=== PATIENT | female | born 1960 | race Caucasian/White ===

== ENCOUNTER 2016-04-07 03:34 | Emergency (ER) | payer BC ==
[~2016-04-07] VITALS: Ht 162.6 cm; Wt 71.0 kg
[~2016-04-07 03:34] MED LIST: B-COCAP2 PO; GINS100C; GLUCTAB18 PO; LYR100 PO; MTR/600; TEMA15CA4 PO; TRAM-10 PO
[2016-04-07 03:42] VITALS: TEMP 36.5; Ht 162.6 cm; Wt 71.0 kg
[2016-04-07] MEDS ORDERED: SODIUM CHLORIDE 0.9% 1000ML 1,000 ML IV STA (03:55)
[2016-04-07] MEDS ORDERED: OPTIRAY 320 IV PRN (04:15)
--- NOTE | 2016-04-07 04:23 | EMERGENCY ROOM VISIT NOTE ---
History Report prepared by Federica: Nettie Morales Under the Supervision of: Dr. Filippo Marquez M.D. First contact with patient: 03:52 Chief Complaint: HIP PAIN Stated Complaint: SEVERE PAIN IN LEFT HIP AND LEG History of Present Illness The patient is a 55 year old female who presents to the Emergency Room with complaints of left hip pain which has been constant since yesterday. Her pain is a 10/10 in severity and is worse when she bears weight. The pain radiates down her left leg. The patient notes that she twisted her leg yesterday, which she thinks may have triggered this pain. She does have a history of chronic left hip pain and receives Cortisone shots. 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 She did take her nighttime medications, Seroquel and Clonazepam, before bed. Source of History: patient Onset: yesterday Position: other (left hip) Symptom Intensity: 10/10 Timing: constant Modifying Factors (Worsening): other (bearing weight) Review of Systems See HPI for pertinent positives & negatives. A total of 10 systems reviewed and were otherwise negative. Past Medical & Surgical Medical Problems: (1) Bipolar disorder (2) Carcinoma of breast (3) Diabetes mellitus (4) Gastroesophageal reflux disease (5) Osteoporosis (6) r (7) [place] Teeth Removal Family History Patient reports no known family medical history. Social History Smoking Status: Current Every Day Smoker Alcohol Use: occasionally Marital Status: Housing Status: lives with significant other Occupation Status: unemployed Current/Historical Medications Scheduled Bupropion HCl (Bupropion HCl Xl), 300 MG PO QAM Bupropion Hcl (Wellbutrin Xl), 150 MG PO QAM Cholecalciferol (Vitamin D3), 1,000 UNIT PO DAILY Fenofibrate (Fenofibrate), 145 MG PO DAILY Ginseng (Ginseng Energy Booster), DAILY Glucosamine-Chondroitin (Osteo Bi-Flex Regular Str), 1 TAB PO BID Lisinopril (Lisinopril), 1 TAB PO QPM Metformin Hcl (Glucophage), 500 MG PO BIDM Methylprednisolone (Medrol Dosepak), 1 PKT PO UD Multivitamins/Minerals (Mvi With Minerals), 1 TAB PO DAILY Pregabalin (Lyrica), 100 MG PO BID Temazepam (Restoril), 15 MG PO HS Vitamin B Cmplx/Vitc/Folic Ac (Nephrocaps), 1 CAP PO DAILY Scheduled PRN Oxycodone Ir (Roxicodone Ir), 1-2 TAB PO Q4H PRN for Pain Tramadol (Ultram), 50 MG PO BID PRN for Pain Allergies Coded Allergies: Quinolones (Verified Allergy, Severe, ANAPHYLAXIS/CARDIAC ARREST, 04/07/16) Rizatriptan (Verified Allergy, Severe, SHORTNESS OF BREATH, 04/07/16) Amoxicillin (Verified Allergy, Mild, HIVES, 04/07/16) Ciprofloxacin (Verified Allergy, Mild, Palpitations, rash,, 04/07/16) Lamotrigine (Verified Allergy, Mild, RASH, 04/07/16) Neomycin (Verified Allergy, Mild, 04/07/16) Polymyxin B (Verified Allergy, Mild, 04/07/16) Adhesives (Verified Allergy, Unknown, ALLERGIC TO STERI-STRIPS, 04/07/16) Cephalosporins (Verified Allergy, Unknown, UNKN, 04/07/16) Citalopram (Verified Allergy, Unknown, UNKN, 04/07/16) Clavulanic Acid (Verified Allergy, Unknown, UNKN, 04/07/16) Metronidazole (Verified Allergy, Unknown, UNKN, 04/07/16) Paroxetine (Verified Allergy, Unknown, UNKN, 04/07/16) Penicillins (Verified Allergy, Unknown, UNKN, 04/07/16) Piperacillin (Verified Allergy, Unknown, BETALACTAMASE INHIBITORS, 04/07/16 ) Tazobactam (Verified Allergy, Unknown, BETALACTAMASE INHIBITORS, 04/07/16) Celecoxib (Verified Adverse Reaction, Intermediate, GI SYMPTOMS, 04/07/16) Gluten (Verified Adverse Reaction, Unknown, GI SYMPTOMS, 04/07/16) Physical Exam Vital Signs Date Time Temp Pulse Resp B/P Pulse Ox O2 Delivery O2 Flow Rate FiO2 04/07/16 06:44 85 14 97/62 97 04/07/16 06:10 79 14 95 04/07/16 05:58 131/77 04/07/16 05:40 79 12 95 04/07/16 05:28 108/75 04/07/16 05:10 80 14 91 04/07/16 05:05 82 21 92 04/07/16 04:58 102/60 04/07/16 04:35 76 22 95 04/07/16 04:35 75 18 105/76 97 Room Air 04/07/16 04:00 74 16 97/57 97 Room Air 04/07/16 03:54 73 04/07/16 03:51 86/54 04/07/16 03:42 36.5 74 16 76/46 96 Room Air Physical Exam GENERAL: Patient appears under the influence of sedative medications and in mild distress, slowly writhing on bed. HEENT: No acute trauma, normocephalic atraumatic, mucous membranes moist, no nasal congestion, no scleral icterus. NECK: No stridor, no adenopathy, no meningismus, trachea is midline. LUNGS: No dyspnea. Clear to auscultation and equal bilaterally. No wheeze, no rhonchi. HEART: Regular rate and rhythm. No murmurs, rubs, gallops appreciated. ABDOMEN: Soft, nontender, bowel sounds positive, no masses appreciated, no peritonitis. BACK: No midline tenderness, no CVA tenderness EXTREMITIES: Normal motion all extremities, no cyanosis, no edema. NEUROLOGIC: Alert and oriented, no acute motor or sensory deficits, no focal weakness, cranial nerves grossly intact. SKIN: No rash, no jaundice, no diaphoresis. Medical Decision & Procedures ER Provider Diagnostic Interpretation: CT results as stated below per interpretation by me and the radiologist: CT ABDOMEN & PELVIS: Compared with 01/05/16 Colonic diverticulosis without acute diverticulitis. No bowel obstruction or inflammatory changes. Fatty enlarged liver. Distended gallbladder. No CT evidence of pancreatitis. No obstructive uropathy. Stable 2.4 cm left adrenal nodule. Appendix not seen. Uterus and adnexa unremarkable. Lung bases clear Radiologist: Alida Diaz MD Laboratory Results 04/07/16 04:10 Red Blood Count 3.73, Mean Corpuscular Volume 95.2, Mean Corpuscular Hemoglobin 32.2, Mean Corpuscular Hemoglobin Concent 33.8, Mean Platelet Volume 10.5, Neutrophils (%) (Auto) 54.7, Lymphocytes (%) (Auto) 35.6, Monocytes (%) (Auto) 7.4, Eosinophils (%) (Auto) 1.3, Basophils (%) (Auto) 0.2, Neutrophils # (Auto) 6.96, Lymphocytes # (Auto) 4.52, Monocytes # (Auto) 0.94, Eosinophils # (Auto) 0.16, Basophils # (Auto) 0.02 04/07/16 04:10 Test 04/07/16 04:10 04/07/16 04:15 04/07/16 05:18 White Blood Count 12.70 K/uL (4.8-10.8) Red Blood Count 3.73 M/uL (4.2-5.4) Hemoglobin 12.0 g/dL (12.0-16.0) Hematocrit 35.5 % (37-47) Mean Corpuscular Volume 95.2 fL (80-100) Mean Corpuscular Hemoglobin 32.2 pg (25-34) Mean Corpuscular Hemoglobin Concent 33.8 g/dl (32-36) Platelet Count 220 K/uL (130-400) Mean Platelet Volume 10.5 fL (7.4-10.4) Neutrophils (%) (Auto) 54.7 % Lymphocytes (%) (Auto) 35.6 % Monocytes (%) (Auto) 7.4 % Eosinophils (%) (Auto) 1.3 % Basophils (%) (Auto) 0.2 % Neutrophils # (Auto) 6.96 K/uL (1.4-6.5) Lymphocytes # (Auto) 4.52 K/uL (1.2-3.4) Monocytes # (Auto) 0.94 K/uL (0.11-0.59) Eosinophils # (Auto) 0.16 K/uL (0-0.5) Basophils # (Auto) 0.02 K/uL (0-0.2) RDW Standard Deviation 49.3 fL (36.4-46.3) RDW Coefficient of Variation 14.4 % (11.5-14.5) Immature Granulocyte % (Auto) 0.8 % Immature Granulocyte # (Auto) 0.10 K/uL (0.00-0.02) Est Creatinine Clear Calc Drug Dose 60.0 ml/min Estimated GFR () 72.4 Estimated GFR (Non- 62.5 BUN/Creatinine Ratio 18.6 (10-20) Calcium Level 8.5 mg/dl (8.5-10.1) Bedside Hemoglobin 12.2 g/dl (12.0-16.0) Bedside Hematocrit 36 % (37-47) Bedside Sodium 141 mEq/L (135-144) Bedside Potassium 3.9 mEq/L (3.3-5.0) Bedside Chloride 103 mEq/L (101-112) Bedside Total CO2 23 mEq/l (24-31) Anion Gap 20.0 mmol/L (16-25) Bedside Blood Urea Nitrogen 19 mg/dl (7-18) Bedside Creatinine 0.9 mg/dl (0.6-1.3) Bedside Glucose (other) 123 mg/dl (70-99) Bedside Ionized Calcium (Annemarie) 1.22 mmol/l (1.12-1.32) Urine Color YELLOW Urine Appearance CLEAR (CLEAR) Urine pH 5.0 (4.5-7.5) Urine Specific [place] 1.030 (1.000-1.030) Urine Protein NEG (NEG) Urine Glucose (UA) NEG (NEG) Urine Ketones NEG (NEG) Urine Occult Blood NEG (NEG) Urine Nitrite NEG (NEG) Urine Bilirubin NEG (NEG) Urine Urobilinogen NEG (NEG) Urine Leukocyte Esterase TRACE (NEG) Urine WBC (Auto) 1-5 /hpf (0-5) Urine RBC (Auto) 0-4 /hpf (0-4) Urine Hyaline Casts (Auto) 1-5 /lpf (0-5) Urine Epithelial Cells (Auto) 10-20 /lpf (0-5) Urine Bacteria (Auto) NEG (NEG) Laboratory results as reviewed by me. Medications Administered Medications (Trade) Dose Ordered Sig/Jennifer Route Start Time Stop Time Status Last Admin Dose Admin Sodium Chloride (Nss 1000ml) 1,000 ml @ 999 mls/hr Q1H1M STAT IV 04/07/16 03:55 04/07/16 04:55 DC 04/07/16 04:35 999 MLS/HR Fentanyl Citrate (Fentanyl Inj) 100 mcg NOW STAT IV 04/07/16 04:37 04/07/16 04:38 DC 04/07/16 04:40 100 MCG Hydromorphone HCl (Dilaudid Inj) 1 mg NOW STAT IV 04/07/16 05:46 04/07/16 05:47 DC 04/07/16 06:07 1 MG Dexamethasone Sodium Phosphate (Decadron Inj) 10 mg NOW ONCE IV 04/07/16 06:00 04/07/16 06:01 DC 04/07/16 06:07 10 MG ED Course 0353: The patient was evaluated in room B2. A complete history and physical exam was performed. 0355: Ordered NSS 1000 ml @ 999 mls/hr IV. 0437: Ordered Fentanyl Citrate 100 mcg IV. 0450: I reassessed the patient. Her blood pressure has improved. 0546: I reassessed the patient. Initially she was feeling better but now her pain is starting to return. Ordered Dilaudid Inj 1 mg IV. 0600: Ordered Decadron Inj 10 mg IV. 0632: Reevaluated the patient. She was feeling much better and wants to go home. Discussed results and discharge instructions: She verbalized understanding and agreement. The patient is ready for discharge. Medical Decision Differential: Musculoskeletal, Disc Herniation, Fracture, Cord Compression, Discitis, Infectious, Aortic Pathology, Renal Colic, UTI/Pyelonephritis, Acute Exacerbation of Chronic Pain, Sciatica, Cauda Equina, amongst other pathologies entertained. 55 yr old female with acute worsening of left low back radiating down her left leg after twisting injury yesterday. She is in quite some distress though a bit hypotensive from her normal. She and her note she does run low but SBP 70s is lower than usual. Admits multiple sedative medications prior to going to bed. With hypotension and flank/back pain I felt there is no option but to get CT abdomen which fortunately was without acute intraabdominal findings. Given Fentanyl with improvement in BP. Pain much improved but did need some extra meds prior to discharge. She is stable without neuro deficits and feeling improved. This has happened before and improves with steroids. She will be given Rx for limited narcotics as this is weekend and no recent narc rx other than tramadol. She was stringently discussed with risks of taking other sedatives with these along with other contraindications. She is stable, feeling better and comfortable with outpatient therapy. Aware if out of control pain RTED, or if neuro deficits develop. She has no fevers to nor current reason to suspect epidural abscess. [place] Drug Monitoring [place] Search Results: patient reviewed within database, see additional documentation Drug Monitoring Findings: Multiple controlled prescriptions, narcotic being tramadol. Impression Primary Impression: Acute left-sided low back pain with sciatica Scribe Attestation The scribe's documentation has been prepared under my direction and personally reviewed by me in its entirety. I confirm that the note above accurately reflects all work, treatment, procedures, and medical decision making performed by me. Departure Information Dispostion Home / Self-Care Prescriptions Methylprednisolone (MEDROL DOSEPAK) 4 Mg Roberto 1 PKT PO UD for 6 Days, #1 PKT Prov: Filippo Marquez M.D. 04/07/16 Oxycodone Ir (Roxicodone Ir) 5 Mg Tab 1-2 TAB PO Q4H Y for Pain, #12 TAB Prov: Filippo Marquez M.D. 04/07/16 Referrals Justice Madera M.D. (PCP) Patient Instructions ED Sciatica, [facility] Additional Instructions You have received a narcotic pain medication prescription. These medications may cause drowsiness and should not be used with other sedative medications. Do not drive, drink alcohol, perform dangerous activities, nor make important decisions after taking these medications. assisted use or inappropriate use may lead to addiction. Problem Qualifiers Primary Impression: Acute left-sided low back pain with sciatica Sciatica laterality: sciatica of left side Qualified Codes: M54.42 - Lumbago with sciatica, left side
[2016-04-07 04:27] LABS: BASO % 0.2 %; BASO ABS # 0.02 K/uL (0-0.2); COMPLETE YES; EOS % 1.3 %; HEMATOCRIT 35.5 % (37-47); IG% 0.8 %; LYMPH % 35.6 %; LYMPH ABS # 4.52 K/uL (1.2-3.4); MEAN CELL VOLUME 95.2 fL (80-100); MEAN CORPUSCULAR HEMOGLOBIN 32.2 pg (25-34); MEAN CORPUSCULAR HGB CONC 33.8 g/dl (32-36); MEAN PLATELET VOLUME 10.5 fL (7.4-10.4); MONO % 7.4 %; NEUT % 54.7 %; PLATELET COUNT 220 K/uL (130-400); RED BLOOD COUNT 3.73 M/uL (4.2-5.4)
[2016-04-07 04:33] LABS: ISTAT CREATININE 0.9 mg/dl (0.6-1.3); ISTAT HEMOGLOBIN 12.2 g/dl (12.0-16.0); ISTAT IONIZED CALCIUM 1.22 mmol/l (1.12-1.32)
[2016-04-07] MEDS ORDERED: FENTANYL CITRATE INJ 50 MCG/1 ML 2 ML VIAL IV STA (04:37)
[2016-04-07 04:44] LABS: BUN/CREATININE RATIO 18.6 (10-20); CALCIUM 8.5 mg/dl (8.5-10.1); POTASSIUM 3.9 mmol/L (3.5-5.1)
[2016-04-07] MEDS ORDERED: HYDROmorphone INJ 1 MG/ML SYR IV STA (05:46)
[2016-04-07 05:49] LABS: URINE APPEARANCE CLEAR (CLEAR); URINE BILIRUBIN NEG (NEG); URINE COLOR YELLOW; URINE NITRITE NEG (NEG); UROBILINOGEN NEG (NEG); ZZUR CULT IF INDIC CLEAN CATCH NO
[2016-04-07 05:51] LABS: MANUAL MICROSCOPIC REQUIRED? NO; REVIEW REQ? NO
[2016-04-07] MEDS ORDERED: DEXAMETHASONE SOD INJ 10 MG/ML VIAL IV ONE (06:00)
[2016-04-07] MEDS ORDERED: OXYC1TAB3 PO (06:34)
[2016-04-07] MEDS ORDERED: METH4PAK PO (06:34)
[2016-04-07 06:44] VITALS: BP 97/62; PULSE 85; O2SAT 97
--- NOTE | 2016-04-07 08:25 | DIAGNOSTIC IMAGING REPORT ---
CT ABD/PELVIS IV CONTRAST ONLY CLINICAL HISTORY: Left-sided abdominal pain COMPARISON STUDY: 01/05/2016 TECHNIQUE: Following the IV administration of 92 mL of Optiray-320, CT scan of the abdomen and pelvis was performed from the lung bases to the proximal femurs. Images are reviewed in the axial, sagittal, and coronal planes. IV contrast was administered without complication. CT DOSE: 364.29 mGy.cm FINDINGS: Lower chest: The heart is normal in size and configuration, without pericardial effusion. The lung bases and pleural spaces are clear. Liver: There is hepatic steatosis. No focal masses are visualized. Gallbladder: Unremarkable. Spleen: Normal in size and attenuation. Pancreas: Unremarkable. Adrenal glands: There is a stable 28 mm left adrenal nodule Kidneys: There is symmetric renal cortical enhancement. The kidneys are normal in size without hydronephrosis. Bowel: There are no transition zones indicate bowel obstruction. There is no evidence of acute diverticulitis. By history the appendix is absent. Peritoneum: There is no intraperitoneal free air or abdominal ascites. Vasculature: The abdominal aorta is normal in course and caliber. Adenopathy: None. Pelvic viscera: The bladder, and pelvic viscera are unremarkable. Skeletal structures: No destructive osseous lesions are seen. IMPRESSION: 1. No evidence of bowel obstruction. No evidence of free air 2. No acute inflammatory changes 3. Hepatic steatosis 4. Stable 28 mm left adrenal gland nodule Electronically signed by: Hany Nieves M.D. 04/07/2016 8:24 AM Dictated Date/Time: 04/07/2016 8:20 AM
[2016-09-12] MEDS ORDERED: GABA1CAP PO (09:34)
[2016-10-31] MEDS ORDERED: CEFD300C2 PO (10:25)
[2016-10-31] MEDS ORDERED: METR-163 PO (10:25)
[2016-11-30] MEDS ORDERED: B-CO1CAP17 PO (04:45)
[2016-11-30] MEDS ORDERED: CHOL1000 PO (08:19)
[2016-11-30] MEDS ORDERED: QUET400T PO (09:34)
[2016-11-30] MEDS ORDERED: OMEG10007 PO (09:34)
[2016-11-30] MEDS ORDERED: NICO2GUM7 PO (09:34)
[2016-11-30] MEDS ORDERED: GLUCTAB18 PO (09:34)
[2016-11-30] MEDS ORDERED: IBUP-1427 PO (09:35)
== END 2016-04-07 06:44 | disposition home or self-care (01) ==
LOC: C.EDB 03:35
DX: M54.42 Lumbago with sciatica, left side (principal); F17.210 Nicotine dependence, cigarettes, uncomplicated; F31.9 Bipolar disorder, unspecified; I95.9 Hypotension, unspecified; M25.552 Pain in left hip; M81.0 Age-related osteoporosis without current pathological fracture; Z85.3 Personal history of malignant neoplasm of breast

== ENCOUNTER → 2016-05-25 | Outpatient (CLI) | payer BC ==
[~2016-05-25] MED LIST changes: +B-CO1CAP17 PO; -B-COCAP2 PO; +BUPRTAB PO; +CEFD300C2 PO; +CHOL1000 PO; +DOXY100C PO; +DXM/4 PO; +FENO1TAB24 PO; +GABA1CAP PO; +GABA1CAP4 PO; +GLC/500 PO; +IBUP-1427 PO; +LSN25 PO; +METH500T37 PO; +METR-163 PO; -MTR/600; +MULT-513 PO; +NICO2GUM7 PO; +OMEG10007 PO; +ONDA-63 PO; +OXYC-609 PO; +OXYC1TAB3 PO; +QUET400T PO; +WLLXL300 PO
--- NOTE | 2016-05-25 12:21 | DIAGNOSTIC IMAGING REPORT ---
MRI LUMBAR SPINE WITHOUT IV CONTRAST CLINICAL HISTORY: Fall with low back pain. Degenerative disc disease. COMPARISON STUDY: MRI of lumbar spine dated 08/11/2015. TECHNIQUE: MRI of the lumbar spine is performed utilizing various T1 and T2-weighted sequences in the axial and sagittal planes. IV contrast was not administered for this examination. FINDINGS: Lumbar spine: Vertebral body height and alignment are maintained throughout the lumbar spine. There is mild straightening of the lumbar lordosis. The transverse and spinous processes are intact as visualized. No destructive osseous lesion is seen. A hemangioma is again seen in the body of L1. There is no evidence of spondylolysis. Intervertebral discs: Mild degenerative disc desiccation is noted throughout the lumbar spine. Mild loss of height is seen at L3-L4. Spinal cord: The visualized spinal cord is normal in morphology and signal intensity. The conus medullaris terminates at the T12-L1 interspace. The nerve roots of the cauda equina are normal in appearance. L1-L2: Unremarkable. L2-L3: Unremarkable. L3-L4: There is minimal posterior disc bulge with annular fissure. There is no significant acquired compromise of the central canal. The minimum AP diameter at this level measures 9 mm. Mild bilateral subarticular stenosis is observed. The neural foramina are patent. Facet arthropathy is of no consequence. L4-L5: There is minimal posterior disc bulge with annular fissure. There is no significant acquired compromise of the central canal. The neural foramina are patent. L5-S1: Unremarkable. Sacrum: Visualized sacrum is normal in morphology and signal intensity. Soft tissues: The paraspinous soft tissues are within normal limits. The partially imaged retroperitoneal structures are grossly unremarkable but incompletely evaluated. IMPRESSION: 1. There is no disc herniation, central canal stenosis, or significant neural foraminal narrowing seen throughout the lumbosacral spine. 2. Mild degenerative disc disease as above, greatest at L3-L4 and L4-L5. 3. No destructive bony process is identified. Dictated: 05/25/2016 10:50 AM Transcribed: 05/25/2016 12:21 PM [facility] Electronically signed by: Colin Clifford M.D. 05/25/2016 12:22 PM Dictated Date/Time: 05/25/2016 10:50 AM
== END | disposition home or self-care (01) ==
LOC: C.MRIBC 09:45
PROVIDERS: ATTEND Orthopaedic Surgery Orthopaedic Surgery of the Spine
DX: M51.36 Other intervertebral disc degeneration, lumbar region (principal)

== ENCOUNTER → 2016-06-18 | Outpatient (CLI) | payer BC ==
[~2016-06-18] MED LIST changes: +ACET-749 PO
--- NOTE | 2016-06-19 15:17 | MAMMOGRAPHY REPORT ---
BILATERAL DIGITAL SCREENING MAMMOGRAM TOMOSYNTHESIS WITH CAD: 06/18/2016 CLINICAL HISTORY: Routine screening. Patient has no complaints. TECHNIQUE: Breast tomosynthesis in addition to standard 2D mammography was performed. Current study was also evaluated with a Computer Aided Detection (CAD) system. COMPARISON: Comparison is made to exams dated: 06/15/2015 mammogram, 05/13/2014 mammogram, 05/11/2013 ashli mogram, 04/10/2012 mammogram, 04/09/2011 mammogram, and 04/07/2010 mammogram - [facility] nter. BREAST COMPOSITION: The tissue of both breasts is heterogeneously dense, which may obscure small ma sses. FINDINGS: There is a focal asymmetry with possible associated distortion in the upper outer middle one third of the left breast, approximately 1:00 axis, for which additional targeted ultrasound and possible additional mammographic views are recommended. There is expected architectural distortion in the 12:00 left breast, from prior surgical excision. There are scattered stable rodlike and coarse calcifications bilaterally. No other suspicious mass, architectural distortion or cluster of microcalcifications is seen. IMPRESSION: ACR BI-RADS CATEGORY 0: INCOMPLETE EVALUATION: NEED ADDITIONAL IMAGING EVALUATION The focal asymmetry with possible associated architectural distortion in the left upper outer breast needs additional evaluation. The patient will be called to schedule an appointment. Approximately 10% of breast cancers are not detected with mammography. A negative mammographic repor t should not delay biopsy if a clinically suggestive mass is present. Amanda Cano M.D. ay/:06/18/2016 16:22:17 Rigging Engineer: Maggi ANGEL(R)(M), [facility] letter sent: Addl Imaging 0 BI-RADS Code: ACR BI-RADS Category 0: Incomplete Evaluation: Need Additional Imaging Evaluation
== END | disposition home or self-care (01) ==
LOC: C.MAMM 09:15
PROVIDERS: ATTEND Obstetrics & Gynecology
DX: Z12.31 Encounter for screening mammogram for malignant neoplasm of breast (principal); N64.89 Other specified disorders of breast

== ENCOUNTER → 2016-06-25 | Outpatient (CLI) | payer BC ==
--- NOTE | 2016-06-25 15:17 | MAMMOGRAPHY REPORT ---
UNILATERAL LEFT DIGITAL DIAGNOSTIC MAMMOGRAM TOMOSYNTHESIS AND TARGETED LEFT ULTRASOUND: 06/25/2016 CLINICAL HISTORY: 55 year-old woman called back from screening mammography for a focal asymmetry in the upper outer middle one third of the left breast. 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 She took Tamoxifen for 1 year. No radiation therapy. Family his tory of breast cancer = aunt. TECHNIQUE: Spot compression left CC and MLO 2-D digital and tomosynthesis images were obtained. COMPARISON: Comparison is made to exams dated: 06/18/2016 mammogram, 06/15/2015 mammogram, 05/13/2014 ma mmogram, 05/11/2013 mammogram, 04/09/2011 mammogram, and 04/07/2010 mammogram - [facility] nter. BREAST COMPOSITION: There are scattered areas of fibroglandular density in the left breast. FINDINGS: A linear scar marker overlies the 12:00 posterior left breast, denoting an area of prior s urgery. There is an irregular and somewhat spiculated 12 x 8 x 14 mm mass in the upper outer middle one third of the left breast. There are benign appearing rim and rodlike calcifications in the vis ualized left breast. No other obvious mass or focal area of architectural distortion is seen. No s uspicious clustered microcalcifications. Targeted ultrasound was performed in the left upper outer quadrant. In the 1:00 axis, 5 cm from the nipple, there is a hypoechoic solid mass with angular and indistinct borders measuring approximatel y 8.0 x 3.6 x 6.3 mm. As it is difficult to obtain accurate size measurements on ultrasound, the si ze may be underestimated on these images. This is thought to correlate with the focal mammographic asymmetry/mass. This is indeterminate, warranting further evaluation with tissue sampling. IMPRESSION: ACR BI-RADS CATEGORY 4B: INTERMEDIATE SUSPICION FOR MALIGNANCY, TARGETED ULTRASOUND ACR BI-RADS CATEGORY 4B: INTERMEDIATE SUSPICION FOR MALIGNANCY 1. Ultrasound guided core needle biopsy is recommended for an ill-defined hypoechoic solid angular and somewhat spiculated mass in the 1:00 left breast, 5 cm from the nipple. Accurate size measureme nts are difficult to obtain on ultrasound given the ill-defined borders, but the mass measures appro ximately 12 mm when measured mammographically. These results and recommendations were discussed with the patient at the time of the exam. She tent atively scheduled the biopsy prior to leaving our department. Approximately 10% of breast cancers are not detected with mammography. A negative mammographic repor t should not delay biopsy if a clinically suggestive mass is present. Amanda Cano M.D. ay/:06/25/2016 14:10:58 Revenue Manager: Jovanna DUMONT)(Radha), [facility] letter sent: Abnormal 4/5 BI-RADS Code: ACR BI-RADS Category 4B: Intermediate Suspicion For Malignancy Ultrasound BI-RADS: AC R BI-RADS Category 4B: Intermediate Suspicion For Malignancy
== END | disposition home or self-care (01) ==
LOC: C.MAMM 13:22
PROVIDERS: ATTEND Obstetrics & Gynecology
DX: N64.89 Other specified disorders of breast (principal)

== ENCOUNTER → 2016-07-06 | Outpatient (CLI) | payer BC ==
--- NOTE | 2016-07-06 11:09 | Discharge Instructions ---
Discharge Instructions Procedure Procedure Date: Jul 06, 2016. Reason for visit: Left Mass. Discharge Discharge Date: Jul 06, 2016. Discharge Diagnosis: status post breast biopsy Instructions Activity Recommendations: Additional Limitations (see below) Return to School/Work: no limitations Recommended Home Diet: No Limitations Provider Instructions: ACTIVITY RECOMMENDATIONS: * No lifting, pushing, pulling or exercising the affected side for three days. RETURN TO SCHOOL/WORK: * You may return to work/school after the procedure, but do not perform any strenuous activities for 24 to 48 hours. MEDICATIONS: * Tylenol (two 325 mg) every four to six hours if needed for mild pain (if not allergic to Tylenol). DIET: * Resume previous diet. SPECIAL CARE INSTRUCTIONS: * Keep biopsy site dry for 24 hours. May shower after 24 hours, but do not soak (bathe) incision. * May remove Tegaderm (plastic patch) tomorrow AFTER showering. * Leave the steri-strips on for one week. Allow the steri-strips to fall off by themselves. If not off after one week, you may remove them. You may place a Bandaid crosswise over the strips, if desired. * Apply ice 10 minutes on and 10 minutes off as needed. * Wear a bra at bedtime to sleep more comfortably for 2-3 days. * Your referring physician should have the results after approximately 5 to 7 business days. * Call for unusual bleeding, fever, drainage, etc or if you have any questions call during normal business hours or after hours call Dr Saavedra, [phone]. FOLLOW UP VISIT: Follow-up with Referring Physician as scheduled. Allergies Coded Allergies: Quinolones (Verified Allergy, Severe, ANAPHYLAXIS/CARDIAC ARREST, 04/07/16) Rizatriptan (Verified Allergy, Severe, SHORTNESS OF BREATH, 04/07/16) Amoxicillin (Verified Allergy, Mild, HIVES, 04/07/16) Ciprofloxacin (Verified Allergy, Mild, Palpitations, rash,, 04/07/16) Lamotrigine (Verified Allergy, Mild, RASH, 04/07/16) Neomycin (Verified Allergy, Mild, 04/07/16) Polymyxin B (Verified Allergy, Mild, 04/07/16) Adhesives (Verified Allergy, Unknown, ALLERGIC TO STERI-STRIPS, 04/07/16) Cephalosporins (Verified Allergy, Unknown, UNKN, 04/07/16) Citalopram (Verified Allergy, Unknown, UNKN, 04/07/16) Clavulanic Acid (Verified Allergy, Unknown, UNKN, 04/07/16) Metronidazole (Verified Allergy, Unknown, UNKN, 04/07/16) Paroxetine (Verified Allergy, Unknown, UNKN, 04/07/16) Penicillins (Verified Allergy, Unknown, UNKN, 04/07/16) Piperacillin (Verified Allergy, Unknown, BETALACTAMASE INHIBITORS, 04/07/16 ) Tazobactam (Verified Allergy, Unknown, BETALACTAMASE INHIBITORS, 04/07/16) Celecoxib (Verified Adverse Reaction, Intermediate, GI SYMPTOMS, 04/07/16) Gluten (Verified Adverse Reaction, Unknown, GI SYMPTOMS, 04/07/16) Aide Merrill Recommendations: Call your doctor if: * Temperature above 101 degrees * Pain not relieved by pain medicine ordered * There is increased drainage or redness from any incision * You have any unanswered questions or concerns. Your Doctors Instructions noted above were prepared by provider Carola Saavedra. Patient Signature Section: Patient Instructions Signature Page Shaheed Son Patient (or Guardian) Signature/Date: I have read and understand the instructions given to me by my caregivers. Caregiver/RN/Doctor Signature/Date: The above-named patient and/or guardian has received patient instructions on this date. + Original Patient Signature Page (only) stays with chart. Please make copy for patient.
--- NOTE | 2016-07-06 14:57 | MAMMOGRAPHY REPORT ---
UNILATERAL LEFT DIGITAL DIAGNOSTIC MAMMOGRAM TOMOSYNTHESIS: 07/06/2016 CLINICAL HISTORY: Status post ultrasound guided biopsy of the left 1:00 breast mass. TECHNIQUE: Breast tomosynthesis in addition to standard 2D mammography was performed. Postprocedur al left CC and ML tomosynthesis images including C views were obtained. COMPARISON: Comparison is made to exams dated: 06/25/2016 ultrasound, 06/25/2016 mammogram, 06/18/2016 mammogram, 06/15/2015 mammogram, 05/13/2014 mammogram, and 05/11/2013 mammogram - [facility]. BREAST COMPOSITION: There are scattered areas of fibroglandular density in the left breast. FINDINGS: A new biopsy marker clip is seen at the site of the biopsied mass in the left 1:00 breast . No significant postbiopsy hematoma is seen. IMPRESSION: POST PROCEDURE IMAGING FOR MARKER PLACEMENT New biopsy marker clip status post left breast biopsy. Pathology results are pending. Approximately 10% of breast cancers are not detected with mammography. A negative mammographic repor t should not delay biopsy if a clinically suggestive mass is present. Carola Saavedra M.D. /:07/06/2016 11:19:06 Comic Book Artist: Judd ANGEL(R)(M), [facility] BI-RADS Code: Post Procedure Imaging For Marker Placement
--- NOTE | 2016-07-06 14:57 | MAMMOGRAPHY REPORT ---
THIS REPORT HAS BEEN AMENDED. AMENDMENT: 07/18/2016 Carola Saavedra M.D. The pathology from ultrasound-guided biopsy of a left 1:00 breast mass was reviewed on 07/18/2016. 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 The pathology is concordant with the imaging findings. Recommend surgical consultation. Also recommend preoperativ e bilateral breast MRI, given the subtle mammographic appearance of the malignancy and given dense b reasts mammographically. ULTRASOUND GUIDED BIOPSY LEFT BREAST: 07/06/2016 CLINICAL HISTORY: Left 1:00 breast mass. PATIENT CONSENT: The procedure, risks and benefits were discussed with the patient and informed writ ten consent was obtained. A timeout was performed immediately prior to the procedure. PROCEDURE DESCRIPTION: With ultrasound guidance, aseptic technique, and lidocaine as the local anest hetic (1% lidocaine to anesthetize the skin and 1% lidocaine with epinephrine to anesthetize the mateo per tissues), the mass of concern in the left 1:00 breast was sampled 4 times with a 14-gauge Achiev e biopsy needle. Immediately thereafter, with ultrasound guidance, aseptic technique, and lidocaine as the local anesthetic, a metallic localizer clip was placed centrally in the mass. Direct pressu re was applied to the site immediately post procedure and hemostasis was achieved. Postprocedure un ilateral mammograms were performed to confirm placement of the clip in the expected location of the breast mass. The patient tolerated the procedure without complication. She was given wound care in structions. The specimens were sent to pathology for analysis. COMPARISON: Comparison is made to exams dated: 06/25/2016 mammogram, 06/18/2016 mammogram, 06/15/2015 m ammogram, 05/13/2014 mammogram, 05/11/2013 mammogram, and 04/10/2012 mammogram - [facility]. IMPRESSION: ULTRASOUND GUIDED BIOPSY Ultrasound guided core needle biopsy of the left 1:00 breast mass, with clip placement. The patient will receive pathology results from her referring provider. Carola Saavedra M.D. /:07/06/2016 11:10:21 Attending Technologist: Judd ANGEL(Delroy)(Radha), [facility] Aerial Applicator Pilot: Carola Saavedra MD, [facility]
== END | disposition home or self-care (01) ==
LOC: C.MAMM 10:07
PROVIDERS: ATTEND Obstetrics & Gynecology
DX: C50.912 Malignant neoplasm of unspecified site of left female breast (principal)

== ENCOUNTER → 2016-07-20 | Outpatient (CLI) | payer BC ==
[~2016-07-20] MED LIST changes: +GADAVIST IV PRN
--- NOTE | 2016-07-23 14:46 | MAMMOGRAPHY REPORT ---
BREAST MRI OF BOTH BREASTS : 07/20/2016 CLINICAL HISTORY: Recent ultrasound core needle biopsy of a left breast mass, with pathology yieldin g invasive carcinoma with ductal and lobular features. COMPARISON: Comparison is made to exams dated: 07/06/2016 mammogram, 06/25/2016 mammogram, 06/18/2016 mammogram, 06/15/2015 mammogram, 05/13/2014 mammogram, and 05/11/2013 mammogram - [facility] nt. Technique: The patient was placed prone in a dedicated breast imaging coil. Precontrast axial T1-we ighted, axial T2-weighted fat saturation, and axial T1-weighted fat saturation images were obtained. After the administration of 7 mL of Gadavist IV contrast, sequential T1-weighted fat saturation im ages were obtained. Subtraction images were obtained of the dynamic contrast enhanced sequences, an d 3-D reformations were performed. The [employer] software was used for kinetic analysis. Findings: Right breast: There is mild background parenchymal enhancement. There is a linear area of non-mass enhancement me asuring 6 mm within the right 12:00 breast middle depth, which demonstrates a mixed kinetic pattern including washout kinetics (series 55499 image 46 and series 6 image 101). Given the linear distrib ution of the enhancement and given the presence of washout kinetics, the enhancement is indeterminat e. As the abnormality would likely not be seen on ultrasound, recommend MRI guided core needle biop sy for further evaluation. The remainder of the right breast demonstrates no suspicious masses or o ther abnormal enhancement. Left breast: There is mild background parenchymal enhancement. There is an enhancing irregular mass seen in the left 1:00 breast middle depth, consistent with the biopsy proven malignancy. The mass measures measuring 13 x 14 x 10 mm (series 28609 image 50 and series 6 image 19). Susceptibility ar tifact is seen within the mass from a biopsy marker clip. The mass demonstrates mixed kinetic patte rn including suspicious washout kinetics. The remainder of the left breast is negative, with no soy picious enhancing masses or other abnormal enhancement noted. There is no evidence of axillary adenopathy. The chest wall structures are negative. Visualized ex tramammary soft tissues are grossly unremarkable. IMPRESSION: ACR BI-RADS CATEGORY 4: SUSPICIOUS 1. Irregular enhancing 14 mm mass in the left 1:00 breast, consistent with the biopsy-proven malign alberto. 2. Linear non-mass enhancement measuring 6 mm in the right 12:00 breast. Given the linear distribu tion and given that it exhibits washout kinetics, it is indeterminate and MRI guided core needle bio psy is recommended for further evaluation. A phone call was made to the physician's office to confirm faxed results were received. Carola Saavedra M.D. ah/:07/21/2016 15:37:32 Campus Aide: population geneticist, [facility] BI-RADS Code: ACR BI-RADS Category 4: Suspicious
== END | disposition home or self-care (01) ==
LOC: C.MRI 06:24
PROVIDERS: ATTEND Surgery
DX: C50.911 Malignant neoplasm of unspecified site of right female breast (principal)

== ENCOUNTER → 2016-08-08 | Outpatient (CLI) | payer BC ==
[~2016-08-08] MED LIST changes: +LIDO/EPINEPHRINE/SOD BICARB 20 ML VIAL INFIL ONE; +XYLOCAINE 1%/SOD BICARB 20 ML VIAL INFIL ONE
--- NOTE | 2016-08-08 12:41 | Discharge Instructions ---
Discharge Instructions Procedure Procedure Date: August 08, 2016. Reason for visit: Right Non-Mass Enhancement. Discharge Discharge Date: August 08, 2016. Discharge Diagnosis: post right breast MRI guided biopsy Instructions Activity Recommendations: Additional Limitations (see below) Return to School/Work: no limitations Recommended Home Diet: No Limitations Provider Instructions: ACTIVITY RECOMMENDATIONS: * No lifting, pushing, pulling or exercising the affected side for three days. RETURN TO SCHOOL/WORK: * You may return to work/school after the procedure, but do not perform any strenuous activities for 24 to 48 hours. MEDICATIONS: * Tylenol (two 325 mg) every four to six hours if needed for mild pain (if not allergic to Tylenol). DIET: * Resume previous diet. SPECIAL CARE INSTRUCTIONS: * Keep biopsy site dry for 24 hours. May shower after 24 hours, but do not soak (bathe) incision. * May remove Tegaderm (plastic patch) tomorrow AFTER showering. * Leave the steri-strips on for one week. Allow the steri-strips to fall off by themselves. If not off after one week, you may remove them. You may place a Bandaid crosswise over the strips, if desired. * Apply ice 10 minutes on and 10 minutes off as needed. * Wear a bra at bedtime to sleep more comfortably for 2-3 days. * Your referring physician should have the results after approximately 5 to 7 business days. * Call for unusual bleeding, fever, drainage, etc or if you have any questions call [phone] during normal business hours or after hours call Dr Cano, . FOLLOW UP VISIT: Follow-up with Referring Physician as scheduled. Allergies Coded Allergies: Quinolones (Verified Allergy, Severe, ANAPHYLAXIS/CARDIAC ARREST, 04/07/16) Rizatriptan (Verified Allergy, Severe, SHORTNESS OF BREATH, 04/07/16) Amoxicillin (Verified Allergy, Mild, HIVES, 04/07/16) Ciprofloxacin (Verified Allergy, Mild, Palpitations, rash,, 04/07/16) Lamotrigine (Verified Allergy, Mild, RASH, 04/07/16) Neomycin (Verified Allergy, Mild, 04/07/16) Polymyxin B (Verified Allergy, Mild, 04/07/16) Adhesives (Verified Allergy, Unknown, ALLERGIC TO STERI-STRIPS, 04/07/16) Cephalosporins (Verified Allergy, Unknown, UNKN, 04/07/16) Citalopram (Verified Allergy, Unknown, UNKN, 04/07/16) Clavulanic Acid (Verified Allergy, Unknown, UNKN, 04/07/16) Metronidazole (Verified Allergy, Unknown, UNKN, 04/07/16) Paroxetine (Verified Allergy, Unknown, UNKN, 04/07/16) Penicillins (Verified Allergy, Unknown, UNKN, 04/07/16) Piperacillin (Verified Allergy, Unknown, BETALACTAMASE INHIBITORS, 04/07/16 ) Tazobactam (Verified Allergy, Unknown, BETALACTAMASE INHIBITORS, 04/07/16) Celecoxib (Verified Adverse Reaction, Intermediate, GI SYMPTOMS, 04/07/16) Gluten (Verified Adverse Reaction, Unknown, GI SYMPTOMS, 04/07/16) Adie Merrill Recommendations: Call your doctor if: * Temperature above 101 degrees * Pain not relieved by pain medicine ordered * There is increased drainage or redness from any incision * You have any unanswered questions or concerns. Your Doctors Instructions noted above were prepared by provider Amanda Cano. Patient Signature Section: Patient Instructions Signature Page Shaheed Son Patient (or Guardian) Signature/Date: I have read and understand the instructions given to me by my caregivers. Caregiver/RN/Doctor Signature/Date: The above-named patient and/or guardian has received patient instructions on this date. + Original Patient Signature Page (only) stays with chart. Please make copy for patient.
--- NOTE | 2016-08-08 14:09 | MAMMOGRAPHY REPORT ---
MRI BIOPSY RIGHT BREAST: 08/08/2016 CLINICAL HISTORY: 6 mm linear non-mass enhancement in the 12:00 middle one third of the right breast . Patient presents for MRI guided biopsy. History of recent biopsy-proven left breast cancer. COMPARISON: Comparison is made to exams dated: 07/20/2016 breast MRI, 07/06/2016 ultrasound biopsy, mammogram, 06/25/2016 ultrasound, 06/25/2016 mammogram, and 06/18/2016 mammogram - [facility]. PATIENT CONSENT: After explaining the risks, benefits and alternatives of the procedure to the patie nt, informed consent was obtained both verbally and in writing. Specific risks include: Bleeding, i nfection, puncture of adjacent structure, medication reaction, breast or lung injury, pain, non-targ et biopsy, sampling error. PROCEDURE DESCRIPTION: A timeout was performed prior to starting the procedure, and the right breast was agreed as the site for biopsy. The patient was placed prone on a 1.5 Darlene MRI scanner. The lateral aspect of the right breast was cleansed with ChloraPrep. The right breast was then positioned in a dedicated breast coil and MRI guidance grid device. After localizing sequences were obtained, pre-and postcontrast axial sequences were obtained, using 7.5 mL of Gadavist without immediate reaction. The postcontrast images confirm the persistence of t he non-mass enhancement with suspicious kinetics in the 12:00 right breast. Using these images, tar geting was performed using [employer] software. The skin was re-prepped with Betadine through the grid, and after local anesthesia was achieved, an introducer sheath and localizing coning machine operator were placed into right breast via a lateral approach. The location of the obturator sheath was confirmed with additional axial images. Then 7 samples were o btained with a [employer] 9-gauge vacuum-assisted biopsy device. Post biopsy images demonstrate good sampling of the lesion, therefore, through the introducer sheath , a metallic biopsy marker clip was placed. The patient tolerated the procedure well and there was no immediate complication. Hemostasis was ac hieved after several minutes of manual compression. The samples were sent expedited to the patholog y department in an appropriately labeled container. Postprocedure mammography demonstrates a new dumbbell-shaped metallic biopsy marker clip and no sign ificant hematoma in the 12:00 middle one third of the right breast, at the site of biopsied non-mass enhancement seen on MRI. IMPRESSION: MRI BIOPSY Status post MRI guided biopsy of linear non-mass enhancement in the 12:00 right breast, with biopsy marker placed at the site. The patient will receive notification of the biopsy results from her referring physician. Amanda Cano M.D. ay/:08/08/2016 12:52:32 Director Building: freelance operator, [facility]
--- NOTE | 2016-08-08 14:11 | MAMMOGRAPHY REPORT ---
UNILATERAL RIGHT DIGITAL DIAGNOSTIC MAMMOGRAM: 08/08/2016 CLINICAL HISTORY: Status post MRI guided biopsy of linear non-mass enhancement in the 12:00 right br east. Personal history of recent biopsy-proven left breast cancer. Please refer to report from MRI guided biopsy of the right breast performed at the same time for ful l detail. IMPRESSION: POST PROCEDURE IMAGING FOR MARKER PLACEMENT Please refer to report from MRI guided biopsy of the right breast performed at the same time for ful l detail. Approximately 10% of breast cancers are not detected with mammography. A negative mammographic repor t should not delay biopsy if a clinically suggestive mass is present. Amanda Cano M.D. ay/:08/08/2016 12:48:21 Scada Technician: Judd ANGEL(R)(M), [facility] BI-RADS Code: Post Procedure Imaging For Marker Placement
== END | disposition home or self-care (01) ==
LOC: C.MRI 10:27
PROVIDERS: ATTEND Surgery
DX: N64.89 Other specified disorders of breast (principal); R92.0 Mammographic microcalcification found on diagnostic imaging of breast

== ENCOUNTER → 2016-08-16 | Outpatient (CLI) | payer BC ==
[~2016-08-16] MED LIST changes: -GADAVIST IV PRN; -LIDO/EPINEPHRINE/SOD BICARB 20 ML VIAL INFIL ONE; -XYLOCAINE 1%/SOD BICARB 20 ML VIAL INFIL ONE
--- NOTE | 2016-08-16 15:04 | DIAGNOSTIC IMAGING REPORT ---
LEFT BREAST LYMPHOSCINTIGRAPHY CLINICAL HISTORY: Left breast cancer. COMPARISON STUDY: Diagnostic left mammogram June 25, 2016. PROCEDURE: Left breast lymphoscintigraphy was performed. The procedure was discussed with the patient and informed consent was obtained. The procedure was performed by Dr. Del Real following a timeout. A total of 0.501 mCi of Lymphoseek was injected at 2:45 PM on August 16, 2016 in 5 intradermal aliquots within the upper outer quadrant of the left breast as directed. No imaging was requested at this time. The patient tolerated the procedure well and no immediate complications were evident. IMPRESSION: Left breast lymphoscintigraphy. Electronically signed by: Buddy Del Real M.D. 08/16/2016 3:02 PM Dictated Date/Time: 08/16/2016 3:01 PM
== END | disposition home or self-care (01) ==
LOC: C.NUCL 14:25
PROVIDERS: ATTEND Surgery
DX: C50.912 Malignant neoplasm of unspecified site of left female breast (principal)

== ENCOUNTER → 2016-08-23 | Outpatient (CLI) | payer BC | END | disposition home or self-care (01) | LOC: C.PAPS 08:08 | PROVIDERS: ATTEND Obstetrics & Gynecology | DX: Z01.411 Encounter for gynecological examination (general) (routine) with abnormal findings (principal) ==

== ENCOUNTER → 2016-10-03 | Outpatient (CLI) | payer BC ==
[~2016-10-03] VITALS: Ht 162.6 cm; Wt 74.7 kg
[~2016-10-03] MED LIST changes: -ACET-749 PO; -GINS100C; -LYR100 PO; -OXYC1TAB3 PO; -TEMA15CA4 PO
[2016-10-03 09:04] VITALS: Ht 162.6 cm; Wt 74.7 kg
--- NOTE | 2016-10-03 09:40 | PAT Medication Instructions ---
Service Date Oct 03, 2016. Current Home Medication List Bupropion HCl (Bupropion HCl Xl), 300 MG PO QAM Bupropion Hcl (Wellbutrin Xl), 150 MG PO QAM Cholecalciferol (Vitamin D3), 2,000 UNIT PO QAM Fenofibrate (Fenofibrate), 145 MG PO QAM Fish Oil (Jal-3), 1 CAP PO BID Gabapentin (Neurontin), 1 CAP PO BID Glucosamine-Chondroitin (Osteo Bi-Flex Regular Str), 1 TAB PO BID Ibuprofen Tab (Motrin), 1 TAB PO TID PRN for Pain Lisinopril (Lisinopril), 1 TAB PO QPM Metformin Hcl (Glucophage), 500 MG PO BIDM Multivitamins/Minerals (Mvi With Minerals), 1 TAB PO QAM Nicotine Polacrilex (Nicorette 2MG Gum), 2 MG PO DAILY Quetiapine Fumarate Xr (Seroquel Xr Tab), 400 MG PO HS Tramadol (Ultram), 50 MG PO Q6H PRN for Pain Vitamin B Cmplx/Vitc/Folic Ac (Nephrocaps), 1 CAP PO QAM Medication Instructions For Your Scheduled Surgery - Check with surgeon for instructions: Ibuprofen Tab (Motrin), 1 TAB PO TID PRN for Pain - Hold the following medications 2 weeks prior to surgery: Glucosamine-Chondroitin (Osteo Bi-Flex Regular Str), 1 TAB PO BID Fish Oil (Jal-3), 1 CAP PO BID - Hold the following medications 48 hours prior to surgery: Metformin Hcl (Glucophage), 500 MG PO BIDM - Hold the following medications the morning of surgery: Vitamin B Cmplx/Vitc/Folic Ac (Nephrocaps), 1 CAP PO QAM Nicotine Polacrilex (Nicorette 2MG Gum), 2 MG PO DAILY Multivitamins/Minerals (Mvi With Minerals), 1 TAB PO QAM Fenofibrate (Fenofibrate), 145 MG PO QAM Cholecalciferol (Vitamin D3), 2,000 UNIT PO QAM - Take the following medications the morning of surgery with a sip of water: Tramadol (Ultram), 50 MG PO Q6H PRN for Pain (okay to take up to 4 hours prior to surgery if needed) Bupropion HCl (Bupropion HCl Xl), 300 MG PO QAM Bupropion Hcl (Wellbutrin Xl), 150 MG PO QAM Gabapentin (Neurontin), 1 CAP PO BID - Hold the following medications as scheduled the night before surgery: Lisinopril (Lisinopril), 1 TAB PO QPM - Take the following medications as scheduled the night before surgery: Quetiapine Fumarate Xr (Seroquel Xr Tab), 400 MG PO HS Tramadol (Ultram), 50 MG PO Q6H PRN for Pain (if needed) Gabapentin (Neurontin), 1 CAP PO BID If you have any questions please call us at [phone] or [phone] or [phone]
[2016-10-03 10:33] LABS: BASO % 0.3 %; BASO ABS # 0.03 K/uL (0-0.2); COMPLETE YES; EOS % 1.9 %; HEMATOCRIT 37.6 % (37-47); IG% 1.2 %; LYMPH % 45.4 %; LYMPH ABS # 4.74 K/uL (1.2-3.4); MEAN CELL VOLUME 98.4 fL (80-100); MEAN CORPUSCULAR HEMOGLOBIN 32.5 pg (25-34); MEAN PLATELET VOLUME 10.4 fL (7.4-10.4); MONO % 6.5 %; NEUT % 44.7 %; PLATELET COUNT 266 K/uL (130-400); RED BLOOD COUNT 3.82 M/uL (4.2-5.4); WHITE BLOOD COUNT 10.43 K/uL (4.8-10.8)
[2016-10-03 10:43] LABS: BUN/CREATININE RATIO 19.6 (10-20); CALCIUM 9.4 mg/dl (8.5-10.1); CREATININE 0.84 mg/dl (0.60-1.20); POTASSIUM 5.1 mmol/L (3.5-5.1)
== END | disposition home or self-care (01) ==
LOC: C.LAB 08:00 → EDSTATUS 10-22 10:46
PROVIDERS: ATTEND Surgery
DX: Z01.812 Encounter for preprocedural laboratory examination (principal); Z01.810 Encounter for preprocedural cardiovascular examination

== ENCOUNTER 2016-10-27 13:38 | Emergency (ER) | payer BC ==
[~2016-10-27] VITALS: Ht 162.6 cm; Wt 72.9 kg
[~2016-10-27 13:38] MED LIST changes: -B-CO1CAP17 PO; -BUPRTAB PO; -CEFD300C2 PO; -CHOL1000 PO; -DOXY100C PO; -DXM/4 PO; -FENO1TAB24 PO; -GABA1CAP4 PO; -GLC/500 PO; -GLUCTAB18 PO; -IBUP-1427 PO; -LSN25 PO; -METH500T37 PO; -METR-163 PO; -MULT-513 PO; -NICO2GUM7 PO; -OMEG10007 PO; -ONDA-63 PO; -OXYC-609 PO; -QUET400T PO; -WLLXL300 PO
[2016-10-27 13:49] VITALS: TEMP 36.8; Ht 162.6 cm; Wt 72.9 kg
[2016-10-27] MEDS ORDERED: HYDROCODONE/ACETAMOPHEN 5/325MG TAB PO STA (15:13)
[2016-10-27] MEDS ORDERED: DIPHTHERIA/TETANUS/PERTUSSIS 0.5 ML SYR/VIAL IM. ONE (15:15)
[2016-10-27] MEDS ORDERED: DOXY100C PO (15:16)
--- NOTE | 2016-10-27 15:17 | EMERGENCY ROOM VISIT NOTE ---
History First contact with patient: 13:52 Chief Complaint: BITE Stated Complaint: DOG BITE/PUNCTURE WOUND, VERY PAINFUL History of Present Illness The patient is a 56 year old female who presents to the Emergency Room with complaints of a dog bite of her right leg. The patient states that she was at her sister's house yesterday evening. She reports that one of the neighbors was there with a dog. She walked up the stairs beside the dog carrying a chair. She states that the dog is blind and she feels that she spooked the dog , which bit her in her right leg. She spoke to the dog's owner consulting engineer, who is almost certain that the dog's rabies vaccinations are up-to-date. The dog has not been aggressive in any way. There has been no unusual behavior from the dog. The patient has breast cancer and is currently receiving chemotherapy. She believes that her tetanus is up-to-date, but is not sure when her last vaccination was. She believes that she had a tetanus in 2004. She rates her current discomfort an 8/10. Review of Systems A complete 10 point review of systems was reviewed with the patient with pertinent positives and negatives as per history of present illness. All else were negative. Past Medical/Surgical History Medical Problems: (1) Bipolar disorder (2) Carcinoma of breast (3) Diabetes mellitus (4) Gastroesophageal reflux disease (5) Osteoporosis (6) r (7) [place] Teeth Removal Family History Patient reports no known family medical history. Social History Smoking Status: Never Smoker Alcohol Use: occasionally Marital Status: Housing Status: lives with significant other Occupation Status: unemployed Current/Historical Medications Scheduled Bupropion HCl (Bupropion HCl Xl), 300 MG PO QAM Bupropion Hcl (Wellbutrin Xl), 150 MG PO QAM Cholecalciferol (Vitamin D3), 2,000 UNIT PO QAM Dexamethasone (Decadron), 2 TAB PO BID Doxycycline Hyclate (Vibramycin), 100 MG PO BID Fenofibrate (Fenofibrate), 145 MG PO QAM Fish Oil ([place]-3), 1 CAP PO BID Gabapentin (Gabapentin), 300 MG PO BID Glucosamine-Chondroitin (Osteo Bi-Flex Regular Str), 1 TAB PO BID Lisinopril (Lisinopril), 1 TAB PO QPM Metformin Hcl (Glucophage), 500 MG PO BIDM Methocarbamol (Robaxin), 500 MG PO TID Multivitamins/Minerals (Mvi With Minerals), 1 TAB PO QAM Nicotine Polacrilex (Nicorette 2MG Gum), 2 MG PO DAILY Ondansetron (Ondansetron HCl), 1 TAB PO Q8 Quetiapine Fumarate Xr (Seroquel Xr Tab), 400 MG PO HS Vitamin B Cmplx/Vitc/Folic Ac (Nephrocaps), 1 CAP PO QAM Scheduled PRN Ibuprofen Tab (Motrin), 1 TAB PO TID PRN for Pain Tramadol (Ultram), 50 MG PO Q6H PRN for Pain Physical Exam Vital Signs Date Time Temp Pulse Resp B/P (MAP) Pulse Ox O2 Delivery O2 Flow Rate FiO2 10/27/16 15:32 87 20 133/71 100 10/27/16 13:49 36.8 98 18 128/79 93 Room Air Physical Exam VITALS: Vitals are noted on the nurse's note and reviewed by myself. Vital signs stable. GENERAL: This is a 48-year-old female, in no acute distress, nondiaphoretic, well-developed well-nourished. SKIN: There is a small puncture wound with surrounding ecchymosis to the right medial lower leg. The wound measures less than 1 cm in length. There is no significant surrounding erythema to suggest cellulitis. HEART: Regular rate and rhythm without murmurs gallops or rubs. LUNGS: Clear to auscultation bilaterally without wheezes, rales or rhonchi. NEURO: Patient was alert and oriented to person place and time. Medical Decision & Procedures Medications Administered Medications (Trade) Dose Ordered Sig/Jennifer Route Start Time Stop Time Status Last Admin Dose Admin Diphtheria/ Pertussis/Tetanus Vacc (Adacel Inj) 0.5 ml ONCE ONCE IM. 10/27/16 15:15 10/27/16 15:16 DC 10/27/16 15:22 0.5 ML Acetaminophen/ Hydrocodone Bitart (Clarita 5/325 Tab) 1 tab NOW STAT PO 10/27/16 15:13 10/27/16 15:15 DC 10/27/16 15:21 1 TAB Medical Decision The patient was evaluated as above. She sustained a puncture wound to the right lower leg. There is no evidence of cellulitis at this time. The dog's owner consulting engineer reports that the vaccinations are up-to-date and I recommended holding off on rabies vaccination pending the confirmation of this. The patient was given a tetanus vaccination. She was given 1 tablet Clarita for pain in the emergency department. Since the patient is immunocompromised, she will be placed on antibiotics prophylactically. The patient has an extensive allergy list. I consulted with the pharmacist and we agreed that the best course of option was to place the patient on doxycycline. This will not provide anaerobic coverage, but will provide coverage for Pasteurella multocida. Unfortunately, the patient has allergies to both metronidazole and clindamycin and is not able to receive these. I informed the patient that she will need to return here immediately if her symptoms worsen or if she develops fevers or new/ concerning symptoms. If this occurs, she will likely need admission for IV antibiotics to provide anaerobic coverage. She verbalized her understanding of my assessment and treatment plan and was discharged home in good condition. Medication Reconcilliation Current Medication List: was personally reviewed by me Blood Pressure Screening Patient's blood pressure: Normal blood pressure Impression Primary Impression: Dog bite Departure Information Dispostion Home / Self-Care Condition GOOD Prescriptions Doxycycline Hyclate (VIBRAMYCIN) 100 Mg Cap 100 MG PO BID for 7 Days, #14 CAP Prov: Heather Sims ., PAULINE 10/27/16 Referrals Justice Madera M.D. (PCP) Patient Instructions My [facility] Additional Instructions You were prescribed doxycycline to be taken twice daily for 7 days. This is an antibiotic. All antibiotics have the potential to cause diarrhea. Stop this medication and contact a medical provider if you were to develop any significant adverse side effects including: wheezing, shortness of breath, passing out, vomiting, or a diffuse rash. Always take antibiotics as directed and COMPLETE the ENTIRE course regardless of the improvement of your symptoms. Proper wound care is essential for adequate wound healing and infection prevention. You can shower and clean the wound with soap and water. Do not scour over the wound, pat dry with a towel. Do not submerse the wound (i.e. bathe or dish wash) until the wound has fully healed. You can use an antibiotic ointment with a dressing over the wound for the next 3-4 days. After this time you may leave the wound dry and open to the air. For pain control, you can use the following [id number] medicines (if >12 yo): - Regular strength (325mg/tab) Tylenol (acetaminophen) 2 tabs every 4-6 hours as needed. Do not exceed 12 tablets in a 24 hour period. Avoid taking more than 4 grams (4000 mg) of Tylenol per day. This includes any other sources of acetaminophen you may take on a regular basis. - Regular strength (200 mg/tab) Advil (ibuprofen) 1-2 tabs every 4-6 hours as needed. Do not exceed a dose of 3200 mg per day. Return to the emergency department with worsening redness, swelling, drainage from the wound, fevers or any other new/concerning symptoms. Problem Qualifiers Primary Impression: Dog bite Encounter type: initial encounter Qualified Codes: W54.0XXA - Bitten by dog , initial encounter
[2016-10-27] MEDS ORDERED: DXM/4 PO (15:23)
[2016-10-27 15:32] VITALS: BP 133/71; PULSE 87; O2SAT 100
[2016-10-31] MEDS ORDERED: METR-163 PO (10:25)
[2016-10-31] MEDS ORDERED: CEFD300C2 PO (10:25)
[2016-11-30] MEDS ORDERED: B-CO1CAP17 PO (04:45)
[2016-11-30] MEDS ORDERED: CHOL1000 PO (08:19)
[2016-11-30] MEDS ORDERED: NICO2GUM7 PO (09:34)
[2016-11-30] MEDS ORDERED: OMEG10007 PO (09:34)
[2016-11-30] MEDS ORDERED: GLUCTAB18 PO (09:34)
[2016-11-30] MEDS ORDERED: QUET400T PO (09:34)
[2016-11-30] MEDS ORDERED: IBUP-1427 PO (09:35)
== END 2016-10-27 15:34 | disposition home or self-care (01) ==
LOC: C.EDB 13:39 → C.EDA 15:34
DX: S81.851A Open bite, right lower leg, initial encounter (principal); W54.0XXA Bitten by dog, initial encounter; Y92.89 Other specified places as the place of occurrence of the external cause; C50.919 Malignant neoplasm of unspecified site of unspecified female breast; F31.9 Bipolar disorder, unspecified; Z79.899 Other long term (current) drug therapy; E11.9 Type 2 diabetes mellitus without complications; K21.9 Gastro-esophageal reflux disease without esophagitis; M81.0 Age-related osteoporosis without current pathological fracture

== ENCOUNTER 2016-10-30 11:56 | Inpatient (IN) | payer BC, OTHER ==
[~2016-10-30] VITALS: Ht 162.6 cm; Wt 72.7 kg
[~2016-10-30 11:56] MED LIST changes: +DOXY100C PO; +DXM/4 PO; -GABA1CAP PO
[2016-10-30 14:16] LABS: HEMATOCRIT 36.5 % (37-47); MEAN CELL VOLUME 95.3 fL (80-100); MEAN CORPUSCULAR HEMOGLOBIN 32.6 pg (25-34); MEAN CORPUSCULAR HGB CONC 34.2 g/dl (32-36); MEAN PLATELET VOLUME 9.8 fL (7.4-10.4); PLATELET COUNT 305 K/uL (130-400); RED BLOOD COUNT 3.83 M/uL (4.2-5.4)
[2016-10-30 14:33] LABS: CALCIUM 9.4 mg/dl (8.5-10.1); CREATININE 0.84 mg/dl (0.60-1.20); POTASSIUM 4.5 mmol/L (3.5-5.1)
[2016-10-30] MEDS ORDERED: ERTAPENEM IV 1 GM in SODIUM CHLOR 0.9% AD-VAN 50ML IV ONE (15:15)
[2016-10-30 15:24] LABS: COMPLETE YES; LYMPH ABS # 3.13 K/uL (1.2-3.4); LYMPHOCYTE % 26.1 %; META ABS # 0.62 K/uL (0-0); METAMYELOCYTE % 5.2 %; MYELOCYTE % 0.9 %; VARIANT LYM ABS # 2.82 K/uL; VARIANT LYMPHOCYTE % 23.5 %
[2016-10-30] MEDS ORDERED: CEFTRIAXONE SOD INJ 1 GM ADDVIAL IV STA (16:25)
[2016-10-30] MEDS ORDERED: DiphenhydrAMINE HCL 50 MG/ML VIAL IV PRN (16:30)
[2016-10-30] MEDS ORDERED: METHYLPREDNISOLONE 125 MG VIAL IV PRN (16:30)
[2016-10-30] MEDS ORDERED: MAGNESIUM HYDROXIDE SUSP 30 ML UDC PO PRN (16:30)
[2016-10-30] MEDS ORDERED: ACETAMINOPHEN 325 MG TAB PO PRN (16:30)
[2016-10-30] MEDS ORDERED: ALUMINUM/MAGNESIUM/SIMETH (MAALOX MAX) 30 ML UDC PO PRN (16:30)
[2016-10-30] MEDS ORDERED: NICOTINE POLACRILEX 2 MG GUM MT PRN (16:30)
[2016-10-30] MEDS ORDERED: IBUPROFEN 600 MG TAB PO PRN (16:30)
[2016-10-30] MEDS ORDERED: TRAMADOL HCL 50 MG TAB PO PRN (16:30)
[2016-10-30 17:30] VITALS: O2SAT 98
--- NOTE | 2016-10-30 17:32 | EMERGENCY ROOM VISIT NOTE ---
History Report prepared by Federica: Manish Brandt Under the Supervision of: Dr. Teo Ware D.O. First contact with patient: 13:37 Chief Complaint: WOUND INFECTION Stated Complaint: INFECTED DOG BITE Nursing Triage Summary: pt reports tx for dog bite to [facility] on the weekend started on doxycycline pt reports increased redness and drainage noted to day History of Present Illness The patient is a 56 year old female who presents to the Emergency Room with complaints of worsening wound infection beginning four days ago. The patient was bit by a dog on the right lower leg, was seen in the ED and was started on Doxycycline. She states that the area appears red in coloration, and has had increased drainage recently. She states that she was bit by her friends dog, and that the dog's shots are all up to date. The patient has a history of breast cancer and is currently receiving chemotherapy. Her most recent chemotherapy treatment was about two weeks ago. She notes that she started losing her hair yesterday. The patient denies any fevers, chills, nausea, vomiting, or diarrhea. Source of History: patient Onset: Four days ago Position: leg (right lower) Quality: other (wound infection) Timing: worsening Associated Symptoms: No fevers, No chills, No nausea, No vomiting, No diarrhea Review of Systems See HPI for pertinent positives & negatives. A total of 10 systems reviewed and were otherwise negative. Past Medical & Surgical Medical Problems: (1) Bipolar disorder (2) Carcinoma of breast (3) Diabetes mellitus (4) Gastroesophageal reflux disease (5) Osteoporosis (6) r (7) [place] Teeth Removal Family History Patient reports no known family medical history. Social History Smoking Status: Current Every Day Smoker Alcohol Use: occasionally Marital Status: Housing Status: lives with significant other Occupation Status: unemployed Current/Historical Medications Scheduled Bupropion HCl (Bupropion HCl Xl), 300 MG PO QAM Bupropion Hcl (Wellbutrin Xl), 150 MG PO QAM Cholecalciferol (Vitamin D3), 2,000 UNIT PO QAM Dexamethasone (Decadron), 2 TAB PO BID Doxycycline Hyclate (Vibramycin), 100 MG PO BID Fenofibrate (Fenofibrate), 145 MG PO QAM Fish Oil ([place]-3), 1 CAP PO BID Gabapentin (Gabapentin), 300 MG PO BID Glucosamine-Chondroitin (Osteo Bi-Flex Regular Str), 1 TAB PO BID Lisinopril (Lisinopril), 1 TAB PO QPM Metformin Hcl (Glucophage), 500 MG PO BIDM Methocarbamol (Robaxin), 500 MG PO TID Multivitamins/Minerals (Mvi With Minerals), 1 TAB PO QAM Nicotine Polacrilex ([place]orette 2MG Gum), 2 MG PO DAILY Ondansetron (Ondansetron HCl), 1 TAB PO Q8 Quetiapine Fumarate Xr (Seroquel Xr Tab), 400 MG PO HS Vitamin B Cmplx/Vitc/Folic Ac (Nephrocaps), 1 CAP PO QAM Scheduled PRN Ibuprofen Tab (Motrin), 1 TAB PO TID PRN for Pain Tramadol (Ultram), 50 MG PO Q6H PRN for Pain Allergies Coded Allergies: Quinolones (Verified Allergy, Severe, ANAPHYLAXIS/HEART FLUTTERING, ) Rizatriptan (Verified Allergy, Severe, SHORTNESS OF BREATH, 10/30/16) Amoxicillin (Verified Allergy, Mild, HIVES, 10/30/16) Ciprofloxacin (Verified Allergy, Mild, Palpitations, rash,, 10/30/16) Lamotrigine (Verified Allergy, Mild, RASH, 10/30/16) Neomycin (Verified Allergy, Mild, ITCHING WITH THE OINTMENT, 10/30/16) Polymyxin B (Verified Allergy, Mild, ITCHING WITH OINTMENTS, 10/30/16) Adhesives (Verified Allergy, Unknown, ALLERGIC TO MEDICATED STERI-STRIPS AND SOME TAPE-RASH BLISTE, 10/30/16) Cephalosporins (Verified Allergy, Unknown, PT DENIED ANY PROBLEMS, 10/30/16 ) Citalopram (Verified Allergy, Unknown, UNKNOWN, 10/30/16) Clavulanic Acid (Verified Allergy, Unknown, UNKNOWN, 10/30/16) Clindamycin (Unverified Allergy, Unknown, EARS VERY RED SWOLLEN,ITCHING, DIZZINESS, 10/30/16) Crab (Unverified Allergy, Unknown, SOFT SHELL-SWELLING IN MOUTH, 10/30/16) Metronidazole (Verified Allergy, Unknown, HIVES, 10/30/16) Paroxetine (Verified Allergy, Unknown, OUT OF BODY EXPERIENCE, 10/30/16) Penicillins (Verified Allergy, Unknown, UNKNOWN, 10/30/16) Piperacillin (Verified Allergy, Unknown, BETALACTAMASE INHIBITORS-UNKNOWN , 10/30/16) Tazobactam (Verified Allergy, Unknown, BETALACTAMASE INHIBITORS-UNKNOWN, ) Unclassified Drugs (Unverified Allergy, Unknown, BL PLASTIC SUTURE-SKIN IRRITATION/RED/SWELLING ITCHY-NYLON?, 10/30/16) BLUE SUTURE OK PER PT-PROLENE Celecoxib (Verified Adverse Reaction, Intermediate, GI SYMPTOMS, 10/30/16) Gluten (Verified Adverse Reaction, Unknown, GI SYMPTOMS, 10/30/16) Physical Exam Vital Signs Date Time Temp Pulse Resp B/P (MAP) Pulse Ox O2 Delivery O2 Flow Rate FiO2 10/30/16 16:26 81 18 145/90 95 Room Air 10/30/16 15:14 82 20 123/89 96 Room Air 10/30/16 14:05 77 18 118/72 99 Room Air 10/30/16 11:59 36.9 88 16 135/82 98 Room Air Physical Exam GENERAL: Sitting up in bed, alert, well appearing, well nourished, no distress, non-toxic EYE EXAM: normal conjunctiva. OROPHARYNX: no exudate, no erythema, lips, buccal mucosa, and tongue normal and mucous membranes are moist LUNGS: Clear to auscultation. Normal chest wall mechanics HEART: no murmurs, S1 normal and S2 normal ABDOMEN: abdomen soft, non-tender, normo-active bowel sounds, no masses, no rebound or guarding. UPPER EXTREMITIES: upper extremities are grossly normal. LOWER EXTREMITIES: Puncture wound to the mid-left calf with 2.5 inch radius of surrounding erythema. NEURO EXAM: Normal sensorium, cranial nerves II-XII grossly intact, normal speech, no gross weakness of arms, no gross weakness of legs. Medical Decision & Procedures Laboratory Results 10/30/16 14:00 Red Blood Count 3.83, Mean Corpuscular Volume 95.3, Mean Corpuscular Hemoglobin 32.6, Mean Corpuscular Hemoglobin Concent 34.2, Mean Platelet Volume 9.8 10/30/16 14:00 Test 10/30/16 14:00 White Blood Count 12.00 K/uL (4.8-10.8) Red Blood Count 3.83 M/uL (4.2-5.4) Hemoglobin 12.5 g/dL (12.0-16.0) Hematocrit 36.5 % (37-47) Mean Corpuscular Volume 95.3 fL (80-100) Mean Corpuscular Hemoglobin 32.6 pg (25-34) Mean Corpuscular Hemoglobin Concent 34.2 g/dl (32-36) Platelet Count 305 K/uL (130-400) Mean Platelet Volume 9.8 fL (7.4-10.4) RDW Standard Deviation 46.9 fL (36.4-46.3) RDW Coefficient of Variation 13.5 % (11.5-14.5) Neutrophils % (Manual) 40.0 % Lymphocytes % (Manual) 26.1 % Variant Lymphocytes % (manual) 23.5 % Monocytes % (Manual) 4.3 % Metamyelocytes % 5.2 % Myelocytes % 0.9 % Neutrophils # (Manual) 4.80 K/uL (1.4-6.5) Total Absolute Neutrophils 4.80 K/uL (1.4-6.5) Lymphocytes # (Manual) 3.13 K/uL (1.2-3.4) Absolute Variant Lymphocytes 2.82 K/uL Total Absolute Lymphocytes 5.95 K/uL (1.2-3.4) Monocytes # (Manual) 0.52 K/uL (0.11-0.59) Metamyelocytes # 0.62 K/uL (0-0) Myelocytes # 0.11 K/uL (0-0) Anion Gap 5.0 mmol/L (3-11) Est Creatinine Clear Calc Drug Dose 71.4 ml/min Estimated GFR () 88.8 Estimated GFR (Non- 76.6 BUN/Creatinine Ratio 14.0 (10-20) Calcium Level 9.4 mg/dl (8.5-10.1) Laboratory results per my review. Medications Administered Medications (Trade) Dose Ordered Sig/Jennifer Route Start Time Stop Time Status Last Admin Dose Admin Ertapenem 1 gm/ Sodium Chloride 50 ml @ 100 mls/hr NOW ONCE IV 10/30/16 15:15 10/30/16 15:44 DC 10/30/16 15:14 100 MLS/HR Ceftriaxone Sodium (Rocephin Inj) 1 gm NOW STAT IV 10/30/16 16:25 10/30/16 16:40 DC 10/30/16 17:14 1 GM ED Course ED COURSE: Vital signs were reviewed and appeared normal. The patients medical record was reviewed The above diagnostic studies were performed and reviewed. ED treatments and interventions as stated above. 1342: The patient was evaluated in room C9. A complete history and physical examination was performed. 1515: Ordered Ertapenem 1 gm/Sodium Chloride 50 ml @ 100 mls/hr IV. 1458: Upon reevaluation, the patient is resting comfortably. I discussed my findings with the patient and she understands and agrees with the treatment plan. Based on the patients age, coexisting illnesses, exam and lab findings the decision to treat as an inpatient was made. The patient remained stable while under my care. The patient will be evaluated for further management. Medical Decision Differential diagnosis includes etiologies such as cellulitis, abscess, MRSA infection, DVT, necrotizing fasciitis, dermatitis, drug eruption, as well as others were entertained. Patient is a 57-year-old female who presents the ER following a dog bite this past Saturday. She seen here in the ER and placed on doxycycline. She has increasing surrounding erythema with some minimal discharge from the puncture wound. Due to her allergies she cannot be placed on anything else orally. She has a mild leukocytosis. No fevers. Patient is no other complaints with the exception that she is on chemotherapy for breast cancer. Last dose was early October. Discussed with infectious disease and they recommended admission with her immune compromised state as this will likely get worse. Patient was given a dose of ertapenem and admitted for further workup. Medication Reconcilliation Current Medication List: was personally reviewed by me Blood Pressure Screening Patient's blood pressure: Elevated blood pressure Blood pressure disposition: Elevated BP felt to be situational, Did not require urgent referral Consults Time Called: 1425 Consulting Physician: Dr. Rivera -Infectious Disease Returned Call: [phone] I reviewed the patient's case with Dr. Rivera. She recommends treatment with Ertapenem and admission to the hospital. Additional Consults: Time Called: [phone] Consulted Physician: Dr. Huang -[facility] [place] Returned Call: [phone] Additional Comments: I reviewed the patient's case with Dr. Huang. BARRETT will evaluate the patient for further management. Impression Primary Impression: Dog bite Additional Impression: Cellulitis Scribe Attestation The scribe's documentation has been prepared under my direction and personally reviewed by me in its entirety. I confirm that the note above accurately reflects all work, treatment, procedures, and medical decision making performed by me. Departure Information Dispostion Being Evaluated By Hospitalist Justice Foote M.D. (PCP) Patient Instructions My [facility] Problem Qualifiers Primary Impression: Dog bite Encounter type: initial encounter Qualified Codes: W54.0XXA - Bitten by dog , initial encounter Additional Impression: Cellulitis Site of cellulitis: unspecified site Qualified Codes: L03.90 - Cellulitis, unspecified
[2016-10-30 17:44] VITALS: BP 131/75; PULSE 75; TEMP 37; O2SAT 98; Ht 162.6 cm; Wt 72.7 kg
[2016-10-30] MEDS: METFORMIN HCL 500 MG TAB PO SCH ×2 (18:00→21:22)
[2016-10-30] MEDS: METRONIDAZOLE / NSS 500 MG in PREMIXED NSS 100 ML IV SCH (19:43)
--- NOTE | 2016-10-30 20:20 | History and Physical ---
History & Physical Date of Service Oct 30, 2016. History & Physical admit #[id number]
[2016-10-30] MEDS ORDERED: QUETIAPINE FUMARATE 200 MG TABCR PO SCH (21:00)
[2016-10-30] MEDS ORDERED: LISINOPRIL 2.5 MG TAB PO SCH (21:00)
[2016-10-30] MEDS ORDERED: NON-FORMULARY MEDICATION (Glucosamine-Chondroitin (Osteo Bi-Flex Regular Str) 1 TAB) PO SCH (21:00)
[2016-10-30] MEDS ORDERED: IV FLUIDS COMPLETED PRN (21:15)
[2016-10-30] MEDS: OMEGA-3 (PURIFIED FISH OIL) 1 GM CAP PO SCH (21:21)
[2016-10-30] MEDS: METHOCARBAMOL 500 MG TAB PO SCH (21:21)
[2016-10-30] MEDS: GABAPENTIN 300 MG CAP PO SCH (21:22)
[2016-10-30] MEDS: DEXAMETHASONE 4 MG TAB PO SCH (21:23)
[2016-10-30] MEDS: ONDANSETRON 8 MG TAB PO SCH (21:23)
--- NOTE | 2016-10-30 21:47 | HISTORY & PHYSICAL EXAMINATION ---
DATE OF ADMISSION: 10/30/2016 ADMISSION HISTORY AND PHYSICAL CHIEF COMPLAINT: Dog bite. HISTORY OF PRESENT ILLNESS: The patient is a very pleasant 56-year-old female accompanied by her . She had been bitten by a dog at the end of last week, she had been seen in the ER, the dog was up to date on its shot, she was given a tetanus booster, she was started on doxycycline because of her multitude of drug allergies and she was discharged to home. Unfortunately, in spite of the antibiotics, the area of her leg has gotten more red, more erythematous, it was draining a little bit and she was generally worried about it getting worse. She has been cleaning it daily with soap, peroxide, bacitracin, covering it with a Band-Aid and gauze. The area became more red and painful and was not improving. She was having some drainage. The pain with walking was 8/10, although whenever she is not moving it is a 0/10. She fortunately does deny any fevers or pain elsewhere. No shortness of breath, tachycardia, palpitations. No nausea, vomiting or diarrhea, but with it getting worse, she came back to the ER for further evaluation and partly because of it worsening and failing outpatient treatment and partly because of her multitude of allergies, we were asked to admit her for further treatment. PAST MEDICAL HISTORY: Most notable for breast cancer of which she is currently undergoing chemo, her most recent and first dose was on October 12. She apparently also had prior chronic osteomyelitis from an ortho implant; however, she notes this has resolved. She has prediabetes, diverticulosis, bipolar, questionable renal impairment and GERD. MEDICATIONS: Bupropion, dexamethasone, gabapentin, lisinopril, methocarbamol, multivitamin, vitamin D3, B complex, fish oil, fenofibrate, metformin, ondansetron and tramadol. ALLERGIES: EXTREMELY LONG, NOTING CIPRO WHICH CAUSES THROAT CLOSING AND SHE NOTES THIS SEEMS TO INCLUDE FLUOROQUINOLONES, CLINDAMYCIN CAUSED HIVES AND INTRACTABLE ITCHING, AUGMENTIN CAUSED HIVES; amoxicillin, she is not sure if she had a reaction separate from the Augmentin, but it is listed separate; CEPHALOSPORINS ARE LISTED AN ALLERGY, although she denies knowing any reaction with those and actually remembers with her osteomyelitis, she tolerated Keflex just fine; METRONIDAZOLE of which she does not recall a reaction; NEOMYCIN, PENICILLINS, PIPERACILLIN AND TAZOBACTAM, CELECOXIB, CITALOPRAM, LAMOTRIGINE, PAROXETINE AND RIZATRIPTAN. PAST SURGICAL HISTORY: Includes sigmoid colon resection, orthopedic surgeries including a rodding of her left lower extremity, cystectomy, wisdom tooth extraction, appendectomy and left breast lumpectomy with lymph node sampling. PHYSICAL EXAMINATION: VITAL SIGNS: Temp 36.9, pulse 88, respiratory rate 16, blood pressure 135/82, 98% on room air. GENERAL: She is awake, alert, oriented x3, pleasant, in no acute distress. HEENT: Normocephalic, atraumatic. Mucous membranes are moist. CARDIOVASCULAR: Regular without rubs, murmurs, or gallops. LUNGS: Clear to auscultation bilaterally. No rales, rhonchi, or wheezes. Good effort. ABDOMEN: Soft, nondistended, nontender, no masses or organomegaly. EXTREMITIES: Without cyanosis or clubbing. Her right lower extremity posterior has a puncture wound that measures about 3/4 of a cm with a thin amount of exudate but no fluctuance, no expressible exudate, no foreign body. It does have surrounding erythema that tracks proximally and distally about 7 cm in each direction, the area was outlined. There is no crepitus or fluctuance anywhere. However, it is very tender to palpate. SKIN: Shows no other rashes, pallor or icterus. NEUROLOGIC: Shows cranial nerves II-XII to be grossly intact. Gross motor and sensory are intact. MUSCULOSKELETAL: Yields no gross lesions. She does have normal alignment and mobility of her right calf in spite of the puncture wound. MENTAL STATUS: Shows good recent and remote recall. Normal mood and affect. Good judgment and insight. LABS AND DIAGNOSTICS: CBC shows a white count of 12 with 40% neutrophils, hemoglobin 12.5, platelets 305. Basic metabolic panel with sodium 142, potassium 4.5, chloride 111, CO2 26, BUN 12, creatinine 0.84, calcium 9.4, glucose 84. Bedside ultrasound done by the ER and verbally reported to me, although I do not see a formal report as of yet was that there was no area of fluctuance or abscess or anything that appeared to be abnormal on bedside ultrasound of the area at all. ASSESSMENT AND PLAN: 1. Dog bite wound with surrounding cellulitis. She had been treated with doxycycline which should cover pasteurella; however, it certainly would not cover anaerobes and with the worsening either would be something that is resistant to doxycycline or is more anaerobic/polymicrobial. Given her extensive allergies, the ER had discussed the case with infectious disease and we had separately come to the conclusion that ertapenem would be a reasonable option and I discussed this with the patient the benefit being it would be avoiding her allergies would likely be effective and as once a day and the downside being that is parenterally only, meaning that she would either need ongoing IV or IM therapy even after discharge. We also discussed her multitude of allergies and that some of them seem a bit more nebulous and given that she does not have a clearcut known reaction cephalosporins or metronidazole, this would probably do well for treatment regimen and could be cobbled together in a way that would be an oral regimen at discharge, this also would potentially strike from her allergy list potentially useful antibiotics should she get bacterial infections in the future. We discussed the risks of this particularly being having an allergic reaction while not likely to be anaphylactic it could be and certainly having hives, but also discussed that if this were to happen, certainly she would be here in the hospital and we would have Benadryl and Solu-Medrol ordered as stat p.r.n. doses as well as immediate medical evaluation should it happen. That said, we were all in agreement that any reaction was unlikely to happen given that she really did not remember what her reactions were to either of those antibiotics that metronidazole is a fairly low allergy offender and that she had tolerated Keflex on multiple occasions throughout her life. In this respect, she opted between the 2 options to go with a cephalosporin and metronidazole combination given that if she tolerates it well, we need to transition her to oral cephalosporin to ensure no allergies across oral or IV given that there is no direct equivalents and then from there would likely be able to get her home on oral antibiotics. In this respect, we will start her on ceftriaxone 1 gram daily and metronidazole 500 mg IV q. 8 hours. As the erythema improves, would probably switch the ceftriaxone over to cefdinir versus less likely a different generation oral cephalosporin and again because of her long but questionable allergy list, we may need to watch her for 2 doses of this before it would be safe to discharge to home and again have Benadryl and Solu-Medrol already ordered as stat p.r.n., should she have any allergic reactions. She and her were very pleased with this approach amenable to this approach and hopefully if it works, we can at least remove a couple allergies from her list as well. 2. Breast cancer. Fortunately in spite of undergoing chemotherapy, she is not neutropenic or any sort of directly immune compromised state, although certainly in an indirect away, given that she has just had chemotherapy one would have to assume that her immunocompromised state is contributing at least to a degree. 3. Impaired glucose tolerance, ongoing outpatient treatment. 4. Renal disease. Continue her lisinopril. 5. Bipolar. Continue her home medications. 6. Deep venous thrombosis prophylaxis, Lovenox. MTDD
[2016-10-30 23:45] VITALS: BP 111/74; PULSE 87; TEMP 37; O2SAT 97
[2016-10-31] MEDS: METRONIDAZOLE / NSS 500 MG in PREMIXED NSS 100 ML IV SCH ×2 (03:55→11:42)
[2016-10-31] MEDS: ONDANSETRON 8 MG TAB PO SCH (05:38)
[2016-10-31 06:32] LABS: PROTHROMBIN TIME (PATIENT) 10.4 SECONDS (9.0-12.0)
[2016-10-31 06:58] VITALS: BP 104/59; PULSE 96; TEMP 36.7; O2SAT 96
[2016-10-31] MEDS: DEXAMETHASONE 4 MG TAB PO SCH (08:31)
[2016-10-31] MEDS: GABAPENTIN 300 MG CAP PO SCH (08:31)
[2016-10-31] MEDS: METFORMIN HCL 500 MG TAB PO SCH (08:31)
[2016-10-31] MEDS: OMEGA-3 (PURIFIED FISH OIL) 1 GM CAP PO SCH (08:32)
[2016-10-31] MEDS: METHOCARBAMOL 500 MG TAB PO SCH (08:32)
[2016-10-31] MEDS ORDERED: FENOFIBRATE 145 MG TAB PO SCH (09:00)
[2016-10-31] MEDS ORDERED: CHOLECALCIFEROL 1000 INTER.UNIT TAB PO SCH (09:00)
[2016-10-31] MEDS ORDERED: NEPHROCAPS PO SCH (09:00)
[2016-10-31] MEDS ORDERED: ENOXAPARIN 40 MG/0.4 ML SYR SQ SCH (09:00)
[2016-10-31] MEDS ORDERED: BuPROPion XL 150 MG TABCR PO SCH (09:00)
[2016-10-31] MEDS ORDERED: CEFTRIAXONE SOD INJ 1,000 MG in DEXTROSE 5% 50ML 50 ML IV SCH (09:00)
[2016-10-31] MEDS ORDERED: BuPROPion XL 300 MG TABCR PO SCH (09:00)
[2016-10-31] MEDS ORDERED: CEROVITE ADV FORMULA TAB PO SCH (09:00)
--- NOTE | 2016-10-31 10:21 | Medical Student: [facility] ---
Med Student History & Physical Date & Time of Service: Oct 31, 2016 at 09:39 Chief Complaint: Dog Bite Infection Primary Care Physician: Justice Madera M.D. History of Present Illness Source: patient Patient is a pleasant 56yo female with PMH significant for breast cancer currently undergoing chemotherapy, bipolar disorder, pre-DM, diverticulosis, and an extensive allergy history presenting to the hospital for an infected puncture wound from a dog bite on her lower RT extremity. Patient was bitten Saturday night 10/26/16 by her sister's neighbor's dog. The dog's vaccinations were up to date as per customer acquisition specialist. On Saturday morning, patient visited [facility] ED as the area had begun to "ooze". An incident report was filed with the [facility], she was given a tetanus booster, and placed on a regiment of doxycycline. ABX therapy options were significantly limited due to patient's allergy history. Patient was daily cleaned the area with soap, hydrogen peroxide, bacitracin, and covered the area with a bandage. Despite these efforts, the site has become increasingly red and painful while moving as well as continuing to drain. Patient states at rest, pain is 0/10, however while walking it reaches 8/10. As the wound has not improved, patient returned to the hospital for re-evaluation. Patient denies fever, SOB, pain anywhere else, tachycardia, palpitations, NV, and diarrhea. Past Medical/Surgical History Medical Problems: Breast cancer - last chemo session 10/12/16 Bipolar disorder Pre-DM Diverticulosis GERD Chronic osteomyelitis from orthopedic procedure LT lower extremity - resolved Possible renal impairment of unclear etiology Surgical Hx Marvel placement in LT lower extremity Sigmoid colon resection Cystectomy Appendectomy [place] teeth extraction LT breast lumpectomy with lymph node tested Family History Non-contributory Social History Smoking Status: Current Every Day Smoker Smokeless Tobacco Use: No Alcohol Use: occasionally Drug Use: none Marital Status: Housing status: lives with significant other Occupational Status: unemployed Immunizations History of Influenza Vaccine: No History of Tetanus Vaccine?: Yes Tetanus Immunization Date: Aug 13, 2004 (Booster 10/27/16) History of Pneumococcal: Yes History of Hepatitis B Vaccine: No Allergies Coded Allergies: Quinolones (Verified Allergy, Severe, ANAPHYLAXIS/HEART FLUTTERING, ) Rizatriptan (Verified Allergy, Severe, SHORTNESS OF BREATH, 10/30/16) Amoxicillin (Verified Allergy, Mild, HIVES, 10/30/16) Ciprofloxacin (Verified Allergy, Mild, Palpitations, rash,, 10/30/16) Lamotrigine (Verified Allergy, Mild, RASH, 10/30/16) Neomycin (Verified Allergy, Mild, ITCHING WITH THE OINTMENT, 10/30/16) Polymyxin B (Verified Allergy, Mild, ITCHING WITH OINTMENTS, 10/30/16) Adhesives (Verified Allergy, Unknown, ALLERGIC TO MEDICATED STERI-STRIPS AND SOME TAPE-RASH BLISTE, 10/30/16) Cephalosporins (Verified Allergy, Unknown, PT DENIED ANY PROBLEMS, 10/30/16 ) Citalopram (Verified Allergy, Unknown, UNKNOWN, 10/30/16) Clavulanic Acid (Verified Allergy, Unknown, UNKNOWN, 10/30/16) Clindamycin (Unverified Allergy, Unknown, EARS VERY RED SWOLLEN,ITCHING, DIZZINESS, 10/30/16) Crab (Unverified Allergy, Unknown, SOFT SHELL-SWELLING IN MOUTH, 10/30/16) Metronidazole (Verified Allergy, Unknown, HIVES, 10/30/16) Paroxetine (Verified Allergy, Unknown, OUT OF BODY EXPERIENCE, 10/30/16) Penicillins (Verified Allergy, Unknown, UNKNOWN, 10/30/16) Piperacillin (Verified Allergy, Unknown, BETALACTAMASE INHIBITORS-UNKNOWN , 10/30/16) Tazobactam (Verified Allergy, Unknown, BETALACTAMASE INHIBITORS-UNKNOWN, ) Unclassified Drugs (Unverified Allergy, Unknown, BL PLASTIC SUTURE-SKIN IRRITATION/RED/SWELLING ITCHY-NYLON?, 10/30/16) BLUE SUTURE OK PER PT-PROLENE Celecoxib (Verified Adverse Reaction, Intermediate, GI SYMPTOMS, 10/30/16) Gluten (Verified Adverse Reaction, Unknown, GI SYMPTOMS, 10/30/16) Medications Bupropion HCl (Bupropion HCl Xl), 300 MG PO QAM Bupropion Hcl (Wellbutrin Xl), 150 MG PO QAM Cholecalciferol (Vitamin D3), 2,000 UNIT PO QAM Dexamethasone (Decadron), 2 TAB PO BID Doxycycline Hyclate (Vibramycin), 100 MG PO BID Fenofibrate (Fenofibrate), 145 MG PO QAM Fish Oil (Fowler-3), 1 CAP PO BID Gabapentin (Gabapentin), 300 MG PO BID Glucosamine-Chondroitin (Osteo Bi-Flex Regular Str), 1 TAB PO BID Ibuprofen Tab (Motrin), 1 TAB PO TID PRN for Pain Lisinopril (Lisinopril), 1 TAB PO QPM Metformin Hcl (Glucophage), 500 MG PO BIDM Methocarbamol (Robaxin), 500 MG PO TID Multivitamins/Minerals (Mvi With Minerals), 1 TAB PO QAM Nicotine Polacrilex (Nicorette 2MG Gum), 2 MG PO DAILY Ondansetron (Ondansetron HCl), 1 TAB PO Q8 Quetiapine Fumarate Xr (Seroquel Xr Tab), 400 MG PO HS Tramadol (Ultram), 50 MG PO Q6H PRN for Pain Vitamin B Cmplx/Vitc/Folic Ac (Nephrocaps), 1 CAP PO QAM Review of Systems Constitutional: No fever, No chills, No sweats Eyes: No problem reported ENT: No problem reported Respiratory: No shortness of breath, No problem reported Cardiovascular: No chest pain, No palpitations, No problem reported Abdomen: No pain, No nausea, No vomiting, No diarrhea, No problem reported Musculoskeletal: + calf pain (Isolated to puncuture and immediate surrounding area) Genitourinary - Female: No problem reported Neurologic: No numbness/tingling, No problem reported Psychiatric: + anxiety (associated with breast cancer commonly resulting in tension headache) Endocrine: No problem reported Hematologic / Lymphatic: No problem reported Allergic / Immunologic: No problem reported Physical Exam Vital Signs (24 Hours) Date Time Temp Pulse Resp B/P (MAP) Pulse Ox O2 Delivery O2 Flow Rate FiO2 10/31/16 07:50 Room Air 10/31/16 06:58 36.7 96 18 104/59 (74) 96 Room Air 10/30/16 23:45 37.0 87 14 111/74 (86) 97 Room Air 10/30/16 23:25 Room Air 10/30/16 17:44 37.0 75 16 131/75 98 Room Air 10/30/16 17:30 98 Room Air 10/30/16 16:26 81 18 145/90 95 Room Air 10/30/16 15:14 82 20 123/89 96 Room Air 10/30/16 14:05 77 18 118/72 99 Room Air 10/30/16 11:59 36.9 88 16 135/82 98 Room Air General Appearance: WD/WN, no apparent distress Head: normocephalic, atraumatic Eyes: normal inspection, PERRL, EOMI, sclerae normal ENT: hearing grossly normal Neck: supple, no adenopathy, no JVD, no carotid bruits, trachea midline Respiratory/Chest: chest non-tender, lungs clear, normal breath sounds, no respiratory distress, no accessory muscle use Cardiovascular: regular rate, rhythm, no edema, no gallop, no JVD, no murmur, normal peripheral pulses Abdomen/GI: normal bowel sounds, non tender, soft, no organomegaly Extremities/Musculoskelatal: normal range of motion, + pertinent finding ( Single open puncture wound to medial RT lower extremity with approx 1 inch surrounding erythema, mild edema, and tenderness to palpations. no active drainage) Neurologic/Psych: alert, normal mood/affect, oriented x 3 Skin: normal color, warm/dry Lymphatic: no adenopathy Single open puncture wound to medial RT lower extremity with no active drainage. Site is surrounded by approximately 1 inch of erythema, swelling, and tenderness to palpations. No evidence of streaking up the limb, discolorations, or obvious signs of sub-dermal abscess formation. Diagnostics Laboratory Results Results Past 24 Hours Test 10/30/16 14:00 10/31/16 05:42 Range/Units White Blood Count 12.00 4.8-10.8 K/uL Red Blood Count 3.83 4.2-5.4 M/uL Hemoglobin 12.5 12.0-16.0 g/dL Hematocrit 36.5 37-47 % Mean Corpuscular Volume 95.3 80-100 fL Mean Corpuscular Hemoglobin 32.6 25-34 pg Mean Corpuscular Hemoglobin Concent 34.2 32-36 g/dl Platelet Count 305 130-400 K/uL Mean Platelet Volume 9.8 7.4-10.4 fL RDW Standard Deviation 46.9 36.4-46.3 fL RDW Coefficient of Variation 13.5 11.5-14.5 % Neutrophils % (Manual) 40.0 % Lymphocytes % (Manual) 26.1 % Variant Lymphocytes % (manual) 23.5 % Monocytes % (Manual) 4.3 % Metamyelocytes % 5.2 % Myelocytes % 0.9 % Neutrophils # (Manual) 4.80 1.4-6.5 K/uL Total Absolute Neutrophils 4.80 1.4-6.5 K/uL Lymphocytes # (Manual) 3.13 1.2-3.4 K/uL Absolute Variant Lymphocytes 2.82 K/uL Total Absolute Lymphocytes 5.95 1.2-3.4 K/uL Monocytes # (Manual) 0.52 0.11-0.59 K/uL Metamyelocytes # 0.62 0-0 K/uL Myelocytes # 0.11 0-0 K/uL Sodium Level 142 136-145 mmol/L Potassium Level 4.5 3.5-5.1 mmol/L Chloride Level 111 98-107 mmol/L Carbon Dioxide Level 26 21-32 mmol/L Anion Gap 5.0 3-11 mmol/L Blood Urea Nitrogen 12 7-18 mg/dl Creatinine 0.84 0.60-1.20 mg/dl Est Creatinine Clear Calc Drug Dose 71.4 ml/min Estimated GFR () 88.8 Estimated GFR (Non- 76.6 BUN/Creatinine Ratio 14.0 10-20 Random Glucose 84 70-99 mg/dl Calcium Level 9.4 8.5-10.1 mg/dl Prothrombin Time 10.4 9.0-12.0 SECONDS Prothromb Time International Ratio 1.0 0.9-1.1 Microbiology Results 10/30/16 Gram Stain - Final, Resulted 10/30/16 Wound Culture, Resulted Pending Impression Assessment and Plan Patient is a pleasant 56yo female with no signs of acute distress and PMH significant for multiple allergies presenting to the hospital following failed outpatient ABX therapy. 1. Infected dog bite - single erythematous open puncture surrounded by 1 inch cellulitis, no active drainage Area outlined to gauge improvement with ABX treatment Blood cultures drawn to r/o spread of infection to blood Antibiotic therapy * Doxycycline previously chosen for sole therapy as it has good coverage for pasteurella, but it's poor anaerobe coverage is likely the cause of the failed treatment * As patient cannot recall allergic reaction to either cephalosporins or metronidazole despite their inclusion on her allergy list, patient has been offered and agreed to a trial of both medications to test response * Patient started on IV ceftriaxone while inpatient to be followed by IV metronidazole - close monitoring, frequent vital checks, nurses aware of trial, patient instructed to notify staff of any effects * Standing order for Benadryl + steroids PRN should an adverse reaction occur - immediately notify attending physician if no improvement with these interventions * If patient responds positively to two courses of IV ABX, switch to oral therapy for discharge 2. Breast cancer - has received one course of chemotherapy 10/12/16, not neutropenic at this time Notify Dr. Marquez of hospitalization per patient's request Patient is scheduled for second round this Saturday - up to oncology 3. Pre-diabetes - random glucose 84 Diabetic diet while in hospital Continue home metformin as prescribed Daily monitoring glucose level 4. Bipolar disorder - no signs of current dawit or depression, affect slightly anxious secondary to breast cancer Continue home medications 5. Questionable renal impairment - ESTIMATION MANAGER (0.84), BUN (12) Continue lisinopril as prescribed 6. Diverticulosis - non-issue at this time No intervention required at this time Level of Care Med/Surg Advanced Directives Existing Living Will: Yes Existing Power of Power Electronics Engineer: Yes Resuscitation Status FULL RESUSCITATION DVT Prophylaxis enoxaparin (Lovenox) SQ Social Service Consult None Apply Note Total Time: Critical Care 30 - 74 minutes
[2016-10-31] MEDS ORDERED: CEFD300C2 PO (10:25)
[2016-10-31] MEDS ORDERED: METR-163 PO (10:25)
--- NOTE | 2016-10-31 10:26 | Discharge Instructions ---
Discharge Instructions Date of Service Oct 31, 2016. Admission Reason for Admission: Dog Bite Discharge Discharge Diagnosis / Problem: dog bite Discharge Goals Goal(s): Diagnostic testing, Therapeutic intervention Activity Recommendations Activity Limitations: resume your previous activity . Current Hospital Diet Patient's current hospital diet: Regular Diet Discharge Diet Recommended Diet: Regular Diet Pending Studies Studies pending at discharge: no Medical Emergencies . Who to Call and When: Medical Emergencies: If at any time you feel your situation is an emergency, please call 911 immediately. . Non-Emergent Contact Non-Emergency issues call your: Primary Care Provider Call Non-Emergent contact if: temperature is above 101, your pain is unusual for you . . "Provider Documentation" section prepared by Jhon Robles. . VTE Core Measure Inpt VTE Proph given/why not?: Enoxaparin (Lovenox)SQ
[2016-10-31 11:09] VITALS: BP 104/59; PULSE 96; TEMP 36.7; O2SAT 96
--- NOTE | 2016-10-31 16:31 | Discharge Summary ---
Discharge Summary Date of Service Oct 31, 2016. Discharge Summary Admission Date: Oct 30, 2016 at 17:05 Discharge Date: Oct 31, 2016 Discharge Disposition: Home Principal Diagnosis: dog bite cellulitis Immunizations: Have You Had Influenza Vaccine: No History of Tetanus Vaccine?: Yes Tetanus Immunization Date: Aug 13, 2004 (Booster 10/27/16) History of Pneumococcal: Yes History of Hepatitis B Vaccine: No Medication Reconciliation New Medications: Cefdinir (Omnicef) 300 Mg Cap 300 MG PO Q12H, #14 CAP has tolerated ceftriaxone in hospital IV Metronidazole (Flagyl) 500 Mg Tab 500 MG PO TID, #21 TAB has tolerated iv metronidazole in hospital Continued Medications: Bupropion Hcl (Wellbutrin Xl) 150 Mg Tab 150 MG PO QAM TAKE WITH 350 MG Bupropion HCl (Bupropion HCl Xl) 300 Mg Tabcr 300 MG PO QAM TAKE WITH 150 MG TAB. Cholecalciferol (Vitamin D3) 1,000 Unit Tab 2000 UNIT PO QAM, 3 Refills Dexamethasone (Decadron) 4 Mg Tab 2 TAB PO BID, #32 Fenofibrate (Fenofibrate) 145 Mg Tab 145 MG PO QAM Fish Oil (Mesa-3) 1 Ea Cap 1 CAP PO BID, CAP Gabapentin (Gabapentin) 300 Mg Cap 300 MG PO BID, #180 Glucosamine-Chondroitin (Osteo Bi-Flex Regular Str) 1 Tab Tab 1 TAB PO BID Ibuprofen Tab (Motrin) 600 Mg Tab 1 TAB PO TID PRN for Pain for 30 Days, #90 TAB Lisinopril (Lisinopril) 2.5 Mg Tab 1 TAB PO QPM Metformin Hcl (Glucophage) 500 Mg Tab 500 MG PO BIDM, TAB Methocarbamol (Robaxin) 500 Mg Tab 500 MG PO TID, #21 Multivitamins/Minerals (Mvi With Minerals) Tab 1 TAB PO QAM, TAB Nicotine Polacrilex (Nicorette 2MG Gum) 2 Mg Gum 2 MG PO DAILY Ondansetron (Ondansetron HCl) 8 Mg Tab 1 TAB PO Q8, #30 Quetiapine Fumarate Xr (Seroquel Xr Tab) 400 Mg Tabcr 400 MG PO HS, TAB Tramadol (Ultram) 50 Mg Tab 50 MG PO Q6H PRN for Pain Vitamin B Cmplx/Vitc/Folic Ac (Nephrocaps) Cap 1 CAP PO QAM, CAP Discontinued Medications: Doxycycline Hyclate (Vibramycin) 100 Mg Cap 100 MG PO BID for 7 Days, #14 CAP Discharge Exam Review of Systems: Constitutional: No fever, No chills Cardiovascular: No chest pain Abdomen: No pain, No nausea, No vomiting Integumentary: + problem reported (less pain and redness) Physical Exam: General Appearance: WD/WN, no apparent distress Skin: + pertinent finding (redness has receeded and pain much less no fluctuance) Hospital Course 56 F with dog bite celllulitis failing outpt Doxycycline, Dog bite cellulitis, Cefdinir and flagyl, I personally called Dr Madera's office and updated his staff for upcomming appointment 11/06 at 330 pm Breast cancer. had chemotherapy, seems stable Impaired glucose tolerance, metformin, diabetic diet Renal disease. stable lisinopril. Bipolar. high dose wellbutrin and Seroquel Total Time Spent: Greater than 30 minutes This includes examination of the patient, discharge planning, medication reconciliation, and communication with other providers. Discharge Instructions Please refer to the electronic Patient Visit Report (Discharge Instructions) for additional information.
[2016-11-30] MEDS ORDERED: B-CO1CAP17 PO (04:45)
[2016-11-30] MEDS ORDERED: CHOL1000 PO (08:19)
[2016-11-30] MEDS ORDERED: OMEG10007 PO (09:34)
[2016-11-30] MEDS ORDERED: NICO2GUM7 PO (09:34)
[2016-11-30] MEDS ORDERED: QUET400T PO (09:34)
[2016-11-30] MEDS ORDERED: GLUCTAB18 PO (09:34)
[2016-11-30] MEDS ORDERED: IBUP-1427 PO (09:35)
== END 2016-10-31 14:13 | disposition home or self-care (01) | DRG 603 ==
LOC: C.EDB 11:58 → ENRESERV 16:44 → C.MSW 17:05 → EDBEDREQ 17:16
PROVIDERS: ADMIT Family Medicine; ATTEND Internal Medicine
DX: L03.90 Cellulitis, unspecified (principal); S81.851A Open bite, right lower leg, initial encounter; W54.0XXA Bitten by dog, initial encounter; F31.9 Bipolar disorder, unspecified; E11.9 Type 2 diabetes mellitus without complications; K21.9 Gastro-esophageal reflux disease without esophagitis; M81.0 Age-related osteoporosis without current pathological fracture; F17.200 Nicotine dependence, unspecified, uncomplicated; Z85.3 Personal history of malignant neoplasm of breast; Y92.89 Other specified places as the place of occurrence of the external cause; C50.919 Malignant neoplasm of unspecified site of unspecified female breast; Z79.899 Other long term (current) drug therapy

== ENCOUNTER 2016-11-30 15:09 | Emergency (ER) | payer BC, OTHER ==
[~2016-11-30] VITALS: Ht 162.6 cm; Wt 73.6 kg
[~2016-11-30 15:09] MED LIST changes: +B-CO1CAP17 PO; +CHOL1000 PO; -DOXY100C PO; +GLUCTAB18 PO; +IBUP-1427 PO; +METR-163 PO; +NICO2GUM7 PO; +OMEG10007 PO; +QUET400T PO
[2016-11-30 15:15] VITALS: TEMP 36.7; Ht 162.6 cm; Wt 73.6 kg
[2016-11-30] MEDS ORDERED: ONDA-63 PO (15:23)
[2016-11-30] MEDS ORDERED: METH500T37 PO (15:23)
[2016-11-30] MEDS ORDERED: GABA1CAP4 PO (15:23)
[2016-11-30 15:47] LABS: HEMATOCRIT 33.7 % (37-47); MEAN CELL VOLUME 94.9 fL (80-100); MEAN CORPUSCULAR HEMOGLOBIN 32.1 pg (25-34); MEAN CORPUSCULAR HGB CONC 33.8 g/dl (32-36); PLATELET COUNT 247 K/uL (130-400); RED BLOOD COUNT 3.55 M/uL (4.2-5.4)
[2016-11-30 15:59] LABS: INR 0.9 (0.9-1.1)
[2016-11-30 16:06] LABS: ALT/SGPT 45 U/L (12-78); AST/SGOT 24 U/L (15-37); BLOOD UREA NITROGEN 19 mg/dl (7-18); BUN/CREATININE RATIO 23.2 (10-20); CALCIUM 8.7 mg/dl (8.5-10.1); CARBON DIOXIDE 25 mmol/L (21-32); CHLORIDE 109 mmol/L (98-107); GLUCOSE 130 mg/dl (70-99); SODIUM 141 mmol/L (136-145)
[2016-11-30 16:11] LABS: ALB/GLOB RATIO 1.2 (0.9-2); ALKALINE PHOSPHATASE 57 U/L (45-117); CKMB/CK RATIO 0.9 (0-3.0)
[2016-11-30] MEDS ORDERED: ASPIRIN 324 MG CHEW PO STA (16:22)
--- NOTE | 2016-11-30 16:29 | EMERGENCY ROOM VISIT NOTE ---
History Report prepared by Federica: Carlos Bai Under the Supervision of: Dr. Bryan Waller D.O. First contact with patient: 16:13 Chief Complaint: CARDIAC ASSESSMENT Stated Complaint: CHEST PAINS-NOT CURRENTLY-SENT FROM [facility]. History of Present Illness The patient is a 56 year old female with aggressive breast cancer who presents to the Emergency Room with complaints of intermittent chest pain that started 7 days and lasted until 4 days ago. She is currently receiving chemotherapy every 3 weeks, and was sent here from Dr. Marquez's office at the [facility] prior to arrival. She says that Dr. Marquez would not let her go through chemo today due to her chest pain earlier in the week. The patient states that currently she has no pain, and has not had any chest pain for 4 days. The patient says that the pain was in the middle, and did not radiate anywhere. She adds that the pain was intermittent, and was not sharp. She says that nothing seemed to exacerbate the pain, but she did notice quite a bit of pain while grocery shopping 4 days ago. The patient notes that she has had a port for 10 weeks, and perhaps the pain was coming from that. She adds that chest pain is nothing new to her, as she has gotten similar pain in the past. The patient notes that she has had weakness in her legs recently. She says that she has chronic shortness of breath from smoking. She denies any leg pain or swelling. The patient notes that she was not given anything in the office. She has no history of blood clots in her legs or lungs. The patient notes that she has a history of diverticulitis, chronic headaches, and hyperlipidemia. She says that she has had stress tests in the past with no problems. Source of History: patient Onset: Started 7 days ago and lasted until 4 days ago Position: chest Quality: other (not sharp) Timing: intermittent Associated Symptoms: + weakness (in legs) Note: Associated symptoms: Chronic shortness of breath from smoking. No current pain. Denies leg pain or leg swelling. Review of Systems See HPI for pertinent positives & negatives. A total of 10 systems reviewed and were otherwise negative. Past Medical & Surgical Medical Problems: (1) Bipolar disorder (2) Carcinoma of breast (3) Diabetes mellitus (4) Gastroesophageal reflux disease (5) Osteoporosis (6) r (7) Heath Teeth Removal Family History Patient reports no known family medical history. Social History Smoking Status: Current Every Day Smoker Alcohol Use: occasionally Drug Use: none Marital Status: Housing Status: lives with significant other Occupation Status: unemployed Current/Historical Medications Scheduled Bupropion HCl (Bupropion HCl Xl), 300 MG PO QAM Bupropion Hcl (Wellbutrin Xl), 150 MG PO QAM Cholecalciferol (Vitamin D3), 2,000 UNIT PO QAM Dexamethasone (Decadron), 2 TAB PO UD Fenofibrate (Fenofibrate), 145 MG PO QAM Fish Oil (Blackwell-3), 1 CAP PO BID Gabapentin (Gabapentin), 300 MG PO BID Glucosamine-Chondroitin (Osteo Bi-Flex Regular Str), 1 TAB PO BID Lisinopril (Lisinopril), 1 TAB PO QPM Metformin Hcl (Glucophage), 500 MG PO BIDM Methocarbamol (Robaxin), 500 MG PO TID Multivitamins/Minerals (Mvi With Minerals), 1 TAB PO QAM Nicotine Polacrilex (Nicorette 2MG Gum), 2 MG PO DAILY Ondansetron (Ondansetron HCl), 1 TAB PO Q8 Quetiapine Fumarate Xr (Seroquel Xr Tab), 400 MG PO HS Vitamin B Cmplx/Vitc/Folic Ac (Nephrocaps), 1 CAP PO QAM Scheduled PRN Ibuprofen Tab (Motrin), 1 TAB PO TID PRN for Pain Oxycodone HCl (Oxycodone HCl), 5 MG PO Q4 PRN for Pain Allergies Coded Allergies: Bacitracin (Verified Allergy, Severe, ITCHING/INFECTION, 11/30/16) Quinolones (Verified Allergy, Severe, ANAPHYLAXIS/HEART FLUTTERING, ) Rizatriptan (Verified Allergy, Severe, SHORTNESS OF BREATH, 10/30/16) Amoxicillin (Verified Allergy, Mild, HIVES, 10/30/16) Ciprofloxacin (Verified Allergy, Mild, Palpitations, rash,, 10/30/16) Lamotrigine (Verified Allergy, Mild, RASH, 10/30/16) Neomycin (Verified Allergy, Mild, ITCHING WITH THE OINTMENT, 10/30/16) Polymyxin B (Verified Allergy, Mild, ITCHING WITH OINTMENTS, 10/30/16) Adhesives (Verified Allergy, Unknown, ALLERGIC TO MEDICATED STERI-STRIPS AND SOME TAPE-RASH BLISTE, 10/30/16) Cephalosporins (Verified Allergy, Unknown, PT DENIED ANY PROBLEMS, 10/30/16 ) Citalopram (Verified Allergy, Unknown, UNKNOWN, 10/30/16) Clavulanic Acid (Verified Allergy, Unknown, UNKNOWN, 10/30/16) Clindamycin (Unverified Allergy, Unknown, EARS VERY RED SWOLLEN,ITCHING, DIZZINESS, 10/30/16) Crab (Unverified Allergy, Unknown, SOFT SHELL-SWELLING IN MOUTH, 10/30/16) Metronidazole (Verified Allergy, Unknown, HIVES, 10/30/16) Paroxetine (Verified Allergy, Unknown, OUT OF BODY EXPERIENCE, 10/30/16) Penicillins (Verified Allergy, Unknown, UNKNOWN, 10/30/16) Piperacillin (Verified Allergy, Unknown, BETALACTAMASE INHIBITORS-UNKNOWN , 10/30/16) Tazobactam (Verified Allergy, Unknown, BETALACTAMASE INHIBITORS-UNKNOWN, ) Unclassified Drugs (Unverified Allergy, Unknown, BL PLASTIC SUTURE-SKIN IRRITATION/RED/SWELLING ITCHY-NYLON?, 10/30/16) BLUE SUTURE OK PER PT-PROLENE Celecoxib (Verified Adverse Reaction, Intermediate, GI SYMPTOMS, 10/30/16) Gluten (Verified Adverse Reaction, Unknown, GI SYMPTOMS, 10/30/16) Physical Exam Vital Signs Date Time Temp Pulse Resp B/P (MAP) Pulse Ox O2 Delivery O2 Flow Rate FiO2 11/30/16 19:05 91 17 124/71 95 11/30/16 18:10 92 16 97/57 94 Room Air 11/30/16 16:29 97 11/30/16 16:15 91 17 109/73 96 Room Air 11/30/16 16:13 Room Air 11/30/16 15:15 36.7 82 18 125/83 97 Room Air Physical Exam GENERAL: Patient is awake, alert, and in no acute distress. Patient is resting comfortably and showing no signs of anxiety EYES: The conjunctivae are clear. The pupils are round and reactive. EARS, NOSE, MOUTH AND THROAT: The nose is without any evidence of any deformity. Mucous membranes are moist tongue is midline NECK: The neck is nontender and supple. RESPIRATORY: Normal respiratory effort is noted there is no evidence of wheezing rhonchi or rales CARDIOVASCULAR: Regular rate and rhythm noted there no murmurs rubs or gallops normal S1 normal S2 GASTROINTESTINAL: The abdomen is soft. Bowel sounds are present in all quadrants. Abdomen is nontender MUSCULOSKELETAL/EXTREMITIES: There is no evidence of gross deformity full range of motion is noted in the hips and shoulders SKIN: There is no obvious evidence of any rash. There are no petechiae, pallor or cyanosis noted. NEUROLOGIC: Patient is awake alert and oriented x3 strength is symmetric patellar reflexes are 2+ bilaterally Medical Decision & Procedures ER Provider Diagnostic Interpretation: Radiology results as stated below per my review and radiologist interpretation: CHEST ONE VIEW PORTABLE CLINICAL HISTORY: CP dyspnea COMPARISON STUDY: 04/27/2015 FINDINGS: Central catheter in superior vena cava. Lungs are clear. Diaphragms smooth. No evidence for cardiac enlargement. IMPRESSION: No acute process. The above report was generated using voice recognition software. It may contain grammatical, syntax or spelling errors. Electronically signed by: Cam Kat M.D. 11/30/2016 5:20 PM Dictated Date/Time: 11/30/2016 5:20 PM (CHEST FOR PE) ANGIO WITH CLINICAL HISTORY: 56 years-old Female presenting with chest pain, history of breast cancer. TECHNIQUE: Multidetector CT angiography of the chest was performed after administration of intravenous contrast. 3-D volumetric and/or maximum intensity projection (MIP) images were subsequently reconstructed for review. IV contrast: 65 mL of Optiray 320. A dose lowering technique was used consistent with the principles of ALARA (as low as reasonably achievable). COMPARISON: 08/14/2008. CT DOSE (mGy.cm): The estimated cumulative dose is 357.19 mGy.cm. FINDINGS: House Wirer topogram: Unremarkable. Pulmonary vasculature: The study is adequate for assessment of the pulmonary vascular tree. No filling defect within the pulmonary arteries to suggest embolus. Main pulmonary artery is not enlarged. No flattening of the interventricular septum. No intracardiac intracardiac filling defect. No reflux of contrast into the hepatic veins. Remaining chest: On soft tissue windows, right subclavian Mediport terminates in the SVC. 1.9 cm nodule in the left lobe of the thyroid, not clearly visualized on prior exam. Few small mediastinal hilar lymph nodes, which are subcentimeter. No pathologically enlarged axillary or internal mammary lymph nodes. Normal aorta. Normal heart size. No pericardial or pleural effusion. Hepatic steatosis and hepatomegaly. 2.5 cm left adrenal gland nodule unchanged from prior and consistent with a benign adenoma by density. On lung windows, minimal groundglass opacity and focal nodularity noted in the lingula. Solid 4 mm pulmonary nodule also noted in the left upper lobe (series 4 image 180). This was present on the prior exam, where it measured 3 mm. Airways patent. On bone windows, degenerative changes of the thoracic spine. No destructive osseous lesion. IMPRESSION: 1. No evidence of pulmonary embolus. No convincing evidence of intrathoracic metastatic disease. 2. Minimal groundglass opacity and focal nodularity in the lingula, nonspecific and too limited to suggest acute infectious etiology. 3. Adjacent solid 4 mm pulmonary nodule in the left upper lobe, not significantly changed since 2008. 4. 1.9 cm left thyroid lobe nodule, for which a nonurgent ultrasound of the thyroid could be obtained if clinically warranted. 5. Hepatic steatosis and hepatomegaly. Electronically signed by: Branden Donato M.D. 11/30/2016 6:08 PM Dictated Date/Time: 11/30/2016 5:59 PM Laboratory Results 11/30/16 15:27 11/30/16 15:27 Test 11/30/16 15:27 11/30/16 16:31 Red Blood Count 3.55 M/uL (4.2-5.4) Mean Corpuscular Volume 94.9 fL (80-100) Mean Corpuscular Hemoglobin 32.1 pg (25-34) Mean Corpuscular Hemoglobin Concent 33.8 g/dl (32-36) RDW Standard Deviation 49.3 fL (36.4-46.3) RDW Coefficient of Variation 14.3 % (11.5-14.5) Mean Platelet Volume 10.0 fL (7.4-10.4) Prothrombin Time 10.0 SECONDS (9.0-12.0) Prothromb Time International Ratio 0.9 (0.9-1.1) Activated Partial Thromboplast Time 24.7 SECONDS (21.0-31.0) Partial Thromboplastin Ratio 1.0 Anion Gap 7.0 mmol/L (3-11) Est Creatinine Clear Calc Drug Dose 75.4 ml/min Estimated GFR () 94.2 Estimated GFR (Non- 81.3 BUN/Creatinine Ratio 23.2 (10-20) Calcium Level 8.7 mg/dl (8.5-10.1) Total Bilirubin 0.1 mg/dl (0.2-1) Aspartate Amino Transf (AST/SGOT) 24 U/L (15-37) Alanine Aminotransferase (ALT/SGPT) 45 U/L (12-78) Alkaline Phosphatase 57 U/L (45-117) Total Creatine Kinase 76 U/L (26-192) Creatine Kinase MB 0.7 ng/ml (0.5-3.6) Creatine Kinase MB Ratio 0.9 (0-3.0) Troponin I < 0.015 ng/ml (0-0.045) Total Protein 6.5 gm/dl (6.4-8.2) Albumin 3.6 gm/dl (3.4-5.0) Globulin 2.9 gm/dl (2.5-4.0) Albumin/Globulin Ratio 1.2 (0.9-2) Bedside D-Dimer > 450 ng/mlFEU (0-450) Laboratory results per my review. Medications Administered Medications (Trade) Dose Ordered Sig/Jennifer Route Start Time Stop Time Status Last Admin Dose Admin Aspirin (Aspirin Chew) 324 mg NOW STAT PO 11/30/16 16:22 11/30/16 16:23 DC 11/30/16 16:30 324 MG Heparin Sodium (Porcine) (Heparin 100 Unit/ml 5ml Flush) 5 ml STK-MED ONCE .ROUTE 11/30/16 19:02 11/30/16 19:03 DC 11/30/16 19:04 5 ML ECG Indication: chest pain Rate (beats per minute): 79 Rhythm: normal sinus Findings: no ectopy, other (no acute ST segment abnormalities) Change: no significant change (from 04/27/15) ED Course 1616: The patient was evaluated in room C12B. A complete history and physical examination were performed. 162: Ordered Aspirin Chew 324 mg PO. 1717: I reevaluated and updated the patient. 9: Upon reevaluation, the patient is resting comfortably. I discussed the results and treatment plan with her. She verbalized agreement of the treatment plan. She will be discharged home. Medical Decision Differential diagnosis: Etiologies such as cardiac ischemia, aortic dissection, pulmonary embolism, pneumonia, pneumothorax, musculoskeletal, infections, pericarditis, myocarditis , esophageal rupture, gastrointestinal, as well as others were entertained. Nursing notes reviewed. The patient is a 56-year-old female who presented to the emergency department for evaluation of chest pain. The patient describes intermittent chest pain which is not necessarily exertional. She has not had episodes of chest pain for 4 days. She was at the cancer center. When she told her oncologist that she was expressing chest pain recently she was sent to the emergency department for further evaluation. The patient's EKG did not show any signs of ischemia and her troponin was negative. Her d-dimer is elevated but she is currently being treated for breast cancer. Given her risk for pulmonary embolism a CT the chest was ordered but did not show any signs of acute pulmonary embolism or any other acute disease would be causing her chest pain. I discussed the limitations of the emergency department workup for chest pain with her. At this time I do not feel that she requires any further workup given that she has not had chest pain and 4 days but she may require a provocative test in the future. She was encouraged to call her family doctor to schedule a follow-up appointment and discuss stress testing. She was also encouraged to avoid any strenuous activity and return to the emergency department immediately if symptoms change worsen or the need arises. Medication Reconcilliation Current Medication List: was personally reviewed by me Blood Pressure Screening Patient's blood pressure: Normal blood pressure Impression Primary Impression: Chest pain Scribe Attestation The scribe's documentation has been prepared under my direction and personally reviewed by me in its entirety. I confirm that the note above accurately reflects all work, treatment, procedures, and medical decision making performed by me. Departure Information Dispostion Home / Self-Care Referrals Justice Madera M.D. (PCP) Oswaldo Marquez MD Patient Instructions ED Chest Pain Atypical Unkn Cause, My [facility] Additional Instructions Medications as prescribed. Rest and avoid any strenuous activity. Continue all medications as prescribed. Discuss the possibility with your family doctor that you may require further testing such as a stress test to evaluate the cause of her discomfort. Return to the emergency department immediately if symptoms change worsen or the need arises. Problem Qualifiers Primary Impression: Chest pain Chest pain type: unspecified Qualified Codes: R07.9 - Chest pain, unspecified
[2016-11-30] MEDS ORDERED: OXYC-609 PO (16:56)
--- NOTE | 2016-11-30 17:22 | DIAGNOSTIC IMAGING REPORT ---
CHEST ONE VIEW PORTABLE CLINICAL HISTORY: CP dyspnea COMPARISON STUDY: 04/27/2015 FINDINGS: Central catheter in superior vena cava. Lungs are clear. Diaphragms smooth. No evidence for cardiac enlargement. IMPRESSION: No acute process. The above report was generated using voice recognition software. It may contain grammatical, syntax or spelling errors. Electronically signed by: Cam Kat M.D. 11/30/2016 5:20 PM Dictated Date/Time: 11/30/2016 5:20 PM
[2016-11-30] MEDS ORDERED: OPTIRAY 320 IV PRN (17:30)
[2016-11-30] MEDS ORDERED: FENO1TAB24 PO (17:55)
--- NOTE | 2016-11-30 18:09 | DIAGNOSTIC IMAGING REPORT ---
(CHEST FOR PE) ANGIO WITH CLINICAL HISTORY: 56 years-old Female presenting with chest pain, history of breast cancer. TECHNIQUE: Multidetector CT angiography of the chest was performed after administration of intravenous contrast. 3-D volumetric and/or maximum intensity projection (MIP) images were subsequently reconstructed for review. IV contrast: 65 mL of Optiray 320. A dose lowering technique was used consistent with the principles of ALARA (as low as reasonably achievable). COMPARISON: 08/14/2008. CT DOSE (mGy.cm): The estimated cumulative dose is 357.19 mGy.cm. FINDINGS: Pathology Assistant topogram: Unremarkable. Pulmonary vasculature: The study is adequate for assessment of the pulmonary vascular tree. No filling defect within the pulmonary arteries to suggest embolus. Main pulmonary artery is not enlarged. No flattening of the interventricular septum. No intracardiac intracardiac filling defect. No reflux of contrast into the hepatic veins. Remaining chest: On soft tissue windows, right subclavian Mediport terminates in the SVC. 1.9 cm nodule in the left lobe of the thyroid, not clearly visualized on prior exam. Few small mediastinal hilar lymph nodes, which are subcentimeter. No pathologically enlarged axillary or internal mammary lymph nodes. Normal aorta. Normal heart size. No pericardial or pleural effusion. Hepatic steatosis and hepatomegaly. 2.5 cm left adrenal gland nodule unchanged from prior and consistent with a benign adenoma by density. On lung windows, minimal groundglass opacity and focal nodularity noted in the lingula. Solid 4 mm pulmonary nodule also noted in the left upper lobe (series 4 image 180). This was present on the prior exam, where it measured 3 mm. Airways patent. On bone windows, degenerative changes of the thoracic spine. No destructive osseous lesion. IMPRESSION: 1. No evidence of pulmonary embolus. No convincing evidence of intrathoracic metastatic disease. 2. Minimal groundglass opacity and focal nodularity in the lingula, nonspecific and too limited to suggest acute infectious etiology. 3. Adjacent solid 4 mm pulmonary nodule in the left upper lobe, not significantly changed since 2008. 4. 1.9 cm left thyroid lobe nodule, for which a nonurgent ultrasound of the thyroid could be obtained if clinically warranted. 5. Hepatic steatosis and hepatomegaly. Electronically signed by: Branden Donato M.D. 11/30/2016 6:08 PM Dictated Date/Time: 11/30/2016 5:59 PM
[2016-11-30] MEDS ORDERED: BUPRTAB PO (19:02)
[2016-11-30] MEDS ORDERED: GLC/500 PO (19:02)
[2016-11-30 19:05] VITALS: BP 124/71; PULSE 91; O2SAT 95
[2016-11-30] MEDS ORDERED: WLLXL300 PO (21:31)
[2016-11-30] MEDS ORDERED: LSN25 PO (21:35)
[2016-11-30] MEDS ORDERED: MULT-513 PO (21:35)
== END 2016-11-30 19:05 | disposition home or self-care (01) ==
LOC: C.EDB 15:11 → C.EDC 19:05
DX: R07.9 Chest pain, unspecified (principal); R06.02 Shortness of breath; F31.9 Bipolar disorder, unspecified; M81.0 Age-related osteoporosis without current pathological fracture; E11.9 Type 2 diabetes mellitus without complications; F17.200 Nicotine dependence, unspecified, uncomplicated; Z98.818 Other dental procedure status; Z79.899 Other long term (current) drug therapy; C50.112 Malignant neoplasm of central portion of left female breast

== ENCOUNTER → 2016-12-07 | Outpatient (CLI) | payer BC ==
[~2016-12-07] MED LIST changes: +BUPRTAB PO; +FENO1TAB24 PO; +GABA1CAP4 PO; +GLC/500 PO; +LSN25 PO; +METH500T37 PO; -METR-163 PO; +MULT-513 PO; +ONDA-63 PO; +OXYC-609 PO; -TRAM-10 PO; +WLLXL300 PO
--- NOTE | 2016-12-07 11:58 | DIAGNOSTIC IMAGING REPORT ---
FLUOROSCOPY GUIDED A-PORT CHECK CLINICAL HISTORY: BREAST CANCER FEMALE,C50.112. Malfunctioning Port-A-Cath. COMPARISON STUDY: None. FINDINGS: Total fluoroscopy time was 0.3 minutes. 31 images submitted. Initial fluoroscopic spot image of the right chest demonstrates a right subclavian Port-A-Cath. The tubing appears intact. Prior to the procedure aspiration was attempted which demonstrated expected blood return. Approximately 20 cc of contrast was injected through the port. Contrast easily flowed into the SVC. No evidence for a fibrin sheath or thrombus. The catheter appears intact. IMPRESSION: Right subclavian Port-A-Cath is within normal limits. Electronically signed by: Lazaro Mahan M.D. 12/07/2016 11:56 AM Dictated Date/Time: 12/07/2016 11:54 AM
== END | disposition home or self-care (01) ==
LOC: C.RAD 10:55
PROVIDERS: ATTEND Internal Medicine Hematology & Oncology
DX: C50.112 Malignant neoplasm of central portion of left female breast (principal)

== ENCOUNTER → 2016-12-28 | Outpatient (CLI) | payer BC ==
[2016-12-28 10:13] LABS: BASO % 0.5 %; BASO ABS # 0.06 K/uL (0-0.2); COMPLETE YES; EOS % 0.1 %; HEMATOCRIT 34.9 % (37-47); IG% 3.3 %; LYMPH ABS # 4.32 K/uL (1.2-3.4); MEAN CELL VOLUME 96.9 fL (80-100); MEAN CORPUSCULAR HEMOGLOBIN 32.5 pg (25-34); MEAN CORPUSCULAR HGB CONC 33.5 g/dl (32-36); MEAN PLATELET VOLUME 9.3 fL (7.4-10.4); MONO % 8.7 %; NEUT % 50.4 %; PLATELET COUNT 285 K/uL (130-400); WHITE BLOOD COUNT 11.66 K/uL (4.8-10.8)
[2016-12-28 10:31] LABS: BLOOD UREA NITROGEN 20 mg/dl (7-18); BUN/CREATININE RATIO 21.6 (10-20); CALCIUM 9.6 mg/dl (8.5-10.1); CARBON DIOXIDE 26 mmol/L (21-32); CHLORIDE 107 mmol/L (98-107); CREATININE 0.93 mg/dl (0.60-1.20); GLUCOSE 92 mg/dl (70-99); POTASSIUM 4.6 mmol/L (3.5-5.1); SODIUM 140 mmol/L (136-145)
[2016-12-28 10:37] LABS: ALB/GLOB RATIO 1.2 (0.9-2); ALKALINE PHOSPHATASE 61 U/L (45-117); ALT/SGPT 43 U/L (12-78); AST/SGOT 24 U/L (15-37)
== END | disposition home or self-care (01) ==
LOC: C.LAB 16:48
PROVIDERS: ATTEND Internal Medicine Hematology & Oncology
DX: C50.112 Malignant neoplasm of central portion of left female breast (principal)

== ENCOUNTER → 2017-03-21 | Outpatient (CLI) | payer BC ==
[~2017-03-21] MED LIST changes: +ACET-749 PO; +ANAS1TAB6 PO; +CHN/1 PO; -DXM/4 PO; -METH500T37 PO
[2017-03-21 14:48] VITALS: BP 114/72; PULSE 88; TEMP 37.3; O2SAT 96
--- NOTE | 2017-03-21 16:36 | Radiation Oncology Follow-Up ---
Radiation Oncology Follow-Up Date of Visit Mar 21, 2017. Reason For Visit One-month follow-up in cancer survivorship care plan Radiation Completion Date 02/13/17 Diagnosis (1) Breast cancer Status: Resolved Onset Date: 07/06/2016 Histology Subtype: ductal and lobular Stage: l (A) Permanent Comment: LCIS of the left breast diagnosed 07/25/2005 Status post lumpectomy 08/10/2005 Status post tamoxifen for 5 years Abnormal left breast mammogram left upper outer quadrant Status post biopsy 07/06/2016 Lobular and ductal features, grade 1 Estrogen receptor positive, progesterone receptor negative, HER-2/zurdo negative Status post MRI of the breasts Status post MRI guided biopsy of the right breast 08/08/2016, benign Status post left partial mastectomy and sentinel lymph node biopsy 08/27/2016 Ductal and lobular features Stage pT1c pN0 Oncotype DX score of 46 BRCA 1 and 2 negative Status post systemic chemotherapy with TC 4 cycles Status post completion of radiation therapy 02/13/2017 she received 5130 cGy utilizing hypo-fractionation. Last Edited By: Rose Rodrigues on Mar 21, 2017 16:33 History of Present Illness Ms. Son has a family history of breast cancer. She has both maternal and paternal aunts and grandmother with breast cancer. She was noted to have left breast microcalcifications in 2005. A unilateral mammogram was performed on 07/16/2005 which showed clustered microcalcifications at the 12 o'clock position of the left breast. A core biopsy was performed on 07/25/2005 identifying lobular carcinoma in situ with associated microcalcifications but no invasive carcinoma seen. Case: [id number]. Patient went on to have a needle localization excision of the left breast on 08/10/2005. This confirmed a lobular carcinoma in situ which was extensive and multifocal. The LCIS extended to the outer inked margins and there were microcalcifications associated with the LCIS. There was no evidence of invasive carcinoma. Case [id number]. Patient was seen by medical oncology and was started on tamoxifen. She was on tamoxifen for 5 years. On 06/18/2016 patient underwent her most recent screening mammogram. This showed a focal asymmetry with possible associated distortions in the upper outer middle one third of the left breast at approximately 1 o'clock position. Targeted ultrasound and possible additional views were recommended. On 2016 patient underwent a left digital diagnostic mammogram with targeted left breast ultrasound. There was a irregular somewhat spiculated 1.2 x 0.8 x 1.4 cm mass in the upper outer middle one third of the left breast. Targeted ultrasound at the 1:00 axis 5 cm in the nipple revealed a hypoechoic solid mass measuring 0.8 x 0.4 x 0.6 cm. An ultrasound-guided core biopsy of the left breast was recommended and performed on 07/06/2016. Patient underwent bilateral breast MRIs on 07/20/2016. In the right breast a linear area of non-mass enhancement measuring 6 mm was noted within the right middle depth at the 12 o'clock position. In the left breast the enhancing irregular mass was seen at the 1 o'clock position middle depth consistent with the biopsy-proven malignancy. This mass measured 1.3 x 1.4 x 1.0 cm. There was no evidence of axillary adenopathy on 08/08/2016 patient underwent an MRI guided biopsy of the right breast 12 o'clock position. This revealed adenosis and was negative for DCIS and for invasive carcinoma. Case: [id number]. Patient was subsequently seen by Dr. Griffiths. He discussed treatment options with the patient and proceeded with a breast conserving therapy consisting of a left breast partial mastectomy and sentinel node biopsy. This was performed on 08/21/2016. This revealed an invasive carcinoma with lobular and ductal differentiation. It was a Danna grade 1 of 3 with no perineural or lymphovascular invasion identified. The examined margins were free of neoplasm. [place] lymph node was negative by routine stains and by immunohistochemistry to cytokeratin. The closest margin was 0.6 cm representing the superior margin. Final pathology was therefore pT1c pN0(sn-), ER positive, [place] negative and HER-2/zurdo negative. An Oncotype DX test has been ordered with results pending. Patient is scheduled to see Dr. Oswaldo Marquez next week to discuss the potential role of adjuvant therapy pending the findings of the Oncotype DX test. We were asked to see the patient in referral to review with her the role of adjuvant radiation. Her Oncotype DX score came back high at 46. Decision was to go forward with chemotherapy. She received 4 cycles of TC. The last treatment was on 2016. 2 cycles were delayed by one week. One was due to chest pain and the other due to a dog bite. She had developed an infection in her leg and required antibiotic therapy. This is healed without difficulty. The chest pain was evaluated and there were no cardiac issues. She continued with her chemotherapy. She did have nausea with the chemotherapy and use the anti- emetics. She also had diarrhea and used Imodium. She then returned to our office and underwent radiation therapy. Radiation was completed 02/13/2017. She received 5130 cGy utilizing hypo-fractionation. Interim History She has been doing well over this past month. She is noted no changes in her breast. She is found a masses no tenderness and no change of the axilla. She has no swelling of her arm. Follow-up mammography has been scheduled for May. She had no issues with skin irritation following the treatment. She did have radiation dermatitis that healed without difficulty. She had been prescribed Lidex cream. She had mild discomfort and did not require any prescriptive pain medications. She is on anti-estrogen therapy. She is tolerating this well. She had made the decision to stop smoking. She discuss this with her psychiatrist. She started taking Chantix today. Allergies Coded Allergies: Bacitracin (Verified Allergy, Severe, ITCHING/INFECTION, 11/30/16) Quinolones (Verified Allergy, Severe, ANAPHYLAXIS/HEART FLUTTERING, ) Rizatriptan (Verified Allergy, Severe, SHORTNESS OF BREATH, 10/30/16) Amoxicillin (Verified Allergy, Mild, HIVES, 10/30/16) Ciprofloxacin (Verified Allergy, Mild, Palpitations, rash,, 10/30/16) Lamotrigine (Verified Allergy, Mild, RASH, 10/30/16) Neomycin (Verified Allergy, Mild, ITCHING WITH THE OINTMENT, 10/30/16) Polymyxin B (Verified Allergy, Mild, ITCHING WITH OINTMENTS, 10/30/16) Adhesives (Verified Allergy, Unknown, ALLERGIC TO MEDICATED STERI-STRIPS AND SOME TAPE-RASH BLISTE, 10/30/16) Cephalosporins (Verified Allergy, Unknown, PT DENIED ANY PROBLEMS, 10/30/16 ) Citalopram (Verified Allergy, Unknown, UNKNOWN, 10/30/16) Clavulanic Acid (Verified Allergy, Unknown, UNKNOWN, 10/30/16) Clindamycin (Unverified Allergy, Unknown, EARS VERY RED SWOLLEN,ITCHING, DIZZINESS, 10/30/16) Crab (Unverified Allergy, Unknown, SOFT SHELL-SWELLING IN MOUTH, 10/30/16) Metronidazole (Verified Allergy, Unknown, HIVES, 10/30/16) Paroxetine (Verified Allergy, Unknown, OUT OF BODY EXPERIENCE, 10/30/16) Penicillins (Verified Allergy, Unknown, UNKNOWN, 10/30/16) Piperacillin (Verified Allergy, Unknown, BETALACTAMASE INHIBITORS-UNKNOWN , 10/30/16) Tazobactam (Verified Allergy, Unknown, BETALACTAMASE INHIBITORS-UNKNOWN, ) Unclassified Drugs (Unverified Allergy, Unknown, BL PLASTIC SUTURE-SKIN IRRITATION/RED/SWELLING ITCHY-NYLON?, 10/30/16) BLUE SUTURE OK PER PT-PROLENE Celecoxib (Verified Adverse Reaction, Intermediate, GI SYMPTOMS, 10/30/16) Gluten (Verified Adverse Reaction, Unknown, GI SYMPTOMS, 10/30/16) Home Medications Scheduled Anastrozole (Anastrozole), 1 TAB PO DAILY Bupropion HCl (Bupropion HCl Xl), 300 MG PO QAM Bupropion Hcl (Wellbutrin Xl), 150 MG PO QAM Cholecalciferol (Vitamin D3), 2,000 UNIT PO QAM Fenofibrate (Fenofibrate), 145 MG PO QAM Fish Oil ([place]-3), 1 CAP PO BID Gabapentin (Gabapentin), 300 MG PO BID Glucosamine-Chondroitin (Osteo Bi-Flex Regular Str), 1 TAB PO BID Lisinopril (Lisinopril), 1 TAB PO QPM Metformin Hcl (Glucophage), 500 MG PO BIDM Multivitamins/Minerals (Mvi With Minerals), 1 TAB PO QAM Nicotine Polacrilex (Nicorette 2MG Gum), 2 MG PO DAILY Ondansetron (Ondansetron HCl), 1 TAB PO Q8 Quetiapine Fumarate Xr (Seroquel Xr Tab), 400 MG PO HS Varenicline (Chantix), 1 TAB PO BID Vitamin B Cmplx/Vitc/Folic Ac (Nephrocaps), 1 CAP PO QAM Scheduled PRN Acetaminophen/Codeine (Tylenol W/Codeine #3), 1 TAB PO Q4 PRN for Pain Ibuprofen Tab (Motrin), 1 TAB PO TID PRN for Pain Oxycodone HCl (Oxycodone HCl), 5 MG PO Q4 PRN for Pain Review of Systems Gastrointestinal: Symptoms: WNL, Nausea, Diarrhea GI Comments: "Nausea every once in a while", increased diarrhea over past month Oral: Symptoms: No Problems Respiratory: Symptoms: WNL, Dry Cough Other Respiratory: "I have a cough but I think its from the flu" Urinary: Symptoms: WNL Skin: Symptoms: No Problems Breast: Right Upper Arm Measurement: 29.2 Right Mid Arm Measurement: 24.6 Right Wrist Measurement: 16.1 Left Upper Arm Measurement: 28.6 Left Mid Arm Measurement: 24.3 Left Wrist Measurement: 15.9 Arm Dominence: Right Physical Exam Vital Signs Date Time Temp Pulse Resp B/P (MAP) Pulse Ox O2 Delivery O2 Flow Rate FiO2 03/21/17 14:48 37.3 88 16 114/72 96 Fatigue: None General Appearance: no apparent distress Eyes: normal inspection, EOMI ENT: normal ENT inspection, hearing grossly normal Neck: no adenopathy, thyroid normal Respiratory/Chest: lungs clear, no respiratory distress, no accessory muscle use Breast: Breast examination reveals well-healed incisions bilaterally. On the left she has resolving hyperpigmentation. There is slight edema. There are no masses. There is slight tenderness to palpation. There is no axillary adenopathy. Using the [place] score cosmesis she has a good outcome. The right breast showed no masses or tenderness and no axillary adenopathy. Cardiovascular: regular rate, rhythm, no gallop, no murmur Extremities: no pedal edema Neurologic/Psychiatric: no motor/sensory deficits, alert, normal mood/affect Skin: warm/dry Pain Management Patient Reports Pain: Yes Pain Management Plan Pain is related to back issues. Pain management through the primary care physician. Laboratory Laboratory Results: not applicable Pathology Pathology Results: not applicable Imaging Imaging Studies: not applicable Assessment & Plan Plan: Continue follow-up with medical oncology and breast surgeon. She plans to make an appointment with Dr. Griffiths is new associated. We discussed smoking cessation. She was given information about the 1 800 quit line. Her psychiatrist has prescribed Chantix. I discussed the smoke cessation program that is available at Hospital. She wanted to be referred to the program. Her name will be given to Rhiannon Martinez. Today we completed a cancer survivorship care plan. A copy of the document was given to the patient. She was given a survivorship booklet. We asked her to return to our office in 6 months. She will call if she has a questions or concerns in the interim. Total Time In Follow-Up I spent 20 minutes speaking to the patient performing examination. I spent 20 minutes reviewing information, preparing the survivorship document and completing this note. Copy To Brando Griffiths M.D.; Justice Madera M.D.; Oswaldo Marquez MD Problem Qualifiers (1) Breast cancer: Breast location: upper outer quadrant of breast Estrogen receptor status: positive Patient sex: female Laterality: left Qualified Codes: C50.412 - Malignant neoplasm of upper-outer quadrant of left female breast; Z17.0 - Estrogen receptor positive status [ER+]
== END | disposition home or self-care (01) ==
LOC: C.ONC 14:43
PROVIDERS: ATTEND Physician Assistant Medical
DX: Z08 Encounter for follow-up examination after completed treatment for malignant neoplasm (principal); Z92.3 Personal history of irradiation; Z85.3 Personal history of malignant neoplasm of breast

== ENCOUNTER → 2017-04-01 | Outpatient (CLI) | payer BC ==
[~2017-04-01] MED LIST changes: +GADAVIST IV PRN
--- NOTE | 2017-04-01 10:36 | DIAGNOSTIC IMAGING REPORT ---
MRI OF THE LUMBAR SPINE WITH AND WITHOUT CONTRAST CLINICAL HISTORY: Severe low back pain radiating into both lower extremities. History of breast cancer. COMPARISON STUDY: Lumbar spine radiograph March 26, 2017 and MRI of the lumbar spine May 25, 2016. TECHNIQUE: Utilizing a 1.5 Darlene magnet and dedicated coil, multiplanar, multiecho imaging of the lumbar spine was performed before and after uneventful IV administration of 7 mL of Gadavist. FINDINGS: For purposes of numbering on this exam, the L5-S1 disc space is assigned to axial image 23 of 25. Alignment of the lumbar spine is anatomic. There is no suspicious marrow replacement. There is no intracanalicular mass or fluid collection. There is no abnormal enhancement within the lumbar canal. The conus terminates at the upper L1 level. There is mild disc space narrowing with desiccation of the L3-L4 disc which has mildly progressed since exam of May 25, 2016. L1-2: The central canal and neural foramina patent. L2-3: The central canal and neural foramen are patent. L3-4: There is mild disc bulge with a small superimposed left foraminal/far left lateral disc protrusion. There is mild to moderate narrowing of both neural foramen. There is facet arthrosis at this level. L4-5: There is mild facet arthrosis. Central canal is patent. A small left foraminal/far left lateral disc protrusion results in mild narrowing of the left neural foramen. Right neural foramen is patent L5-S1: Central canal and neural foramen are patent. IMPRESSION: 1. Mild multilevel degenerative disc disease at L3-L4 and L4-L5 with disc bulges and superimposed left foraminal/far left lateral disc protrusions which result in mild narrowing of the left neural foramen at these levels. 2. No evidence of metastatic disease within the lumbar spine. 3. Patent central canal. Electronically signed by: Buddy Del Real M.D. 04/01/2017 10:35 AM Dictated Date/Time: 04/01/2017 10:24 AM
== END | disposition home or self-care (01) ==
LOC: C.MRIBC 08:41
PROVIDERS: ATTEND Orthopaedic Surgery Orthopaedic Surgery of the Spine
DX: M54.9 Dorsalgia, unspecified (principal); C50.919 Malignant neoplasm of unspecified site of unspecified female breast

== ENCOUNTER → 2017-04-09 | Outpatient (CLI) | payer BC ==
[~2017-04-09] MED LIST changes: -GADAVIST IV PRN
--- NOTE | 2017-04-09 13:30 | DIAGNOSTIC IMAGING REPORT ---
CHEST 2 VIEWS ROUTINE HISTORY: COUGH COMPARISON: Chest 11/30/2016. FINDINGS: The lungs are clear. Cardiac silhouette is normal in size. No pleural effusions. No pneumothorax. IMPRESSION: No acute process. Electronically signed by: Lazaro Mahan M.D. 04/09/2017 1:29 PM Dictated Date/Time: 04/09/2017 1:26 PM
== END | disposition home or self-care (01) ==
LOC: C.RAD1850 13:07
PROVIDERS: ATTEND Family Medicine
DX: R05 Cough (principal)

== ENCOUNTER → 2017-05-20 | Outpatient (CLI) | payer BC ==
[~2017-05-20] MED LIST changes: +FENO145T24 PO; -FENO1TAB24 PO; +GABA-1219 PO; -GABA1CAP4 PO
--- NOTE | 2017-05-20 15:19 | MAMMOGRAPHY REPORT ---
BILATERAL DIGITAL DIAGNOSTIC MAMMOGRAM TOMOSYNTHESIS WITH CAD AND TARGETED BILATERAL ULTRASOUND: 05/20 CLINICAL HISTORY: 56-year-old woman with a personal history of left breast cancer status post breast conservation treatment presents to establish new baseline in the left breast after treatment and also due for right mammography. TECHNIQUE: Bilateral CC and MLO 2D and tomosynthesis images, spot magnification left CC and ML views were obtained. Current study was also evaluated with a Computer Aided Detection (CAD) system. COMPARISON: Comparison is made to exams dated: 08/08/2016 mammogram, 08/08/2016 MRI biopsy, 07/20/2016 breast MRI, 07/06/2016 mammogram, 06/25/2016 mammogram, and 06/18/2016 mammogram - [facility]. BREAST COMPOSITION: There are scattered areas of fibroglandular density in both breasts. FINDINGS: Two linear scar markers overlie the upper outer quadrant of the left breast, and one linear scar marker overlies the upper inner posterior right breast. There is expected architectural distor tion and 4 surgical clips in the upper outer middle one third of the left breast, at the site of prio r lumpectomy. Expected architectural distortion is also seen in the 12:00 middle one third of the le ft breast, denoting an area of remote surgery. There is mild diffuse skin thickening and trabecular edema of the left breast, likely related to prior treatment. There are benign rim and rodlike calcif ications in the left breast, without evidence of new suspicious grouping or cluster of microcalcifica tions. No suspicious mass, asymmetry or unexpected architectural distortion is identified in the lef t breast. There is a dumbbell-shaped biopsy marker clip in the 12:00 right breast, denoting the area of prior b enign MRI guided biopsy. There is a 7 mm nodular asymmetry in the superior posterior right breast on the MLO view located 13 mm inferior to the scar marker that is new comparing to prior mammograms. F urther characterization with ultrasound was performed. There are scattered benign-appearing right br east microcalcifications. No suspicious grouping or cluster of calcifications, developing mass, arch itectural distortion or suspicious asymmetry. Targeted ultrasound was performed in the upper inner quadrant of the right breast to assess for the n ewly visualized 7 mm nodular asymmetry. In the 1:00 axis, 12 cm from the nipple, there is a lobulate d anechoic fluid collection at the site of recent port removal. This is likely secondary to the cassie ent's Mediport and considered benign. However, given that the asymmetry is new would recommend follo w-up in 6 months to ensure stability and/or resolution. IMPRESSION: ACR-BI-RADS CATEGORY 3: PROBABLY BENIGN, TARGETED ULTRASOUND ACR-BI-RADS CATEGORY 3: PRO BABLY BENIGN 1. Expected posttreatment changes in the left breast, without definite mammographic evidence of bren gnancy. Recommend a another close follow-up left diagnostic tomosynthesis mammogram and possible ult rasound in 6 months to ensure longer stability after treatment. 2. A new 7 mm nodular asymmetry in the superior posterior right breast projecting over the pectorali s muscle on the MLO view likely represent a small fluid collection at the site of prior Mediport cath eter, which has recently been removed. However, a six-month follow-up right diagnostic tomosynthesis mammogram and possible ultrasound is also recommended to ensure stability and/or resolution in 6 mon ths. 3. Also consider annual follow-up breast MRI for additional surveillance, given the personal history of left breast cancer. These results and recommendations were discussed with the patient at the time of the exam. Approximately 10% of breast cancers are not detected with mammography. A negative mammographic report should not delay biopsy if a clinically suggestive mass is present. Amanda Cano M.D. ay/:05/20/2017 09:43:23 [employer] Worker: Jovanna DUMONT)(Radha), [facility] letter sent: Follow Up Recommended 3 BI-RADS Code: ACR-BI-RADS Category 3: Probably Benign Ultrasound BI-RADS: ACR-BI-RADS Category 3: Pr obably Benign
== END | disposition home or self-care (01) ==
LOC: C.MAMM 09:03
PROVIDERS: ATTEND Physician Assistant Medical
DX: C50.412 Malignant neoplasm of upper-outer quadrant of left female breast (principal); N64.89 Other specified disorders of breast

== ENCOUNTER → 2017-07-23 | Outpatient (CLI) | payer BC ==
[~2017-07-23] MED LIST changes: -ACET-749 PO; +ACET300T3 PO; -ANAS1TAB6 PO; +ANAS1TAB7 PO
== END | disposition home or self-care (01) ==
LOC: C.MAMM 15:34
PROVIDERS: ATTEND Internal Medicine Hematology & Oncology
DX: C50.112 Malignant neoplasm of central portion of left female breast (principal)

== ENCOUNTER 2019-07-12 13:19 | Inpatient (IN) ==
--- NOTE | 2019-07-12 13:49 | Emergency Department Note ---
Impression & Plan Stroke-like symptoms ED Provider Note NAME: TYRELL OLIVARES AGE: 58 SEX: F ARRIVES VIA: Walk-In INFORMANT: [Patient] ED PROVIDER(S): Lee Minor MD CHIEF COMPLAINT: slurred speech PLAN: Disposition: admitted Condition: [Good] MEDICAL DECISION MAKING: Patient presented with concerning strokelike symptoms. Her last known well time was last night. She woke up with slurred speech. She also noted difficulty using her right arm and had right leg weakness. She had an unremarkable CBC and chemistry panel. Urinalysis negative. ECG, chest x-ray and CT angiography imaging were unremarkable. Patient had concerning issues. She still had some slight weakness in the right leg, about a 4.5 out of 5. Given the duration of symptoms and scenario she is not a candidate for TPA. She will need further neurologic work-up. Internal medicine was consulted. Patient was evaluated in the ER for further management. Triage Nursing notes reviewed and agree them. Vital Signs: reviewed and remarkable for [no significant abnormalities] Differential diagnosis: CVA, TIA, infection, dehydration, metabolic abnormality, hypo/hyperglycemia, electrolyte disturbance, anemia, hypoxia, cardiac sources, intracerebral event, toxicologic, neurologic, as well as other pathologies. ER treatment provided: Nss hydration Oral aspirin Diagnostics interpreted by me: ECG: [none] Cardiac Monitoring: Cardiac monitoring ordered by me: The patient was placed on continuous cardiac monitoring and observed. It revealed a normal sinus rhythm at 92 beats per minute without ectopy or evidence of dysrhythmia. Laboratory studies: [See below] unremarkable CBC and chemistry panel. Imaging studies: Chest x-ray. Findings: A chest x-ray was performed and revealed no pneumothorax, effusion, infiltrate, pulmonary edema, free air under the diaphragm, or wide mediastinum. Impression: No acute disease. CT angiography of the head and neck was negative for acute process. No acute stroke or bleed noted. Consultation(s): Dr. Iraheta of [facility] physician group. Discussed the case and findings. He will evaluate the patient in the ER. HPI: The patient is a 58 year old female who presents to the Emergency Room with complaints of slurred speech. This started 0600 this morning and is currently better. The patient also notes the following associated symptoms, right hand weakness and coordination issues, generalized myalgias, right leg issues and balance disturbance. The patient has taken no medication for relieving factors. Current pain is rated as 5/10. She was well yesterday. No sick contacts or coronavirus exposures. States she took her temperature at home and it was 94. Pt denies LOC, headache, fevers, chills, diaphoresis, visual changes, neck pain, chest pain, breathing difficulties, nausea, vomiting, abdominal pain, back pain, melena, hematochezia, urinary symptoms, numbness, weakness, lymphadenopathy, rash, or other complaints. ROS: See above HPI for pertinent positives & negatives. A total of [10] systems reviewed and were otherwise negative. PAST MEDICAL HISTORY:[See Below] PAST SURGICAL HISTORY:[See Below] FAMILY HISTORY:[See Below] SOCIAL HISTORY:[See Below] HOME MEDICATIONS:[See Below] ALLERGIES:[See Below] VITALS:[See Below] PHYSICAL EXAMINATION: GENERAL: Awake, alert, well-appearing, in no distress HENT: Normocephalic, atraumatic. Oropharynx unremarkable. EYES: Normal conjunctiva. Sclera non-icteric. PERRLA EOMI. NECK: Inspection normal. Non-tender. Supple. No nuchal rigidity. FROM. No masses. RESPIRATORY: Clear to auscultation. No wheezes. No rales. Normal respiratory effort. CARDIAC: Normal rate. Normal rhythm. No murmurs. No rubs. Extremities warm and well perfused. Pulses equal. No JVD. GI: Soft, non-distended. No tenderness to palpation. No rebound or guarding. No masses. RECTAL: Deferred. MUSCULOSKELETAL: Atraumatic. Chest examination reveals no tenderness. The back is symmetrical on inspection without obvious abnormality. There is no CVA tenderness to palpation. No joint edema. LOWER EXTREMITIES: Calves are equal size bilaterally and non-tender. No edema. No discoloration. NEURO: Normal sensorium. No sensory or motor deficits noted except in the right LE. CN 2-12 intact, no drift however weakness noted in the RLE, 4.5/5. SKIN: No rash or jaundice noted. ED COURSE: [Critical Care:] [None] Lee Minor MD Past Med/Surg History Social History Preferred Language: [place] Communication Ability: Effective Visual Impairment: No Limitations Hearing Ability: Normal Beliefs That Will Affect Care: None marital status: Current Living Situation: Spouse 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al status: disabled Feels Safe at Home: Yes Smoking Status: Former smoker Tobacco Type: cigarettes ; Cigarettes Per Day: 10-15 ; Second Hand Exposure: Yes (IN CHILDHOOD) ; Hx Alcohol Use: Yes (occassionally) Hx Substance Use: Yes (cbd oil) Allergies Allergies Allergy/AdvReac Type Severity Reaction Status Date / Time bacitracin Allergy Severe ITCHING/INF Verified 07/12/19 15:01 ECTION Quinolones Allergy Severe ANAPHYLAXIS/HEART Verified 07/12/19 15:01 FLUTTERING rizatriptan Allergy Severe SHORTNESS Verified 07/12/19 15:01 OF BREATH Cipro Allergy Mild Palpitations, Verified 11/01/17 08:19 rash, ciprofloxacin Allergy Mild Palpitations, Verified 07/12/19 15:01 rash, lamotrigine Allergy Mild RASH Verified 07/12/19 15:01 neomycin Allergy Mild ITCHING Verified 07/12/19 15:01 WITH THE OINTMENT polymyxin B Allergy Mild ITCHING Verified 07/12/19 15:01 WITH OINTMENTS adhesive Allergy Unknown ALLERGIC Verified 07/12/19 15:01 TO MEDICATED STERI-STRIPS AND SOME TAPE-RASH BLISTE citalopram Allergy Unknown UNKNOWN Verified 07/12/19 15:01 paroxetine Allergy Unknown OUT OF Verified 07/12/19 15:01 BODY EXPERIENCE varenicline [From Chantix] Allergy itchy Verified 07/12/19 15:01 celecoxib AdvReac Intermediate GI SYMPTOMS Verified 07/12/19 15:01 Cephalosporins AdvReac Unknown PT DENIED Verified 07/12/19 15:01 ANY PROBLEMS clindamycin AdvReac Unknown EARS VERY Verified 07/12/19 15:01 RED SWOLLEN,ITCHING,DIZZINESS gluten AdvReac Unknown GI SYMPTOMS Verified 07/12/19 15:01 piperacillin AdvReac Unknown BETALACTAMASE Verified 07/12/19 15:01 INHIBITORS-UNKNOWN tazobactam AdvReac Unknown BETALACTAMASE Verified 07/12/19 15:01 INHIBITORS-UNKNOWN Unclassified Drugs AdvReac Unknown BL PLASTIC Uncoded 07/12/19 15:01 SUTURE-SKIN IRRITATION/RED/SWELLING ITCHY-NYLON? Home Meds Home Medications Medication Instructions Recorded Confirmed anastrozole 1 mg tablet 1 mg PO DAILY 12/12/17 07/12/19 bupropion HCl 150 mg 24 hr tablet, 150 mg PO QAM 12/12/17 07/12/19 extended release bupropion HCl 300 mg 24 hr tablet, 300 mg PO QAM 12/12/17 07/12/19 extended release calcium carbonate 600 mg(1,500 1 tab PO BID 12/12/17 07/12/19 mg)-vitamin D3 800 unit chewable tablet gabapentin 300 mg capsule 300 mg PO BID 12/12/17 07/12/19 ibuprofen 600 mg tablet 600 mg PO TID PRN tab 12/12/17 07/12/19 multivitamin with iron-mineral 1 tab PO DAILY 12/12/17 07/12/19 nicotine (polacrilex) 2 mg gum 2 mg BUCCAL Q2H 12/12/17 07/12/19 omega-3 fatty acids 1,000 mg 1,000 mg PO BID cap 12/12/17 07/12/19 capsule vitamin B complex 1 tab PO DAILY 12/12/17 07/12/19 lorazepam 0.5 mg tablet 0.5 mg PO DAILY PRN 01/20/18 07/12/19 aspirin 81 mg tablet,delayed 81 mg PO DAILY 07/29/18 07/12/19 release menthol 10 % topical gel 1 appln TOP DAILY 07/29/18 07/12/19 quetiapine 300 mg tablet 300 mg PO HS tab 07/29/18 07/12/19 metformin 500 mg tablet 500 mg PO DAILY tab 09/08/18 07/12/19 cannabidiol 100 mg/mL oral solution 900 mg PO DAILY PRN ml 09/09/18 07/12/19 naltrexone 4.5 mg PO BID 03/02/19 07/12/19 fenofibrate micronized 134 mg PO DAILY 04/16/19 07/12/19 Previous Rx's Medication Instructions Recorded doxepin 10 mg PO TID PRN #6 cap 04/29/19 Results & Data (ED) Vital Signs Vital Signs - 24 hr 07/12/19 13:24 07/12/19 13:54 07/12/19 14:00 Temperature 36.8 C Temperature Source Oral Pulse Rate 95 H 88 Pulse Rate [Apical] 89 Pulse Rate from SpO2 Sensor 89 Pulse Rhythm Regular Pulse Strength Normal Respiratory Rate 18 20 15 Respiratory Effort / Characteristics Non-Labored Respiratory Depth Normal Respiratory Pattern Regular Blood Pressure 124/85 119/77 Blood Pressure [Right Arm] 125/88 Blood Pressure Mean 98 94 Blood Pressure Mean [Right Arm] 100 Blood Pressure Position Sitting Pulse Oximetry 97 97 95 Oxygen Delivery Method Room Air Room Air Room Air Sepsis Recent Fever Within 48 Hours No Sepsis Action Taken by Nursing No Action Required 07/12/19 15:00 07/12/19 15:30 Temperature Temperature Source Pulse Rate 83 82 Pulse Rate [Apical] Pulse Rate from SpO2 Sensor 82 82 Pulse Rhythm Pulse Strength Respiratory Rate 15 15 Respiratory Effort / Characteristics Respiratory Depth Respiratory Pattern Blood Pressure 110/78 129/79 Blood Pressure [Right Arm] Blood Pressure Mean 84 87 Blood Pressure Mean [Right Arm] Blood Pressure Position Pulse Oximetry 96 95 Oxygen Delivery Method Room Air Room Air Sepsis Recent Fever Within 48 Hours Sepsis Action Taken by Nursing Laboratory Data Result diagrams: 07/12/19 13:52 07/12/19 13:52 Lab Results 07/12/19 07/12/19 07/12/19 Range/Units 13:50 13:52 13:52 WBC 7.17 (4.8-10.8) K/uL RBC 3.88 L (4.2-5.4) M/uL Hgb 12.6 (12.0-16.0) g/dL Hct 38.0 (37-47) % MCV 97.9 (80-100) fL MCH 32.5 (25-34) pg MCHC 33.2 (32-36) g/dL RDW Std Deviation 48.2 H (36.4-46.3) fL RDW Coeff of Laureen 13.5 (11.5-14.5) % Plt Count 266 (130-400) K/uL MPV 9.6 (7.4-10.4) fL Immature Gran % (Auto) 1.4 % Neut % (Auto) 44.1 % Lymph % (Auto) 45.5 % [place] % (Auto) 6.7 % Eos % (Auto) 2.0 % Baso % (Auto) 0.3 % Immature Gran # (Auto) 0.10 H (0.00-0.02) K/uL Neut # (Auto) 3.17 (1.4-6.5) K/uL Lymph # (Auto) 3.26 (1.2-3.4) K/uL [place] # (Auto) 0.48 (0.11-0.59) K/uL Eos # (Auto) 0.14 (0-0.5) K/uL Baso # (Auto) 0.02 (0-0.2) K/uL PT (9.0-12.0) Seconds INR (0.9-1.1) APTT (21.0-31.0) Seconds PTT Ratio Sodium (136-145) mmol/L Potassium (3.5-5.1) mmol/L Chloride (98-107) mmol/L Carbon Dioxide (21-32) mmol/L Anion Gap (3-11) BUN (7-18) mg/dl Creatinine (0.6-1.2) mg/dl Est Cr Clr Drug Dosing ml/min Est GFR ( Amer) Est GFR (Non-Af Amer) BUN/Creatinine Ratio (10-20) Glucose (70-99) mg/dl POC Glucose 150 H (70-99) mg/dl Calcium (8.5-10.1) mg/dl Magnesium (1.8-2.4) mg/dl Total Bilirubin (0.2-1) mg/dl AST (15-37) U/L ALT (12-78) U/L Alkaline Phosphatase (45-117) U/L Troponin I (0-0.045) ng/ml Total Protein (6.4-8.2) gm/dl Albumin (3.4-5.0) gm/dl Globulin (2.5-4.0) gm/dl Albumin/Globulin Ratio (0.9-2) Urine Color Urine Appearance (Clear) Urine pH (4.5-7.5) Ur Specific [place] (1.000-1.030) Urine Protein (Negative) Urine Glucose (UA) (Negative) Urine Ketones (Negative) Urine Blood (Negative) Urine Nitrite (Negative) Urine Bilirubin (Negative) Urine Urobilinogen (Negative) Ur Leukocyte Esterase (Negative) Blood Type A Positive Antibody Screen NEGATIVE 07/12/19 07/12/19 07/12/19 Range/Units 13:52 13:52 14:48 WBC (4.8-10.8) K/uL RBC (4.2-5.4) M/uL Hgb (12.0-16.0) g/dL Hct (37-47) % MCV (80-100) fL MCH (25-34) pg MCHC (32-36) g/dL RDW Std Deviation (36.4-46.3) fL RDW Coeff of Laureen (11.5-14.5) % Plt Count (130-400) K/uL MPV (7.4-10.4) fL Immature Gran % (Auto) % Neut % (Auto) % Lymph % (Auto) % [place] % (Auto) % Eos % (Auto) % Baso % (Auto) % Immature Gran # (Auto) (0.00-0.02) K/uL Neut # (Auto) (1.4-6.5) K/uL Lymph # (Auto) (1.2-3.4) K/uL [place] # (Auto) (0.11-0.59) K/uL Eos # (Auto) (0-0.5) K/uL Baso # (Auto) (0-0.2) K/uL PT 10.1 (9.0-12.0) Seconds INR 1.0 (0.9-1.1) APTT 24.5 (21.0-31.0) Seconds PTT Ratio 0.9 Sodium 141 (136-145) mmol/L Potassium 4.0 (3.5-5.1) mmol/L Chloride 108 H (98-107) mmol/L Carbon Dioxide 23 (21-32) mmol/L Anion Gap 10.0 (3-11) BUN 22 H (7-18) mg/dl Creatinine 1.07 (0.6-1.2) mg/dl Est Cr Clr Drug Dosing 55.0 ml/min Est GFR ( Amer) 65.3 Est GFR (Non-Af Amer) 56.4 BUN/Creatinine Ratio 20.8 H (10-20) Glucose 158 H (70-99) mg/dl POC Glucose (70-99) mg/dl Calcium 8.8 (8.5-10.1) mg/dl Magnesium 1.9 (1.8-2.4) mg/dl Total Bilirubin 0.2 (0.2-1) mg/dl AST 12 L (15-37) U/L ALT 43 (12-78) U/L Alkaline Phosphatase 59 (45-117) U/L Troponin I < 0.015 (0-0.045) ng/ml Total Protein 7.4 (6.4-8.2) gm/dl Albumin 3.8 (3.4-5.0) gm/dl Globulin 3.6 (2.5-4.0) gm/dl Albumin/Globulin Ratio 1.1 (0.9-2) Urine Color Yellow Urine Appearance Clear (Clear) Urine pH 5.5 (4.5-7.5) Ur Specific [place] 1.011 (1.000-1.030) Urine Protein Negative (Negative) Urine Glucose (UA) Negative (Negative) Urine Ketones Negative (Negative) Urine Blood Negative (Negative) Urine Nitrite Negative (Negative) Urine Bilirubin Negative (Negative) Urine Urobilinogen Negative (Negative) Ur Leukocyte Esterase Negative (Negative) Blood Type Antibody Screen Administered Medications Sodium Chloride (Nss 1000ml) 1,000 mls @ 50 mls/hr IV .Q20H EDISON Stop: 08/11/19 13:44 Last Admin: 07/12/19 14:48 Dose: 50 mls/hr Documented by: [id number] Ioversol (Optiray 320 125ml) 120 ml IV ONCE PRN PRN Reason: Interaction Checking Stop: 07/16/19 14:22 Last Admin: 07/12/19 14:23 Dose: 120 ml Documented by: [id number] Discontinued Medications Aspirin (Aspirin) 324 mg PO NOW STA Stop: 07/12/19 15:29 Last Admin: 07/12/19 15:46 Dose: 324 mg Documented by: [id number] Discharge Plan Visit Data Chief Complaint: Stroke/CVA Symptoms Stated Complaint: FEVER, NEURO SX ED Provider: Lee Minor Discharge Problem: Stroke-like symptoms Forms Stand Alone Forms: My [facility] [employer] Prescriptions Prescriptions: No Action anastrozole 1 mg tablet 1 mg PO DAILY RF: 0 omega-3 fatty acids [Fish Oil Concentrate] 1,000 mg capsule 1,000 mg PO BID RF: 0 nicotine (polacrilex) [Nicorette] 2 mg gum 2 mg BUCCAL Q2H RF: 0 gabapentin 300 mg capsule 300 mg PO BID RF: 0 vitamin B complex [B Complex-Vitamin B12] tablet 1 tab PO DAILY RF: 0 ibuprofen 600 mg tablet 600 mg PO TID PRN (Reason: Pain) RF: 0 multivitamin with iron-mineral tablet 1 tab PO DAILY RF: 0 bupropion HCl 300 mg tablet extended release 24 hr 300 mg PO QAM RF: 0 bupropion HCl 150 mg tablet extended release 24 hr 150 mg PO QAM RF: 0 calcium carbonate-vitamin D3 [Caltrate 600 plus D] 600 mg (1,500 mg)-800 unit tablet,chewable 1 tab PO BID RF: 0 metformin [Glucophage] 500 mg tablet 500 mg PO DAILY RF: 0 lorazepam 0.5 mg tablet 0.5 mg PO DAILY PRN (Reason: Anxiety) RF: 0 quetiapine [Seroquel] 300 mg tablet 300 mg PO HS RF: 0 aspirin 81 mg tablet,delayed release (DR/EC) 81 mg PO DAILY RF: 0 Aspercreme Heat 10 % gel 1 appln TOP DAILY RF: 0 cannabidiol 100 mg/mL solution 900 mg PO DAILY PRN (Reason: pain) RF: 0 naltrexone 4.5 mg PO BID RF: 0 fenofibrate micronized 134 mg capsule 134 mg PO DAILY RF: 0 doxepin 10 mg capsule 10 mg PO TID PRN (Reason: itching) Qty: 6 RF: 0
[2019-07-12 14:02] LABS: Basophils # (auto) 0.02 K/uL (0-0.2); Basophils % (auto) 0.3 %; Eosinophils # (auto) 0.14 K/uL (0-0.5); Hemoglobin 12.6 g/dL (12.0-16.0); Immature Granulocytes % (auto) 1.4 %; Lymphocytes # (auto) 3.26 K/uL (1.2-3.4); Lymphocytes % (auto) 45.5 %; Mean Corpuscular Hemoglobin 32.5 pg (25-34); Mean Corpuscular Hgb Conc 33.2 g/dL (32-36); Mean Corpuscular Volume 97.9 fL (80-100); Mean Platelet Volume 9.6 fL (7.4-10.4); Monocytes # (auto) 0.48 K/uL (0.11-0.59); Monocytes % (auto) 6.7 %; Neutrophils # (auto) 3.17 K/uL (1.4-6.5); Neutrophils % (auto) 44.1 %; Platelet Count 266 K/uL (130-400); RDW Coefficient of Variation 13.5 % (11.5-14.5); RDW Standard Deviation 48.2 fL (36.4-46.3); Red Blood Count 3.88 M/uL (4.2-5.4); White Blood Count 7.17 K/uL (4.8-10.8)
--- NOTE | 2019-07-12 14:09 | XRay Report ---
XR chest 1V portable HISTORY: Stroke symptoms. COMPARISON: Chest 07/02/2019. FINDINGS: The lungs are clear. Cardiac silhouette is normal in size. No pleural effusions. No pneumot horax. IMPRESSION: No acute process. ACT 112: Negative or not required by law. Electronically signed by: Lazaro Mahan M.D. 07/12/2019 2:07 PM
[2019-07-12 14:12] LABS: Partial Thromboplastin Ratio 0.9; Partial Thromboplastin Time 24.5 Seconds (21.0-31.0); Prothrombin Time 10.1 Seconds (9.0-12.0)
[2019-07-12 14:17] LABS: Alanine Aminotransferase 43 U/L (12-78); Albumin Level 3.8 gm/dl (3.4-5.0); Aspartate Aminotransferase 12 U/L (15-37); BUN Creatinine Ratio 20.8 (10-20); Blood Urea Nitrogen 22 mg/dl (7-18); Calcium 8.8 mg/dl (8.5-10.1); Carbon Dioxide 23 mmol/L (21-32); Chloride 108 mmol/L (98-107); Est GFR (African American) 65.3; Est GFR (Non-African American) 56.4; Glucose 158 mg/dl (70-99); Magnesium 1.9 mg/dl (1.8-2.4); Sodium 141 mmol/L (136-145)
[2019-07-12 14:22] LABS: Albumin Globulin Ratio 1.1 (0.9-2); Alkaline Phosphatase 59 U/L (45-117); Bilirubin,Total 0.2 mg/dl (0.2-1); Globulin 3.6 gm/dl (2.5-4.0); Total Protein 7.4 gm/dl (6.4-8.2); Troponin I < 0.015 ng/ml (0-0.045)
[2019-07-12] MEDS ORDERED: OPTIRAY 320 125ml IV PRN (14:23)
[2019-07-12] MEDS: SODIUM CHLORIDE 0.9% 1000ML 1,000 ML IV SCH (14:48)
--- NOTE | 2019-07-12 14:49 | CT Scan Report ---
HEAD CT NONCONTRAST CT DOSE: HISTORY: Stroke symptoms. TECHNIQUE: Multiaxial CT images of the head were performed without the use of intravenous contrast. A utomated exposure control was utilized for this study. A dose lowering technique was utilized adheri ng to the principles of ALARA. Comparison: Head CT 11/02/2012. Findings: The paranasal sinuses and mastoid air cells are clear. The calvarium and skull base are int act. The ventricles and sulci are within normal limits. There is no mass, hematoma, midline shift, or acute infarct. Impression: No acute intracranial abnormality. ACT 112: Negative or not required by law. Electronically signed by: Lazaro Mahan M.D. 07/12/2019 2:48 PM
--- NOTE | 2019-07-12 14:54 | CT Scan Report ---
HEAD & NECK CTA HISTORY: Stroke symptoms. TECHNIQUE: Multiaxial CT images of the head were performed following the intravenous administration o f contrast to evaluate the major cerebral vessels. Multiaxial CT images of the neck were also perform ed following the intravenous administration of contrast to evaluate the major cervical vessels. Maxim um intensity projection images were also obtained. A dose lowering technique was utilized adhering to the principles of ALARA. COMPARISON: None. FINDINGS: There is no mass, hematoma, midline shift, or acute infarct. Visualized intracranial internal carotid arteries, distal vertebral arteries, and basilar artery are widely patent. There is no significant s tenosis, occlusion, or aneurysm seen within the bilateral ACAs, MCAs, or reporting coordinator. Mild calcified plaque within the bilateral carotid siphons. Distal right vertebral artery is hypoplastic in comparison to t he left. This is considered to be a normal variant. The major dural venous sinuses are patent. The aortic arch and proximal great vessels are widely patent. There is no significant stenosis, occ lusion, or dissection identified within the bilateral common carotid, internal carotid, or vertebral arteries. Hypoplastic right vertebral artery in comparison to the left. This is considered to be a no rmal variant. Multiple thyroid nodules with the largest on the left measuring 2 cm. IMPRESSION: 1. No significant stenosis, occlusion, or aneurysm within the [place]. 2. No significant stenosis, occlusion, or dissection identified within the carotid or vertebral arter ies. 3. Multinodular thyroid. Follow-up nonemergent thyroid ultrasound is recommended for further evaluati on. ACT 112: Negative or not required by law. Electronically signed by: Lazaro Mahan M.D. 07/12/2019 2:53 PM
--- NOTE | 2019-07-12 14:54 | CT Scan Report ---
HEAD & NECK CTA HISTORY: Stroke symptoms. TECHNIQUE: Multiaxial CT images of the head were performed following the intravenous administration o f contrast to evaluate the major cerebral vessels. Multiaxial CT images of the neck were also perform ed following the intravenous administration of contrast to evaluate the major cervical vessels. Maxim um intensity projection images were also obtained. A dose lowering technique was utilized adhering to the principles of ALARA. COMPARISON: None. FINDINGS: There is no mass, hematoma, midline shift, or acute infarct. Visualized intracranial internal carotid arteries, distal vertebral arteries, and basilar artery are widely patent. There is no significant s tenosis, occlusion, or aneurysm seen within the bilateral ACAs, MCAs, or seeing eye dog trainer. Mild calcified plaque within the bilateral carotid siphons. Distal right vertebral artery is hypoplastic in comparison to t he left. This is considered to be a normal variant. The major dural venous sinuses are patent. The aortic arch and proximal great vessels are widely patent. There is no significant stenosis, occ lusion, or dissection identified within the bilateral common carotid, internal carotid, or vertebral arteries. Hypoplastic right vertebral artery in comparison to the left. This is considered to be a no rmal variant. Multiple thyroid nodules with the largest on the left measuring 2 cm. IMPRESSION: 1. No significant stenosis, occlusion, or aneurysm within the [place]. 2. No significant stenosis, occlusion, or dissection identified within the carotid or vertebral arter ies. 3. Multinodular thyroid. Follow-up nonemergent thyroid ultrasound is recommended for further evaluati on. ACT 112: Negative or not required by law. Electronically signed by: Lazaro Mahan M.D. 07/12/2019 2:53 PM
[2019-07-12 15:02] LABS: Appearance Urine Clear (Clear); Bilirubin Urine Negative (Negative); Blood Urine Negative (Negative); Color Urine Yellow; Glucose Urine UA Negative (Negative); Ketones Urine Negative (Negative); Leukocyte Esterase Urine Negative (Negative); Nitrite Urine Negative (Negative); Protein Urine Negative (Negative); Specific Gravity Urine 1.011 (1.000-1.030); Urobilinogen Urine Negative (Negative); pH Urine 5.5 (4.5-7.5)
[2019-07-12] MEDS ORDERED: ASPIRIN CHEW 324 MG PO STA (15:28)
--- NOTE | 2019-07-12 16:01 | History & Physical Report ---
Date of Service July 12, 2019 Assessment & Plan (1) Stroke-like symptoms: Admit to PCU for cardiac monitoring TTE pending MRI wo/w brain pending CT head + CTA head/neck without significant stenosis No need to repeat lipid profile or HbA1C as recently performed in 06/17/2019 LDL 108 above goal if stroke confirmed HbA1C 6.3 Consult neurology Based on history and exam suspect more of a generalized encephalopathy (?med/psychiatric episode) but given slurred speech and subjective right > left weakness this warrants a stroke workup. (2) Bipolar 1 disorder: Buproprion 450mg QAM Seroquel 600mg HS Tamazepam 15mg HS PRN (pt requested EDISON while in hospital Lorazepam 0.5mg PO BID PRN (patient reports taking this infrequently (3) PTSD (post-traumatic stress disorder): as above (4) Multinodular thyroid: Noted on CTA neck. Known history of thyroid nodule. If not recently performed recommend US thyroid follow up with PCP (5) Fibromyalgia: Continue gabapentin 300mg BID Off label use of naltrexone 4.5mg BID (non-formulary, she reports she may be ok without this for a few days but if staying longer she will have her bring it in) (6) Chronic radicular lumbar pain: Gabapentin 300mg BID (7) Malignant neoplasm of upper-outer quadrant of left breast in female, estrogen receptor positive: s/p lumpectomy, chemotherapy and radiation. Continue anastrozole. History of Present Illness Chief Complaint: Stroke-like symptoms Primary Care Provider: Justice Madera Shaheed Son is a 58 year old female who presented to the ER with stroke- like symptoms which started around 0600. No prior history of strokes. Significant history of T2DM and tobacco use. She felt generally tired, weak and aching this morning. No fevers or chills, although she measured her temperature this morning at 94.6F. Her balance was significantly impaired and on trying to walk she found herself running forward and to both sides without being able to stop herself. Associated slurred speech without being able to get the right words out. Both disorientated, dizzy and lightheaded. She felt the right side of her body was weak compared to the left. She currently still feels her right upper extremity is week. She denies any change in extremity sensation, facial weakness, current changes in vision, speech or hearing. She has never had similar symptoms before but has frequent panic attacks. These manifest as feeling like blood drains from body. Hot flush from throat to bottom of chest like she was on fire. She treats these with lorazepam and calling her who comes to help. She usually has these approximately once per week. No new meds started recently. She did take a lorazepam the night before this occurred but this is not unusual for her. She denies taking accidently taking too much of her medication. Uses Naltrexone for fibromyalgia Long standing history of Bipolar - but reports this joel not seem like one of her manic episodes. Usually these are when her thoughts just do not stop, can last for days, psychomotor agitation, tries to do 20 things at once. As an example after her dog she filled an entire book of non discernable scribbles. Breast cancer 2017 - left sided, WLE lobectomy. Lymph nodes not positive. Chemo for 8 weeks and Radiation to breast tumor site. Continues on anastrazole. Quit smoking 20 days ago. Previously 1 pack a day. 3-4 days a week takes ibuprofen, mainly at night - for sciatica/radicular pain. Doxepin - unknown why she takes this. Allergies Allergy/AdvReac Type Severity Reaction Status Date / Time bacitracin Allergy Severe ITCHING/INF Verified 07/12/19 15:01 ECTION Quinolones Allergy Severe ANAPHYLAXIS/HEART Verified 07/12/19 15:01 FLUTTERING rizatriptan Allergy Severe SHORTNESS Verified 07/12/19 15:01 OF BREATH Cipro Allergy Mild Palpitations, Verified 11/01/17 08:19 rash, ciprofloxacin Allergy Mild Palpitations, Verified 07/12/19 15:01 rash, lamotrigine Allergy Mild RASH Verified 07/12/19 15:01 neomycin Allergy Mild ITCHING Verified 07/12/19 15:01 WITH THE OINTMENT polymyxin B Allergy Mild ITCHING Verified 07/12/19 15:01 WITH OINTMENTS adhesive Allergy Unknown ALLERGIC Verified 07/12/19 15:01 TO MEDICATED STERI-STRIPS AND SOME TAPE-RASH BLISTE citalopram Allergy Unknown UNKNOWN Verified 07/12/19 15:01 paroxetine Allergy Unknown OUT OF Verified 07/12/19 15:01 BODY EXPERIENCE varenicline [From Chantix] Allergy itchy Verified 07/12/19 15:01 celecoxib AdvReac Intermediate GI SYMPTOMS Verified 07/12/19 15:01 Cephalosporins AdvReac Unknown PT DENIED Verified 07/12/19 15:01 ANY PROBLEMS clindamycin AdvReac Unknown EARS VERY Verified 07/12/19 15:01 RED SWOLLEN,ITCHING,DIZZINESS gluten AdvReac Unknown GI SYMPTOMS Verified 07/12/19 15:01 piperacillin AdvReac Unknown BETALACTAMASE Verified 07/12/19 15:01 INHIBITORS-UNKNOWN tazobactam AdvReac Unknown BETALACTAMASE Verified 07/12/19 15:01 INHIBITORS-UNKNOWN Unclassified Drugs AdvReac Unknown BL PLASTIC Uncoded 07/12/19 15:01 SUTURE-SKIN IRRITATION/RED/SWELLING ITCHY-NYLON? Home Medications Home Medications Medication Instructions Recorded Confirmed Type anastrozole 1 mg tablet 1 mg PO DAILY 12/12/17 07/12/19 History bupropion HCl 150 mg 24 hr tablet, 150 mg PO QAM 12/12/17 07/12/19 History extended release bupropion HCl 300 mg 24 hr tablet, 300 mg PO QAM 12/12/17 07/12/19 History extended release calcium carbonate 600 mg(1,500 1 tab PO BID 12/12/17 07/12/19 History mg)-vitamin D3 800 unit chewable tablet gabapentin 300 mg capsule 300 mg PO BID 12/12/17 07/12/19 History ibuprofen 600 mg tablet 600 mg PO TID PRN tab 12/12/17 07/12/19 History multivitamin with iron-mineral 1 tab PO DAILY 12/12/17 07/12/19 History nicotine (polacrilex) 2 mg gum 2 mg BUCCAL Q2H 12/12/17 07/12/19 History omega-3 fatty acids 1,000 mg 1,000 mg PO BID cap 12/12/17 07/12/19 History capsule vitamin B complex 1 tab PO DAILY 12/12/17 07/12/19 History lorazepam 0.5 mg tablet 0.5 mg PO DAILY PRN 01/20/18 07/12/19 History aspirin 81 mg tablet,delayed 81 mg PO DAILY 07/29/18 07/12/19 History release menthol 10 % topical gel 1 appln TOP DAILY 07/29/18 07/12/19 History quetiapine 300 mg tablet 600 mg PO HS tab 07/29/18 07/13/19 History metformin 500 mg tablet 500 mg PO DAILY tab 09/08/18 07/12/19 History cannabidiol 100 mg/mL oral solution 900 mg PO DAILY PRN ml 09/09/18 07/12/19 History naltrexone 4.5 mg PO BID 03/02/19 07/12/19 History fenofibrate micronized 134 mg PO DAILY 04/16/19 07/12/19 History doxepin 10 mg PO TID PRN #6 cap 04/29/19 07/12/19 Rx Past Med/Surg History Medical History (Updated 07/13/19 @ 00:31 by Casa Iraheta MD) Bipolar 1 disorder Breast cancer (Resolved) Diverticulitis (Resolved) Diverticulitis (Inactive) Fatty liver Low back pain Lung tumor (benign) Multiple drug allergies Periorbital cellulitis (Resolved) PTSD (post-traumatic stress disorder) Sacral fracture (Resolved) Sacroiliitis Thyroid tumor, benign Surgical History History of fracture of left ankle Left tibial fracture (Resolved) Social History Preferred Language: Romansh Communication Ability: Effective Visual Impairment: No Limitations Hearing Ability: Normal Beliefs That Will Affect Care: None marital status: Current Living Situation: Spouse Current Living Situation Comment: At home with 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al status: disabled Other Information That Helps Us Care for You: Yes (because of bipolar does not sleep well, Uses Tamazapam. quit Smoking) Feels Safe at Home: Yes Safety Concerns: Feels Safe At This Time Smoking Status: Former smoker Tobacco Type: cigarettes ; Cigarettes Per Day: 1 pack per day ; Do You Dip or Chew Tobacco: No ; Smoking End Date: Patient quit twenty days ago ; Second Hand Exposure: Yes ; Tobacco Cessation Education Requested by Patient: No Hx Alcohol Use: Yes Alcohol type: other Hx Substance Use: No Review of Systems Review of Systems: All systems reviewed & are unremarkable except as noted in HPI & below Musculoskeletal: + neck pain (left cervical paraspinal for last month) Psychiatric: no behavioral changes (no acute) Physical Exam Constitutional: well developed, cooperative, comfortable and + overweight; + not well nourished and no acute distress Eyes: PERRL, conjunctivae normal, anicteric sclerae ENMT: external ear and nose normal, oropharynx normal Neck: trachea midline, no thyromegaly Respiratory: normal respiratory effort, lungs clear to auscultation Cardiovascular: Rate/Rhythm: regular rate and regular rhythm Heart Sounds: no murmur Vessels: no JVD Extremities: normal capillary refill; no calf tenderness and no pedal edema Gastrointestinal (Abdomen): normal bowel sounds, soft, nontender, no hepatosplenomegaly Skin: no rashes, warm and dry Neurologic: plantar reflexes intact bilaterally, moves all extremities, + focal motor deficit (see below) and awake; not confused Speech / Cognition: normal speech Motor/Sensory: no tremor, no pronator drift and no sensory deficit Cranial Nerves: sense of smell intact, PERRL, normal accommodation, EOM intact bilaterally, normal facial strength, tongue midline, able to rotate head bilaterally, able to elevate shoulders bilaterally, no nystagmus and symmetric palate elevation Coordination: normal ohxnqm-ay-debt test Unable to plantarflex left ankle due to previous fusion. Otherwise equal power in b/l UE and LE. Psychiatric: A+Ox3, euthymic affect Results & Data Results & Data ([facility]) Vital Signs (Past 12 Hours) Vital Signs Temp Pulse Pulse Resp BP BP Pulse Ox 07/12/19 15:30 82 15 129/79 95 07/12/19 15:00 83 15 110/78 96 07/12/19 14:00 88 15 119/77 95 07/12/19 13:54 89 20 125/88 97 07/12/19 13:24 36.8 C 95 H 18 124/[address] NONCONTRAST Impression: No acute intracranial abnormality. HEAD & NECK CTA IMPRESSION: 1. No significant stenosis, occlusion, or aneurysm within the [place]. 2. No significant stenosis, occlusion, or dissection identified within the carotid or vertebral arteries. 3. Multinodular thyroid. Follow-up nonemergent thyroid ultrasound is recommended for further evaluation. ECG Indication: other (stroke-like symptoms) Rate (beats per minute): 89 Rhythm: normal sinus Findings: no acute ischemic change Comparison ECG Date: from (11/30/2016) Change: no significant change Code Status & VTE Plan Code Status Full as discussed with the patient VTE Prophylaxis Plan VTE Prophylaxis will be ordered: Yes PG Care Time/CCT Total # of Minutes Spent Total Time Spent with Patient: Total time spent is greater than 50% in coordination of care (as documented) at patient's floor/unit and/or counseling patient: Coding Level of Care Code 13527 Initial Inpt Care Lvl 3 Diagnoses Stroke-like symptoms R29.90 Bipolar 1 disorder F31.9 PTSD (post-traumatic stress disorder) F43.10 Multinodular thyroid E04.2 Fibromyalgia M79.7 Chronic radicular lumbar pain M54.16; G89.29 Malignant neoplasm of upper-outer quadrant of left breast in female, estrogen receptor positive C50.412; Z17.0
[2019-07-12] MEDS ORDERED: LORazepam 0.5 MG TAB PO PRN (19:19)
[2019-07-12] MEDS ORDERED: PHARMACIST DISCHARGE MED REC CONSULT PRN (19:19)
[2019-07-12] MEDS ORDERED: ACETAMINOPHEN 325 MG TAB PO PRN (19:19)
[2019-07-12] MEDS ORDERED: DOXEPIN HCL 10 MG CAPSULE PO PRN (19:19)
[2019-07-12] MEDS ORDERED: POLYETHYLENE (MIRALAX) 17 GM PACK PO PRN (19:19)
[2019-07-12] MEDS ORDERED: NICOTINE POLACRILEX 2 MG GUM MT PRN (19:19)
[2019-07-12] MEDS ORDERED: ONDANSETRON INJ 2 MG/ML 2 ML VIAL IV PRN (19:19)
[2019-07-12] MEDS ORDERED: SODIUM CHLORIDE 0.9% 1000ML 500 ML IV ONE (20:10)
[2019-07-12] MEDS ORDERED: NALTREXONE 4.5 MG PO SCH (21:00)
[2019-07-12] MEDS ORDERED: QUETIAPINE FUMARATE 300 MG TABLET PO SCH (21:00)
[2019-07-12] MEDS ORDERED: TEMAZEPAM 15 MG CAPSULE PO SCH (22:00)
[2019-07-12] MEDS: GABAPENTIN 300 MG CAP PO SCH (22:41)
[2019-07-12] MEDS: OMEGA-3 (PURIFIED FISH OIL) 1 GM CAP PO SCH (22:41)
[2019-07-13] MEDS ORDERED: TRIAMCINOLONE ACET 0.1% CR 80 GM TUBE EXT PRN (00:18)
[2019-07-13] MEDS ORDERED: GADOBUTROL 65ML VIAL IV PRN (01:06)
[2019-07-13] MEDS: SODIUM CHLORIDE 0.9% 1000ML 1,000 ML IV SCH (01:40)
[2019-07-13 06:27] LABS: Basophils # (auto) 0.02 K/uL (0-0.2); Basophils % (auto) 0.3 %; Eosinophils # (auto) 0.15 K/uL (0-0.5); Eosinophils % (auto) 2.4 %; Hemoglobin 12.2 g/dL (12.0-16.0); Immature Granulocytes # (auto) 0.09 K/uL (0.00-0.02); Immature Granulocytes % (auto) 1.4 %; Lymphocytes # (auto) 2.85 K/uL (1.2-3.4); Lymphocytes % (auto) 45.7 %; Mean Corpuscular Hemoglobin 32.3 pg (25-34); Mean Corpuscular Volume 97.9 fL (80-100); Mean Platelet Volume 9.6 fL (7.4-10.4); Monocytes # (auto) 0.57 K/uL (0.11-0.59); Monocytes % (auto) 9.1 %; Neutrophils # (auto) 2.56 K/uL (1.4-6.5); Neutrophils % (auto) 41.1 %; Platelet Count 230 K/uL (130-400); RDW Coefficient of Variation 13.5 % (11.5-14.5); RDW Standard Deviation 48.4 fL (36.4-46.3); Red Blood Count 3.78 M/uL (4.2-5.4); White Blood Count 6.24 K/uL (4.8-10.8)
[2019-07-13 07:01] LABS: BUN Creatinine Ratio 22.6 (10-20); Calcium 8.2 mg/dl (8.5-10.1); Creatinine Clr Calc Pharmacy 67.7 ml/min; Est GFR (African American) 83.9; Est GFR (Non-African American) 72.4; Potassium 4.2 mmol/L (3.5-5.1)
--- NOTE | 2019-07-13 07:21 | Magnetic Resonance Report ---
MRI OF THE BRAIN WITHOUT AND WITH IV CONTRAST CLINICAL HISTORY: right sided weakness, slurring speech ?CVA COMPARISON STUDY: Head CT and CTA of the head July 12, 2019. TECHNIQUE: Utilizing a 1.5 Darlene magnet and dedicated coil, multiplanar, multiecho imaging of the br ain was performed pre and postcontrast administration. IV administration of 7.2 mL of Gadavist contr ast was uneventful. Thin cut T1 post contrast imaging was performed with multiplanar reformats. FINDINGS: There are no foci of restricted diffusion to suggest acute infarct. No acute intracranial h emorrhage, midline shift or mass effect is present. Brain volume is normal for age. Ventricular syste m is normal. Basilar cisterns are patent. There are no extra-axial collections. Flow-voids for the ma darlene intracranial vessels are present. There is no intracranial mass or pathologic enhancement. Scatte red white matter T2 hyperintense foci suggest mild small vessel disease. Calvarial signal is normal. IMPRESSION: 1. No acute intracranial findings. 2. No intracranial mass or pathologic enhancement. 3. Scattered white matter T2 hyperintense foci which suggest mild small vessel disease. ACT 112: Negative or not required by law. Electronically signed by: Buddy Del Real M.D. 07/13/2019 7:20 AM
[2019-07-13] MEDS: OMEGA-3 (PURIFIED FISH OIL) 1 GM CAP PO SCH (08:22)
[2019-07-13] MEDS: GABAPENTIN 300 MG CAP PO SCH (08:22)
--- NOTE | 2019-07-13 08:51 | Electrocardiogram Report ---
Test Reason : Blood Pressure : / mmHG Vent. Rate : 089 BPM Atrial Rate : 089 BPM P-R Int : 152 ms QRS Dur : 086 ms QT Int : 362 ms P-R-T Axes : 055 067 057 degrees QTc Int : 440 ms Normal sinus rhythm Nonspecific T wave abnormality Abnormal ECG When compared with ECG of 30-NOV-2016 15:23, No significant change was found Confirmed by Micha Thomson ([id number]) on 07/13/2019 8:51:42 AM Referred By: Confirmed By:Micha Thomson
[2019-07-13] MEDS ORDERED: ANASTROZOLE 1 MG TAB PO SCH (09:00)
[2019-07-13] MEDS ORDERED: ASPIRIN 81 MG ECTAB PO SCH (09:00)
[2019-07-13] MEDS ORDERED: MENTHOL TOP SCH (09:00)
[2019-07-13] MEDS ORDERED: BuPROPion XL 150 MG TABCR PO SCH (09:00)
[2019-07-13] MEDS ORDERED: NON-FORMULARY MEDICATION (Fenofibrate Micronized 134 MG) PO SCH (09:00)
[2019-07-13] MEDS ORDERED: CLOPIDOGREL BISULFATE 75 MG TAB PO SCH (09:00)
[2019-07-13] MEDS ORDERED: VITAMIN B COMPLEX TAB PO SCH (09:00)
[2019-07-13] MEDS ORDERED: BuPROPion XL 300 MG TABCR PO SCH (09:00)
[2019-07-13] MEDS ORDERED: TROLAMINE SALICYLATE 10% CRM 255 APPLN/85 GM TUBE EXT SCH (09:00)
[2019-07-13] MEDS ORDERED: CEROVITE ADV FORMULA TAB PO SCH (09:00)
--- NOTE | 2019-07-13 09:56 | XCELERA ---
[id number]_[id number]
--- NOTE | 2019-07-13 11:08 | Neurology Consultation ---
Date of Consultation July 13, 2019 Assessment & Plan (1) TIA (transient ischemic attack): (2) Chronic cerebral ischemia: (3) Fibromyalgia: (4) Memory deficits: (5) Bipolar 1 disorder: Patient had an episode July 11 consisting of right-sided weakness and expressive aphasia/slurred speech. She is back to baseline today an MRI of the brain is unremarkable. CT angiography of the head and neck is unremarkable as well. Echocardiogram shows no source of emboli. Her episode is consistent with a TIA. This event happened while she was on an 81 mg aspirin tablet daily. Her risk factors for strokes and TIAs include longstanding cigarette smoking (even though she quit 3 weeks ago), type 2 diabetes, and mild dyslipidemia. She does not have hypertension. She has longstanding fibromyalgia and mood disorder including bipolar, schizoaffective, and PTSD diagnoses. These problems seem controlled/very stable to me. She has some nonspecific short-term memory problems. It is difficult for me to decide if this is a very early vascular dementia versus pseudodementia from her psychiatric conditions/medication. The episodes of brief lightheadedness are unusual as well. I doubt seizure disorder. Recommendations: 1. Agree with the addition of clopidogrel 75 mg daily. Continue on both 81 mg aspirin and clopidogrel 75 mg daily for 3 weeks total, then discontinue the aspirin and remain on clopidogrel daily alone. 2. Consider low-dose statin for her mild dyslipidemia. 3. Hemoglobin A1c was mildly elevated at 6.3 on June 16. Try to get this hemoglobin A1c to 6.0 or LEs. 4. Glucose is under fairly good control with her current medications. Her blood pressure is under good control as well. 5. Continue to be off cigarettes 6. I can follow-up later this month with a telehealth visit as an outpatient. Overall, I spent a total of 70 minutes with this case including review of records, review of CT and MRI films, direct evaluation the patient at bedside, and discussing the case with the patient at bedside, and Dr. Bass, including differential diagnosis and treatment options. History of Present Illness Reason for Consultation: Patient is a 58-year-old, who I was asked to see at the request of Dr. Iraheta, for neurologic consultation regarding possible stroke Requesting Physician: Dr. Iraheta Attending Physician: Brennen Bass History of Present Illness This patient has a history of bipolar/schizoaffective disorder and PTSD. She is followed by Dr. Reagan, psychiatry. She has a history of hemochromatosis and hypogammaglobulinemia, seeing Dr. Jackson She has a history of breast cancer post lumpectomy on the left, chemo and radiation therapy. She feels she has returned remission from this. There is a history of type 2 diabetes but no history of hypertension, heart disease, or stroke. She quit cigarette smoking 21 days ago. She follows with rheumatology, Dr. Ford, for chronic myalgias and arthralgias. Patient has been on 81 mg aspirin tablet for the last year. She takes gabapentin and low-dose naltrexone for fibromyalgia. She takes bupropion, generic Seroquel, and gabapentin for her mood. Patient was in her usual state of health when she went to bed (somewhat tired) early in the evening of July 10. She woke up approximately 0700 on July 11 feeling very clumsy and unable to walk from her bed to the bathroom. She was having trouble getting words out, doing what she wanted to say. She was very fatigued. She was not having pain or headache, vision symptoms, or significant lightheadedness. She then went back to bed and slept for 3 hours waking up at 1100. The symptoms were still present, only not as significant. The right side seemed a little bit weaker than the left side. They arrived to the emergency room at 1324 with a temperature of 36.8, pulse 95 and regular, respiratory rate 18, blood pressure 124/85, and O2 saturation 97%. Exam was described as being a little weak in the right lower extremity but she had no speech difficulties. The patient felt much less fatigued by the time she got to the ER. CBC was unremarkable. Chem profile was remarkable for glucose of 158. Urinalysis was unremarkable. CT scan of the head was unremarkable. I reviewed these films. CT angiography of the head and neck revealed no significant vessel stenoses or anomalies. MRI of the brain showed no acute stroke. There was mild old scattered small, nonspecific white matter changes consistent with small vessel ischemic disease. I reviewed these films. Echocardiogram was unremarkable. All testing results were reviewed with the patient. This morning the patient feels back to baseline and she does not have fatigue, weakness, or speech problems. Glucose was 106 this morning. Triglycerides were 163 and total cholesterol 162. Hemoglobin A1c is pending. Patient tells me that over the last year she will have episodes occurring about once every 3 weeks where she will be just sitting and suddenly gets severe lightheadedness as if she is going to pass out (but does not). At last a minute or so and then resolves. The most recent time she had she had some hot sensations in her chest at the same time. Over the last 9 months, patient believes that her short-term memory is getting worse. She will forget what she wants to say for a while or walk into a room and not know why she went in there at 1st. Allergies Allergy/AdvReac Type Severity Reaction Status Date / Time bacitracin Allergy Severe ITCHING/INF Verified 07/12/19 15:01 ECTION Quinolones Allergy Severe ANAPHYLAXIS/HEART Verified 07/12/19 15:01 FLUTTERING rizatriptan Allergy Severe SHORTNESS Verified 07/12/19 15:01 OF BREATH Cipro Allergy Mild Palpitations, Verified 11/01/17 08:19 rash, ciprofloxacin Allergy Mild Palpitations, Verified 07/12/19 15:01 rash, lamotrigine Allergy Mild RASH Verified 07/12/19 15:01 neomycin Allergy Mild ITCHING Verified 07/12/19 15:01 WITH THE OINTMENT polymyxin B Allergy Mild ITCHING Verified 07/12/19 15:01 WITH OINTMENTS adhesive Allergy Unknown ALLERGIC Verified 07/12/19 15:01 TO MEDICATED STERI-STRIPS AND SOME TAPE-RASH BLISTE citalopram Allergy Unknown UNKNOWN Verified 07/12/19 15:01 paroxetine Allergy Unknown OUT OF Verified 07/12/19 15:01 BODY EXPERIENCE varenicline [From Chantix] Allergy itchy Verified 07/12/19 15:01 celecoxib AdvReac Intermediate GI SYMPTOMS Verified 07/12/19 15:01 Cephalosporins AdvReac Unknown PT DENIED Verified 07/12/19 15:01 ANY PROBLEMS clindamycin AdvReac Unknown EARS VERY Verified 07/12/19 15:01 RED SWOLLEN,ITCHING,DIZZINESS piperacillin AdvReac Unknown BETALACTAMASE Verified 07/12/19 15:01 INHIBITORS-UNKNOWN tazobactam AdvReac Unknown BETALACTAMASE Verified 07/12/19 15:01 INHIBITORS-UNKNOWN Unclassified Drugs AdvReac Unknown BL PLASTIC Uncoded 07/12/19 15:01 SUTURE-SKIN IRRITATION/RED/SWELLING ITCHY-NYLON? Home Medications Home Medications Medication Instructions Recorded Confirmed Type anastrozole 1 mg tablet 1 mg PO DAILY 12/12/17 07/12/19 History bupropion HCl 150 mg 24 hr tablet, 150 mg PO QAM 12/12/17 07/12/19 History extended release bupropion HCl 300 mg 24 hr tablet, 300 mg PO QAM 12/12/17 07/12/19 History extended release calcium carbonate 600 mg(1,500 1 tab PO BID 12/12/17 07/12/19 History mg)-vitamin D3 800 unit chewable tablet gabapentin 300 mg capsule 300 mg PO BID 12/12/17 07/12/19 History ibuprofen 600 mg tablet 600 mg PO TID PRN tab 12/12/17 07/12/19 History multivitamin with iron-mineral 1 tab PO DAILY 12/12/17 07/12/19 History nicotine (polacrilex) 2 mg gum 2 mg BUCCAL Q2H 12/12/17 07/12/19 History omega-3 fatty acids 1,000 mg 1,000 mg PO BID cap 12/12/17 07/12/19 History capsule vitamin B complex 1 tab PO DAILY 12/12/17 07/12/19 History lorazepam 0.5 mg tablet 0.5 mg PO DAILY PRN 01/20/18 07/12/19 History aspirin 81 mg tablet,delayed 81 mg PO DAILY 07/29/18 07/12/19 History release menthol 10 % topical gel 1 appln TOP DAILY 07/29/18 07/12/19 History quetiapine 300 mg tablet 600 mg PO HS tab 07/29/18 07/13/19 History metformin 500 mg tablet 500 mg PO DAILY tab 09/08/18 07/12/19 History cannabidiol 100 mg/mL oral solution 900 mg PO DAILY PRN ml 09/09/18 07/12/19 History naltrexone 4.5 mg PO BID 03/02/19 07/12/19 History fenofibrate micronized 134 mg PO DAILY 04/16/19 07/12/19 History doxepin 10 mg PO TID PRN #6 cap 04/29/19 07/12/19 Rx Patient History Medical History (Updated 07/13/19 @ 11:02 by Shamar Mendoza MD) Bipolar 1 disorder Breast cancer (Resolved) Diverticulitis (Resolved) Diverticulitis (Inactive) Fatty liver Low back pain Lung tumor (benign) Multiple drug allergies Periorbital cellulitis (Resolved) PTSD (post-traumatic stress disorder) Sacral fracture (Resolved) Sacroiliitis Thyroid tumor, benign Surgical History History of fracture of left ankle Left tibial fracture (Resolved) S/P breast lumpectomy Family History Mother Hypertension Father , age 59 of lung cancer Lung cancer Other No pertinent family history in first degree relatives Social History Preferred Language: Belarusian Communication Ability: Effective Visual Impairment: No Limitations Hearing Ability: Normal Beliefs That Will Affect Care: None marital status: Current Living Situation: Spouse Current Living Situation Comment: At home with 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al status: disabled 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 quit Smoking) other: Stopped work in 2001 on disability Feels Safe at Home: Yes Safety Concerns: Feels Safe At This Time Smoking Status: Former smoker Tobacco Type: cigarettes ; Cigarettes Per Day: 1 pack per day ; Do You Dip or Chew Tobacco: No ; Smoking End Date: Patient quit 21 days ago ; Second Hand Exposure: Yes ; Tobacco Cessation Education Requested by Patient: No Hx Alcohol Use: Yes Alcohol type: other Hx Substance Use: No Review of Systems Constitutional: no fever, no fatigue and no weakness Eyes: no diplopia, no eye pain and no worsening vision Ear, Nose, Mouth, Throat: no ear pain, no tinnitus, no hearing loss, no dizziness, no snoring, no hoarseness and no dysphagia Respiratory: no cough and no dyspnea Cardiovascular: no chest pain, no palpitations and no lightheadedness Gastrointestinal: no abdominal pain, no nausea and no vomiting Genitourinary: no dysuria, no urinary frequency and no urinary incontinence Musculoskeletal: + back pain; no neck pain, no radicular pain, no joint pain and no myalgia Integumentary: no rash and no lesions Neurologic: no gait abnormality, no localized weakness, no generalized weakness, no tingling, no numbness, no tremor(s), no abnormal movements, no headache(s), no abnormal speech, no confusion and no memory loss Psychiatric: + anxiety; no depression, no irritability, no difficulty concentrating, no confusion and no hallucinations Endocrine: no fatigue and no flushing Hematologic / Lymphatic: + easy bruising; no easy bleeding Allergy / Immunological: no urticaria and no problem reported Exam (Neuro) Physical Exam: The patient is right-handed. The patient is awake, alert, and attentive. Speech is normal without any aphasia or dysarthria. She can name objects, repeat phrases, and has normal spontaneous speech. Mentation and thought processes are intact, with orientation to person, place and time, and normal fund of knowledge. Attention and concentration are normal. Mood and affect are normal and appropriate. General appearance and grooming are normal. Short and long-term memory are intact. The discs are sharp with positive venous pulsations bilaterally. There are no exudates, hemorrhages, or blood vessel changes seen. Pupils are 4 mm bilaterally and reactive to light. Extraocular eye muscles are intact without nystagmus. Visual acuity and visual alberts seem normal grossly to confrontation. There are no deficits to sensation in the face in all 3 distributions of the fifth cranial nerve bilaterally. Corneal reflexes are positive bilaterally. Facial strength and symmetry was normal bilaterally. Hearing seems normal to whisper and finger rub bilaterally. Palate moves well without asymmetry. There is normal sternocleidomastoid and trapezius (shoulder shrug) strength bilaterally. Tongue is midline with good strength bilaterally. Neck has a full range of motion without discomfort. There are no cervical bruits bilaterally. There are no cranial or ocular bruits. Heart is without murmur. There is a regular rhythm and rate. Cervical, thoracic, and lumbar spine are nontender to palpation. Gait is narrow based, with good arm swing, turns, and stance. Balance is normal eyes open or closed. With outstretched arms there is no drift. There are no resting, postural, or action tremors. There is no ataxia with finger to nose testing. There is good facility in the hands. No other abnormal involuntary movements are noted. Motor strength is 5/5 diffusely in the arms bilaterally including deltoids, biceps, triceps, brachioradialis, wrist flexors and extensors, electrocardiograph repairer, and intrinsic hand muscles. Motor strength is 5/5 diffusely in the legs bilaterally including hip flexors, quadriceps, hamstrings, gastrocnemius, tibialis anterior, tibialis posterior, and Peroneii muscles. Toe extensors are normal and there is good bulk in the extensor digitorum brevis muscles bilaterally. The limbs have good tone without rigidity or spasticity. There is no atrophy noted in the muscles. Muscle bulk is normal, there is no tenderness to palpation, no myotonia to percussion, and no fasciculations seen. Sensory examination is intact to touch and pin throughout all 4 limbs diffusely. Reflexes are 2/4 in the biceps, triceps, brachioradialis, quadriceps, and Achilles tendons bilaterally. There is no clonus bilaterally. Toes are downgoing with plantar stimulation bilaterally. Peripheral pulses are present and of normal quality distally in all 4 limbs. There is no peripheral edema noted in the limbs. Results & Data ([facility]) Vital Signs (Past 12 Hours) Vital Signs Temp Pulse Pulse Resp BP Pulse Ox Pulse Ox 07/13/19 08:59 72 96 07/13/19 07:30 36.4 C L 78 20 119/80 98 07/13/19 03:56 36.3 C L 73 18 102/69 94 07/13/19 00:00 36.4 C L 72 18 104/71 93 07/12/19 23:00 77 Diagnostic Findings MRI OF THE BRAIN WITHOUT AND WITH IV CONTRAST CLINICAL HISTORY: right sided weakness, slurring speech ?CVA COMPARISON STUDY: Head CT and CTA of the head July 12, 2019. TECHNIQUE: Utilizing a 1.5 Darlene magnet and dedicated coil, multiplanar, multiecho imaging of the brain was performed pre and postcontrast administration. IV administration of 7.2 mL of Gadavist contrast was uneventful. Thin cut T1 post contrast imaging was performed with multiplanar reformats. FINDINGS: There are no foci of restricted diffusion to suggest acute infarct. No acute intracranial hemorrhage, midline shift or mass effect is present. Brain volume is normal for age. Ventricular system is normal. Basilar cisterns are patent. There are no extra-axial collections. Flow-voids for the major intracranial vessels are present. There is no intracranial mass or pathologic enhancement. Scattered white matter T2 hyperintense foci suggest mild small vess el disease. Calvarial signal is normal. IMPRESSION: 1. No acute intracranial findings. 2. No intracranial mass or pathologic enhancement. 3. Scattered white matter T2 hyperintense foci which suggest mild small vessel disease. ACT 112: Negative or not required by law. Electronically signed by: Buddy Del Real M.D. 07/13/2019 7:20 AM PG Care Time/CCT Total # of Minutes Spent Total Time Spent with Patient: Total time spent is greater than 50% in coordination of care (as documented) at patient's floor/unit and/or counseling patient: Coding Level of Care Code 95113 Inpt Consult Level 4 Diagnoses TIA (transient ischemic attack) G45.9 Chronic cerebral ischemia I67.82 Fibromyalgia M79.7 Memory deficits R41.3 Bipolar 1 disorder F31.9
[2019-07-13 12:04] VITALS: BP 118/78; TEMP 98.1
[2019-07-13] MEDS ORDERED: STROKE PATIENT DISCHARGE STA (13:01)
--- NOTE | 2019-07-13 13:43 | Pharmacy Report ---
Pharmacist Stroke Counseling - Date of Service July 13, 2019 - Scope: Pharmacy has been consulted to provide medication discharge counseling for this patient admitted with transient ischemic attack as per the Pharmacist Discharge Counseling for Stroke Patients Protocol. - Medications on Discharge: Home Medications Medication Instructions Recorded Confirmed anastrozole 1 mg tablet 1 mg PO DAILY 12/12/17 07/12/19 bupropion HCl 150 mg 24 hr tablet, 150 mg PO QAM 12/12/17 07/12/19 extended release bupropion HCl 300 mg 24 hr tablet, 300 mg PO QAM 12/12/17 07/12/19 extended release calcium carbonate 600 mg(1,500 1 tab PO BID 12/12/17 07/12/19 mg)-vitamin D3 800 unit chewable tablet gabapentin 300 mg capsule 300 mg PO BID 12/12/17 07/12/19 ibuprofen 600 mg tablet 600 mg PO TID PRN tab 12/12/17 07/12/19 multivitamin with iron-mineral 1 tab PO DAILY 12/12/17 07/12/19 nicotine (polacrilex) 2 mg gum 2 mg BUCCAL Q2H 12/12/17 07/12/19 omega-3 fatty acids 1,000 mg 1,000 mg PO BID cap 12/12/17 07/12/19 capsule vitamin B complex 1 tab PO DAILY 12/12/17 07/12/19 lorazepam 0.5 mg tablet 0.5 mg PO DAILY PRN 01/20/18 07/12/19 aspirin 81 mg tablet,delayed 81 mg PO DAILY 07/29/18 07/12/19 release menthol 10 % topical gel 1 appln TOP DAILY 07/29/18 07/12/19 quetiapine 300 mg tablet 600 mg PO HS tab 07/29/18 07/13/19 metformin 500 mg tablet 500 mg PO DAILY tab 09/08/18 07/12/19 cannabidiol 100 mg/mL oral solution 900 mg PO DAILY PRN ml 09/09/18 07/12/19 naltrexone 4.5 mg PO BID 03/02/19 07/12/19 fenofibrate micronized 134 mg PO DAILY 04/16/19 07/12/19 New Rx's Medication Instructions Recorded doxepin 10 mg PO TID PRN #6 cap 04/29/19 clopidogrel 75 mg PO QAM #30 tab 07/13/19 pravastatin 10 mg PO HS #30 tab 07/13/19 - Action: The above medications, specifically ones for stroke treatment/prophylaxis, have been reviewed in detail with the patient prior to discharge. This includes indication, common adverse reactions, drug interactions, and medication administration. Medication counseling has been employed using the teach-back method to ensure understanding. - Outcome: The patient has demonstrated understanding of the medications. Please note, they are aware that the pharmacist will call them within 72 hours post-discharge to confirm that the appropriate medications are being taken and answer any further medication related questions the patient might have at that time. Contact information Individual to be contacted: self Relationship to patient (if applicable): -- Phone number: [phone] Best time to call: anytime Additional comments: -verified with Dr Bass that patient is not to overlap aspirin with Plavix x 3 weeks plus notified him to include why patient not discharged on high intensity statin -patient knowledgeable about medications reviewed what to stop and what to take -denies any problems with aspirin but counseling on risk of bruising and bleeding -counseled to take pravastatin at bedtime --- in addition to fenofibrate (explained difference in what medications target) Thank you for allowing pharmacy to be involved in the care of this patient. Please call [phone] or [phone] with any additional questions
[2019-07-13 14:10] VITALS: PULSE 94
[2019-07-13 16:46] VITALS: O2SAT 98
[2019-07-13] MEDS ORDERED: QUETIAPINE FUMARATE 300 MG TABLET PO SCH (21:00)
--- NOTE | 2019-07-16 14:29 | Pharmacy Report ---
Pharmacist Post D/C Phone Note - Phone Note: Date of phone call: July 16, 2019. Individual with whom pharmacist spoke to: TYRELL OLIVARES The following questions were reviewed during the phone call with responses listed below each: Can you tell me the medications that you are currently taking as well as when and how you take each medication? -See Table Below When have you missed any doses of your medications? - denies missed doses What side effects are you having from your medications, specifically, the new medications you were started on? - denies side effects - when asked if she has noticed any bruising or bleeding she reports a few bruises on her hands. she confirmed that the bruises are shrinking in size and she denies other s/s of bleeding. What questions do you have about your medications? - denies questions What problems are you having obtaining your medications? - no problems When is your next appointment with your primary care doctor? - later this month (did not provide exact date) Additional comments: -Patient expressed concern about stopping lisinopril. She states that she was put on this medication for her kidneys. I am unable to confirm discontinuation of this medicine in provider notes and on the discharge plan. Lisinopril is not listed. I advised her to monitor BP at home and discuss this with her PCP. -Confirmed that patient stopped taking ASA as directed. As per the Pharmacist Discharge Counseling for Stroke Patients Protocol, this phone call has been completed within 72 hours of discharge. Thank you for allowing us to be involved in the care of this patient. - Home Medications: Home Medications Medication Instructions Recorded Confirmed anastrozole 1 mg tablet 1 mg PO DAILY 12/12/17 07/12/19 bupropion HCl 150 mg 24 hr tablet, 150 mg PO QAM 12/12/17 07/12/19 extended release bupropion HCl 300 mg 24 hr tablet, 300 mg PO QAM 12/12/17 07/12/19 extended release calcium carbonate 600 mg(1,500 1 tab PO BID 12/12/17 07/12/19 mg)-vitamin D3 800 unit chewable tablet gabapentin 300 mg capsule 300 mg PO BID 12/12/17 07/12/19 multivitamin with iron-mineral 1 tab PO DAILY 12/12/17 07/12/19 nicotine (polacrilex) 2 mg gum 2 mg BUCCAL Q2H 12/12/17 07/12/19 omega-3 fatty acids 1,000 mg 1,000 mg PO BID cap 12/12/17 07/12/19 capsule vitamin B complex 1 tab PO DAILY 12/12/17 07/12/19 lorazepam 0.5 mg tablet 0.5 mg PO DAILY PRN 01/20/18 07/12/19 menthol 10 % topical gel 1 appln TOP DAILY 07/29/18 07/12/19 quetiapine 300 mg tablet 600 mg PO HS tab 07/29/18 07/13/19 metformin 500 mg tablet 500 mg PO DAILY tab 09/08/18 07/12/19 cannabidiol 100 mg/mL oral solution 900 mg PO DAILY PRN ml 09/09/18 07/12/19 naltrexone 4.5 mg PO BID 03/02/19 07/12/19 fenofibrate micronized 134 mg PO DAILY 04/16/19 07/12/19 New Rx's Medication Instructions Recorded doxepin 10 mg PO TID PRN #6 cap 04/29/19 acetaminophen [Mapap 650 mg PO Q6H PRN #30 tab 07/13/19 (acetaminophen)] clopidogrel 75 mg PO QAM #30 tab 07/13/19 pravastatin 10 mg PO HS #30 tab 07/13/19
--- NOTE | 2019-07-19 23:38 | Discharge Summary ---
Date of Service July 13, 2019 Admission HPI Per Admitting Provider Shaheed Son is a 58 year old female who presented to the ER with stroke- like symptoms which started around 0600. No prior history of strokes. Significant history of T2DM and tobacco use. She felt generally tired, weak and aching this morning. No fevers or chills, although she measured her temperature this morning at 94.6F. Her balance was significantly impaired and on trying to walk she found herself running forward and to both sides without being able to stop herself. Associated slurred speech without being able to get the right words out. Both disorientated, dizzy and lightheaded. She felt the right side of her body was weak compared to the left. She currently still feels her right upper extremity is week. She denies any change in extremity sensation, facial weakness, current changes in vision, speech or hearing. She has never had similar symptoms before but has frequent panic attacks. These manifest as feeling like blood drains from body. Hot flush from throat to bottom of chest like she was on fire. She treats these with lorazepam and calling her who comes to help. She usually has these approximately once per week. No new meds started recently. She did take a lorazepam the night before this occurred but this is not unusual for her. She denies taking accidently taking too much of her medication. Uses Naltrexone for fibromyalgia Long standing history of Bipolar - but reports this joel not seem like one of her manic episodes. Usually these are when her thoughts just do not stop, can last for days, psychomotor agitation, tries to do 20 things at once. As an example after her dog she filled an entire book of non discernable scribbles. Breast cancer 2017 - left sided, WLE lobectomy. Lymph nodes not positive. Chemo for 8 weeks and Radiation to breast tumor site. Continues on anastrazole. Quit smoking 20 days ago. Previously 1 pack a day. 3-4 days a week takes ibuprofen, mainly at night - for sciatica/radicular pain. Doxepin - unknown why she takes this. Principal Diagnosis TIA Discharge Exam Constitutional: well developed, cooperative, comfortable and + overweight; + not well nourished and no acute distress Eyes: PERRL, conjunctivae normal, anicteric sclerae ENMT: external ear and nose normal, oropharynx normal Neck: trachea midline, no thyromegaly Respiratory: normal respiratory effort, lungs clear to auscultation Cardiovascular: Rate/Rhythm: regular rate and regular rhythm Heart Sounds: no murmur Vessels: no JVD Extremities: normal capillary refill; no calf tenderness and no pedal edema Gastrointestinal (Abdomen): normal bowel sounds, soft, nontender, no hepatosplenomegaly Skin: no rashes, warm and dry Neurologic: plantar reflexes intact bilaterally, moves all extremities, + focal motor deficit (see below) and awake; not confused Speech / Cognition: normal speech Motor/Sensory: no tremor, no pronator drift and no sensory defic it Cranial Nerves: sense of smell intact, PERRL, normal accommodation, EOM intact bilaterally, normal facial strength, tongue midline, able to rotate head bilaterally, able to elevate shoulders bilaterally, no nystagmus and symmetric palate elevation Coordination: normal [id number] test Unable to plantarflex left ankle due to previous fusion. Otherwise equal power in b/l UE and LE. Psychiatric: A+Ox3, euthymic affect Discharge Data Allergies Allergy/AdvReac Type Severity Reaction Status Date / Time bacitracin Allergy Severe ITCHING/INF Verified 07/12/19 15:01 ECTION Quinolones Allergy Severe ANAPHYLAXIS/HEART Verified 07/12/19 15:01 FLUTTERING rizatriptan Allergy Severe SHORTNESS Verified 07/12/19 15:01 OF BREATH Cipro Allergy Mild Palpitations, Verified 11/01/17 08:19 rash, ciprofloxacin Allergy Mild Palpitations, Verified 07/12/19 15:01 rash, lamotrigine Allergy Mild RASH Verified 07/12/19 15:01 neomycin Allergy Mild ITCHING Verified 07/12/19 15:01 WITH THE OINTMENT polymyxin B Allergy Mild ITCHING Verified 07/12/19 15:01 WITH OINTMENTS adhesive Allergy Unknown ALLERGIC Verified 07/12/19 15:01 TO MEDICATED STERI-STRIPS AND SOME TAPE-RASH BLISTE citalopram Allergy Unknown UNKNOWN Verified 07/12/19 15:01 paroxetine Allergy Unknown OUT OF Verified 07/12/19 15:01 BODY EXPERIENCE varenicline [From Chantix] Allergy itchy Verified 07/12/19 15:01 celecoxib AdvReac Intermediate GI SYMPTOMS Verified 07/12/19 15:01 Cephalosporins AdvReac Unknown PT DENIED Verified 07/12/19 15:01 ANY PROBLEMS clindamycin AdvReac Unknown EARS VERY Verified 07/12/19 15:01 RED SWOLLEN,ITCHING,DIZZINESS piperacillin AdvReac Unknown BETALACTAMASE Verified 07/12/19 15:01 INHIBITORS-UNKNOWN tazobactam AdvReac Unknown BETALACTAMASE Verified 07/12/19 15:01 INHIBITORS-UNKNOWN Unclassified Drugs AdvReac Unknown BL PLASTIC Uncoded 07/12/19 15:01 SUTURE-SKIN IRRITATION/RED/SWELLING ITCHY-NYLON? Consultations 07/12/19 15:57 ED Decision to Admit Stat 07/12/19 19:19 Consult Case Management - Discharge Planning Routine Consult Neurology Routine Ordered Studies 07/12/19 13:40 CT angio head w con Stat CT angio neck with con Stat CT head/brain wo con Stat 07/13/19 00:24 MR brain wo/w con Routine Hospital Course (1) Stroke-like symptoms: Admit to PCU for cardiac monitoring TTE pending MRI wo/w brain pending CT head + CTA head/neck without significant stenosis No need to repeat lipid profile or HbA1C as recently performed in 06/17/2019 LDL 108 above goal if stroke confirmed HbA1C 6.3 Consult neurology Based on history and exam suspect more of a generalized encephalopathy (?med/psychiatric episode) but given slurred speech and subjective right > left weakness this warrants a stroke workup. LDL is 68. will place on low intensity statin as LDL is already below goal of 70. D/W neuro, will discharge only on plavix. (2) Bipolar 1 disorder: Buproprion 450mg QAM Seroquel 600mg HS Tamazepam 15mg HS PRN (pt requested EDISON while in hospital Lorazepam 0.5mg PO BID PRN (patient reports taking this infrequently (3) PTSD (post-traumatic stress disorder): as above (4) Multinodular thyroid: Noted on CTA neck. Known history of thyroid nodule. If not recently performed recommend US thyroid follow up with PCP (5) Fibromyalgia: Continue gabapentin 300mg BID Off label use of naltrexone 4.5mg BID (non-formulary, she reports she may be ok without this for a few days but if staying longer she will have her bring it in) (6) Chronic radicular lumbar pain: Gabapentin 300mg BID (7) Malignant neoplasm of upper-outer quadrant of left breast in female, estrogen receptor positive: s/p lumpectomy, chemotherapy and radiation. Continue anastrozole. Total Time Total Time Spent Total Time Spent (In Minutes): 32 Discharge Plan Discharge Items Patient Disposition: Home - Self-Care Reason For Visit: STROKE-LIKE SYMPTOMS Discharge Diagnosis: TIA Activity: Resume your previous activity Non-emergency contact: Primary Care Provider Call non-emergency contact if: you have any medication questions Follow-up/Referrals: Justice Madera [Primary Care Provider] - 07/24/19 10:00 am (Please follow up at [facility] with Dr. Madera on SaturdayJuly 23 at 10:00 am. Please arrive 15 minutes early for your appointment. If your unable to keep this appointment, please call the office to re-schedule at [phone].) Diet: Carb Consistent or DM2 and Heart Healthy Addtl Attending Provider Instructions: Please take Plavix, Do not take aspirin. Please start taking pravastatin. Recommend followup with PCP in 1-2 weeks. Risk Factors for Stroke: You can reduce your chances of stroke by working with your medical provider to adopt a healthy lifestyle. Some specific ways to lower your chance of stroke are: * If you are a smoker, now is the time to stop smoking cigarettes * If you are diabetic, improve the control of your blood sugars * Avoid excessive amounts of alcohol * Control high blood pressure * Lose weight if you are overweight * Be sure to lead an active lifestyle * Eat a healthy diet low in salt, cholesterol and fat You should know about other risk factors for stroke that you are unable to control. These include: * Age 55 years or older * Male gender * Certain racial groups: , or / * Family History of Stroke, Mini stroke or Heart Attack * Sickle Cell Disease Follow Up: It is important for you to keep your follow up appointments with your medical provider. Who to Call and When: Medical Emergencies: Call 911 immediately if you experience any of the following warning signs and symptoms of Stroke: * Sudden numbness or weakness of the face, arm or leg, especially on one side of the body * Sudden confusion, trouble speaking or understanding * Sudden trouble seeing in one or both eyes * Sudden trouble walking, dizziness, loss of balance or coordination * Sudden severe headache with no cause Do not delay calling 911 if you experience any warning signs or symptoms of a stroke. Delay in seeking medical attention may affect what treatments can be given to yo u. . Pending Studies at Discharge: No Stand-Alone Forms: Medications to Prevent Stroke, [facility], Smoking Cessation Medications and DC Order Prescriptions: New clopidogrel 75 mg Tablet 75 mg PO QAM Qty: 30 RF: 0 pravastatin 10 mg tablet 10 mg PO HS Qty: 30 RF: 0 acetaminophen [Mapap (acetaminophen)] 325 mg Tablet 650 mg PO Q6H PRN (Reason: pain) Qty: 30 RF: 0 Continued anastrozole 1 mg tablet 1 mg PO DAILY RF: 0 omega-3 fatty acids [Fish Oil Concentrate] 1,000 mg capsule 1,000 mg PO BID RF: 0 nicotine (polacrilex) [Nicorette] 2 mg gum 2 mg BUCCAL Q2H RF: 0 gabapentin 300 mg capsule 300 mg PO BID RF: 0 vitamin B complex [B Complex-Vitamin B12] tablet 1 tab PO DAILY RF: 0 multivitamin with iron-mineral tablet 1 tab PO DAILY RF: 0 bupropion HCl 300 mg tablet extended release 24 hr 300 mg PO QAM RF: 0 bupropion HCl 150 mg tablet extended release 24 hr 150 mg PO QAM RF: 0 calcium carbonate-vitamin D3 [Caltrate 600 plus D] 600 mg (1,500 mg)-800 unit tablet,chewable 1 tab PO BID RF: 0 metformin [Glucophage] 500 mg tablet 500 mg PO DAILY RF: 0 lorazepam 0.5 mg tablet 0.5 mg PO DAILY PRN (Reason: Anxiety) RF: 0 quetiapine [Seroquel] 300 mg tablet 600 mg PO HS RF: 0 Aspercreme Heat 10 % gel 1 appln TOP DAILY RF: 0 cannabidiol 100 mg/mL solution 900 mg PO DAILY PRN (Reason: pain) RF: 0 naltrexone 4.5 mg PO BID RF: 0 fenofibrate micronized 134 mg capsule 134 mg PO DAILY RF: 0 doxepin 10 mg capsule 10 mg PO TID PRN (Reason: itching) Qty: 6 RF: 0 Discontinued ibuprofen 600 mg tablet 600 mg PO TID PRN (Reason: Pain) RF: 0 aspirin 81 mg tablet,delayed release (DR/EC) 81 mg PO DAILY RF: 0 Discharge Orders: Discharge Order (Routine); Ordered 07/13/19 Ordered By: Brennen Bass Admission Data Admit Date/Time: 07/12/19 16:23 Attending Provider: Brennen Bass Admit Provider: Casa [facility]heta Primary Care Provider: Justice Madera Other Providers: Brian Mendoza Other Interventions: Discharge Summary Assessment (RN) Last Done: 07/13/19 15:49 DC Date/Time DO NOT enter until pt leaves facility: 07/13/19 17:02 Coding Level of Care Code D/C Day Management >30 mins Diagnoses Stroke-like symptoms R29.90 Bipolar 1 disorder F31.9 PTSD (post-traumatic stress disorder) F43.10 Multinodular thyroid E04.2 Fibromyalgia M79.7 Chronic radicular lumbar pain M54.16; G89.29 Malignant neoplasm of upper-outer quadrant of left breast in female, estrogen receptor positive C50.412; Z17.0 Time Spent (min) 32
== END 2019-07-13 17:02 | disposition home or self-care (01) | DRG 69 ==
LOC: ED 13:19 → 2S 16:23 → SUATTDRO 16:23 → 2S 17:41

== ENCOUNTER 2019-08-01 02:41 | Observation (INO) ==
--- NOTE | 2019-08-01 03:11 | Emergency Department Note ---
History of Present Illness General Chief complaint: Stroke/CVA Symptoms Stated complaint: STROKE SYMPTOMS Time Seen by Provider: 08/01/19 02:48 Source: patient Mode of arrival: ambulatory Limitations: no limitations History of Present Illness Provider complaint: right sided weakness, dizziness Location: head, upper extremity and lower extremity Radiation: non-radiation Relieved By: + none Exacerbated By: + movement Associated symptoms: + denies other symptoms Treatments prior to arrival: none This is a 58-year-old female presenting from home due to concerns for recurrent TIA. Patient states she had a TIA approximately 2 weeks ago and was started on Plavix. She states she has been taking her Plavix daily. No other changes in medications. Patient states that after dinner this evening she began developing a headache, she took some Tylenol for her pain. She states around midnight she was watching TV when she felt a hot wave come over her from top to bottom, became lightheaded and dizzy, slightly short of breath, and then felt that she was having right-sided weakness. Patient states she waited to see if it would pass thinking maybe it was related to anxiety, however her symptoms did not improve when she came to the emergency room. Patient denies any other recent trauma or change in activity. No other recent illness or any contact with any known coronavirus positive individual. Patient states no difficulty with speech, although she feels like she has difficulty remembering things. Patient does feel like some of her symptoms are slightly improved at this time. Pt seen during a time of high acuity and national emergency pandemic while wearing PPE. Home Medications Home Medications Medication Instructions Recorded Confirmed Type anastrozole 1 mg tablet 1 mg PO DAILY 12/12/17 08/01/19 History bupropion HCl 150 mg 24 hr tablet, 150 mg PO QAM 12/12/17 08/01/19 History extended release bupropion HCl 300 mg 24 hr tablet, 300 mg PO QAM 12/12/17 08/01/19 History extended release calcium carbonate 600 mg(1,500 1 tab PO BID 12/12/17 08/01/19 History mg)-vitamin D3 800 unit chewable tablet gabapentin 300 mg capsule 300 mg PO BID 12/12/17 08/01/19 History multivitamin with iron-mineral 1 tab PO DAILY 12/12/17 08/01/19 History nicotine (polacrilex) 2 mg gum 2 mg BUCCAL Q2H 12/12/17 08/01/19 History omega-3 fatty acids 1,000 mg 1,000 mg PO BID cap 12/12/17 08/01/19 History capsule vitamin B complex 1 tab PO DAILY 12/12/17 08/01/19 History lorazepam 0.5 mg tablet 0.5 mg PO DAILY PRN 01/20/18 08/01/19 History quetiapine 300 mg tablet 600 mg PO HS tab 07/29/18 08/01/19 History metformin 500 mg tablet 500 mg PO DAILY tab 09/08/18 08/01/19 History cannabidiol 100 mg/mL oral solution 900 mg PO DAILY PRN ml 09/09/18 08/01/19 History naltrexone 4.5 mg PO BID 03/02/19 08/01/19 History fenofibrate micronized 134 mg PO DAILY 04/16/19 08/01/19 History doxepin 10 mg PO TID PRN #6 cap 04/29/19 08/01/19 Rx clopidogrel 75 mg PO QAM #30 tab 07/13/19 08/01/19 Rx pravastatin 10 mg PO HS #30 tab 07/13/19 08/01/19 Rx aspirin 81 mg PO DAILY 21 Days #21 tab 08/01/19 Rx temazepam 15 mg PO HS PRN 08/01/19 08/01/19 History tramadol 50 mg PO DAILY PRN 08/01/19 08/01/19 History Allergies Allergy/AdvReac Type Severity Reaction Status Date / Time bacitracin Allergy Severe ITCHING/INF Verified 08/01/19 03:48 ECTION Quinolones Allergy Severe ANAPHYLAXIS/HEART Verified 08/01/19 03:48 FLUTTERING rizatriptan Allergy Severe SHORTNESS Verified 08/01/19 03:48 OF BREATH Cipro Allergy Mild Palpitations, Verified 11/01/17 08:19 rash, ciprofloxacin Allergy Mild Palpitations, Verified 08/01/19 03:48 rash, lamotrigine Allergy Mild RASH Verified 08/01/19 03:48 neomycin Allergy Mild ITCHING Verified 08/01/19 03:48 WITH THE OINTMENT polymyxin B Allergy Mild ITCHING Verified 08/01/19 03:48 WITH OINTMENTS adhesive Allergy Unknown ALLERGIC Verified 08/01/19 03:48 TO MEDICATED STERI-STRIPS AND SOME TAPE-RASH BLISTE citalopram Allergy Unknown UNKNOWN Verified 08/01/19 03:48 paroxetine Allergy Unknown OUT OF Verified 08/01/19 03:48 BODY EXPERIENCE varenicline [From Chantix] Allergy itchy Verified 08/01/19 03:48 celecoxib AdvReac Intermediate GI SYMPTOMS Verified 08/01/19 03:48 Cephalosporins AdvReac Unknown PT DENIED Verified 08/01/19 03:48 ANY PROBLEMS clindamycin AdvReac Unknown EARS VERY Verified 08/01/19 03:48 RED SWOLLEN,ITCHING,DIZZINESS piperacillin AdvReac Unknown BETALACTAMASE Verified 08/01/19 03:48 INHIBITORS-UNKNOWN tazobactam AdvReac Unknown BETALACTAMASE Verified 08/01/19 03:48 INHIBITORS-UNKNOWN Unclassified Drugs AdvReac Unknown BL PLASTIC Uncoded 08/01/19 03:48 SUTURE-SKIN IRRITATION/RED/SWELLING ITCHY-NYLON? Past Med/Surg History Medical History Bipolar 1 disorder Breast cancer (Resolved) Diverticulitis (Resolved) Diverticulitis (Inactive) Fatty liver Low back pain Lung tumor (benign) Multiple drug allergies Periorbital cellulitis (Resolved) PTSD (post-traumatic stress disorder) Sacral fracture (Resolved) Sacroiliitis Thyroid tumor, benign Surgical History History of fracture of left ankle Left tibial fracture (Resolved) S/P breast lumpectomy Family History Mother Hypertension Father , age 59 of lung cancer Lung cancer Other No pertinent family history in first degree relatives Social History Preferred Language: Kitt[place] Communication Ability: Effective Visual Impairment: No Limitations Hearing Ability: Normal Welt Butter Hand Required: No Beliefs That Will Affect Care: None marital status: Current Living Situation: Spouse Current Living Situation Comment: At home with 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al status: disabled 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 and A total of 10 systems reviewed and were otherwise negative Physical Exam Vital Signs Vital Signs - 24 hr 08/01/19 02:48 08/01/19 03:00 08/01/19 03:31 Temperature 36.8 C Temperature Source Oral Pulse Rate 91 H 90 85 Pulse Rate from SpO2 Sensor 90 85 Pulse Rhythm Regular Pulse Strength Normal Respiratory Rate 18 15 19 Respiratory Effort / Characteristics Non-Labored Spontaneous Respiratory Depth Normal Respiratory Pattern Regular Blood Pressure 144/91 H 134/78 Blood Pressure Mean 108 90 Blood Pressure Position Lying Pulse Oximetry 97 96 95 Oxygen Delivery Method Room Air Room Air Sepsis Recent Fever Within 48 Hours No Sepsis New/Unexplained Change in Mental Status No Sepsis Action Taken by Nursing No Action Required GENERAL: alert, well appearing, well nourished, no distress, non-toxic EYE EXAM: normal conjunctiva, PERRL and EOM's grossly intact OROPHARYNX: no exudate, no erythema, lips, buccal mucosa, and tongue normal and mucous membranes are moist NECK: supple, no nuchal rigidity, no adenopathy, non-tender LUNGS: Clear to auscultation. Normal chest wall mechanics, no w/r/r HEART: no murmurs, S1 normal and S2 normal ABDOMEN: abdomen soft, non-tender, normo-active bowel sounds, no masses, no rebound or guarding. BACK: Back is symmetrical on inspection and there is no deformity, no midline tenderness, no CVA tenderness. SKIN: no rashes and no bruising UPPER EXTREMITIES: upper extremities are grossly normal. FROM, nml pulses b/l. LOWER EXTREMITIES: No pitting edema. FROM, nml pulses b/l. NEURO EXAM: Normal sensorium, cranial nerves II-XII grossly intact, normal speech, no gross weakness of arms, no gross weakness of legs. Gross sensation intact. Mildly fatiguable RUE and RLE at 10 seconds but no sudden drop or ataxia. NIHSS 2. Course Course 0352: Updated pt on results. She states she is feeling better but not back to normal. When I discussed the discharge directions from neurology about the use of aspirin and Plavix for at least 3 weeks and then discontinuing aspirin. Patient states she only took both of them together for several days after discharge and over the last several weeks is only been taking Plavix. Patient does continue to smoke. Administered Medications Discontinued Medications Anastrozole (Arimidex) 1 mg PO DAILY [facility] Stop: 08/31/19 08:59 Last Admin: 08/01/19 10:04 Dose: 1 mg Documented by: [id number] Cosigned by: [id number] Aspirin (Ecotrin Ectab) 81 mg PO DAILY [facility] Stop: 08/31/19 08:59 Last Admin: 08/01/19 10:04 Dose: 81 mg Documented by: [id number] Bupropion HCl (Wellbutrin-Xl) 300 mg PO QAM [facility] Stop: 08/31/19 08:59 Last Admin: 08/01/19 10:04 Dose: 300 mg Documented by: [id number] Bupropion HCl (Wellbutrin-Xl) 150 mg PO QAM [facility] Stop: 08/31/19 08:59 Last Admin: 08/01/19 10:04 Dose: 150 mg Documented by: [id number] Clopidogrel Bisulfate (Plavix) 75 mg PO QAM [facility] Stop: 08/31/19 08:59 Last Admin: 08/01/19 10:04 Dose: 75 mg Documented by: [id number] Fenofibrate (Tricor) 145 mg PO DAILY [facility] Stop: 08/31/19 08:59 Last Admin: 08/01/19 10:04 Dose: 145 mg Documented by: [id number] Fish Oil (Cutler-3 (Purified Fish Oil)) 1 gm PO BID [facility] Stop: 08/31/19 08:59 Last Admin: 08/01/19 10:03 Dose: 1 gm Documented by: [id number] Gabapentin (Neurontin) 300 mg PO BID [facility] Stop: 08/31/19 08:59 Last Admin: 08/01/19 10:04 Dose: 300 mg Documented by: [id number] Gadobutrol (Gadavist 7.5ml) 7 ml IV ONCE PRN PRN Reason: Interaction Checking Stop: 08/05/19 13:24 Last Admin: 08/01/19 13:26 Dose: 7 ml Documented by: [id number] Sodium Chloride (Nss 1000ml) 1,000 mls @ 125 mls/hr IV .Q8H [facility] Stop: 08/31/19 03:14 Last Infusion: 08/01/19 08:45 Dose: 0 mls/hr Documented by: [id number] Admin: 08/01/19 03:40 Dose: 125 mls/hr Documented by: [id number] Insulin Aspart (Novolog Flexpen) 0 units SC ACHS [facility] Stop: 08/31/19 08:59 Last Admin: 08/01/19 17:07 Dose: Not Given Documented by: [id number] Cosigned by: [id number] Admin: 08/01/19 12:16 Dose: Not Given Documented by: [id number] Cosigned by: [id number] Admin: 08/01/19 09:43 Dose: Not Given Documented by: [id number] Cosigned by: [id number] Ioversol (Optiray 320 125ml) 118 ml IV ONCE PRN PRN Reason: Interaction Checking Stop: 08/05/19 03:12 Last Admin: 08/01/19 03:13 Dose: 1 ml Documented by: [id number] Miscellaneous (Order Awaiting Action) 1 ea N/A QS [facility] Stop: 08/31/19 11:59 Last Admin: 08/01/19 14:14 Dose: Not Given Documented by: [id number] Admin: 08/01/19 10:23 Dose: Not Given Documented by: [id number] Multivitamins/Minerals (Caltrate Plus) 1 tab PO BID [facility] Stop: 08/31/19 08:59 Last Admin: 08/01/19 10:03 Dose: 1 tab Documented by: [id number] Multivitamins/Minerals (Multivitamin W/ Minerals Tab) 1 tab PO DAILY [facility] Stop: 08/31/19 08:59 Last Admin: 08/01/19 10:03 Dose: 1 tab Documented by: [id number] Vitamin B Complex (Vitamin B Complex) 1 tab PO DAILY [facility] Stop: 08/31/19 08:59 Last Admin: 08/01/19 10:03 Dose: 1 tab Documented by: [id number] Medical Decision Making Differential Diagnosis Differential Diagnosis includes but is not limited to ischemic Stroke, hemorrhagic stroke, bells palsy, mass, neoplasm, migraine headache, seizure, subarachnoid hemorrhage, TIA, and transient global amnesia. Medical Records Attestation: I reviewed the patient's medical records. Home Medications Current Medication List: was personally reviewed by me Laboratory Data Attestation: I reviewed the patient's lab results. Result diagrams: 08/01/19 03:00 08/01/19 03:00 Lab Results 08/01/19 08/01/19 08/01/19 Range/Units 03:00 03:00 03:04 WBC 8.14 (4.8-10.8) K/uL RBC 3.74 L (4.2-5.4) M/uL Hgb 12.0 (12.0-16.0) g/dL POC Hgb 12.2 (12.0-16.0) g/dl Hct 35.8 L (37-47) % POC Hct 36 L (37-47) % MCV 95.7 (80-100) fL MCH 32.1 (25-34) pg MCHC 33.5 (32-36) g/dL RDW Std Deviation 46.3 (36.4-46.3) fL RDW Coeff of Laureen 13.2 (11.5-14.5) % Plt Count 255 (130-400) K/uL MPV 9.8 (7.4-10.4) fL Immature Gran % (Auto) 0.5 % Neut % (Auto) 41.2 % Lymph % (Auto) 48.9 % [place] % (Auto) 6.9 % Eos % (Auto) 2.3 % Baso % (Auto) 0.2 % Immature Gran # (Auto) 0.04 H (0.00-0.02) K/uL Neut # (Auto) 3.35 (1.4-6.5) K/uL Lymph # (Auto) 3.98 H (1.2-3.4) K/uL [place] # (Auto) 0.56 (0.11-0.59) K/uL Eos # (Auto) 0.19 (0-0.5) K/uL Baso # (Auto) 0.02 (0-0.2) K/uL POC Sodium 139 (135-144) mmol/L Sodium 142 (136-145) mmol/L POC Potassium 3.8 (3.3-5.0) mmol/L Potassium 3.8 (3.5-5.1) mmol/L POC Chloride 104 (101-112) mmol/L Chloride 107 (98-107) mmol/L Carbon Dioxide 25 (21-32) mmol/L POC Total CO2 23 L (24-31) mmol/L Anion Gap 10.0 (3-11) POC Anion Gap 18.0 (16-25) mmol/L POC BUN 24 H (7-18) mg/dl BUN 24 H (7-18) mg/dl Creatinine 1.10 (0.6-1.2) mg/dl POC Creatinine 1.0 (0.6-1.3) mg/dl Est Cr Clr Drug Dosing 53.1 ml/min Est GFR ( Amer) 63.2 Est GFR (Non-Af Amer) 54.5 BUN/Creatinine Ratio 21.8 H (10-20) Glucose 118 H (70-99) mg/dl POC Glucose (other) 117 H (70-99) mg/dl Calcium 8.8 (8.5-10.1) mg/dl POC Ioniz Calcium Annemarie 1.22 (1.12-1.32) mmol/l Magnesium 1.8 (1.8-2.4) mg/dl Total Bilirubin 0.1 L (0.2-1) mg/dl AST 24 (15-37) U/L ALT 48 (12-78) U/L Alkaline Phosphatase 56 (45-117) U/L Troponin I < 0.015 (0-0.045) ng/ml NT-Pro-B Natriuret Pep 27 (0-900) pg/ml Total Protein 6.9 (6.4-8.2) gm/dl Albumin 3.6 (3.4-5.0) gm/dl Globulin 3.3 (2.5-4.0) gm/dl Albumin/Globulin Ratio 1.1 (0.9-2) Lipase 181 (73-393) U/L TSH 5.110 H (0.300-4.500) uIu/ml Free T4 0.79 L (0.8-1.6) ng/dl Imaging Data Radiologist's Impression: CT head: No ICH, mass-effect, or midline shift. No acute cortical infarct. Involutional changes and small vessel disease. Radiologist: Alley Lee MD CTA head: No large vessel occlusion. Radiologist: Alley Lee MD CTA neck: No high-grade stenosis or occlusion. Linear low attenuation in the region of the right vertebral artery at the C4 level, indeterminate etiology. Thyroid nodules. Radiologist: Alley Lee MD ECG Data Attestation: I personally reviewed and interpreted this ECG as follows: Indication: + weakness Rate (beats per minute): 93 Rhythm: + normal sinus ECG Intervals/blocks: + Normal QRS and + Normal QT ECG [place]: + Normal ECG ST segments: + Normal ST segments Blood Pressure Blood Pressure Findings: Elevated blood pressure Blood Pressure Disposition: further management by hospitalist LAZARUS Narrative Patient here with complicated neurologic symptoms, that she feels may be a recurrent TIA. Patient states she is only been taking Plavix, no additional aspirin. Patient symptoms were improving by the time of arrival here. Patient with minimally reproducible weakness to the right side. I do feel there may be a component of anxiety related to recent TIA. I did review EMR and the MRI of t he patient's brain was negative for TIA despite diagnosis from neurology. Patient with multiple comorbidities and risk factors for TIA/CVA. No other evidence of infection. No other evidence of acute electrolyte abnormality. Patient continued to improve while here. CT and CT angiography was reassuring. Case discussed with hospitalist for additional evaluation. An order was placed for continuous cardiac monitoring. The monitor shows a rate of 78 with normal sinus_ rhythm. Impression & Plan Acute right-sided weakness, Memory problem, Anxiety, Tobacco abuse Discharge Plan Visit Data *Final* Discharge Date/Time: 08/01/19 08:07 Chief Complaint: Stroke/CVA Symptoms Stated Complaint: STROKE SYMPTOMS ED Provider: Susan Ratliff Discharge Problem: Acute right-sided weakness, Memory problem, Anxiety, Tobacco abuse Patient Disposition: Admitted As Inpatient Condition: Good Discharge Instructions Interventions: ED Discharge Assessment Last Done: 08/01/19 08:07
[2019-08-01] MEDS ORDERED: OPTIRAY 320 125ml IV PRN (03:13)
[2019-08-01] MEDS ORDERED: SODIUM CHLORIDE 0.9% 1000ML 1,000 ML IV SCH (03:15)
[2019-08-01 03:16] LABS: iSTAT Hemoglobin 12.2 g/dl (12.0-16.0); iSTAT Ionized Calcium 1.22 mmol/l (1.12-1.32); iSTAT Potassium 3.8 mmol/L (3.3-5.0)
[2019-08-01 03:22] LABS: Basophils # (auto) 0.02 K/uL (0-0.2); Basophils % (auto) 0.2 %; Eosinophils # (auto) 0.19 K/uL (0-0.5); Eosinophils % (auto) 2.3 %; Hematocrit (blood only) 35.8 % (37-47); Immature Granulocytes # (auto) 0.04 K/uL (0.00-0.02); Immature Granulocytes % (auto) 0.5 %; Lymphocytes # (auto) 3.98 K/uL (1.2-3.4); Lymphocytes % (auto) 48.9 %; Mean Corpuscular Hemoglobin 32.1 pg (25-34); Mean Corpuscular Hgb Conc 33.5 g/dL (32-36); Mean Corpuscular Volume 95.7 fL (80-100); Mean Platelet Volume 9.8 fL (7.4-10.4); Monocytes # (auto) 0.56 K/uL (0.11-0.59); Monocytes % (auto) 6.9 %; Neutrophils # (auto) 3.35 K/uL (1.4-6.5); Neutrophils % (auto) 41.2 %; Platelet Count 255 K/uL (130-400); RDW Coefficient of Variation 13.2 % (11.5-14.5); RDW Standard Deviation 46.3 fL (36.4-46.3); Red Blood Count 3.74 M/uL (4.2-5.4); White Blood Count 8.14 K/uL (4.8-10.8)
[2019-08-01 03:30] LABS: Alanine Aminotransferase 48 U/L (12-78); Albumin Level 3.6 gm/dl (3.4-5.0); Aspartate Aminotransferase 24 U/L (15-37); BUN Creatinine Ratio 21.8 (10-20); Blood Urea Nitrogen 24 mg/dl (7-18); Calcium 8.8 mg/dl (8.5-10.1); Carbon Dioxide 25 mmol/L (21-32); Chloride 107 mmol/L (98-107); Creatinine Clr Calc Pharmacy 53.1 ml/min; Est GFR (African American) 63.2; Est GFR (Non-African American) 54.5; Glucose 118 mg/dl (70-99); Lipase 181 U/L (73-393); Magnesium 1.8 mg/dl (1.8-2.4); Potassium 3.8 mmol/L (3.5-5.1); Sodium 142 mmol/L (136-145)
[2019-08-01 03:42] LABS: Albumin Globulin Ratio 1.1 (0.9-2); Alkaline Phosphatase 56 U/L (45-117); Bilirubin,Total 0.1 mg/dl (0.2-1); Globulin 3.3 gm/dl (2.5-4.0); NT Pro B Type Natriuretic Pept 27 pg/ml (0-900); Total Protein 6.9 gm/dl (6.4-8.2); Troponin I < 0.015 ng/ml (0-0.045)
[2019-08-01 03:54] LABS: T4 Free Thyroxine 0.79 ng/dl (0.8-1.6)
--- NOTE | 2019-08-01 05:32 | History & Physical Report ---
Date of Service August 01, 2019 Assessment & Plan (1) Stroke-like symptoms: Pt is a 58yo female with PMHx significant for Diabetes, tobacco abuse, Bipolar Disorder, PTSD, fibromyalgia and left breast cancer who presents once more out of concern for stroke-like symptoms. Stroke-like Symptoms/?Anxiety attack -Pt with episode of warmth, lightheadedness, SOB and whole body weakness and fatigue. Denies slurred speech. -Head CT and head CTA unremarkable -Neck CTA with preliminary read of "no high grade stenosis or occlusion" but "linear low attenuation in region of right vertebral artery at C4" -Was evaluated and admitted 2 weeks prior for focal stroke-like symptoms with slurred speech, diagnosed with TIA. -Per neuro recs, pt was noncompliant with dual antiplatelet therapy (took plavix but not aspirin) -consult to Neurology placed once more, can consider repeat MRI -Lipid levels from 07/12 within normal limits except for triglycerides of 163 -HgbA1c from 06/16 of 6.8 -Last noted echo from July 2019 with no noted abnormalities -Pt states she quit smoking about 1-2 months ago, however she had 2 cigarettes since last discharge -continue home plavix, restarted on aspirin 81mg per neurology recs since pt states she was not taking it at home. -admit to PCU/tele for monitoring Hypothyroidism -noted this visit with elevated TSH of 5.110 and low free T4 of 0.79 -Pt has Hx of thyroid nodules -consider endocrine referral outpatient Pre-Diabetes/?Diabetes -Pt with HgbA1c of 6.3 last noted -Hold home metformin -ISS while hospitalized Bipolar/PTSD -continue home buproprion 450mg qAM, Seroquel 600mg HS, tamazepam 15mg, Lorazepam 0.5mg BID Tobacco abuse -continue home nicotine gum -encourage cessation and celebrate progress Hx of breast cancer -s/p lumpectomy, chemotherapy, radiation -continue anastrazole DVT prophylaxis: SCDs FEN/GI: DM diet CODE STATUS: Full code Dispo: PCU/Tele for stroke monitoring History of Present Illness Primary Care Provider: Justice Madera Pt is a 58yo female with PMHx significant for Diabetes, tobacco abuse, Bipolar Disorder, PTSD, fibromyalgia and left breast cancer who presents once more out of concern for stroke-like symptoms. Was admitted 2 weeks prior for the same and was worked up extensively and diagnosed with a TIA by neurology. Was advised to take Plavix with aspirin for 3 weeks and then take Plavix only daily. Pt states she has only been taking the Plavix since discharge. Last night, while laying on the couch "snoozing" she states she developed the sudden onset of warmth from her abdomen to her chest, dizziness, SOB and whole body weakness and fatigue. Denied any focal weakness. States she was told last time, to not hesitate to come in if her symptoms happened again. So she presented immediately to the ED. States she felt like she might have had some slurred speech on the drive over, though she admits it was not noted by her who drove her over. Currently also endorses a headache, stuffy nose, diarrhea, numbness and tingling in her hands and feet. Allergies Allergy/AdvReac Type Severity Reaction Status Date / Time bacitracin Allergy Severe ITCHING/INF Verified 08/01/19 03:48 ECTION Quinolones Allergy Severe ANAPHYLAXIS/HEART Verified 08/01/19 03:48 FLUTTERING rizatriptan Allergy Severe SHORTNESS Verified 08/01/19 03:48 OF BREATH Cipro Allergy Mild Palpitations, Verified 11/01/17 08:19 rash, ciprofloxacin Allergy Mild Palpitations, Verified 08/01/19 03:48 rash, lamotrigine Allergy Mild RASH Verified 08/01/19 03:48 neomycin Allergy Mild ITCHING Verified 08/01/19 03:48 WITH THE OINTMENT polymyxin B Allergy Mild ITCHING Verified 08/01/19 03:48 WITH OINTMENTS adhesive Allergy Unknown ALLERGIC Verified 08/01/19 03:48 TO MEDICATED STERI-STRIPS AND SOME TAPE-RASH BLISTE citalopram Allergy Unknown UNKNOWN Verified 08/01/19 03:48 paroxetine Allergy Unknown OUT OF Verified 08/01/19 03:48 BODY EXPERIENCE varenicline [From Chantix] Allergy itchy Verified 08/01/19 03:48 celecoxib AdvReac Intermediate GI SYMPTOMS Verified 08/01/19 03:48 Cephalosporins AdvReac Unknown PT DENIED Verified 08/01/19 03:48 ANY PROBLEMS clindamycin AdvReac Unknown EARS VERY Verified 08/01/19 03:48 RED SWOLLEN,ITCHING,DIZZINESS piperacillin AdvReac Unknown BETALACTAMASE Verified 08/01/19 03:48 INHIBITORS-UNKNOWN tazobactam AdvReac Unknown BETALACTAMASE Verified 08/01/19 03:48 INHIBITORS-UNKNOWN Unclassified Drugs AdvReac Unknown BL PLASTIC Uncoded 08/01/19 03:48 SUTURE-SKIN IRRITATION/RED/SWELLING ITCHY-NYLON? Home Medications Home Medications Medication Instructions Recorded Confirmed Type anastrozole 1 mg tablet 1 mg PO DAILY 12/12/17 08/01/19 History bupropion HCl 150 mg 24 hr tablet, 150 mg PO QAM 12/12/17 08/01/19 History extended release bupropion HCl 300 mg 24 hr tablet, 300 mg PO QAM 12/12/17 08/01/19 History extended release calcium carbonate 600 mg(1,500 1 tab PO BID 12/12/17 08/01/19 History mg)-vitamin D3 800 unit chewable tablet gabapentin 300 mg capsule 300 mg PO BID 12/12/17 08/01/19 History multivitamin with iron-mineral 1 tab PO DAILY 12/12/17 08/01/19 History nicotine (polacrilex) 2 mg gum 2 mg BUCCAL Q2H 12/12/17 08/01/19 History omega-3 fatty acids 1,000 mg 1,000 mg PO BID cap 12/12/17 08/01/19 History capsule vitamin B complex 1 tab PO DAILY 12/12/17 08/01/19 History lorazepam 0.5 mg tablet 0.5 mg PO DAILY PRN 01/20/18 08/01/19 History quetiapine 300 mg tablet 600 mg PO HS tab 07/29/18 08/01/19 History metformin 500 mg tablet 500 mg PO DAILY tab 09/08/18 08/01/19 History cannabidiol 100 mg/mL oral solution 900 mg PO DAILY PRN ml 09/09/18 08/01/19 History naltrexone 4.5 mg PO BID 03/02/19 08/01/19 History fenofibrate micronized 134 mg PO DAILY 04/16/19 08/01/19 History doxepin 10 mg PO TID PRN #6 cap 04/29/19 08/01/19 Rx clopidogrel 75 mg PO QAM #30 tab 07/13/19 08/01/19 Rx pravastatin 10 mg PO HS #30 tab 07/13/19 08/01/19 Rx aspirin 81 mg PO DAILY 21 Days #21 tab 08/01/19 Rx temazepam 15 mg PO HS PRN 08/01/19 08/01/19 History tramadol 50 mg PO DAILY PRN 08/01/19 08/01/19 History Past Med/Surg History Medical History Bipolar 1 disorder Breast cancer (Resolved) Diverticulitis (Resolved) Diverticulitis (Inactive) Fatty liver Low back pain Lung tumor (benign) Multiple drug allergies Periorbital cellulitis (Resolved) PTSD (post-traumatic stress disorder) Sacral fracture (Resolved) Sacroiliitis Thyroid tumor, benign Surgical History History of fracture of left ankle Left tibial fracture (Resolved) S/P breast lumpectomy Family History Mother Hypertension Father , age 59 of lung cancer Lung cancer Other No pertinent family history in first degree relatives Social History Preferred Language: Macedonian Communication Ability: Effective Visual Impairment: No Limitations Hearing Ability: Normal 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 Beliefs That Will Affect Care: None marital status: Current Living Situation: Spouse Current Living Situation Comment: At home with 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al status: disabled 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 [employer] other: Stopped work in 2001 on disability Feels Safe at Home: Yes Smoking Status: Former smoker Tobacco Type: cigarettes ; Cigarettes Per Day: 1 pack per day ; Second Hand Exposure: No ; Hx Alcohol Use: Yes Alcohol type: hard liquor Hx Substance Use: Yes substance use type: marijuana Substance Use Type Other:: Has medical Marijuana Card Last Used Substance: Hours (ago) Review of Systems Constitutional: + fatigue and + weakness; no fever, no chills and no sweats Eyes: no problem reported Ear, Nose, Mouth, Throat: + nasal congestion; no sore throat Respiratory: no cough and no dyspnea Cardiovascular: no chest pain, no dyspnea and no palpitations Gastrointestinal: + diarrhea/loose stools; no abdominal pain, no nausea and no vomiting Genitourinary: no dysuria and no hematuria Musculoskeletal: + back pain and + body aches Integumentary: no rash Neurologic: + headache(s) Psychiatric: + anxiety Endocrine: + fatigue Physical Exam Physical Exam: General: Alert, orientedx3. No acute distress Skin: Noted healed excoriations on arms Psych: Appropriate mood and affect Neuro: No gross deficits, strength 5/5 in lower and upper extremities bilaterally. CN II-XII grossly intact. HEENT: NC/AT Chest: Nontender to palpation. CV: RRR, Normal s1, s2. No murmurs appreciated Resp: Breath sounds clear bilaterally, no increased effort of breathing. No crackles/rhonchi/rales. Abdomen: Soft, nontender, nondistended. Extremities: No edema in lower extremities bilaterally. Results & Data Results & Data ([facility]) Vital Signs (Past 12 Hours) Vital Signs Temp Pulse Resp BP Pulse Ox 08/01/19 04:00 79 14 108/65 97 08/01/19 03:31 85 19 134/78 95 08/01/19 03:00 90 15 96 08/01/19 02:48 36.8 C 91 H 18 144/91 H 97 Supervising Physician Co-Signing Physician Notes Attending addendum: I have physically seen this patient, have supervised the medical residents activities, and agree with the H&P unless as otherwise noted. Assessment and Plan: Strokelike symptoms- The patient will be admitted to telemetry for serial cardiac enzymes, serial EKG's, cardiac rhythm monitoring and a 2-D echocardiogram with Dopplers. CT head, CTA head both unremarkable. CTA neck showing linear low attenuation in the range of the right vertebral artery at C4 of on certain significance. Patient noncompliant with dual antiplatelet therapy, having taken clopidogrel but not aspirin. Check hemoglobin A1c and fasting lipid panel Neurochecks. Neuro protocol. Consult neurology Bipolar disorder/PTSD- Continue bupropion, Seroquel, temazepam and lorazepam. Tobacco use disorder- Cessation counseling Nicotine gum as outpatient Remainder of orders and notations as noted. Resident Activity Tracking Resident Involvement: Resident Care Provided Care Provided: Adult Hospital Medicine
--- NOTE | 2019-08-01 07:10 | CT Scan Report ---
HEAD CT NONCONTRAST CT DOSE: HISTORY: dizzy, right sided weakness, hx tia TECHNIQUE: Multiaxial CT images of the head were performed without the use of intravenous contrast. A utomated exposure control was utilized for this study. A dose lowering technique was utilized adheri ng to the principles of ALARA. Comparison: Brain MRI 07/13/2019. Findings: The paranasal sinuses and mastoid air cells are clear. The calvarium and skull base are int act. The ventricles and sulci are within normal limits. There is no mass, hematoma, midline shift, or acute infarct. Impression: No acute intracranial abnormality. ACT 112: Negative or not required by law. Electronically signed by: Lazaro Mahan M.D. 08/01/2019 7:09 AM
--- NOTE | 2019-08-01 07:13 | CT Scan Report ---
HEAD & NECK CTA HISTORY: dizzy, right sided weakness, hx tia TECHNIQUE: Multiaxial CT images of the head were performed following the intravenous administration o f contrast to evaluate the major cerebral vessels. Multiaxial CT images of the neck were also perform ed following the intravenous administration of contrast to evaluate the major cervical vessels. Maxim um intensity projection images were also obtained. A dose lowering technique was utilized adhering to the principles of ALARA. COMPARISON: Head and neck CTA 07/12/2019. FINDINGS: There is no mass, hematoma, midline shift, or acute infarct. Visualized intracranial internal carotid arteries, distal vertebral arteries, and basilar artery are widely patent. There is no significant s tenosis, occlusion, or aneurysm seen within the bilateral ACAs, MCAs, or sap portal developer. Mild calcified plaque within the bilateral carotid siphons. Distal right vertebral artery is hypoplastic in comparison to t he left. This is considered to be a normal variant. The major dural venous sinuses are patent. The aortic arch and proximal great vessels are widely patent. There is no significant stenosis, occ lusion, or dissection identified within the bilateral common carotid, internal carotid, or vertebral arteries. Hypoplastic right vertebral artery in comparison to the left. This is considered to be a no rmal variant. Multiple thyroid nodules with the largest on the left measuring 2 cm. There is a focal fenestration within the mid right vertebral artery, unchanged. IMPRESSION: 1. No significant stenosis, occlusion, or aneurysm within the [place]. 2. No significant stenosis, occlusion, or dissection identified within the carotid or vertebral arter ies. 3. Multinodular thyroid. Follow-up nonemergent thyroid ultrasound is recommended for further evaluati on. ACT 112: Negative or not required by law. Electronically signed by: Lazaro Mahan M.D. 08/01/2019 7:12 AM
--- NOTE | 2019-08-01 07:13 | CT Scan Report ---
HEAD & NECK CTA HISTORY: dizzy, right sided weakness, hx tia TECHNIQUE: Multiaxial CT images of the head were performed following the intravenous administration o f contrast to evaluate the major cerebral vessels. Multiaxial CT images of the neck were also perform ed following the intravenous administration of contrast to evaluate the major cervical vessels. Maxim um intensity projection images were also obtained. A dose lowering technique was utilized adhering to the principles of ALARA. COMPARISON: Head and neck CTA 07/12/2019. FINDINGS: There is no mass, hematoma, midline shift, or acute infarct. Visualized intracranial internal carotid arteries, distal vertebral arteries, and basilar artery are widely patent. There is no significant s tenosis, occlusion, or aneurysm seen within the bilateral ACAs, MCAs, or avionics engineer. Mild calcified plaque within the bilateral carotid siphons. Distal right vertebral artery is hypoplastic in comparison to t he left. This is considered to be a normal variant. The major dural venous sinuses are patent. The aortic arch and proximal great vessels are widely patent. There is no significant stenosis, occ lusion, or dissection identified within the bilateral common carotid, internal carotid, or vertebral arteries. Hypoplastic right vertebral artery in comparison to the left. This is considered to be a no rmal variant. Multiple thyroid nodules with the largest on the left measuring 2 cm. There is a focal fenestration within the mid right vertebral artery, unchanged. IMPRESSION: 1. No significant stenosis, occlusion, or aneurysm within the [place]. 2. No significant stenosis, occlusion, or dissection identified within the carotid or vertebral arter ies. 3. Multinodular thyroid. Follow-up nonemergent thyroid ultrasound is recommended for further evaluati on. ACT 112: Negative or not required by law. Electronically signed by: Lazaro Mahan M.D. 08/01/2019 7:12 AM
[2019-08-01] MEDS ORDERED: DOXEPIN HCL 10 MG CAPSULE PO PRN (08:27)
[2019-08-01] MEDS ORDERED: GLUCAGON FOR INJ 1 MG VIAL SQ PRN (08:27)
[2019-08-01] MEDS ORDERED: TEMAZEPAM 15 MG CAPSULE PO PRN (08:27)
[2019-08-01] MEDS ORDERED: NICOTINE POLACRILEX 2 MG GUM MT PRN (08:27)
[2019-08-01] MEDS ORDERED: CARBOHYDRATES FOR HYPOGLYCEMIA PO PRN (08:27)
[2019-08-01] MEDS ORDERED: TRAMADOL HCL 50 MG TABLET PO PRN (08:27)
[2019-08-01] MEDS ORDERED: GLUCOSE 10 TABS/TUBE PO PRN (08:27)
[2019-08-01] MEDS ORDERED: GLUCOSE 40% GEL 15 GM TUBE PO PRN (08:27)
[2019-08-01] MEDS ORDERED: ACETAMINOPHEN 325 MG TAB PO PRN (08:27)
[2019-08-01] MEDS ORDERED: DEXTROSE 50% 50 ML SYRINGE IV PRN (08:27)
[2019-08-01] MEDS ORDERED: LORazepam 0.5 MG TAB PO PRN (08:27)
[2019-08-01] MEDS ORDERED: OMEGA-3 (PURIFIED FISH OIL) 1 GM CAP PO SCH (09:00)
[2019-08-01] MEDS ORDERED: ANASTROZOLE 1 MG TAB PO SCH (09:00)
[2019-08-01] MEDS ORDERED: BuPROPion XL 150 MG TABCR PO SCH (09:00)
[2019-08-01] MEDS ORDERED: CEROVITE ADV FORMULA TAB PO SCH (09:00)
[2019-08-01] MEDS ORDERED: ASPIRIN 81 MG ECTAB PO SCH (09:00)
[2019-08-01] MEDS ORDERED: VITAMIN B COMPLEX TAB PO SCH (09:00)
[2019-08-01] MEDS ORDERED: GABAPENTIN 300 MG CAP PO SCH (09:00)
[2019-08-01] MEDS ORDERED: CLOPIDOGREL BISULFATE 75 MG TAB PO SCH (09:00)
[2019-08-01] MEDS ORDERED: MENTHOL TOP SCH (09:00)
[2019-08-01] MEDS ORDERED: CALCIUM 600MG + VIT D 400 IU TAB PO SCH (09:00)
[2019-08-01] MEDS ORDERED: BuPROPion XL 300 MG TABCR PO SCH (09:00)
[2019-08-01] MEDS ORDERED: FENOFIBRATE NANOCRYSTALLIZED 145 MG TABLET PO SCH (09:00)
[2019-08-01] MEDS: INSULIN ASPART 100 UNITS/ML 3 ML PEN SC SCH ×3 (09:43→17:07)
--- NOTE | 2019-08-01 10:50 | Neurology Consultation ---
Date of Consultation August 01, 2019 Assessment & Plan (1) Stroke-like symptoms: Although the character and evolution of this patient's most recent episode seems to be consistent with a complicated migraine, perhaps further augmented by underlying anxiety, a recurrent TIA localizing to the left cerebral hemisphere cannot be excluded. I would recommend obtaining an up-to-date brain MRI. Patient should take both daily low-dose aspirin and Plavix 75 mg/day together for the next 3 weeks, after which she may continue with Plavix monotherapy. She should continue with her statin as well. Would also recommend an outpatient 30-day cardiac event monitor. Patient will follow-up with Dr. Mendoza in the outpatient clinic. May consider the addition of verapamil to her medication regimen for migraine prevention depending on her status going forward. History of Present Illness Reason for Consultation: r/o TIA Requesting Physician: Rosalina Benitez MD Attending Physician: Joey Adames MD History of Present Illness The patient is a 58-year-old female with a chief complaint of headache followed by dizziness and mild right-sided weakness. Her headache began while eating dinner last night and took some Tylenol. At around midnight she became dizzy and had a feeling as if something was coming over her. She felt a little short of breath and had some heightened anxiety as well. She then perceived mild right-sided weakness. She indicates that her symptoms are currently resolved. The patient was evaluated at [facility] 3 weeks ago for a similar episode during which time she was seen by Dr. Mendoza a neurological consultation. She had an unremarkable neurological assessment at that time including MRI of the brain, CT angiography of the head and neck, and echocardiography. She has several cardiovascular risk factors including longstanding cigarette smoking, recently quit, type 2 diabetes mellitus, and dyslipidemia. She had already been taking a daily low-dose aspirin and it was recommended to start taking Plavix in addition to her aspirin for a total of 3 weeks, after which she was to continue with Plavix monotherapy. The patient indicates that she had made a mistake with her medications and was only taking Plavix instead of both aspirin and Plavix together. Patient's past medical history is also notable for bipolar disorder, PTSD, and fibromyalgia. She also reports a history of episodic migraine. The patient completed another CT of the head and CT angiography of the head and neck during this most recent presentation. These tests were unremarkable and are described in further detail below. She does have a multinodular thyroid and a recommendation for a nonemergent thyroid ultrasound was made by the interpreting radiologist. Her blood pressure has been normal. Her blood glucose has been mildly elevated. She has a normal sinus rhythm on electrocardiography. Allergies Allergy/AdvReac Type Severity Reaction Status Date / Time bacitracin Allergy Severe ITCHING/INF Verified 08/01/19 03:48 ECTION Quinolones Allergy Severe ANAPHYLAXIS/HEART Verified 08/01/19 03:48 FLUTTERING rizatriptan Allergy Severe SHORTNESS Verified 08/01/19 03:48 OF BREATH Cipro Allergy Mild Palpitations, Verified 11/01/17 08:19 rash, ciprofloxacin Allergy Mild Palpitations, Verified 08/01/19 03:48 rash, lamotrigine Allergy Mild RASH Verified 08/01/19 03:48 neomycin Allergy Mild ITCHING Verified 08/01/19 03:48 WITH THE OINTMENT polymyxin B Allergy Mild ITCHING Verified 08/01/19 03:48 WITH OINTMENTS adhesive Allergy Unknown ALLERGIC Verified 08/01/19 03:48 TO MEDICATED STERI-STRIPS AND SOME TAPE-RASH BLISTE citalopram Allergy Unknown UNKNOWN Verified 08/01/19 03:48 paroxetine Allergy Unknown OUT OF Verified 08/01/19 03:48 BODY EXPERIENCE varenicline [From Chantix] Allergy itchy Verified 08/01/19 03:48 celecoxib AdvReac Intermediate GI SYMPTOMS Verified 08/01/19 03:48 Cephalosporins AdvReac Unknown PT DENIED Verified 08/01/19 03:48 ANY PROBLEMS clindamycin AdvReac Unknown EARS VERY Verified 08/01/19 03:48 RED SWOLLEN,ITCHING,DIZZINESS piperacillin AdvReac Unknown BETALACTAMASE Verified 08/01/19 03:48 INHIBITORS-UNKNOWN tazobactam AdvReac Unknown BETALACTAMASE Verified 08/01/19 03:48 INHIBITORS-UNKNOWN Unclassified Drugs AdvReac Unknown BL PLASTIC Uncoded 08/01/19 03:48 SUTURE-SKIN IRRITATION/RED/SWELLING ITCHY-NYLON? Home Medications Home Medications Medication Instructions Recorded Confirmed Type anastrozole 1 mg tablet 1 mg PO DAILY 12/12/17 08/01/19 History bupropion HCl 150 mg 24 hr tablet, 150 mg PO QAM 12/12/17 08/01/19 History extended release bupropion HCl 300 mg 24 hr tablet, 300 mg PO QAM 12/12/17 08/01/19 History extended release calcium carbonate 600 mg(1,500 1 tab PO BID 12/12/17 08/01/19 History mg)-vitamin D3 800 unit chewable tablet gabapentin 300 mg capsule 300 mg PO BID 12/12/17 08/01/19 History multivitamin with iron-mineral 1 tab PO DAILY 12/12/17 08/01/19 History nicotine (polacrilex) 2 mg gum 2 mg BUCCAL Q2H 12/12/17 08/01/19 History omega-3 fatty acids 1,000 mg 1,000 mg PO BID cap 12/12/17 08/01/19 History capsule vitamin B complex 1 tab PO DAILY 12/12/17 08/01/19 History lorazepam 0.5 mg tablet 0.5 mg PO DAILY PRN 01/20/18 08/01/19 History menthol 10 % topical gel 1 appln TOP DAILY 07/29/18 08/01/19 History quetiapine 300 mg tablet 600 mg PO HS tab 07/29/18 08/01/19 History metformin 500 mg tablet 500 mg PO DAILY tab 09/08/18 08/01/19 History cannabidiol 100 mg/mL oral solution 900 mg PO DAILY PRN ml 09/09/18 08/01/19 History naltrexone 4.5 mg PO BID 03/02/19 08/01/19 History fenofibrate micronized 134 mg PO DAILY 04/16/19 08/01/19 History doxepin 10 mg PO TID PRN #6 cap 04/29/19 08/01/19 Rx acetaminophen [Mapap 650 mg PO Q6H PRN #30 tab 07/13/19 08/01/19 Rx (acetaminophen)] clopidogrel 75 mg PO QAM #30 tab 07/13/19 08/01/19 Rx pravastatin 10 mg PO HS #30 tab 07/13/19 08/01/19 Rx temazepam 15 mg PO HS PRN 08/01/19 08/01/19 History tramadol 50 mg PO DAILY PRN 08/01/19 08/01/19 History Patient History Medical History Bipolar 1 disorder Breast cancer (Resolved) Diverticulitis (Resolved) Diverticulitis (Inactive) Fatty liver Low back pain Lung tumor (benign) Multiple drug allergies Periorbital cellulitis (Resolved) PTSD (post-traumatic stress disorder) Sacral fracture (Resolved) Sacroiliitis Thyroid tumor, benign Surgical History History of fracture of left ankle Left tibial fracture (Resolved) S/P breast lumpectomy Family History Mother Hypertension Father , age 59 of lung cancer Lung cancer Other No pertinent family history in first degree relatives Social History Preferred Language: Egyptian Communication Ability: Effective Visual Impairment: No Limitations Hearing Ability: Normal Manager [employer] Required: No Beliefs That Will Affect Care: None marital status: Current Living Situation: Spouse Current Living Situation Comment: At home with 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al status: disabled 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 [employer] Other Information That Helps Us Care for You: Yes (medical marijuana daily, tamazapam at night) other: Stopped work in 2001 on disability Feels Safe at Home: Yes Safety Concerns: Feels Safe At This Time Smoking Status: Former smoker Tobacco Type: cigarettes ; Cigarettes Per Day: 1 pack per day ; Do You Dip or Chew Tobacco: No ; Second Hand Exposure: No ; Tobacco Cessation Education Requested by Patient: No Hx Alcohol Use: Yes Alcohol type: hard liquor Hx Substance Use: Yes substance use type: marijuana Substance Use Type Other:: Has medical Marijuana Card Last Used Substance: Hours (ago) Last Used Substance Other:: yesterday Review of Systems Constitutional: no fever and no chills Eyes: no blind spots and no diplopia Ear, Nose, Mouth, Throat: no ear pain and no hearing loss Respiratory: no cough and no dyspnea Cardiovascular: no chest pain and no palpitations Gastrointestinal: no nausea and no vomiting Genitourinary: no dysuria Musculoskeletal: no myalgia Integumentary: no rash and no lesions Neurologic: as per Subjective / HPI Psychiatric: + anxiety; no depression Hematologic / Lymphatic: no easy bleeding and no easy bruising Exam (Neuro) Constitutional: well developed and well nourished; no acute distress Eyes: normal visual alberts by confrontation, PERRL, normal accommodation and EOM intact bilaterally; no fundoscopic abnormality, no nystagmus and no papilledema Cardiovascular: Vessels: normal carotid upstroke; no carotid bruit Neurologic: Oriented to:: Person, Place and Time Memory: Short Term Intact and Remote Intact Attention: Span Intact and Concentration Intact Language: Naming Objects and Repeating Phrases Speech Fluency: negative Dysarthria Speech Aphasia: negative Aphasia Fund of Knowledge: Current Events, Past History and Vocabulary Cranial Nerves: Normal II (Visual alberts full to confrontation, visual acuity normal), III, IV, (Pupils equal round reactive to light and accommodation, eye movements normal), V (Facial sensation intact), VII (There is no facial droop or weakness), VIII (Hearing intact), IX, X (Palate elevates to midline), XI (Shoulder shrug intact) and XII (Tongue protrudes to midline) Motor Strength: Normal Lower Extremities and Normal U pper Extremities; negative Pronator Drift Motor Tone: Normal Lower Extremities and Normal Upper Extremities Muscle Bulk/Involuntary Movements: No Involuntary Movements; negative Muscle Atrophy Sensation: Light Touch Intact, Pain/Temperature Intact, Vibration Intact and Proprioception Intact Coordination: Normal; negative Limited Balance, Dysdiadochokinesia, Finger-Nose Abnormal and Heel-Means Abnormal Deep Tendon Reflexes: Rt Triceps: 2+, Lt Triceps: 2+, Rt Biceps: 2+, Lt Biceps: 2+, Rt Brachioradialis: 2+, Lt Brachioradialis: 2+, Rt Patellar: 2+, Lt Patellar: 2+, Rt Ankle: 2+ and Lt Ankle: 2+ Special Tests: negative Babinski Present Gait: Normal Station and Gait Results & Data ([facility]) Vital Signs (Past 12 Hours) Vital Signs Temp Pulse Pulse Resp BP BP Pulse Ox 08/01/19 08:36 36.6 C 71 20 143/85 H 97 08/01/19 06:30 74 14 117/63 95 08/01/19 06:00 77 13 94/62 L 95 08/01/19 05:30 72 13 97/61 L 96 08/01/19 05:00 77 22 114/69 96 08/01/19 04:30 79 14 97/61 L 95 08/01/19 04:00 79 14 108/65 97 08/01/19 03:31 85 19 134/78 95 05/23/20 03:00 90 15 96 08/01/19 02:48 36.8 C 91 H 18 144/91 H 97 Laboratory Results WBC 8.14, hemoglobin 12.0, hematocrit 35.8, platelet count 255, sodium 139, potassium 3.8, BUN 24, creatinine 1.10, glucose 118, calcium 8.8, magnesium 1.8, AST 24, ALT 48, troponin less than 0.015, TSH 5.110, free T4 0.79, triglycerides 163, cholesterol 162, LDL 68, VLDL 33, HDL [address] of the head negative for hemorrhage or acute process. CT angiography of the head and neck unremarkable and without evidence of stenosis, occlusion, aneurysm, or dissection. I reviewed the images as well as the radiologist's interpretation of these tests. Brain MRI completed on July 13, 2019, during patient's previous [facility] to the [facility] was reviewed as well. No evidence for acute or subacute stroke. There was minimal scattered subcortical white matter T2/flair hyperintensities consistent with chronic microvascular ischemic disease. I reviewed the images as well as the radiologist interpretation of this test. Electrocardiogram reveals a normal sinus rhythm, 93 bpm. An echocardiogram completed July 13, 2019 reveals normal left ventricular systolic function, no evidence for PFO, borderline left atrial enlargement noted. Coding Level of Care Code 53750 Initial In Care Lvl 3 Diagnoses Stroke-like symptoms R29.90
[2019-08-01 10:59] VITALS: TEMP 99
--- NOTE | 2019-08-01 12:09 | Electrocardiogram Report ---
Test Reason : Blood Pressure : / mmHG Vent. Rate : 093 BPM Atrial Rate : 093 BPM P-R Int : 164 ms QRS Dur : 088 ms QT Int : 370 ms P-R-T Axes : 048 066 041 degrees QTc Int : 460 ms Normal sinus rhythm Normal ECG When compared with ECG of 12-JUL-2019 13:51, No significant change was found Confirmed by Maxi Alston ([id number]) on 08/01/2019 12:08:42 PM Referred By: REFERRED SELF Confirmed By:Maxi Alston
[2019-08-01] MEDS ORDERED: GADOBUTROL 7.5ML VIAL IV PRN (13:25)
--- NOTE | 2019-08-01 13:49 | Magnetic Resonance Report ---
Brain MRI WITH AND WITHOUT CONTRAST HISTORY: Dizziness. Headache. Strokelike symptoms TECHNIQUE: Multiplanar multisequence MRI of the brain was performed both before and after the intrave nous administration of contrast. COMPARISON STUDY: Brain MRI 07/13/2019. FINDINGS: There is no mass, hematoma, midline shift, or acute infarct. The paranasal sinuses are paola r. The mastoid air cells are clear. The ventricles and sulci demonstrate mild age-related involutiona l changes. Scattered foci of T2 hyperintensity seen within the periventricular and subcortical white matter are nonspecific but suggestive of mild microvascular ischemic changes. The major vascular flow voids at the skull base are well-maintained. No abnormal enhancement. IMPRESSION: No significant change compared to the prior study. No acute intracranial abnormality. ACT 112: Negative or not required by law. Electronically signed by: Lazaro Mahan M.D. 08/01/2019 1:48 PM
[2019-08-01 15:26] VITALS: BP 121/80; PULSE 77; O2SAT 97
--- NOTE | 2019-08-01 16:24 | Hospitalist Progress Note ---
Date of Service August 01, 2019 Assessment & Plan (1) TIA (transient ischemic attack): (2) Migraine: - Admitted overnight with stroke like sx - Neurology consulted -appreciate recs- thinking this is a TIA vx complex migraine - MRI brain completed --No acute intracranial abnormality - Start asa 81 mg and Plavix 75 mg daily x 3 weeks, then monotherapy with Plavix thereafter. 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 - Diet and exercise to be encouraged - Consider nutrition consult (8) Breast cancer: - Hs of such -- s/p lumpectomy, chemo and radiation - Continue anastrazole daily (9) Tobacco abuse: - Cessation encouraged - Continue nicotine gum prn Admission and Anticipated Discharge Date Admission Date: August 01, 2019 Results & Data Results & Data ([facility]) Vital Signs (Past 12 Hours) Vital Signs Temp Pulse Pulse Resp BP BP Pulse Ox 08/01/19 15:24 37.2 C 77 18 121/80 97 08/01/19 10:58 37.2 C 78 18 121/77 95 08/01/19 08:36 36.6 C 71 20 143/85 H 97 08/01/19 06:30 74 14 117/63 95 08/01/19 06:00 77 13 94/62 L 95 08/01/19 05:30 72 13 97/61 L 96 08/01/19 05:00 77 22 114/69 96 08/01/19 04:30 79 14 97/61 L 95 PG Care Time/CCT Total # of Minutes Spent Total Time Spent with Patient: Total time spent is greater than 50% in coordination of care (as documented) at patient's floor/unit and/or counseling patient: Coding Diagnoses TIA (transient ischemic attack) G45.9 Migraine G43.909 Multinodular thyroid E04.2 Fibromyalgia M79.7 Bipolar 1 disorder F31.9 PTSD (post-traumatic stress disorder) F43.10 Diabetes mellitus E11.9 Breast cancer C50.919 Tobacco abuse Z72.0
--- NOTE | 2019-08-01 17:24 | Discharge Summary ---
Date of Service August 01, 2019 Admission HPI Per Admitting Provider Pt is a 58yo female with PMHx significant for Diabetes, tobacco abuse, Bipolar Disorder, PTSD, fibromyalgia and left breast cancer who presents once more out of concern for stroke-like symptoms. Was admitted 2 weeks prior for the same and was worked up extensively and diagnosed with a TIA by neurology. Was advised to take Plavix with aspirin for 3 weeks and then take Plavix only daily. Pt states she has only been taking the Plavix since discharge. Last night, while laying on the couch "snoozing" she states she developed the sudden onset of warmth from her abdomen to her chest, dizziness, SOB and whole body weakness and fatigue. Denied any focal weakness. States she was told last time, to not hesitate to come in if her symptoms happened again. So she presented immediately to the ED. States she felt like she might have had some slurred speech on the drive over, though she admits it was not noted by her who drove her over. Currently also endorses a headache, stuffy nose, diarrhea, numbness and tingling in her hands and feet. Admission Exam Per Admitting Provider Physical Exam: General: Alert, orientedx3. No acute distress Skin: Noted healed excoriations on arms Psych: Appropriate mood and affect Neuro: No gross deficits, strength 5/5 in lower and upper extremities bilaterally. CN II-XII grossly intact. HEENT: NC/AT Chest: Nontender to palpation. CV: RRR, Normal s1, s2. No murmurs appreciated Resp: Breath sounds clear bilaterally, no increased effort of breathing. No crackles/rhonchi/rales. Abdomen: Soft, nontender, nondistended. Extremities: No edema in lower extremities bilaterally. Principal Diagnosis TIA Complex Migraine Discharge Exam General: awake, alert, no apparent distress Head: Normocephalic, atraumatic ENT: PERRL, EOMI, no pharyngeal exudate, mucous membranes moist Chest: Clear to auscultation, on room air, no adventitious breath sounds Cardiac: Regular rate and rhythm, no murmur, no JVD, normal peripheral pulses, good capillary refill Abdominal: NABS x 4 quadrants, soft, nondistended, nontender to palpation, no rebound, guarding or tenderness Extremities: Normal inspection, no peripheral edema or erythema, calfs nontender to palpation Psych: Normal mood and affect Neuro: AAO x 3, strength intact bilaterally and rated 5/5, no motor deficits, speech is clear, no peripheral sensory deficits Discharge Data Allergies Allergy/AdvReac Type Severity Reaction Status Date / Time bacitracin Allergy Severe ITCHING/INF Verified 08/01/19 03:48 ECTION Quinolones Allergy Severe ANAPHYLAXIS/HEART Verified 08/01/19 03:48 FLUTTERING rizatriptan Allergy Severe SHORTNESS Verified 08/01/19 03:48 OF BREATH Cipro Allergy Mild Palpitations, Verified 11/01/17 08:19 rash, ciprofloxacin Allergy Mild Palpitations, Verified 08/01/19 03:48 rash, lamotrigine Allergy Mild RASH Verified 08/01/19 03:48 neomycin Allergy Mild ITCHING Verified 08/01/19 03:48 WITH THE OINTMENT polymyxin B Allergy Mild ITCHING Verified 08/01/19 03:48 WITH OINTMENTS adhesive Allergy Unknown ALLERGIC Verified 08/01/19 03:48 TO MEDICATED STERI-STRIPS AND SOME TAPE-RASH BLISTE citalopram Allergy Unknown UNKNOWN Verified 08/01/19 03:48 paroxetine Allergy Unknown OUT OF Verified 08/01/19 03:48 BODY EXPERIENCE varenicline [From Chantix] Allergy itchy Verified 08/01/19 03:48 celecoxib AdvReac Intermediate GI SYMPTOMS Verified 08/01/19 03:48 Cephalosporins AdvReac Unknown PT DENIED Verified 08/01/19 03:48 ANY PROBLEMS clindamycin AdvReac Unknown EARS VERY Verified 08/01/19 03:48 RED SWOLLEN,ITCHING,DIZZINESS piperacillin AdvReac Unknown BETALACTAMASE Verified 08/01/19 03:48 INHIBITORS-UNKNOWN tazobactam AdvReac Unknown BETALACTAMASE Verified 08/01/19 03:48 INHIBITORS-UNKNOWN Unclassified Drugs AdvReac Unknown BL PLASTIC Uncoded 08/01/19 03:48 SUTURE-SKIN IRRITATION/RED/SWELLING ITCHY-NYLON? Consultations 08/01/19 05:16 ED Decision to Admit Stat 08/01/19 08:27 Consult Neurology Routine Ordered Studies 08/01/19 03:05 CT angio head w con Urgent CT angio neck with con Urgent CT head/brain wo con Urgent 08/01/19 11:18 MR brain wo/w con Routine Hospital Course (1) TIA (transient ischemic attack): (2) Migraine: - Admitted overnight with stroke like sx - pt reports headache last night, followed by aura with eyes, and some numbness and tingling into the feet and toes, as well as occasional "bee sting" sensation in the limbs. - Neurology consulted -appreciate recs- thinking this is a TIA vx complex migraine - MRI brain completed --No acute intracranial abnormality - Start asa 81 mg and Plavix 75 mg daily x 3 weeks, then monotherapy with Plavix thereafter. --noted pt hx of noncompliance with DAPT with similar sx 2 weeks - Lipid from 07/12 within normal limits except for triglycerides of 163 - cont pravastatin 10 mg HS - ambulating about the room without difficulty or sx - No events on tele since admission (3) Multinodular thyroid: - Elevated TSH and low T4 on admission - PCP to follow up recheck (4) Fibromyalgia: - noted (5) Bipolar 1 disorder: (6) PTSD (post-traumatic stress disorder): - Continue wellbutrin 450 mg QAM, seroquel 600 mg HS, temazepam 15 mg prn, lorazepam 0.5 mg BID prn (uses infrequently), gabapentin 300 mg BID, doxepin 10 mg TID prn - Follows with Dr. Preciado with psychiatry, f/u appt for August 13 - can discuss decreasing gabapentin at that time as pt feels she would like to reduce amount of medication she's on. Pt had gabapentin increased due to getting off te mazepam for sleep. (7) Diabetes mellitus: - A1C= 6.3 - ISS with accuchecks achs, holding [employer] metformin - Diet and exercise encouraged at bedside (8) Breast cancer: - Hs of such -- s/p lumpectomy, chemo and radiation - Continue anastrazole daily (9) Tobacco abuse: - Cessation encouraged - Continue nicotine gum prn DVT ppx: asa and plavix Dispo: From home, dc today. Total Time Total Time Spent Total Time Spent (In Minutes): 32 Discharge Plan Discharge Items Patient Disposition: Home - Self-Care Reason For Visit: STROKE LIKE SYMPTOMS Discharge Diagnosis: TIA Complex Migraine Condition on Discharge: Good Activity: Resume your previous activity Lifting: Gradually increase as tolerated Exercise/Sports: Gradually increase as tolerated Driving/Machine Use: No limitations Non-emergency contact: Primary Care Provider Call non-emergency contact if: you have any medication questions, your symptoms worsen and you have a fever Follow-up/Referrals: Justice Madera [Primary Care Provider] - (Within 1-2 weeks) Diet: Carb Consistent or DM2 and Heart Healthy Addtl Attending Provider Instructions: You were admitted to [facility] due to stroke like symptoms and diagnosed with a transient ischemic attack (TIA) and/or a complex migraine. During your stay here you were treated with supportive care, medications including blood thinners and your symptoms improved. Imaging studies which were completed include CT of the head and neck, and MRI, and were normal. Medications: Continue taking you medications as prescribed. For TIA and stroke prevention: Take aspirin 81 mg daily AND Plavix 75 mg daily x 3 weeks. Starting August 22 you can take Plavix 75 mg daily by itself. Appointments: Follow up with PCP within 1-2 weeks, an appointment has been requested for you. Follow up with neurology within 2-4 weeks, please follow up with with appointment you already have scheduled in October. Pending Studies at Discharge: No Stand-Alone Forms: My [facility] [employer] Smoking Cessation Medications and DC Order Prescriptions: New aspirin 81 mg Tablet,Delayed Release (Dr/Ec) 81 mg PO DAILY 21 Days Qty: 21 RF: 0 Continued anastrozole 1 mg tablet 1 mg PO DAILY RF: 0 omega-3 fatty acids [Fish Oil Concentrate] 1,000 mg capsule 1,000 mg PO BID RF: 0 nicotine (polacrilex) [Nicorette] 2 mg gum 2 mg BUCCAL Q2H RF: 0 gabapentin 300 mg capsule 300 mg PO BID RF: 0 vitamin B complex [B Complex-Vitamin B12] tablet 1 tab PO DAILY RF: 0 multivitamin with iron-mineral tablet 1 tab PO DAILY RF: 0 bupropion HCl 300 mg tablet extended release 24 hr 300 mg PO QAM RF: 0 bupropion HCl 150 mg tablet extended release 24 hr 150 mg PO QAM RF: 0 calcium carbonate-vitamin D3 [Caltrate 600 plus D] 600 mg (1,500 mg)-800 unit tablet,chewable 1 tab PO BID RF: 0 metformin [Glucophage] 500 mg tablet 500 mg PO DAILY RF: 0 lorazepam 0.5 mg tablet 0.5 mg PO DAILY PRN (Reason: Anxiety) RF: 0 quetiapine [Seroquel] 300 mg tablet 600 mg PO HS RF: 0 cannabidiol 100 mg/mL solution 900 mg PO DAILY PRN (Reason: pain) RF: 0 naltrexone 4.5 mg PO BID RF: 0 clopidogrel 75 mg Tablet 75 mg PO QAM Qty: 30 RF: 0 pravastatin 10 mg tablet 10 mg PO HS Qty: 30 RF: 0 fenofibrate micronized 134 mg capsule 134 mg PO DAILY RF: 0 doxepin 10 mg capsule 10 mg PO TID PRN (Reason: itching) Qty: 6 RF: 0 temazepam 15 mg Capsule 15 mg PO HS PRN (Reason: Sleep) RF: 0 tramadol 50 mg Tablet 50 mg PO DAILY PRN (Reason: Pain) RF: 0 Discontinued Aspercreme Heat 10 % gel 1 appln TOP DAILY RF: 0 acetaminophen [Mapap (acetaminophen)] 325 mg Tablet 650 mg PO Q6H PRN (Reason: pain) Qty: 30 RF: 0 Discharge Orders: Discharge Order (Routine); Ordered 08/01/19 Ordered By: Linda Ott/Other Patient Handouts: TIA Admission Data Admit Date/Time: 08/01/19 05:19 Attending Provider: Jhon Robles Admit Provider: Rosalina Benitez Primary Care Provider: Justice Madera Other Providers: Joey Adames ; Star Estrada Coding Level of Care Code Admit/DC Same Day >8hr Level 3 Diagnoses TIA (transient ischemic attack) G45.9 Migraine G43.909 Multinodular thyroid E04.2 Fibromyalgia M79.7 Bipolar 1 disorder F31.9 PTSD (post-traumatic stress disorder) F43.10 Diabetes mellitus E11.9 Breast cancer C50.919 Tobacco abuse Z72.0
[2019-08-01] MEDS ORDERED: PRAVASTATIN SOD 10 MG TAB PO SCH (21:00)
[2019-08-01] MEDS ORDERED: QUETIAPINE FUMARATE 300 MG TABLET PO SCH (21:00)
--- NOTE | 2019-08-02 20:20 | Billing Data ---
Date of Service August 02, 2019 Coding Level of Care Code 91382 OBS Care - Level 3
== END 2019-08-01 18:11 | disposition home or self-care (01) ==
LOC: ED 02:41 → SUATTDRO 05:19 → 2S 05:19 → INTOOBSV 05:19 → 2S 08:07

== ENCOUNTER 2022-07-17 09:15 | Inpatient (IN) ==
[2022-07-17] MEDS ORDERED: HYDROmorphone INJ 0.5 MG/0.5 ML SYR IV STA (09:30)
[2022-07-17] MEDS ORDERED: HYDROmorphone INJ 0.5 MG/0.5 ML SYR IV PRN (09:30)
[2022-07-17] MEDS ORDERED: SODIUM CHLORIDE 0.9% 1000ML 1,000 ML IV STA (09:30)
[2022-07-17] MEDS ORDERED: ONDANSETRON INJ 2 MG/ML 2 ML VIAL IV STA (09:30)
[2022-07-17] MEDS ORDERED: AMPICILLIN/SULBACTAM SOD 3,000 MG in 0.9 % SODIUM CHLORIDE 100 ML IV STA (09:39)
--- NOTE | 2022-07-17 09:43 | Emergency Department Note ---
Impression & Plan LLQ abdominal pain, Acute diverticulitis, Leukocytosis, Failure of outpatient treatment ED Provider Note NAME: TYRELL OLIVARES AGE: 61 SEX: F : 1960 ARRIVES VIA: Walk-In INFORMANT: [Patient] ED PROVIDER(S): [Colin Tirado MD] CHIEF COMPLAINT: GI assessment HISTORY OF PRESENT ILLNESS: The patient is a 61-year-old female who has had over 1 day of left lower quadrant abdominal pain. The patient came yesterday to the ED and was diagnosed with diverticulitis. She had an elevated white blood cell count. She was placed on Augmentin. She presents back today with increasing pain. She had a fever yesterday, none today. She has not had diarrhea. No cough or congestion or shortness of breath. She has had diverticulitis before. She has had a sigmoid resection for diverticulitis. PMHx/PSHx: See Below SOCIAL HISTORY: See Below. PHYSICAL EXAM: GENERAL: Patient is in no acute distress. HEENT: No acute trauma, normocephalic atraumatic, mucous membranes moist, no nasal congestion. NECK: No stridor, no adenopathy, no meningismus, trachea is midline. LUNGS: Clear to auscultation bilaterally, no wheeze, no rhonchi, breath sounds equal. HEART: Without murmurs gallops or rubs, regular rate and rhythm. ABDOMEN: Soft, moderately tender in the left lower quadrant, no peritonitis EXTREMITIES: No cyanosis or edema, full range of motion of all the joints without pain or difficulty, no signs for acute trauma. NEUROLOGIC: Oriented x 3, no acute motor or sensory deficits, no focal weakness. SKIN: No rash, no jaundice, no diaphoresis. DIFFERENTIAL DIAGNOSIS: Diverticulitis, bowel rupture, abscess, failed outpatient management, electrolyte imbalance, anemia, UTI, among others. EMERGENCY DEPARTMENT COURSE/PROCEDURES: Prior/Outside records reviewed: Recent ED visit. MEDICAL DECISION MAKING: There is a moderate leukocytosis, this would be consistent with infection. There was a normal hemoglobin and platelet count. No renal failure or significant electrolyte abnormality. No concerning liver enzyme elevation. No evidence for pancreatitis. Urinalysis does not show infection. COVID test returned negative. Abdominal and pelvis CT shows slight worsening of the diverticulitis, no abscess or perforation. On exam, patient was not toxic. She was tender in the left lower quadrant. The patient received IV saline for hydration. She was given IV Zofran, IV Dilaudid. She received IV Unasyn. The patient has acute diverticulitis. The patient has had worsening of her pain despite antibiotic treatment. I do think hospitalization would be warranted. I spoke with the patient and case management, the on-call hospitalist was consulted. DISPOSITION: Patient's presentation and findings warrant a hospital stay. Past Med/Surg History Medical History Arthritis of foot Bipolar disorder Diabetes mellitus Diverticular disease Endometriosis Esophagus disorder "narrow esophagus per pt" History of anemia History of breast cancer Left 2017; h/o lumpectomy + chemo/radiaton History of chemotherapy History of fatty infiltration of liver History of migraine History of TIA (transient ischemic attack) 07/2019 > no residual effects > follows with Dr. Reji NAVA (hyperlipidemia) Osteoarthritis PTSD (post-traumatic stress disorder) Sacral fracture Scoliosis Stroke-like symptoms TIA (transient ischemic attack) TMJ (temporomandibular joint disorder) Surgical History History of ankle surgery left x 6 History of appendectomy History of bowel resection due to diverticulitis History of breast biopsy History of colonoscopy History of fracture of left ankle History of laparoscopy mult History of lumpectomy of left breast x 2 (malignant x 1, benign x 1) History of lumpectomy of right breast benign History of open reduction and internal fixation (ORIF) procedure LLE History of vascular access device removed S/P epidural steroid injection Family History Mother Hypertension Adrenal gland cancer Cancer Father , age 59 of lung cancer Lung cancer smoker Liver cancer Cancer Aunt Breast cancer Other Colorectal cancer No family history of adverse response to anesthesia No family history of bleeding disorder Social History Smoking Status: Former smoker Tobacco Type: Cigarettes packs per day: 1; Smoking End Date: 2019; Second Hand Exposure: Yes; Do You Dip or Chew Tobacco: No; Tobacco Cessation Education Requested by Patient: No Hx Alcohol Use: Yes Alcohol type: hard liquor Alcohol Intake Frequency: Monthly or Less Hx Substance Use: Yes Prescribed Medications: Painkillers and Tranquilizers Non-Prescribed Medications: Marijuana Last Used Substance: Hours (ago) Last Used Substance Other:: yesterday Substance Use Type Other:: Has medical Marijuana Card Preferred Language: Czech Communication Ability: Effective Visual Impairment: No Limitations Hearing Ability: Normal Bottle Feeder Required: No Beliefs That Will Affect Care: Rastafari Rastafari Beliefs: Voodoo marital status: Current Living Situation: Spouse Current Living Situation Comment: At home with 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al status: retired and disabled 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 [employer] Other Information That Helps Us Care for You: No other: Stopped work in 2001 on disability Feels Safe at Home: Yes Safety Concerns: Feels Safe At This Time Diet: diabetic during the past year weight has: increased > 10 lbs Assistive Devices: Cane and Glasses Allergies Allergies Allergy/AdvReac Type Severity Reaction Status Date / Time bacitracin Allergy Severe ITCHING/INF Verified 07/16/22 22:39 ECTION Quinolones Allergy Severe ANAPHYLAXIS/HEART Verified 07/16/22 22:39 FLUTTERING rizatriptan Allergy Severe SHORTNESS Verified 07/16/22 22:39 OF BREATH amoxicillin [From Augmentin] Allergy Intermediate Hives Verified 07/16/22 22:39 ciprofloxacin Allergy Intermediate Palpitations, Verified 07/16/22 22:39 rash, clavulanic acid Allergy Intermediate Hives Verified 07/16/22 22:39 [From Augmentin] clindamycin Allergy Intermediate Hives Verified 07/16/22 22:39 escitalopram [From Lexapro] Allergy Intermediate Hives Verified 07/16/22 22:39 nickel Allergy Intermediate SKIN Verified 07/16/22 22:39 IRRITATION ofloxacin Allergy Intermediate Rash Verified 07/16/22 22:39 polymyxin B Allergy Intermediate Hives Verified 07/16/22 22:39 silver Allergy Intermediate pruritus Verified 07/16/22 22:39 varenicline [From Chantix] Allergy Intermediate ITCHY HIVES Verified 07/16/22 22:39 lamotrigine Allergy Mild RASH Verified 07/16/22 22:39 neomycin Allergy Mild ITCHING Verified 07/16/22 22:39 WITH THE OINTMENT adhesive Allergy Unknown ALLERGIC Verified 07/16/22 22:39 TO MEDICATED STERI-STRIPS AND SOME TAPE-RASH BLISTE citalopram Allergy Unknown CAN'T Verified 07/16/22 22:39 REMEMBER celecoxib AdvReac Intermediate GI SYMPTOMS Verified 07/16/22 22:39 dichloralphenazone AdvReac Intermediate ALTERED Verified 07/16/22 22:39 [From Midrin] MENTAL STATUS isometheptene [From Midrin] AdvReac Intermediate ALTERED Verified 07/16/22 22:39 MENTAL STATUS paroxetine AdvReac Intermediate OUT OF Verified 07/16/22 22:39 BODY EXPERIENCE piperacillin AdvReac Unknown BETALACTAMASE Verified 07/16/22 22:39 INHIBITORS-UNKNOWN tazobactam AdvReac Unknown BETALACTAMASE Verified 07/16/22 22:39 INHIBITORS-UNKNOWN Unclassified Drugs AdvReac Unknown BL PLASTIC Uncoded 07/16/22 22:39 SUTURE-SKIN IRRITATION/RED/SWELLING ITCHY-NYLON? Home Meds Home Medications Medication Instructions Recorded Confirmed bupropion HCl 300 mg 24 hr tablet, 300 mg PO QAM 12/12/17 07/17/22 extended release fenofibrate micronized 134 mg 134 mg PO QAM 04/16/19 07/17/22 capsule levothyroxine 25 mcg tablet 25 mcg PO QAM 09/12/19 07/17/22 semaglutide 0.25 mg or 0.5 mg (2 0.25 mg subcut WK 01/19/20 07/17/22 mg/1.5 mL) subcutaneous pen injector (Ozempic) lisinopril 2.5 mg tablet 2.5 mg PO HS 04/05/20 07/17/22 mirtazapine 15 mg tablet 7.5 mg PO HS PRN Insomnia 01/03/21 07/17/22 calcium carbonate 600 mg-vitamin 1 tab PO QAM 01/18/21 07/17/22 D3 20 mcg (800 unit) chewable tablet (Caltrate 600 plus D) ondansetron HCl 8 mg tablet 8 - 16 mg PO DIRECTED PRN Nausea 03/21/21 07/17/22 anastrozole 1 mg tablet 1 mg PO QAM 04/07/21 07/17/22 gabapentin 300 mg capsule See Rx Instructions .Route .COMPLEX 01/18/22 07/17/22 clopidogrel 75 mg tablet (Plavix) 75 mg PO HS 01/31/22 07/17/22 multivitamin 1 tab PO QAM 01/31/22 07/17/22 omega 7-kin-zua-fish oil 1,000 mg 1 cap PO QPM 01/31/22 07/17/22 (120 mg-180 mg) capsule (Fish Oil) quetiapine 25 mg tablet 25 - 50 mg PO HS 01/31/22 07/17/22 vitamin B complex 1 tab PO QAM 01/31/22 07/17/22 ascorbic acid (vitamin C) 500 mg 500 mg PO DAILY 03/07/22 07/17/22 tablet glucosamine sulfate 500 mg tablet 500 mg PO DAILY 05/14/22 07/17/22 (Glucosamine) lifitegrast 5 % eye drops in a 1 drp ophthalmic (eye) BID PRN Dry 05/14/22 07/17/22 dropperette (Xiidra) Eyes magnesium oxide,aspartate,citr 0 mg PO DAILY 05/14/22 07/17/22 (Triple Magnesium Complex) pantoprazole 20 mg tablet,delayed 20 mg PO QPM 05/14/22 07/17/22 release biotin 1,000 mcg chewable tablet 1,000 mcg PO DAILY 07/16/22 07/17/22 temazepam 22.5 mg capsule 11.25 - 22.5 mg PO HS 07/16/22 07/17/22 Previous Rx's Medication Instructions Recorded pravastatin 10 mg tablet 10 mg PO HS #30 tabs 07/13/19 amoxicillin 875 mg-potassium 1 tab PO BID #14 tabs 07/16/22 clavulanate 125 mg tablet Results & Data (ED) Vital Signs Vital Signs - 24 hr 07/17/22 09:22 Temperature 36.7 C Temperature Source Temporal Artery Scan Pulse Rate 92 H Respiratory Rate 20 Respiratory Effort / Characteristics Non-Labored Respiratory Depth Normal Blood Pressure 147/85 H Blood Pressure Mean 105 Pulse Oximetry 99 Oxygen Delivery Method Room Air Sepsis Recent Fever Within 48 Hours No Sepsis New/Unexplained Change in Mental Status N/A Sepsis Action Taken by Nursing No Action Required Home Medications Current Medication List: was personally reviewed by me Laboratory Data Attestation: I reviewed the patient's lab results. 07/17/22 09:45 07/17/22 09:45 Lab Results 07/17/22 07/17/22 07/17/22 Range/Units 09:45 09:45 09:52 WBC 15.64 H (4.8-10.8) K/ul RBC 3.85 L (4.20-5.40) M/uL Hgb 12.2 (12.0-16.0) g/dl Hct 35.9 L (37.0-47.0) % MCV 93.2 (80.0-100.0) fL MCH 31.7 (25.0-34.0) pg MCHC 34.0 (32.0-36.0) g/dL RDW Std Deviation 45.5 (36.4-46.3) fL RDW Coeff of Laureen 13.3 (11.5-14.5) % Plt Count 250 (130-400) K/uL MPV 10.3 (9.4-12.4) fL Immature Gran % (Auto) 0.6 % Neut % (Auto) 68.6 % Lymph % (Auto) 21.6 % [place] % (Auto) 8.3 % Eos % (Auto) 0.6 % Baso % (Auto) 0.3 % Neut # (Auto) 10.72 H (1.40-6.50) K/uL Lymph # (Auto) 3.38 (1.2-3.4) K/uL [place] # (Auto) 1.30 H (0.11-0.59) K/uL Eos # (Auto) 0.10 (0-0.50) K/uL Baso # (Auto) 0.04 (0-0.2) K/uL Immature Gran # (Auto) 0.10 (0.01-0.20) K/uL Sodium 139 (136-145) mmol/L Potassium 3.9 (3.5-5.1) mmol/L Chloride 106 (98-107) mmol/L Carbon Dioxide 24 (21-32) mmol/L Anion Gap 9 (3-11) BUN 23 (6-23) mg/dl Creatinine 0.85 (0.6-1.2) mg/dl Est Cr Clr Drug Dosing 67.2 ml/min Est GFR ( Amer) 84.5 ml/min Est GFR (Non-Af Amer) 72.9 ml/min BUN/Creatinine Ratio 27.1 H (10-20) Glucose 96 (70-99(Fasting)) mg/dl Calcium 8.7 (8.6-10.3) mg/dl Total Bilirubin 0.3 (0.2-1.0) mg/dl AST 18 (13-39) U/L ALT 30 (7-52) U/L Alkaline Phosphatase 63 (34-104) U/L Total Protein 6.7 (6.0-8.3) gm/dl Albumin 4.3 (3.4-5.0) gm/dl Globulin 2.4 L (2.5-4.0) gm/dl Albumin/Globulin Ratio 1.8 (0.9-2) Lipase 38 (11-82) U/L SARS-CoV-2, RNA, NAAT NEGATIVE (NEGATIVE) Administered Medications Lactated Ringer's (Lr) 1,000 mls @ 125 mls/hr IV .Q8H EDISON Stop: 08/16/22 12:44 Last Admin: 07/17/22 13:17 Dose: 125 mls/hr Documented By: LISE Discontinued Medications Bupropion HCl (Bupropion Xl 300 Mg Tabcr) 300 mg PO ONE STA Stop: 07/17/22 13:02 Last Admin: 07/17/22 13:18 Dose: 300 mg Documented By: LISE Gabapentin (Gabapentin 300 Mg Cap) 300 mg PO ONE STA Stop: 07/17/22 13:01 Last Admin: 07/17/22 13:18 Dose: 300 mg Documented By: LISE Hydromorphone HCl (Hydromorphone Inj 0.5 Mg/0.5 Ml Syr) 0.5 mg IV NOW STA Stop: 07/17/22 09:31 Last Admin: 07/17/22 09:57 Dose: 0.5 mg Documented By: BRYAN Sodium Chloride (Nss 1000ml) 1,000 mls @ 999 mls/hr IV .Q1H1M STA Stop: 07/17/22 10:30 Last Infusion: 07/17/22 11:23 Dose: 0 mls/hr Documented By: Admin: 07/17/22 09:57 Dose: 999 mls/hr Documented By: BRYAN Ampicillin Sodium/Sulbactam Sodium 3,000 mg/ Sodium Chloride 108 mls @ 200 mls/hr IV NOW STA; Protocol Stop: 07/17/22 10:11 Last Infusion: 07/17/22 10:30 Dose: 0 mls/hr Documented By: Admin: 07/17/22 09:57 Dose: 200 mls/hr Documented By: BRYAN Ioversol (Optiray 320 100ml) 84 ml IV ONCE ONE Stop: 07/17/22 11:21 Last Admin: 07/17/22 11:14 Dose: 84 ml Documented By: VICENTE Ondansetron HCl (Ondansetron Inj 2 Mg/Ml 2 Ml Vial) 4 mg IV NOW STA Stop: 07/17/22 09:31 Last Admin: 07/17/22 09:57 Dose: 4 mg Documented By: BRYAN Imaging Data Radiologist's Impression: Abdomen/Pelvis CT 07/17/22 09:[address] WITH IV CONTRAST CT DOSE: 522.38 mGy.cm HISTORY: Acute left lower quadrant abdominal pain llq pain, worse TECHNIQUE: Multiaxial CT images of the abdomen and pelvis were performed follow ing the IV administration of 84 cc of Optiray, A dose lowering technique was utilized adhering to the principles of ALARA. COMPARISON STUDY: CT abdomen and pelvis 07/16/2022 FINDINGS: Mild patchy subsegmental groundglass densities of the basal right lower lobe. No pneumatosis or pneumoperitoneum. Unremarkable spleen, and right adrenal gland. 2.5 x 2.4 cm left adrenal gland adenoma is stable. There are a few subcentimeter calcifications noted within the pancreas. Hepatomegaly with hepatic steatosis. Patency of the hepatic and portal veins. Mild distention of the gallbladder. There is no hydronephrosis. Partial distention of the urinary bladder. Unremarkable uterus and adnexa. Atherosclerosis of the abdominal aorta. There is no lymphadenopathy. Tiny hiatal hernia. Partial sigmoidectomy. Acute sigmoid diverticulitis redemonstrated with mildly progressed colonic wall thickening and adjacent inflammatory stranding. There is thickening of the adjacent peritoneum. No abscess identified. Probable stool within the cecum. Appendectomy. No acute fracture identified. Probable bone island of the left iliac bone. IMPRESSION: 1. Acute sigmoid diverticulitis with mildly progressed circumferential wall and adjacent peritoneal thickening with adjacent inflammatory stranding compared to the study obtained approximately 12 hours earlier. No pneumoperitoneum or absces s identified. 2. No bowel obstruction. 3. Hepatomegaly with hepatic steatosis. 4. Partial sigmoidectomy. 5. Additional findings as above. ACT 112: Negative or not required by law. The above report was generated using voice recognition software. It may contain grammatical, syntax or spelling errors. Electronically signed by: Eliu Nicolas M.D. 07/17/2022 11:26 AM Discharge Plan Visit Data Chief Complaint: GI Assessment Stated Complaint: DIVERTICULITIS, SEVERE PAIN ED Provider: Colin Tirado Discharge Problem: LLQ abdominal pain, Acute diverticulitis, Leukocytosis, Failure of outpatient treatment Patient Disposition: Admitted As Inpatient Condition: Fair Discharge Instructions Interventions: ED Discharge Assessment Last Done: 07/17/22 13:37
[2022-07-17 10:14] LABS: Basophils # (auto) 0.04 K/uL (0-0.2); Basophils % (auto) 0.3 %; Eosinophils % (auto) 0.6 %; Hematocrit (blood only) 35.9 % (37.0-47.0); Hemoglobin 12.2 g/dl (12.0-16.0); Immature Granulocytes % (auto) 0.6 %; Lymphocytes # (auto) 3.38 K/uL (1.2-3.4); Lymphocytes % (auto) 21.6 %; Mean Corpuscular Hemoglobin 31.7 pg (25.0-34.0); Mean Corpuscular Volume 93.2 fL (80.0-100.0); Mean Platelet Volume 10.3 fL (9.4-12.4); Monocytes % (auto) 8.3 %; Neutrophils # (auto) 10.72 K/uL (1.40-6.50); Neutrophils % (auto) 68.6 %; Platelet Count 250 K/uL (130-400); RDW Coefficient of Variation 13.3 % (11.5-14.5); RDW Standard Deviation 45.5 fL (36.4-46.3); Red Blood Count 3.85 M/uL (4.20-5.40); White Blood Count 15.64 K/ul (4.8-10.8)
[2022-07-17 10:26] LABS: Albumin Globulin Ratio 1.8 (0.9-2); Albumin Level 4.3 gm/dl (3.4-5.0); BUN Creatinine Ratio 27.1 (10-20); Bilirubin,Total 0.3 mg/dl (0.2-1.0); Calcium 8.7 mg/dl (8.6-10.3); Creatinine Clr Calc Pharmacy 67.2 ml/min; Est GFR (African American) 84.5 ml/min; Est GFR (Non-African American) 72.9 ml/min; Globulin 2.4 gm/dl (2.5-4.0); Potassium 3.9 mmol/L (3.5-5.1); Total Protein 6.7 gm/dl (6.0-8.3)
[2022-07-17] MEDS ORDERED: OPTIRAY 320 100ml IV ONE (11:20)
--- NOTE | 2022-07-17 11:29 | CT Scan Report ---
ABDOMEN AND PELVIS CT WITH IV CONTRAST CT DOSE: 522.38 mGy.cm HISTORY: Acute left lower quadrant abdominal pain llq pain, worse TECHNIQUE: Multiaxial CT images of the abdomen and pelvis were performed following the IV administrat ion of 84 cc of Optiray, A dose lowering technique was utilized adhering to the principles of ALARA. COMPARISON STUDY: CT abdomen and pelvis 07/16/2022 FINDINGS: Mild patchy subsegmental groundglass densities of the basal right lower lobe. No pneumatosi s or pneumoperitoneum. Unremarkable spleen, and right adrenal gland. 2.5 x 2.4 cm left adrenal gland adenoma is stable. There are a few subcentimeter calcifications noted within the pancreas. Hepatomega ly with hepatic steatosis. Patency of the hepatic and portal veins. Mild distention of the gallbladde r. There is no hydronephrosis. Partial distention of the urinary bladder. Unremarkable uterus and adnex a. Atherosclerosis of the abdominal aorta. There is no lymphadenopathy. Tiny hiatal hernia. Partial s igmoidectomy. Acute sigmoid diverticulitis redemonstrated with mildly progressed colonic wall thicken ing and adjacent inflammatory stranding. There is thickening of the adjacent peritoneum. No abscess i dentified. Probable stool within the cecum. Appendectomy. No acute fracture identified. Probable bone island of the left iliac bone. IMPRESSION: 1. Acute sigmoid diverticulitis with mildly progressed circumferential wall and adjacent peritoneal t hickening with adjacent inflammatory stranding compared to the study obtained approximately 12 hours earlier. No pneumoperitoneum or abscess identified. 2. No bowel obstruction. 3. Hepatomegaly with hepatic steatosis. 4. Partial sigmoidectomy. 5. Additional findings as above. ACT 112: Negative or not required by law. The above report was generated using voice recognition software. It may contain grammatical, syntax o r spelling errors. Electronically signed by: Eliu Nicolas M.D. 07/17/2022 11:26 AM
[2022-07-17] MEDS ORDERED: GABAPENTIN 300 MG CAP PO STA (13:00)
[2022-07-17] MEDS ORDERED: buPROPion XL 300 MG TABCR PO STA (13:01)
--- NOTE | 2022-07-17 13:10 | History & Physical Report ---
Date of Service July 17, 2022 Assessment & Plan (1) Diverticulitis large intestine: Plan: Admission due to failed outpatient treatment Ceftriaxone + metronidazole IV NPO (except ice, chips and meds). IV fluids Acetaminophen 1st line, Dilaudid 2nd line for pain (2) Constipation: Plan: Bowel rest for now. Likely to need laxatives as she improves. (3) Allergic reaction: Plan: Appears to have resolved at this time. Steroids discontinued. (4) Fibromyalgia: Plan: Continue gabapentin (5) Anxiety: Plan: Continue her usual psychiatric medications with quetiapine, temazepam, mirtazapine, buprprion (6) Bipolar 1 disorder: (7) Hypothyroidism: Plan: TSH WNL in Mar Continue levothyroxine (8) History of breast cancer: Plan: Hold anastrazole temporarily in setting of infection Plan VTE Prophyalxis - Lovenox 40mg SQ daily Diet - NPO Disposition - admit to med/surg Admission and Anticipated Discharge Date Admission Date: July 17, 2022 History of Present Illness Chief Complaint: Abdominal pain Primary Care Provider: Justice Madera Shaheed Son is a 61 year old female who presents to the ER with left lower quadrant abdominal pain. Symptoms started yesterday morning and progressed throughout the day. Left lower quadrant pain without radiation, severity 9/10 at worse, currently 4/10. Associated constipation, nausea but no vomiting. No melena or hematochezia. She came to the ER last night and was diagnosed with diverticulitis. She was discharged with Augmentin (first dose given in the ER) and diet advice. Despite antibiotics and only have sips of water her pain became worse this morning and throughout today as the pain medication wore off and oxycodone alone did not significantly affect the pain therefore she decided to return to the ER. She has a significant history of diverticulitis and had a partial sigmoidectomy to avoid further episodes. Current episode she is concerned was exacerbated by recently given lamotrigine by her psychiatrist and subsequent allergic reaction to this requiring steroids for the last few days. Allergic rash now resolved. Allergies Allergy/AdvReac Type Severity Reaction Status Date / Time bacitracin Allergy Severe ITCHING/INF Verified 07/16/22 22:39 ECTION Quinolones Allergy Severe ANAPHYLAXIS/HEART Verified 07/16/22 22:39 FLUTTERING rizatriptan Allergy Severe SHORTNESS Verified 07/16/22 22:39 OF BREATH amoxicillin [From Augmentin] Allergy Intermediate Hives Verified 07/16/22 22:39 ciprofloxacin Allergy Intermediate Palpitations, Verified 07/16/22 22:39 rash, clavulanic acid Allergy Intermediate Hives Verified 07/16/22 22:39 [From Augmentin] clindamycin Allergy Intermediate Hives Verified 07/16/22 22:39 escitalopram [From Lexapro] Allergy Intermediate Hives Verified 07/16/22 22:39 nickel Allergy Intermediate SKIN Verified 07/16/22 22:39 IRRITATION ofloxacin Allergy Intermediate Rash Verified 07/16/22 22:39 polymyxin B Allergy Intermediate Hives Verified 07/16/22 22:39 silver Allergy Intermediate pruritus Verified 07/16/22 22:39 varenicline [From Chantix] Allergy Intermediate ITCHY HIVES Verified 07/16/22 22:39 lamotrigine Allergy Mild RASH Verified 07/16/22 22:39 neomycin Allergy Mild ITCHING Verified 07/16/22 22:39 WITH THE OINTMENT adhesive Allergy Unknown ALLERGIC Verified 07/16/22 22:39 TO MEDICATED STERI-STRIPS AND SOME TAPE-RASH BLISTE citalopram Allergy Unknown CAN'T Verified 07/16/22 22:39 REMEMBER celecoxib AdvReac Intermediate GI SYMPTOMS Verified 07/16/22 22:39 dichloralphenazone AdvReac Intermediate ALTERED Verified 07/16/22 22:39 [From Midrin] MENTAL STATUS isometheptene [From Midrin] AdvReac Intermediate ALTERED Verified 07/16/22 22:39 MENTAL STATUS paroxetine AdvReac Intermediate OUT OF Verified 07/16/22 22:39 BODY EXPERIENCE piperacillin AdvReac Unknown BETALACTAMASE Verified 07/16/22 22:39 INHIBITORS-UNKNOWN tazobactam AdvReac Unknown BETALACTAMASE Verified 07/16/22 22:39 INHIBITORS-UNKNOWN Unclassified Drugs AdvReac Unknown BL PLASTIC Uncoded 07/16/22 22:39 SUTURE-SKIN IRRITATION/RED/SWELLING ITCHY-NYLON? Home Medications Medication Instructions Recorded Confirmed Type bupropion HCl 300 mg 24 hr tablet, 300 mg PO QAM 12/12/17 07/17/22 History extended release fenofibrate micronized 134 mg 134 mg PO QAM 04/16/19 07/17/22 History capsule pravastatin 10 mg tablet 10 mg PO HS #30 tabs 05/04/20 05/09/23 Rx levothyroxine 25 mcg tablet 25 mcg PO QAM 09/12/19 07/17/22 History semaglutide 0.25 mg or 0.5 mg (2 0.25 mg subcut WK 01/19/20 07/17/22 History mg/1.5 mL) subcutaneous pen injector (Ozempic) lisinopril 2.5 mg tablet 2.5 mg PO HS 04/05/20 07/17/22 History mirtazapine 15 mg tablet 7.5 mg PO HS PRN Insomnia 01/03/21 07/17/22 History calcium carbonate 600 mg-vitamin 1 tab PO QAM 01/18/21 07/17/22 History D3 20 mcg (800 unit) chewable tablet (Caltrate 600 plus D) ondansetron HCl 8 mg tablet 8 - 16 mg PO DIRECTED PRN Nausea 03/21/21 07/17/22 History anastrozole 1 mg tablet 1 mg PO QAM 04/07/21 07/17/22 History gabapentin 300 mg capsule See Rx Instructions .Route .COMPLEX 01/18/22 07/17/22 History clopidogrel 75 mg tablet (Plavix) 75 mg PO HS 01/31/22 07/17/22 History multivitamin 1 tab PO QAM 01/31/22 07/17/22 History omega 1-yqn-jko-fish oil 1,000 mg 1 cap PO QPM 01/31/22 07/17/22 History (120 mg-180 mg) capsule (Fish Oil) quetiapine 25 mg tablet 25 - 50 mg PO HS 01/31/22 07/17/22 History vitamin B complex 1 tab PO QAM 01/31/22 07/17/22 History ascorbic acid (vitamin C) 500 mg 500 mg PO DAILY 03/07/22 07/17/22 History tablet glucosamine sulfate 500 mg tablet 500 mg PO DAILY 05/14/22 07/17/22 History (Glucosamine) lifitegrast 5 % eye drops in a 1 drp ophthalmic (eye) BID PRN Dry 05/14/22 07/17/22 History dropperette (Xiidra) Eyes magnesium oxide,aspartate,citr 0 mg PO DAILY 05/14/22 07/17/22 History (Triple Magnesium Complex) pantoprazole 20 mg tablet,delayed 20 mg PO QPM 05/14/22 07/17/22 History release amoxicillin 875 mg-potassium 1 tab PO BID #14 tabs 07/16/22 07/17/22 Rx clavulanate 125 mg tablet biotin 1,000 mcg chewable tablet 1,000 mcg PO DAILY 07/16/22 07/17/22 History temazepam 22.5 mg capsule 11.25 - 22.5 mg PO HS 07/16/22 07/17/22 History Past Med/Surg History Medical History Arthritis of foot Bipolar disorder Diabetes mellitus Diverticular disease Endometriosis Esophagus disorder "narrow esophagus per pt" History of anemia History of breast cancer Left 2017; h/o lumpectomy + chemo/radiaton History of chemotherapy History of fatty infiltration of liver History of migraine History of TIA (transient ischemic attack) 07/2019 > no residual effects > follows with Dr. Reji NAVA (hyperlipidemia) Osteoarthritis PTSD (post-traumatic stress disorder) Sacral fracture Scoliosis Stroke-like symptoms TIA (transient ischemic attack) TMJ (temporomandibular joint disorder) Surgical History History of ankle surgery left x 6 History of appendectomy History of bowel resection due to diverticulitis History of breast biopsy History of colonoscopy History of fracture of left ankle History of laparoscopy mult History of lumpectomy of left breast x 2 (malignant x 1, benign x 1) History of lumpectomy of right breast benign History of open reduction and internal fixation (ORIF) procedure LLE History of vascular access device removed S/P epidural steroid injection Family History Mother Hypertension Adrenal gland cancer Cancer Father , age 59 of lung cancer Lung cancer smoker Liver cancer Cancer Aunt Breast cancer Other Colorectal cancer No family history of adverse response to anesthesia No family history of bleeding disorder Social History Smoking Status: Former smoker Tobacco Type: Cigarettes packs per day: 1; Smoking End Date: 2019; Second Hand Exposure: Yes; Do You Dip or Chew Tobacco: No; Tobacco Cessation Education Requested by Patient: No Hx Alcohol Use: Yes Alcohol type: hard liquor Alcohol Intake Frequency: Monthly or Less Hx Substance Use: Yes Prescribed Medications: Painkillers and Tranquilizers Non-Prescribed Medications: Marijuana Last Used Substance: Hours (ago) Last Used Substance Other:: yesterday Substance Use Type Other:: Has medical Marijuana Card Preferred Language: Tongan Communication Ability: Effective Visual Impairment: No Limitations Hearing Ability: Normal Research Staff Member Required: No Beliefs That Will Affect Care: Religion Religion Beliefs: Jainism marital status: Current Living Situation: Spouse Current Living Situation Comment: At home with 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al status: retired and disabled 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 [employer] Other Information That Helps Us Care for You: No other: Stopped work in 2001 on disability Feels Safe at Home: Yes Safety Concerns: Feels Safe At This Time Diet: diabetic during the past year weight has: increased > 10 lbs Assistive Devices: Cane and Glasses Review of Systems Review of Systems: All systems reviewed & are unremarkable except as noted in HPI & below Physical Exam Constitutional: WD/WN, vitals as above Respiratory: normal respiratory effort, lungs clear to auscultation Cardiovascular: RRR, no murmur, no edema Gastrointestinal (Abdomen): Inspection/Auscultation: abdomen normal to inspection and + hypoactive bowel sounds; abdomen not distended Percuss ion/Palpation: + abdomen tender (LLQ without rebound), + guarding and abdomen soft; abdomen not rigid Musculoskeletal: no cyanosis or clubbing, extremities motor strength 5/5 Skin: no rashes, warm and dry Neurologic: moves all extremities and awake; not confused Psychiatric: A+Ox3, euthymic affect Results & Data Results & Data Vital Signs (Past 12 Hours) Vital Signs Temp Pulse Resp BP Pulse Ox O2 Del Method 07/17/22 09:22 36.7 C 92 H 20 147/85 H 99 Room Air Laboratory Results Abnormal lab results 07/17/22 07/17/22 07/17/22 Range/Units 09:45 09:45 12:14 WBC 15.64 H (4.8-10.8) K/ul RBC 3.85 L (4.20-5.40) M/uL Hct 35.9 L (37.0-47.0) % Neut # (Auto) 10.72 H (1.40-6.50) K/uL [place] # (Auto) 1.30 H (0.11-0.59) K/uL BUN/Creatinine Ratio 27.1 H (10-20) Globulin 2.4 L (2.5-4.0) gm/dl Ur Leukocyte Esterase Trace H (Negative) Diagnostic Findings ABDOMEN AND PELVIS CT WITH IV CONTRAST CT DOSE: 522.38 mGy.cm HISTORY: Acute left lower quadrant abdominal pain llq pain, worse TECHNIQUE: Multiaxial CT images of the abdomen and pelvis were performed following the IV administration of 84 cc of Optiray, A dose lowering technique was utilized adhering to the principles of ALARA. COMPARISON STUDY: CT abdomen and pelvis 07/16/2022 FINDINGS: Mild patchy subsegmental groundglass densities of the basal right lower lobe. No pneumatosis or pneumoperitoneum. Unremarkable spleen, and right adrenal gland. 2.5 x 2.4 cm left adrenal gland adenoma is stable. There are a few subcentimeter calcifications noted within the pancreas. Hepatomegaly with hepatic steatosis. Patency of the hepatic and portal veins. Mild distention of the gallbladder. There is no hydronephrosis. Partial distention of the urinary bladder. Unremarkable uterus and adnexa. Atherosclerosis of the abdominal aorta. There is no lymphadenopathy. Tiny hiatal hernia. Partial sigmoidectomy. Acute sigmoid diverticulitis redemonstrated with mildly progressed colonic wall thickening and adjacent inflammatory stranding. There is thickening of the adjacent peritoneum. No abscess identified. Probable stool within the cecum. Appendectomy. No acute fracture identified. Probable bone island of the left iliac bone. IMPRESSION: 1. Acute sigmoid diverticulitis with mildly progressed circumferential wall and adjacent peritoneal thickening with adjacent inflammatory stranding compared to the study obtained approximately 12 hours earlier. No pneumoperitoneum or abscess identified. 2. No bowel obstruction. 3. Hepatomegaly with hepatic steatosis. 4. Partial sigmoidectomy. 5. Additional findings as above. Medications Administered ER Medications Given: NSS 1L bolus Dilaudid 0.5mg IV Ondansetron 4mg IV Unasyn 3000mg IV ECG Rate (beats per minute): 96 Rhythm: normal sinus Findings: no acute ischemic change Comparison ECG Date: from (Mar 05, 2022) Change: no significant change Code Status & VTE Plan Code Status Full PG Care Time/CCT Total # of Minutes Spent Total Time Spent with Patient: Total time spent is greater than 50% in coordination of care (as documented) at patient's floor/unit and/or counseling patient: Coding Level of Care Code 87728 INT INP/OBS CARE Diagnoses Diverticulitis large intestine K57.32 Diverticulitis bleeding: without bleeding Diverticulitis complication: without perforation or abscess Constipation K59.00 Allergic reaction T78.40XA Encounter type: initial encounter Fibromyalgia M79.7 Anxiety F41.9 Bipolar 1 disorder F31.9 Hypothyroidism E03.9 History of breast cancer Z85.3 (1) Diverticulitis large intestine Diverticulitis bleeding: without bleeding Diverticulitis complication: without perforation or abscess Qualified Code(s): K57.32 - Diverticulitis of large intestine without perforation or abscess without bleeding (3) Allergic reaction Encounter type: initial encounter Qualified Code(s): T78.40XA - Allergy, unspecified, initial encounter
[2022-07-17] MEDS: LACTATED RINGER'S 1,000 ML IV SCH ×2 (13:17→22:47)
[2022-07-17 13:22] LABS: Appearance Urine Clear (Clear); Bacteria Urine Automated Negative (Negative); Bilirubin Urine Negative (Negative); Blood Urine Negative (Negative); Cast Urine Automated 0 /lpf (0-5); Color Urine Yellow; Epithelial Cell Urine Auto 0-5 /lpf (0-5); Glucose Urine UA Negative (Negative); Ketones Urine Negative (Negative); Leukocyte Esterase Urine Trace (Negative); Nitrite Urine Negative (Negative); Protein Urine Negative (Negative); RBC Urine Automated 0-4 /hpf (0-4); Specific Gravity Urine 1.008 (1.000-1.030); Urobilinogen Urine Negative (Negative)
[2022-07-17] MEDS ORDERED: ONDANSETRON INJ 2 MG/ML 2 ML VIAL IV PRN (15:00)
[2022-07-17] MEDS ORDERED: MIRTAZAPINE TAB 15 MG TAB PO PRN (15:00)
[2022-07-17] MEDS: HYDROmorphone INJ 0.5 MG/0.5 ML SYR IV PRN (15:46)
[2022-07-17] MEDS: cefTRIAXone SODIUM 2,000 MG in DEXTROSE 5% 50 ML IV SCH (15:59)
[2022-07-17] MEDS: metroNIDAZOLE 500 MG/100 ML BAG IV SCH ×2 (17:17→23:45)
[2022-07-17] MEDS: CLOPIDOGREL BISULFATE 75 MG TAB PO SCH (20:37)
[2022-07-17] MEDS: GABAPENTIN 300 MG CAP PO SCH (20:37)
[2022-07-17] MEDS: PRAVASTATIN SOD 10 MG TAB PO SCH (20:38)
[2022-07-17] MEDS: PANTOprazole 40 MG TAB PO SCH (20:38)
[2022-07-17] MEDS: lisinopril 2.5 MG TAB PO SCH (20:39)
[2022-07-17] MEDS: ACETAMINOPHEN 1,000 MG/100 ML VIAL IV PRN (21:43)
[2022-07-17] MEDS: QUEtiapine FUMARATE 25 MG TABLET PO SCH (22:04)
[2022-07-17] MEDS: TEMAZEPAM 7.5 MG CAPSULE PO SCH (22:04)
[2022-07-17] MEDS: ENOXAPARIN INJ 40 MG/0.4 ML SYR SQ SCH (22:46)
[2022-07-18] MEDS: LEVOTHYROXINE SODIUM 25 MCG TABLET PO SCH (06:09)
[2022-07-18] MEDS: LACTATED RINGER'S 1,000 ML IV SCH ×3 (06:09→23:18)
--- NOTE | 2022-07-18 07:44 | Hospitalist Progress Note ---
Date of Service July 18, 2022 Assessment & Plan (1) Acute diverticulitis: Plan: Pt is a 61 yo female with PMH of bipolar disorder, DM, hx of breast cancer, TIA (2019), HLD, and PTSD presenting with worsening left lower quadrant pain. She was seen in the ER 07/16 and prescribed augmentin for diverticulitis but her pain worsened so she came back to the hospital. Acute diverticulitis - continue ceftriaxone 2g daily, metronidazole 500 mg q8hr - continue bowel rest; NPO except ice chips and meds - continue pain control with acetaminophen 1000 mg IV q8hr PRN, dilaudid 0.5 mg q3hr PRN- avoid NSAIDs if possible d/t pt's plavix - will advance diet based upon pt's symptoms Hypokalemia - 3.3 this AM, repleted Constipation - once acute diverticulitis resolves, may need bowel regimen Fibromyalgia - continue gabapentin Anxiety/bipolar 1 disorder - continue home quetiapine qHS, temazepam qHS, mirtazapine PRN, bupropion qAM Hypothyroidism - TSH WNL in Mar 2022 - continue home levothyroxine Hx of breast cancer - Hold anastrazole temporarily in setting of infection DVT ppx: lovenox 40mg SQ daily Diet: NPO w/ LR at 125 mL/hr Code: full Disposition: med/surg (2) Constipation: (3) Failure of outpatient treatment: (4) History of breast cancer: (5) Bipolar 1 disorder: (6) Anxiety: (7) Fibromyalgia: (8) Hypokalemia: Admission and Anticipated Discharge Date Admission Date: July 17, 2022 Supervising Physician Co-Signing Physician Notes I personally examined the patient and verified all kelly points of history and exam, discussed case, and agree with decision making with Dr Willis Walls. Pelvic pain feeling better. Migraine now. Vitals noted, in general she is sitting in a dark room with sunglasses on and appears somewhat uncomfortable consistent with a migrainous status. Breathing unlabored no accessory muscle use good effort. Skin shows no rashes no pallor or icterus. Neuro without focal deficits. Diverticulitisdoubt she truly failed outpatient treatment, given that resistant bacteria are very rare in this diagnosis and she has no abscess on repeated imaging. At the same time, she seemed to have uncontrolled pain which certainly would warrant inpatient management until pain improves and her ability to take p.o. improves. Continue IV antibiotics and pain control for now. Migraineaggressive management given that no contraindications to doing so exist, and hopefully this will get her feeling better fairly quickly. Dispositiononce her pain is improved and she is able to eat and drink reliably to take p.o. antibiotics, anticipate she will be able to have the majority of her treatment from home. DVT prophylaxisLovenox Subjective Pt seen at bedside this AM. She is complaining of a severe headache that is making her nauseous. She still endorses left sided abdominal pain. No bowel movement. No chest pain or SOB. Review of Systems Review of Systems: As per HPI Physical Exam Physical Exam: Constitutional: well appearing, no acute distress HEENT: normocephalic, no conjunctival injection CV: RRR, no murmur, no LE edema Respiratory: CTA bilaterally. No rhonchi, wheezes, or crackles. No increased work of breathing GI: soft, nondistended, tender in LLQ w/o rebound tenderness, + bowel sounds MSK: no gross deformities noted Skin: warm, dry, no rashes Neuro: alert, oriented, no FND noted Psych: mood and affect congruent Results & Data Results & Data Vital Signs (Past 12 Hours) Vital Signs Temp Pulse Resp BP Pulse Ox O2 Del Method 07/17/22 20:43 37.3 C 94 H 18 131/76 96 Room Air Resident Activity Tracking Resident Involvement: Resident Care Provided Care Provided: Adult Hospital Medicine
[2022-07-18 08:17] LABS: Basophils # (auto) 0.02 K/uL (0-0.2); Basophils % (auto) 0.2 %; Eosinophils # (auto) 0.14 K/uL (0-0.50); Eosinophils % (auto) 1.3 %; Hematocrit (blood only) 35.9 % (37.0-47.0); Hemoglobin 11.9 g/dl (12.0-16.0); Immature Granulocytes # (auto) 0.06 K/uL (0.01-0.20); Immature Granulocytes % (auto) 0.5 %; Lymphocytes # (auto) 3.57 K/uL (1.2-3.4); Lymphocytes % (auto) 31.9 %; Mean Corpuscular Hemoglobin 31.6 pg (25.0-34.0); Mean Corpuscular Hgb Conc 33.1 g/dL (32.0-36.0); Mean Corpuscular Volume 95.2 fL (80.0-100.0); Mean Platelet Volume 10.4 fL (9.4-12.4); Monocytes % (auto) 8.9 %; Neutrophils # (auto) 6.39 K/uL (1.40-6.50); Neutrophils % (auto) 57.2 %; Platelet Count 234 K/uL (130-400); RDW Coefficient of Variation 13.2 % (11.5-14.5); RDW Standard Deviation 46.7 fL (36.4-46.3); Red Blood Count 3.77 M/uL (4.20-5.40); White Blood Count 11.18 K/ul (4.8-10.8)
[2022-07-18 08:30] LABS: BUN Creatinine Ratio 19.2 (10-20); Calcium 8.7 mg/dl (8.6-10.3); Creatinine Clr Calc Pharmacy 78.3 ml/min; Est GFR (African American) 101.6 ml/min; Est GFR (Non-African American) 87.7 ml/min; Potassium 3.3 mmol/L (3.5-5.1)
[2022-07-18] MEDS: HYDROmorphone INJ 0.5 MG/0.5 ML SYR IV PRN (08:54)
[2022-07-18] MEDS: GABAPENTIN 300 MG CAP PO SCH ×2 (08:56→21:49)
[2022-07-18] MEDS: VITAMIN B COMPLEX TAB PO SCH (08:56)
[2022-07-18] MEDS: CALCIUM 600MG + VIT D 400 IU TAB PO SCH (08:56)
[2022-07-18] MEDS: buPROPion XL 300 MG TABCR PO SCH (08:56)
[2022-07-18] MEDS: metroNIDAZOLE 500 MG/100 ML BAG IV SCH ×2 (08:59→17:00)
[2022-07-18] MEDS ORDERED: POTASSIUM CHLORIDE / WTR 10 MEQ/100 ML PLCT IV SCH (09:00)
[2022-07-18] MEDS: POTASSIUM CHLORIDE / WTR 10 MEQ/100 ML PLCT IV SCH ×4 (10:05→13:41)
[2022-07-18] MEDS ORDERED: KETOROLAC TROMETHAMINE 15 MG/ML VIAL IV ONE ×2 (10:49→16:26)
[2022-07-18] MEDS ORDERED: diphenhydrAMINE Capsule 25 MG CAP PO ONE ×2 (10:49→16:26)
[2022-07-18] MEDS: MAGNESIUM SULFATE / D5W 1 GM/100 ML BAG IV SCH ×2 (12:22→14:06)
--- NOTE | 2022-07-18 13:02 | Billing Data ---
Date of Service July 18, 2022 Coding Level of Care Code 26222 SUB INP/OBS CARE MIN
[2022-07-18] MEDS: cefTRIAXone SODIUM 2,000 MG in DEXTROSE 5% 50 ML IV SCH (16:13)
[2022-07-18] MEDS: lisinopril 2.5 MG TAB PO SCH (21:47)
[2022-07-18] MEDS: ENOXAPARIN INJ 40 MG/0.4 ML SYR SQ SCH (21:47)
[2022-07-18] MEDS: PANTOprazole 40 MG TAB PO SCH (21:47)
[2022-07-18] MEDS: PRAVASTATIN SOD 10 MG TAB PO SCH (21:48)
[2022-07-18] MEDS: CLOPIDOGREL BISULFATE 75 MG TAB PO SCH (21:48)
[2022-07-18] MEDS: QUEtiapine FUMARATE 25 MG TABLET PO SCH (21:49)
[2022-07-18] MEDS: TEMAZEPAM 7.5 MG CAPSULE PO SCH (21:49)
[2022-07-18] MEDS: ACETAMINOPHEN 1,000 MG/100 ML VIAL IV PRN (21:53)
[2022-07-19] MEDS: metroNIDAZOLE 500 MG/100 ML BAG IV SCH ×2 (00:33→09:09)
[2022-07-19] MEDS: LEVOTHYROXINE SODIUM 25 MCG TABLET PO SCH (05:18)
[2022-07-19] MEDS: HYDROmorphone INJ 0.5 MG/0.5 ML SYR IV PRN ×2 (05:20→09:36)
[2022-07-19 07:14] VITALS: BP 136/85; PULSE 71; TEMP 98.8; O2SAT 97
[2022-07-19] MEDS: LACTATED RINGER'S 1,000 ML IV SCH (07:35)
[2022-07-19 07:50] LABS: Hematocrit (blood only) 32.7 % (37.0-47.0); Hemoglobin 10.9 g/dl (12.0-16.0); Mean Corpuscular Hemoglobin 31.6 pg (25.0-34.0); Mean Corpuscular Hgb Conc 33.3 g/dL (32.0-36.0); Mean Corpuscular Volume 94.8 fL (80.0-100.0); Mean Platelet Volume 10.3 fL (9.4-12.4); Platelet Count 217 K/uL (130-400); RDW Coefficient of Variation 12.8 % (11.5-14.5); RDW Standard Deviation 44.5 fL (36.4-46.3); Red Blood Count 3.45 M/uL (4.20-5.40); White Blood Count 6.37 K/ul (4.8-10.8)
[2022-07-19 08:40] LABS: BUN Creatinine Ratio 13.2 (10-20); Calcium 8.3 mg/dl (8.6-10.3); Creatinine Clr Calc Pharmacy 75.2 ml/min; Est GFR (African American) 96.8 ml/min; Est GFR (Non-African American) 83.5 ml/min; Potassium 3.6 mmol/L (3.5-5.1)
[2022-07-19] MEDS: buPROPion XL 300 MG TABCR PO SCH (09:09)
[2022-07-19] MEDS: CALCIUM 600MG + VIT D 400 IU TAB PO SCH (09:10)
[2022-07-19] MEDS: GABAPENTIN 300 MG CAP PO SCH (09:10)
[2022-07-19] MEDS: VITAMIN B COMPLEX TAB PO SCH (09:10)
--- NOTE | 2022-07-19 10:21 | Hospitalist Progress Note ---
Date of Service July 19, 2022 Assessment & Plan (1) Acute diverticulitis: Plan: Pt is a 61 yo female with PMH of bipolar disorder, DM, hx of breast cancer, TIA (2019), HLD, and PTSD presenting with worsening left lower quadrant pain. She was seen in the ER 07/16 and prescribed augmentin for diverticulitis but her pain worsened so she came back to the hospital. Acute diverticulitis - s/p sigmoid colon resection - per pt, last colonoscopy was ~6 months ago which showed a diverticula - continue ceftriaxone 2g daily, metronidazole 500 mg q8hr - continue pain control with acetaminophen 1000 mg IV q8hr PRN, dilaudid 0.5 mg q3hr PRN Migraine - multifactorial; pt does note that caffeine withdrawal most likely played a part - s/p toradol 10 mg x2, benadryl 25 mg x2, Mg 2g - resolved today Hypokalemia - 3.3 this AM, repleted - repeat WNL Constipation/melena - pt had been constipated, but her bowels are now moving - pt makes note of black, tarry stools; FOBT pending - if blood in stool, most likely from active diverticulitis; Hgb stable Fibromyalgia - continue gabapentin Anxiety/bipolar 1 disorder - continue home quetiapine qHS, temazepam qHS, mirtazapine PRN, bupropion qAM Hypothyroidism - TSH WNL in Mar 2022 - continue home levothyroxine Hx of breast cancer - Hold anastrazole temporarily in setting of infection DVT ppx: lovenox 40mg SQ daily Diet: full liquids w/ LR at 125 mL/hr Code: full Disposition: med/surg (2) Constipation: (3) History of breast cancer: (4) Bipolar 1 disorder: (5) Anxiety: (6) Fibromyalgia: (7) Hypokalemia: (8) Hypothyroidism: Admission and Anticipated Discharge Date Admission Date: July 17, 2022 Subjective Pt seen at bedside this AM. Her migraine from yesterday has resolved. However, her abdominal pain is worsened today. She noted left lower quadrant pain and epigastric pain that she describes as sharp. She also makes note that she has started to move her bowels. Her first two were small and hard; however, now she is having black, tarry diarrhea. She has had some liquids which she tolerated well. Review of Systems Review of Systems: As per HPI Physical Exam Physical Exam: Constitutional: well appearing, no acute distress HEENT: normocephalic, no conjunctival injection CV: RRR, no murmur, no LE edema Respiratory: CTA bilaterally. No rhonchi, wheezes, or crackles. No increased work of breathing GI: soft, mildly distended, tender in LLQ with involuntary guarding, + bowel sounds MSK: no gross deformities noted Skin: warm, dry, no rashes Neuro: alert, oriented, no FND noted Psych: mood and affect congruent Results & Data Results & Data Vital Signs (Past 12 Hours) Vital Signs Temp Pulse Resp BP Pulse Ox O2 Del Method 07/19/22 07:13 37.1 C 71 18 136/85 97 Room Air Resident Activity Tracking Resident Involvement: Resident Care Provided Care Provided: Adult Hospital Medicine
--- NOTE | 2022-07-19 14:26 | Discharge Summary ---
Date of Service July 19, 2022 Admission HPI Per Admitting Provider Shaheed Son is a 61 year old female who presents to the ER with left lower quadrant abdominal pain. Symptoms started yesterday morning and progressed throughout the day. Left lower quadrant pain without radiation, severity 9/10 at worse, currently 4/10. Associated constipation, nausea but no vomiting. No melena or hematochezia. She came to the ER last night and was diagnosed with diverticulitis. She was discharged with Augmentin (first dose given in the ER) and diet advice. Despite antibiotics and only have sips of water her pain became worse this morning and throughout today as the pain medication wore off and oxycodone alone did not significantly affect the pain therefore she decided to return to the ER. She has a significant history of diverticulitis and had a partial sigmoidectomy to avoid further episodes. Current episode she is concerned was exacerbated by recently given lamotrigine by her psychiatrist and subsequent allergic reaction to this requiring steroids for the last few days. Allergic rash now resolved. Admission Exam Per Admitting Provider Constitutional: WD/WN, vitals as above Respiratory: normal respiratory effort, lungs clear to auscultation Cardiovascular: RRR, no murmur, no edema Gastrointestinal (Abdomen): Inspection/Auscultation: abdomen normal to inspection and + hypoactive bowel sounds; abdomen not distended Percussion/Palpation: + abdomen tender (LLQ without rebound), + guarding and abdomen soft; abdomen not rigid Musculoskeletal: no cyanosis or clubbing, extremities motor strength 5/5 Skin: no rashes, warm and dry Neurologic: moves all extremities and awake; not confused Psychiatric: A+Ox3, euthymic affect Principal Diagnosis acute diverticulitis Discharge Exam Constitutional: well appearing, no acute distress HEENT: normocephalic, no conjunctival injection CV: regular rhythm, no murmur, no LE edema Respiratory: Clear to auscultation bilaterally. No rhonchi, wheezes, or crackles. No increased work of breathing GI: soft, mildly distended, tender to palpation in LLQ w/ voluntary guarding, positive bowel sounds MSK: no gross deformities noted Skin: warm, dry, no rashes Neuro: alert, oriented, no FND noted Discharge Data Allergies Allergy/AdvReac Type Severity Reaction Status Date / Time bacitracin Allergy Severe ITCHING/INF Verified 07/16/22 22:39 ECTION Quinolones Allergy Severe ANAPHYLAXIS/HEART Verified 07/16/22 22:39 FLUTTERING rizatriptan Allergy Severe SHORTNESS Verified 07/16/22 22:39 OF BREATH amoxicillin [From Augmentin] Allergy Intermediate Hives Verified 07/16/22 22:39 ciprofloxacin Allergy Intermediate Palpitations, Verified 07/16/22 22:39 rash, clavulanic acid Allergy Intermediate Hives Verified 07/16/22 22:39 [From Augmentin] clindamycin Allergy Intermediate Hives Verified 07/16/22 22:39 escitalopram [From Lexapro] Allergy Intermediate Hives Verified 07/16/22 22:39 nickel Allergy Intermediate SKIN Verified 07/16/22 22:39 IRRITATION ofloxacin Allergy Intermediate Rash Verified 07/16/22 22:39 polymyxin B Allergy Intermediate Hives Verified 07/16/22 22:39 silver Allergy Intermediate pruritus Verified 07/16/22 22:39 varenicline [From Chantix] Allergy Intermediate ITCHY HIVES Verified 07/16/22 22:39 lamotrigine Allergy Mild RASH Verified 07/16/22 22:39 neomycin Allergy Mild ITCHING Verified 07/16/22 22:39 WITH THE OINTMENT adhesive Allergy Unknown ALLERGIC Verified 07/16/22 22:39 TO MEDICATED STERI-STRIPS AND SOME TAPE-RASH BLISTE citalopram Allergy Unknown CAN'T Verified 07/16/22 22:39 REMEMBER celecoxib AdvReac Intermediate GI SYMPTOMS Verified 07/16/22 22:39 dichloralphenazone AdvReac Intermediate ALTERED Verified 07/16/22 22:39 [From Midrin] MENTAL STATUS isometheptene [From Midrin] AdvReac Intermediate ALTERED Verified 07/16/22 22:39 MENTAL STATUS paroxetine AdvReac Intermediate OUT OF Verified 07/16/22 22:39 BODY EXPERIENCE piperacillin AdvReac Unknown BETALACTAMASE Verified 07/16/22 22:39 INHIBITORS-UNKNOWN tazobactam AdvReac Unknown BETALACTAMASE Verified 07/16/22 22:39 INHIBITORS-UNKNOWN Unclassified Drugs AdvReac Unknown BL PLASTIC Uncoded 07/16/22 22:39 SUTURE-SKIN IRRITATION/RED/SWELLING ITCHY-NYLON? Consultations 07/17/22 11:48 ED Decision to Admit Stat Ordered Studies 07/17/22 09:39 CT Abd and Pelvis [CT abd pelvis IV con only] Stat IMPRESSION: 1. Acute sigmoid diverticulitis with mildly progressed circumferential wall and adjacent peritoneal thickening with adjacent inflammatory stranding compared to the study obtained approximately 12 hours earlier. No pneumoperitoneum or abscess identified. 2. No bowel obstruction. 3. Hepatomegaly with hepatic steatosis. 4. Partial sigmoidectomy. 5. Additional findings as above. Hospital Course (1) Acute diverticulitis: Pt is a 61 yo female with PMH of bipolar disorder, DM, hx of breast cancer, TIA (2019), HLD, and PTSD presenting with worsening left lower quadrant pain. She was seen in the ER 07/16 and prescribed augmentin for diverticulitis but her pain worsened so she came back to the hospital. Acute diverticulitis - s/p sigmoid resection w/ hx of recurrent diverticulitis (last episode years ago) - per pt, last colonoscopy 6 months ago that showed one diverticula - tx w/ ceftriaxone 2g daily and metronidazole 500 mg q8hr while hospitalized - continue pain control with tylenol PRN - pt tolerating pain and diet prior to d/c - d/c home with cefdinir 300 mg BID, metronidazole 500 mg TID x10 days Hypokalemia - K 3.3, repleted Constipation/melena - pt had multiple BM prior to discharge; she did notice that they were black/tarry- FOBT neg - encouraged pt to use miralax daily to help regulate her BM Fibromyalgia - continue gabapentin Anxiety/bipolar 1 disorder - continue home quetiapine qHS, temazepam qHS, mirtazapine PRN, bupropion qAM Hypothyroidism - TSH WNL in Mar 2022 - continue home levothyroxine Hx of breast cancer - Hold anastrazole temporarily in setting of infection DVT ppx: lovenox 40mg SQ daily Diet: low fiber Code: full Disposition: home (2) Hypokalemia: (3) Constipation: (4) Fibromyalgia: (5) Bipolar 1 disorder: (6) History of breast cancer: (7) Hypothyroidism: Total Time Total Time Spent Total Time Spent (In Minutes): <30 Discharge Plan Discharge Items Patient Disposition: Home - Self-Care Reason For Visit: ACUTE DIVERTICULITIS Discharge Diagnosis: acute diverticulitis Condition on Discharge: Fair Activity: Per Instructions section Non-emergency contact: Primary Care Provider Call non-emergency contact if: you have any medication questions, your symptoms worsen and your pain is not controlled Follow-up/Referrals: Justice Madera [Primary Care Provider] - 07/26/22 9:45 am (Appointment will be with ) Diet: Low Fiber Addtl Attending Provider Instructions: You were admitted to the hospital for abdominal pain caused by acute diverticulitis. You were treated with pain medications and IV antibiotics. Your pain had improved and you were able to tolerated a reasonable diet prior to discharge. In terms of your constipation/irregular bowel patterns, it is recommended that you use miralax daily. You should use anywhere between 1-3 caps per day depending on your previous day's bowel movements. A reasonable goal is 1-2 medium bowel movements per day. If you have more bowel movements than this in a day, you should decrease your next day's dose of miralax. If you have less than the goal bowel movements, you may increase your next day's dose of miralax. Please discuss this further with your PCP if you have any issues/concerns. A discharge summary will be sent to your primary care physician to ensure continuity of care. Please bring this discharge summary with you to your next office appointment so that your provider can review it at that time. Medications: Your medication list has been reviewed and reconciled upon discharge to ensure accuracy and continuity of care. An updated list of all your medications is included with your hospital discharge paperwork. Please review this list closely and make note of any changes to your medications. - You should continue the oral antibiotic regimen of metronidazole and cefdinir. The cefdinir should be taken twice per day and the metronidazole should be taken three times per day. These should be taken for 10 days. Follow up appointments: - Make a follow up appointment with your PCP within the next week. It is very important that you follow up with them shortly after discharge from the hospital. - Keep all of your follow up appointments as already scheduled. If you cannot make an appointment, notify your provider. CONTACT YOUR PRIMARY CARE PROVIDER if you experience any of the following: - Difficulty following your treatment plan - Difficulty taking any of your medications CALL 911 OR GO TO THE EMERGENCY DEPARTMENT if you experience any of the following: - Sudden, severe abdominal pain or nausea/vomiting - Severe chest pain or chest pain that radiates to your jaw or arm - Sudden, severe shortness of breath or difficulty breathing Pending Studies at Discharge: No Stand-Alone Forms: My [facility], Smoking Cessation Medications and DC Order Prescriptions: New cefdinir 300 mg capsule 300 mg PO BID 10 Days Qty: 20 0RF metronidazole 500 mg tablet 500 mg PO TID 10 Days Qty: 30 0RF Continued bupropion HCl 300 mg tablet extended release 24 hr 300 mg PO QAM Caltrate 600 plus D 600 mg (1,500 mg)-800 unit tablet,chewable 1 tab PO QAM Ozempic 0.25 mg or 0.5 mg(2 mg/1.5 mL) pen injector 0.25 mg subcut WK Rx Instructions: TAKES ON SATURDAY EVENINGS gabapentin 300 mg capsule See Rx Instructions .ROUTE .COMPLEX Rx Instructions: 300 mg orally; TAKES 300 MG QAM, THEN 600 MG QPM. lisinopril 2.5 mg tablet 2.5 mg PO HS ondansetron HCl 8 mg tablet 8 - 16 mg PO DIRECTED PRN (Reason: Nausea) mirtazapine 15 mg tablet 7.5 mg PO HS PRN (Reason: Insomnia) anastrozole 1 mg tablet 1 mg PO QAM ascorbic acid (vitamin C) 500 mg tablet 500 mg PO DAILY Xiidra 5 % dropperette 1 drp ophthalmic (eye) BID PRN (Reason: Dry Eyes) Rx Instructions: administer approximately 12 hours apart pantoprazole 20 mg tablet,delayed release (DR/EC) 20 mg PO QPM Triple Magnesium Complex 400 mg magnesium capsule 0 mg PO DAILY Rx Instructions: UNKNOWN STRENGTH glucosamine sulfate [Glucosamine] 500 mg tablet 500 mg PO DAILY Rx Instructions: administer with a meal pravastatin 10 mg tablet 10 mg PO HS Qty: 30 0RF fenofibrate micronized 134 mg capsule 134 mg PO QAM levothyroxine 25 mcg Tablet 25 mcg PO QAM multivitamin Tablet 1 tab PO QAM quetiapine 25 mg tablet 25 - 50 mg PO HS clopidogrel [Plavix] 75 mg Tablet 75 mg PO HS vitamin B complex Tablet 1 tab PO QAM omega 4-[id number]-[id number]-fish oil [Fish Oil] 1,000 mg (120 mg-180 mg) Capsule 1 cap PO QPM temazepam 22.5 mg capsule 11.25 - 22.5 mg PO HS biotin 1,000 mcg Tablet,Chewable 1,000 mcg PO DAILY Discontinued amoxicillin-pot clavulanate 875-125 mg tablet 1 tab PO BID Qty: 14 0RF Rx Instructions: with food Discharge Orders: Discharge Order (Routine); Ordered 07/19/22 Ordered By: Pastora Atwood Admission Data Admit Date/Time: 07/17/22 12:04 Attending Provider: Teo Huang Admit Provider: Casa Iraheta Primary Care Provider: Justice Madera Other Providers: Casa Iraheta Other Interventions: Discharge Summary Assessment (RN) Last Done: 07/19/22 14:28 Supervising Physician Co-Signing Physician Notes I personally examined the patient and verified all kelly points of history and exam, discussed case, and agree with decision making with Dr Atwood. Migraine gone. Still has some abdominal pain. Had some black stool and diarrhea. Feels up to going home thoughfeels like she can take p.o. well (did well with dinner, did well with breakfast) and feels like pain is tolerable. Vitals noted, in general she is awake and alert pleasant no distress. HEENT normocephalic atraumatic mucous membranes moist. Abdomen is soft but she does have left lower quadrant tenderness mild voluntary guarding no involuntary guarding no rebound. Diverticulitisdoubt she truly failed outpatient treatment, given that resistant bacteria are very rare in this diagnosis and she has no abscess on repeated imaging. Doing better from pain controlgiven her myriad of allergiesHome on cefdinir and metronidazole given that she is tolerating ceftriaxone and metronidazole here. With her dark stoolsdiscussed that she had a colonoscopy about 6 months ago, and it is also not uncommon for people to have oozing and bleeding with inflammatory infection such as diverticulitistherefore it is much lower concern given the overall context. Outpatient follow-up. Migraineresolved Lovenox was utilized during her stay for DVT prophylaxis Safe/stable for home
--- NOTE | 2022-07-19 17:17 | Billing Data ---
Date of Service July 19, 2022 Coding Level of Care Code 16580 IN/OBS DISCH 30 MIN/LESS
[2022-07-19] MEDS ORDERED: PANTOprazole 40 MG TAB PO SCH (21:00)
== END 2022-07-19 14:47 | disposition home or self-care (01) | DRG 392 ==
LOC: ED 09:15 → 3N 12:04 → SUATTDRO 12:04 → 3N 13:37

== ENCOUNTER 2023-04-16 14:31 | Observation (INO) ==
--- NOTE | 2023-04-16 14:46 | Electrocardiogram Report ---
Test Reason : Blood Pressure : / mmHG Vent. Rate : 084 BPM Atrial Rate : 084 BPM P-R Int : 160 ms QRS Dur : 062 ms QT Int : 334 ms P-R-T Axes : 041 059 050 degrees QTc Int : 394 ms Normal sinus rhythm Normal ECG When compared with ECG of 15-FEB-2023 16:51, No significant change Confirmed by Micha Thomson ([id number]) on 04/16/2023 2:46:06 PM Referred By: Confirmed By:Micha Thomson
--- NOTE | 2023-04-16 14:51 | Emergency Department Note ---
Impression & Plan Chest pain, Elevated troponin, History of breast cancer ED Provider Note NAME: TYRELL OLIVARES AGE: 62 SEX: F ARRIVES VIA: Ambulance INFORMANT: Patient ED PROVIDER(S): Ryan Aquino MD CHIEF COMPLAINT: Chest pain PLAN: Disposition: Admit MEDICAL DECISION MAKING: The patient is a pleasant 62-year-old woman with a past medical history of breast cancer status post bilateral mastectomy in December 2022 at [facility] in [place] currently undergoing chemotherapy at [facility] who presents to the emergency department for evaluation of anterior chest pain that began several hours prior to arrival. She reports the symptoms occurred when she was at rest and felt like a weight on her chest. She reports she has had pain related to her mastectomy in the past and gave it some time to see if it would get better as it has in the past but it did not. She was given 324 mg of aspirin and 1 nitroglycerin by EMS and the patient reports her pain did go away upon arriving to emergency department. Otherwise she has any recent fevers, chills, cough, congestion, GI or symptoms. She reports she did have increased pain when she would breathe deeply when the pain initially began. She is on Plavix for a history of stroke. She is not on anticoagulation otherwise and has no prior history of DVT/PE. On evaluation patient is no acute distress, afebrile with stable vital signs. She appears clinically dry. EKG without overt acute ischemia. Chest x-ray negative for acute cardiopulmonary process per my preliminary independent interpretation. WBC 4.6, nonspecific. H/H similar to prior. Platelets within normal limits. Chemistry without metabolic acidosis. Magnesium 1.5 with IV repletion provided. Initial high-sensitivity troponin 185 with delta 2-hour high-sensitivity 218, nonspecific. Lipase not elevated. CT of the chest was performed and was negative for PE or pneumonia. Multiple small pulmonary nodules are unchanged and stable. No evidence of metastatic disease within the chest. Given the patient's episode of chest pain with elevated troponin patient referred to hospital service for further evaluation. Given only minimal elevation in troponin on repeat and normal EKG in the setting of having unremarkable echocardiogram last month and history of negative stress echo in 2019 suspect ACS is less likely at this time. Pain elevated troponin may be related to patient's cancer treatment. Case was discussed with Jose E Nettles, [facility], and Dr. Mitchell [facility] hospitalist who will evaluate the patient for admission. Further management per admitting team. Triage Nursing notes reviewed and agree them. Prior/external medical records reviewed Vital Signs: reviewed Differential diagnosis: Cardiac ischemia, aortic dissection, pulmonary embolism, pneumothorax, pneumonia, pericarditis, myocarditis, esophageal rupture, GERD, cholecystitis, pancreatitis, musculoskeletal, as well as other pathologies. ER treatment provided: See below. Diagnostics interpreted by me: ECG: Normal sinus rhythm, 84 bpm, no ectopy, no overt ST elevation or depression, QTc 394, QRS 62. Cardiac Monitoring: An order for continuous cardiac monitoring was placed and demonstrated Normal sinus rhythm, 84 bpm, no ectopy. Laboratory studies: See below Imaging studies: See below Consultation(s): Jose E Nettles, [facility], and Dr. Mitchell [facility] [place] HPI: The patient is a pleasant 62-year-old woman with a past medical history of breast cancer status post bilateral mastectomy in December 2022 at [facility] currently undergoing chemotherapy at [facility] who presents to the emergency department for evaluation of anterior chest pain that began several hours prior to arrival. She reports the symptoms occurred when she was at rest and felt like a weight on her chest. She reports she has had pain related to her mastectomy in the past and gave it some time to see if it would get better as it has in the past but it did not. She was given 324 mg of aspirin and 1 nitroglycerin by EMS and the patient reports her pain did go away upon arriving to emergency department. Otherwise she has any recent fevers, chills, cough, congestion, GI or symptoms. She reports she did have increased pain when she would breathe deeply when the pain initially began. She is on Plavix for a history of stroke. She is not on anticoagulation otherwise and has no prior history of DVT/PE. ROS: See above HPI for pertinent positives & negatives. A total of 10 systems reviewed and were otherwise negative. VITALS:See Below PHYSICAL EXAMINATION: GENERAL: Awake, alert, in no distress HENT: Normocephalic, atraumatic. Oropharynx with dry mucous membranes and otherwise unremarkable. EYES: Normal conjunctiva. Sclera non-icteric. NECK: Supple. No nuchal rigidity. FROM. No JVD. RESPIRATORY: Clear to auscultation. CARDIAC: Regular rate, normal rhythm. Extremities warm and well perfused. Pulses equal. ABDOMEN: Soft, non-distended. No tenderness to palpation. No rebound or guarding. No masses. RECTAL: Deferred. MUSCULOSKELETAL: Chest examination reveals no tenderness. The back is symmetrical on inspection without obvious abnormality. There is no CVA tenderness to palpation. No joint edema. LOWER EXTREMITIES: Calves are equal size bilaterally and non-tender. No edema. No discoloration. NEURO: Normal sensorium. No sensory or motor deficits noted. SKIN: No rash or jaundice noted. Ryan Aquino MD Past Med/Surg History Medical History Cervical pain (neck) ROM "is ok, but not quite what it should be" Hemochromatosis Vaginismus Sleep apnea no device Schizoaffective disorder Personality disorder Osteoporosis (09/05/12) Morbid obesity Menopause Lymphocytosis Invasive carcinoma of breast Gastroesophageal reflux disease hx-no issues currently Depression Corneal dystrophy Chronic pain Arthralgia of multiple sites Abnormal liver function test Arthritis of foot History of chemotherapy History of anemia Esophagus disorder "narrow esophagus per pt" Diabetes mellitus Endometriosis Scoliosis History of fatty infiltration of liver Diverticular disease History of breast cancer Left 2005 and 2017 and 2022; 2017 h/o lumpectomy + chemo/radiaton Osteoarthritis TMJ (temporomandibular joint disorder) no clicking or locking PTSD (post-traumatic stress disorder) Bipolar disorder History of migraine History of TIA (transient ischemic attack) 07/2019 > no residual effects > follows with Dr. Reji NAVA (hyperlipidemia) Sacral fracture hx-2013 Surgical History Port-A-Cath in place (01/29/23) Insertion of Right Subclavian Access Port, Removal of Left Access Port(Right) - Janet Bajwa DO Port-A-Cath in place (01/25/23) Insertion of Access Port in Left Subclavian with Fluoroscopy(Left) - Janet Bajwa DO Hx of bilateral mastectomy 2022, [facility] for recurrent breast cancer Hx of colectomy sigmoid colectomy, 6-7 years ago Hx of bilateral cataract extraction S/P epidural steroid injection History of vascular access device removed History of breast biopsy History of laparoscopy mult History of lumpectomy of right breast benign History of lumpectomy of left breast x 2 History of appendectomy History of open reduction and internal fixation (ORIF) procedure LLE History of ankle surgery left x 6 History of colonoscopy History of bowel resection due to diverticulitis History of fracture of left ankle left tibia Family History Mother Hypertension Adrenal gland cancer Cancer Father , age 59 of lung cancer Lung cancer smoker Liver cancer Cancer Aunt Breast cancer Other Colorectal cancer No family history of adverse response to anesthesia No family history of bleeding disorder Social History Smoking Status: Current every day smoker Tobacco Type: Cigarettes packs per day: 1; Cigarettes Per Day: 20; Second Hand Exposure: No; Do You Dip or Chew Tobacco: No; Hx Alcohol Use: No Hx Substance Use: Yes (medical card) Prescribed Medications: Painkillers and Tranquilizers Non-Prescribed Medications: Marijuana Last Used Substance: Hours (ago) Last Used Substance Other:: daily at night Substance Use Type Other:: Has medical Marijuana Card Preferred Language: Amharic Communication Ability: Effective Visual Impairment: No Limitations Hearing Ability: Normal Audio/Visual Manager Required: No Beliefs That Will Affect Care: None marital status: Current Living Situation: Spouse Current Living Situation Comment: At home with 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al status: retired and disabled 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: 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 [employer] other: Stopped work in 2001 on disability Feels Safe at Home: Yes Diet: diabetic during the past year weight has: increased > 10 lbs Assistive Devices: Glasses Allergies Allergies Allergy/AdvReac Type Severity Reaction Status Date / Time bacitracin Allergy Severe ITCHING/INF Verified 02/07/23 12:48 ECTION Quinolones Allergy Severe ANAPHYLAXIS/HEART Verified 02/07/23 12:48 FLUTTERING rizatriptan Allergy Severe SHORTNESS Verified 02/07/23 12:48 OF BREATH amoxicillin [From Augmentin] Allergy Intermediate Hives Verified 02/07/23 12:48 ciprofloxacin Allergy Intermediate Palpitations, Verified 02/07/23 12:48 rash, clavulanic acid Allergy Intermediate Hives Verified 02/07/23 12:48 [From Augmentin] clindamycin Allergy Intermediate Hives Verified 02/07/23 12:48 escitalopram [From Lexapro] Allergy Intermediate Hives Verified 02/07/23 12:48 nickel Allergy Intermediate SKIN Verified 02/07/23 12:48 IRRITATION ofloxacin Allergy Intermediate Rash Verified 02/07/23 12:48 polymyxin B Allergy Intermediate Hives Verified 02/07/23 12:48 silver Allergy Intermediate pruritus Verified 02/07/23 12:48 varenicline [From Chantix] Allergy Intermediate ITCHY HIVES Verified 02/07/23 12:48 lamotrigine Allergy Mild RASH Verified 02/07/23 12:48 neomycin Allergy Mild ITCHING Verified 02/07/23 12:48 WITH THE OINTMENT adhesive Allergy Unknown ALLERGIC Verified 02/07/23 12:48 TO MEDICATED STERI-STRIPS AND SOME TAPE-RASH BLISTE citalopram Allergy Unknown CAN'T Verified 02/07/23 12:48 REMEMBER celecoxib AdvReac Intermediate GI SYMPTOMS Verified 02/07/23 12:48 dichloralphenazone AdvReac Intermediate ALTERED Verified 02/07/23 12:48 [From Midrin] MENTAL STATUS isometheptene [From Midrin] AdvReac Intermediate ALTERED Verified 02/07/23 12:48 MENTAL STATUS paroxetine AdvReac Intermediate OUT OF Verified 02/07/23 12:48 BODY EXPERIENCE piperacillin AdvReac Unknown BETALACTAMASE Verified 02/07/23 12:48 INHIBITORS-UNKNOWN tazobactam AdvReac Unknown BETALACTAMASE Verified 02/07/23 12:48 INHIBITORS-UNKNOWN Home Meds Home Medications Medication Instructions Recorded Confirmed bupropion HCl 300 mg 24 hr tablet, 300 mg PO QAM 12/12/17 04/16/23 extended release (Wellbutrin XL) fenofibrate micronized 134 mg 134 mg PO QAM 04/16/19 04/16/23 capsule levothyroxine 25 mcg tablet 25 mcg PO QAM 09/12/19 04/16/23 lisinopril 2.5 mg tablet 2.5 mg PO HS 04/05/20 04/16/23 mirtazapine 15 mg tablet (Remeron) 15 mg PO HS 01/03/21 04/16/23 calcium carbonate 600 mg-vitamin 1 tab PO HS 01/18/21 04/16/23 D3 20 mcg (800 unit) chewable tablet (Caltrate 600 plus D) ondansetron HCl 8 mg tablet 8 - 16 mg PO DIRECTED PRN Nausea 03/21/21 04/16/23 anastrozole 1 mg tablet 1 mg PO HS 04/07/21 04/16/23 gabapentin 300 mg capsule 600 mg PO TID 01/18/22 04/16/23 clopidogrel 75 mg tablet (Plavix) 75 mg PO HS 01/31/22 04/16/23 multivitamin 1 tab PO QAM 01/31/22 04/16/23 quetiapine 25 mg tablet (Seroquel) 50 mg PO HS 01/31/22 04/16/23 vitamin B complex 1 tab PO QAM 01/31/22 04/16/23 pantoprazole 20 mg tablet,delayed 20 mg PO DAILY PRN Heartburn 05/14/22 04/16/23 release temazepam 22.5 mg capsule 22.5 mg PO HS 07/16/22 04/16/23 (Restoril) acetaminophen 500 mg capsule 1,000 mg PO Q6H PRN Pain 10/23/22 04/16/23 hydroxyzine HCl 25 mg tablet 25 mg PO BID PRN Anxiety/ALLERGY 10/23/22 04/16/23 alprazolam 0.5 mg tablet 0.5 mg PO DAILY PRN severe anxiety 02/07/23 04/16/23 cyclobenzaprine 10 mg tablet 10 mg PO DAILY PRN Muscle Spasm 02/07/23 04/16/23 dexamethasone 4 mg tablet See Rx Instructions .Route .COMPLEX 02/07/23 04/16/23 melatonin 10 mg tablet 10 mg PO HS PRN Sleep 02/07/23 04/16/23 olopatadine 0.2 % eye drops 1 drp ophthalmic (eye) DAILY PRN 02/07/23 04/16/23 Dry Eye(S) ascorbic acid (vitamin C) 500 mg 500 mg PO HS 04/16/23 04/16/23 chewable tablet semaglutide 0.25 mg or 0.5 mg (2 0.25 mg subcut WK 04/16/23 04/16/23 mg/3 mL) subcutaneous pen injector (Ozempic) Previous Rx's Medication Instructions Recorded pravastatin 10 mg tablet 10 mg PO HS #30 tabs 07/13/19 oxycodone 5 mg tablet 5 mg PO Q6H PRN pain #10 tabs 01/29/23 Results & Data (ED) Vital Signs Vital Signs - 24 hr 04/16/23 14:35 04/16/23 16:12 04/16/23 16:31 Temperature 37.1 C Temperature Source Oral Pulse Rate 87 81 Pulse Rate [Apical] 78 Pulse Rhythm [Apical] Regular Pulse Strength [Apical] Normal Respiratory Rate 20 18 Respiratory Effort / Characteristics Non-Labored Spontaneous Non-Labored Respiratory Depth Normal Normal Respiratory Pattern Regular Regular Blood Pressure 105/75 Blood Pressure [Right Arm] 94/67 L Blood Pressure Mean 85 Blood Pressure Mean [Right Arm] 76 Blood Pressure Position Semi-fowlers Blood Pressure Position [Right Arm] Lying Pulse Oximetry 96 94 Oxygen Delivery Method Room Air Room Air Sepsis Recent Fever Within 48 Hours No Sepsis New/Unexplained Change in Mental Status No Sepsis Action Taken by Nursing No Action Required Laboratory Data Attestation: I reviewed the patient's lab results. 04/16/23 14:45 04/16/23 14:45 Lab Results 04/16/23 04/16/23 Range/Units 14:45 16:59 WBC 4.65 L (4.8-10.8) K/ul RBC 3.39 L (4.20-5.40) M/uL Hgb 11.4 L (12.0-16.0) g/dl Hct 34.4 L (37.0-47.0) % MCV 101.5 H (80.0-100.0) fL MCH 33.6 (25.0-34.0) pg MCHC 33.1 (32.0-36.0) g/dL RDW Std Deviation 60.4 H (36.4-46.3) fL RDW Coeff of Laureen 16.5 H (11.5-14.5) % Plt Count 290 (130-400) K/uL MPV 10.6 (9.4-12.4) fL Immature Gran % (Auto) 0.6 % Neut % (Auto) 32.3 % Lymph % (Auto) 59.1 % [place] % (Auto) 6.5 % Eos % (Auto) 0.9 % Baso % (Auto) 0.6 % Neut # (Auto) 1.50 (1.40-6.50) K/uL Lymph # (Auto) 2.75 (1.20-3.40) K/uL [place] # (Auto) 0.30 (0.11-0.59) K/uL Eos # (Auto) 0.04 (0.00-0.50) K/uL Baso # (Auto) 0.03 (0.00-0.20) K/uL Immature Gran # (Auto) 0.03 (0.01-0.20) K/uL ESR 34 H (0-30) mm/hr Sodium 138 (136-145) mmol/L Potassium 4.5 (3.5-5.1) mmol/L Chloride 106 (98-107) mmol/L Carbon Dioxide 26 (21-32) mmol/L Anion Gap 6 (3-11) BUN 14 (6-23) mg/dl Creatinine 0.64 (0.6-1.2) mg/dl Est Cr Clr Drug Dosing 85.6 ml/min Est GFR ( Amer) 109.3 ml/min Est GFR (Non-Af Amer) 94.3 ml/min BUN/Creatinine Ratio 21.9 H (10-20) Glucose 106 H (70-99(Fasting)) mg/dl Calcium 9.0 (8.6-10.3) mg/dl Magnesium 1.5 L (1.7-2.4) mg/dl Total Bilirubin 0.2 (0.2-1.0) mg/dl AST 14 (13-39) U/L ALT 25 (7-52) U/L Alkaline Phosphatase 74 (34-104) U/L Troponin I High Sens 185.6 H* 218.2 H* (0-14) pg/ml C-Reactive Protein < 0.50 (0-0.5) mg/dl Total Protein 6.6 (6.0-8.3) gm/dl Albumin 4.2 (3.4-5.0) gm/dl Globulin 2.4 L (2.5-4.0) gm/dl Albumin/Globulin Ratio 1.8 (0.9-2) Lipase 47 (11-82) U/L Administered Medications Discontinued Medications Sodium Chloride (Nss) 1,000 mls @ 999 mls/hr IV .Q1H1M ONE Stop: 04/16/23 16:12 Last Infusion: 04/16/23 17:03 Dose: Infused Documented By: Admin: 04/16/23 15:26 Dose: 999 mls/hr Documented By: SHARON Acetaminophen (Ofirmev) 1,000 mg in 100 mls @ 400 mls/hr IV NOW STA Stop: 04/16/23 15:26 Last Infusion: 04/16/23 17:03 Dose: Infused Documented By: Admin: 04/16/23 15:26 Dose: 400 mls/hr Documented By: SHARON Magnesium Sulfate/Dextrose (Magnesium Sulfate / D5w) 1 gm in 100 mls @ 100 mls/hr IV NOW STA Stop: 04/16/23 18:15 Last Admin: 04/16/23 18:29 Dose: 100 mls/hr Documented By: SEBASTIAN Ioversol (Optiray 320 125ml) 116 ml IV ONCE ONE Stop: 04/16/23 15:53 Last Admin: 04/16/23 15:53 Dose: 116 ml Documented By: KE Imaging Data Radiologist's Impression: Chest X-Ray 04/16/23 14:37 XR chest 1V portable HISTORY: 62 years-old Female Chest pain, nonspecific COMPARISON: 02/15/2023 TECHNIQUE: AP view of the chest FINDINGS: Cardiomediastinal and hilar silhouettes are within normal limits. Right subclavian Xzngot-m-Knau catheter is unchanged. No pneumothorax, pleural effusion or airspace consolidation. Bilateral axillary surgical clips related to mastectomy. The bones appear grossly intact. IMPRESSION: No acute process of the chest. ACT 112: Negative or not required by law. The above report was generated using voice recognition software. It may contain grammatical, syntax or spelling errors. Electronically signed by: Eliu Nicolas M.D. 04/16/2023 3:31 PM Chest CTA 04/16/23 15:01 CT ANGIOGRAPHY OF THE CHEST, PULMONARY EMBOLUS PROTOCOL CLINICAL HISTORY: chest pain, pleurisy, breast CA, r/o PE COMPARISON STUDY: Chest CT February 07, 2023. Chest radiograph performed earlier today. TECHNIQUE: Following IV administration of 116 mL of Optiray, helical axial images of the chest were obtained utilizing the pulmonary embolus protocol. Maximal intensity projections and sagittal and coronal reformats were viewed on an independent 3D workstation. IV contrast was administered without complication. Automated exposure control was utilized for the study. A dose lowering technique was utilized adhering to the principles of ALARA. CT DOSE: 624.42 mGy.cm FINDINGS: No pulmonary emboli are identified. Size of the heart is normal. There is no pericardial effusion. No enlarged thoracic lymph nodes are present. Multiple small pulmonary nodules measuring up to 5 mm are unchanged since earlier chest CTs. No new pulmonary nodules are present. There is no consolidation to suggest pneumonia. There is no pneumothorax or pleural effusion. There are postoperative findings consistent with bilateral mastectomies. Right-sided Cpfxso-q-Otkj is in place. A 2.6 cm low-attenuation left adrenal nodule is unchanged. This is benign. No suspicious lesions within the bony thorax are identified. IMPRESSION: 1. No pulmonary emboli identified. 2. No acute intrathoracic findings. 3. No change in multiple small pulmonary nodules which are probably benign. These can be assessed on follow-up exams to ensure continued stability. 4. No evidence for metastatic disease within the chest. ACT 112: Negative or not required by law. Electronically signed by: Buddy Del Real M.D. 04/16/2023 4:11 PM Discharge Plan Visit Data Chief Complaint: Chest Pain Stated Complaint: CHEST PAIN ED Provider: Ryan Aquino Discharge Problem: Chest pain, Elevated troponin, History of breast cancer Forms [facility] Prescriptions Prescriptions: No Action bupropion HCl [Wellbutrin XL] 300 mg tablet extended release 24 hr 300 mg PO QAM Caltrate 600 plus D 600 mg (1,500 mg)-800 unit tablet,chewable 1 tab PO HS gabapentin 300 mg capsule 600 mg PO TID lisinopril 2.5 mg tablet 2.5 mg PO HS acetaminophen 500 mg capsule 1,000 mg PO Q6H PRN (Reason: Pain) hydroxyzine HCl 25 mg tablet 25 mg PO BID PRN (Reason: Anxiety/ALLERGY) ondansetron HCl 8 mg tablet 8 - 16 mg PO DIRECTED PRN (Reason: Nausea) mirtazapine [Remeron] 15 mg tablet 15 mg PO HS anastrozole 1 mg tablet 1 mg PO HS pantoprazole 20 mg tablet,delayed release (DR/EC) 20 mg PO DAILY PRN (Reason: Heartburn) pravastatin 10 mg tablet 10 mg PO HS Qty: 30 0RF fenofibrate micronized 134 mg capsule 134 mg PO QAM levothyroxine 25 mcg Tablet 25 mcg PO QAM multivitamin Tablet 1 tab PO QAM quetiapine [Seroquel] 25 mg tablet 50 mg PO HS clopidogrel [Plavix] 75 mg Tablet 75 mg PO HS Hold Instructions: Resume on 02/02/23. vitamin B complex Tablet 1 tab PO QAM temazepam [Restoril] 22.5 mg capsule 22.5 mg PO HS Patient Comments: currently out of pills, waiting on refill oxycodone 5 mg tablet 5 mg PO Q6H PRN (Reason: pain) Qty: 10 0RF cyclobenzaprine 10 mg tablet 10 mg PO DAILY PRN (Reason: Muscle Spasm) alprazolam 0.5 mg tablet 0.5 mg PO DAILY PRN (Reason: severe anxiety) dexamethasone 4 mg tablet See Rx Instructions .ROUTE .COMPLEX Rx Instructions: TAKE 5 TABLETS BY MOUTH 12, THEN 6 HOURS PRIOR TO PACLITAXEL DIRECTED. starts saturday nights for wednesdays infusion olopatadine [Pataday] 0.2 % Drops 1 drp OPHTHALMIC (EYE) DAILY PRN (Reason: Dry Eye(S)) melatonin 10 mg Tablet 10 mg PO HS PRN (Reason: Sleep) Ozempic 0.25 mg or 0.5 mg (2 mg/3 mL) pen injector 0.25 mg SUBCUT WK Rx Instructions: ascorbic acid (vitamin C) 500 mg Tablet,Chewable 500 mg PO HS Referrals Referrals: Justice Madera [Primary Care Provider] - Discharge Problem: Chest pain Qualifiers: Chest pain type: unspecified Qualified Code(s): R07.9 - Chest pain, unspecified
[2023-04-16 15:06] LABS: Hematocrit (blood only) 34.4 % (37.0-47.0); Hemoglobin 11.4 g/dl (12.0-16.0); Mean Corpuscular Hemoglobin 33.6 pg (25.0-34.0); Mean Corpuscular Hgb Conc 33.1 g/dL (32.0-36.0); Mean Corpuscular Volume 101.5 fL (80.0-100.0); Mean Platelet Volume 10.6 fL (9.4-12.4); Platelet Count 290 K/uL (130-400); RDW Coefficient of Variation 16.5 % (11.5-14.5); RDW Standard Deviation 60.4 fL (36.4-46.3); Red Blood Count 3.39 M/uL (4.20-5.40); White Blood Count 4.65 K/ul (4.8-10.8)
[2023-04-16 15:23] LABS: Alanine Aminotransferase 25 U/L (7-52); Albumin Globulin Ratio 1.8 (0.9-2); Albumin Level 4.2 gm/dl (3.4-5.0); Alkaline Phosphatase 74 U/L (34-104); Anion Gap 6 (3-11); Aspartate Aminotransferase 14 U/L (13-39); BUN Creatinine Ratio 21.9 (10-20); Bilirubin,Total 0.2 mg/dl (0.2-1.0); Blood Urea Nitrogen 14 mg/dl (6-23); Carbon Dioxide 26 mmol/L (21-32); Chloride 106 mmol/L (98-107); Creatinine Clr Calc Pharmacy 85.6 ml/min; Est GFR (African American) 109.3 ml/min; Est GFR (Non-African American) 94.3 ml/min; Globulin 2.4 gm/dl (2.5-4.0); Glucose 106 mg/dl (70-99(Fasting)); Lipase 47 U/L (11-82); Magnesium 1.5 mg/dl (1.7-2.4); Potassium 4.5 mmol/L (3.5-5.1); Sodium 138 mmol/L (136-145); Total Protein 6.6 gm/dl (6.0-8.3)
[2023-04-16] MEDS: ACETAMINOPHEN 1,000 MG/100 ML VIAL IV STA (15:26)
[2023-04-16] MEDS: SODIUM CHLORIDE 0.9% 1,000 ML IV ONE (15:26)
[2023-04-16 15:33] LABS: Troponin I High Sensitivity 185.6 pg/ml (0-14)
--- NOTE | 2023-04-16 15:33 | XRay Report ---
XR chest 1V portable HISTORY: 62 years-old Female Chest pain, nonspecific COMPARISON: 02/15/2023 TECHNIQUE: AP view of the chest FINDINGS: Cardiomediastinal and hilar silhouettes are within normal limits. Right subclavian Fybcqz-j-Aywc cath eter is unchanged. No pneumothorax, pleural effusion or airspace consolidation. Bilateral axillary porter rgical clips related to mastectomy. The bones appear grossly intact. IMPRESSION: No acute process of the chest. ACT 112: Negative or not required by law. The above report was generated using voice recognition software. It may contain grammatical, syntax o r spelling errors. Electronically signed by: Eliu Nicolas M.D. 04/16/2023 3:31 PM
[2023-04-16 15:46] LABS: Basophils # (auto) 0.03 K/uL (0.00-0.20); Basophils % (auto) 0.6 %; Eosinophils # (auto) 0.04 K/uL (0.00-0.50); Eosinophils % (auto) 0.9 %; Immature Granulocytes # (auto) 0.03 K/uL (0.01-0.20); Immature Granulocytes % (auto) 0.6 %; Lymphocytes # (auto) 2.75 K/uL (1.20-3.40); Lymphocytes % (auto) 59.1 %; Monocytes % (auto) 6.5 %; Neutrophils % (auto) 32.3 %
[2023-04-16] MEDS: OPTIRAY 320 125ml IV ONE (15:53)
--- NOTE | 2023-04-16 16:14 | CT Scan Report ---
CT ANGIOGRAPHY OF THE CHEST, PULMONARY EMBOLUS PROTOCOL CLINICAL HISTORY: chest pain, pleurisy, breast CA, r/o PE COMPARISON STUDY: Chest CT February 07, 2023. Chest radiograph performed earlier today. TECHNIQUE: Following IV administration of 116 mL of Optiray, helical axial images of the chest were o btained utilizing the pulmonary embolus protocol. Maximal intensity projections and sagittal and cor onal reformats were viewed on an independent 3D workstation. IV contrast was administered without co mplication. Automated exposure control was utilized for the study. A dose lowering technique was ut ilized adhering to the principles of ALARA. CT DOSE: 624.42 mGy.cm FINDINGS: No pulmonary emboli are identified. Size of the heart is normal. There is no pericardial e ffusion. No enlarged thoracic lymph nodes are present. Multiple small pulmonary nodules measuring up to 5 mm are unchanged since earlier chest CTs. No new pulmonary nodules are present. There is no cons olidation to suggest pneumonia. There is no pneumothorax or pleural effusion. There are postoperative findings consistent with bilateral mastectomies. Right-sided Lvhlup-q-Bqtq is in place. A 2.6 cm low -attenuation left adrenal nodule is unchanged. This is benign. No suspicious lesions within the bony thorax are identified. IMPRESSION: 1. No pulmonary emboli identified. 2. No acute intrathoracic findings. 3. No change in multiple small pulmonary nodules which are probably benign. These can be assessed on follow-up exams to ensure continued stability. 4. No evidence for metastatic disease within the chest. ACT 112: Negative or not required by law. Electronically signed by: Buddy Del Real M.D. 04/16/2023 4:11 PM
--- NOTE | 2023-04-16 17:34 | History & Physical Report ---
Date of Service April 16, 2023 Assessment & Plan (1) Chest pain: Plan: -Admit to med/tele on pusle oximetry -Currently hemodynamically stable and chest discomfort free -Presented to the ED with acute onset of substernal chest pressure -Was given full dose aspirin and one dose of SL Nitroglycerine in route by EMS with resolution of symptoms -Initial high sen trop elevated at 186 ---> 218 on 2 hour repeat -ECG shows NSR without acute ST segment or T-wave changes -Chest xray and CT of the chest with PE protocol were negative for acute findings -At this time the etiology of the patient's chest pressure with troponin elevation appears to be most likely associated with possible chemotherapy induced heart damage -The patient had a TTE on 04/04/23, prior to chemotherapy initiation which showed grade I diastolic dysfunction but was otherwise unremarkable -Patient appears to have been receiving infusions of Doxorubicin which is known to have a risk of Cardiomyopathy -Will obtain BNP, ESR, ERP on admission -Continue to monitor on tele and trend trop q6h -Will consult Cardiology and heme/onc to assist with evaluation and treatment -Will add daily IV pantoprazole to treat possible gastritis/esophagitis -SQ lovenox for DVT PPX -Will obtain am TTE for further evaluation -HH/DMII diet -AM CBC, BMP, mag (2) Elevated troponin: Plan: -See chest pain (3) Recurrent cancer of left breast: Plan: -Heme/onc consult placed (4) Cerebrovascular disease: Plan: -Continue plavix and statin (5) Hypothyroidism: Plan: -Conitnue levothyroxine (6) Diabetes mellitus: Plan: -Hold Ozempic -Monitor BSG ACHS,goal is 110-140 -Is not on home insulin therapy -Start CF of 50 ACHS for now, hold CR and basal insulin to avoid hypoglycemia -Adjust regimen as needed (7) Chronic pain: Plan: -Will continue her prn oxycodone for now -Will hold prn Cyclobenzaprine to avoid oversedation -PRN IV narcan for oversedation/respiratory depression -Monitor on pulse oximetry (8) Bipolar 1 disorder: Plan: -Continue Wellbutrin -Continue HS Seroquel and temazepam Plan The patient was discussed with Dr. Mitchell at the time of the admission History of Present Illness Chief Complaint: Chest Pain Primary Care Provider: Justice Hummel is a 62 year old female with a PMH significant for recurrent left breast cancer S/P BL mastectomy at [facility] on 12/19/22, currently on anastrazole and undergoing weekly chemotherapy (Doxorubicin) infusions with most recent treatment on 04/10/23, HTN, hypothyroidism, GERD, and Bipolar 1 Disorder who presented to the [facility] ED via EMS on 04/16/23 with acute onset of substernal chest pain/pressure. In route to the ED she was given full dose Aspirin and one dose of SL nitroglycerine with resolution of her symptoms. She remained stable in the ED and remained chest pain free. Labs were significant for a magnesium of 1.5, high sen trop of 186 ---> 218 on 2 hour repeat. ECG was negative for acute ST segment or T-wave changes. Chest xray was read as negative for acute findings. CT of the chest with PE protocol was read as "1. No pulmonary emboli identified. 2. No acute intrathoracic findings. 3. No change in multiple small pulmonary nodules which are probably benign. These can be assessed on follow-up exams to ensure continued stability. 4. No evidence for metastatic disease within the chest.". Prior to admission the patient was given 1L NSS, 1gm IV tylenol, and 1gm IV mag sulfate. At the time of the exam the patient was lying in bed in no acute distress with her sitting bedside, history was obtained form both. The patient states that she has been receiving weekly chemotherapy infusions over the past 4 weeks with her next dose scheduled for tomorrow. Over the past week she has been experiencing increased fatigue and decreased appetite. This am around 0900 while at rest she experienced acute onset of substernal chest pressure. She described the sensation as though "someone was sitting on my chest". She waited for approximately an hour but the chest pressure continued so she called 911. She did have improvement in her chest discomfort after receiving Aspirin and Nitroglycerin by EMS. She is currently chest discomfort free at the time of my exam. She denies recent fever, chills, cough, SOB, and pain, mediport pain, nausea, vomiting, dysuria, hematuria, melena, diarrhea, LE swelling, and recent trauma. She is a full code and would want her to make medical decisions for her if she cannot make them herself. I discussed the patient home medications with her to confirm what pain medi cations, anxiolytics, and sleep aids she is currently taking. She is currently taking PRN oxycodone for bone/cancer related pain. She is currently prescribed Seroquel and Temazepam for sleep and uses prn Cyclobenzaprine for muscle spasms. She tells me she was previously taking HS Remeron with the HS Seroquel but the Remeron has not been re-filled in approximately one month. I explained to her that I am concerned for oversedation when she is taking all of these medications in a similar time frame as this can cause oversedation and respiratory suppression/failure, confusion, and increased risk for falls. Please refer to Dr. Mitchell's attestation for any changes to the treatment plan Allergies Allergy/AdvReac Type Severity Reaction Status Date / Time bacitracin Allergy Severe ITCHING/INF Verified 02/07/23 12:48 ECTION Quinolones Allergy Severe ANAPHYLAXIS/HEART Verified 02/07/23 12:48 FLUTTERING rizatriptan Allergy Severe SHORTNESS Verified 02/07/23 12:48 OF BREATH amoxicillin [From Augmentin] Allergy Intermediate Hives Verified 02/07/23 12:48 ciprofloxacin Allergy Intermediate Palpitations, Verified 02/07/23 12:48 rash, clavulanic acid Allergy Intermediate Hives Verified 02/07/23 12:48 [From Augmentin] clindamycin Allergy Intermediate Hives Verified 02/07/23 12:48 escitalopram [From Lexapro] Allergy Intermediate Hives Verified 02/07/23 12:48 nickel Allergy Intermediate SKIN Verified 02/07/23 12:48 IRRITATION ofloxacin Allergy Intermediate Rash Verified 02/07/23 12:48 polymyxin B Allergy Intermediate Hives Verified 02/07/23 12:48 silver Allergy Intermediate pruritus Verified 02/07/23 12:48 varenicline [From Chantix] Allergy Intermediate ITCHY HIVES Verified 02/07/23 12:48 lamotrigine Allergy Mild RASH Verified 02/07/23 12:48 neomycin Allergy Mild ITCHING Verified 02/07/23 12:48 WITH THE OINTMENT adhesive Allergy Unknown ALLERGIC Verified 02/07/23 12:48 TO MEDICATED STERI-STRIPS AND SOME TAPE-RASH BLISTE citalopram Allergy Unknown CAN'T Verified 02/07/23 12:48 REMEMBER celecoxib AdvReac Intermediate GI SYMPTOMS Verified 02/07/23 12:48 dichloralphenazone AdvReac Intermediate ALTERED Verified 02/07/23 12:48 [From Midrin] MENTAL STATUS isometheptene [From Midrin] AdvReac Intermediate ALTERED Verified 02/07/23 12:48 MENTAL STATUS paroxetine AdvReac Intermediate OUT OF Verified 02/07/23 12:48 BODY EXPERIENCE piperacillin AdvReac Unknown BETALACTAMASE Verified 02/07/23 12:48 INHIBITORS-UNKNOWN tazobactam AdvReac Unknown BETALACTAMASE Verified 02/07/23 12:48 INHIBITORS-UNKNOWN Home Medications Medication Instructions Recorded Confirmed Type bupropion HCl 300 mg 24 hr tablet, 300 mg PO QAM 12/12/17 04/16/23 History extended release (Wellbutrin XL) fenofibrate micronized 134 mg 134 mg PO QAM 04/16/19 04/16/23 History capsule pravastatin 10 mg tablet 10 mg PO HS #30 tabs 07/13/19 04/16/23 Rx levothyroxine 25 mcg tablet 25 mcg PO QAM 09/12/19 04/16/23 History lisinopril 2.5 mg tablet 2.5 mg PO HS 04/05/20 04/16/23 History mirtazapine 15 mg tablet (Remeron) 15 mg PO HS 01/03/21 04/16/23 History calcium carbonate 600 mg-vitamin 1 tab PO HS 01/18/21 04/16/23 History D3 20 mcg (800 unit) chewable tablet (Caltrate 600 plus D) ondansetron HCl 8 mg tablet 8 - 16 mg PO DIRECTED PRN Nausea 03/21/21 04/16/23 History anastrozole 1 mg tablet 1 mg PO HS 04/07/21 04/16/23 History gabapentin 300 mg capsule 600 mg PO TID 01/18/22 04/16/23 History clopidogrel 75 mg tablet (Plavix) 75 mg PO HS 01/31/22 04/16/23 History multivitamin 1 tab PO QAM 01/31/22 04/16/23 History quetiapine 25 mg tablet (Seroquel) 50 mg PO HS 01/31/22 04/16/23 History vitamin B complex 1 tab PO QAM 01/31/22 04/16/23 History pantoprazole 20 mg tablet,delayed 20 mg PO DAILY PRN Heartburn 05/14/22 04/16/23 History release temazepam 22.5 mg capsule 22.5 mg PO HS 07/16/22 04/16/23 History (Restoril) acetaminophen 500 mg capsule 1,000 mg PO Q6H PRN Pain 10/23/22 04/16/23 History hydroxyzine HCl 25 mg tablet 25 mg PO BID PRN Anxiety/ALLERGY 10/23/22 04/16/23 History oxycodone 5 mg tablet 5 mg PO Q6H PRN pain #10 tabs 01/29/23 04/16/23 Rx alprazolam 0.5 mg tablet 0.5 mg PO DAILY PRN severe anxiety 02/07/23 04/16/23 History cyclobenzaprine 10 mg tablet 10 mg PO DAILY PRN Muscle Spasm 02/07/23 04/16/23 History dexamethasone 4 mg tablet See Rx Instructions .Route .COMPLEX 02/07/23 04/16/23 History melatonin 10 mg tablet 10 mg PO HS PRN Sleep 02/07/23 04/16/23 History olopatadine 0.2 % eye drops 1 drp ophthalmic (eye) DAILY PRN 02/07/23 04/16/23 History Dry Eye(S) ascorbic acid (vitamin C) 500 mg 500 mg PO HS 04/16/23 04/16/23 History chewable tablet semaglutide 0.25 mg or 0.5 mg (2 0.25 mg subcut WK 04/16/23 04/16/23 History mg/3 mL) subcutaneous pen injector (Ozempic) Past Med/Surg History Medical History Cervical pain (neck) ROM "is ok, but not quite what it should be" Hemochromatosis Vaginismus Sleep apnea no device Schizoaffective disorder Personality disorder Osteoporosis (09/05/12) Morbid obesity Menopause Lymphocytosis Invasive carcinoma of breast Gastroesophageal reflux disease hx-no issues currently Depression Corneal dystrophy Chronic pain Arthralgia of multiple sites Abnormal liver function test Arthritis of foot History of chemotherapy History of anemia Esophagus disorder "narrow esophagus per pt" Diabetes mellitus Endometriosis Scoliosis History of fatty infiltration of liver Diverticular disease History of breast cancer Left 2005 and 2017 and 2017 h/o lumpectomy + chemo/radiaton Osteoarthritis TMJ (temporomandibular joint disorder) no clicking or locking PTSD (post-traumatic stress disorder) Bipolar disorder History of migraine History of TIA (transient ischemic attack) 07/2019 > no residual effects > follows with Dr. Reji NAVA (hyperlipidemia) Sacral fracture hx-2013 Surgical History Port-A-Cath in place (01/29/23) Insertion of Right Subclavian Access Port, Removal of Left Access Port(Right) - Janet Bajwa DO Port-A-Cath in place (01/25/23) Insertion of Access Port in Left Subclavian with Fluoroscopy(Left) - Janet Bajwa, DO Hx of bilateral mastectomy 2022, [facility] for recurrent breast cancer Hx of colectomy sigmoid colectomy, 6-7 years ago Hx of bilateral cataract extraction S/P epidural steroid injection History of vascular access device removed History of breast biopsy History of laparoscopy mult History of lumpectomy of right breast benign History of lumpectomy of left breast x 2 History of appendectomy History of open reduction and internal fixation (ORIF) procedure LLE History of ankle surgery left x 6 History of colonoscopy History of bowel resection due to diverticulitis History of fracture of left ankle left tibia Family History Mother Hypertension Adrenal gland cancer Cancer Father , age 59 of lung cancer Lung cancer smoker Liver cancer Cancer Aunt Breast cancer Other Colorectal cancer No family history of adverse response to anesthesia No family history of bleeding disorder Social History Smoking Status: Current every day smoker Tobacco Type: Cigarettes packs per day: 1; Cigarettes Per Day: 20; Second Hand Exposure: No; Do You Dip or Chew Tobacco: No; Hx Alcohol Use: No Hx Substance Use: Yes (medical card) Prescribed Medications: Painkillers and Tranquilizers Non-Prescribed Medications: Marijuana Last Used Substance: Hours (ago) Last Used Substance Other:: daily at night Substance Use Type Other:: Has medical Marijuana Card Preferred Language: Citizen Of [place] Communication Ability: Effective Visual Impairment: No Limitations Hearing Ability: Normal 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 Beliefs That Will Affect Care: None marital status: Current Living Situation: Spouse Current Living Situation Comment: At home with 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al status: retired and disabled 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 [employer] other: Stopped work in 2001 on disability Feels Safe at Home: Yes Diet: diabetic during the past year weight has: increased > 10 lbs Assistive Devices: Glasses Physical Exam Physical Exam: Physical Exam: General: In no acute distress, stated age, chronically ill appearing but non- toxic HEENT: Normocephalic, atraumatic, no scleral icterus, pupils around round, symmetrical, and reactive to light, moist mucus membranes, trachea midline, no thyromegaly Chest/Pulm: No respiratory distress, no sings of infection or damage to the Mediport in the right upper chest, symmetrical chest expansion, clear breath sounds throughout Cardiac: RRR, no murmurs noted Abdomen: Negative for ascites and bruising, normoactive bowel sounds, soft, non-tender to palpation throughout Musculoskeletal: Patient with some reproducible pain with palpation of the sternum, but she does not believe this is the same discomfort she experienced earlier, Symmetrical and without signs of acute trauma, upper and lower extremities with full ROM, no atrophy, spasticity, or flaccidity Extremities: Radial, dorsalis pedis, and posterior tibial pulses are intact and symmetrical, no edema noted in the BL LE's Skin: Warm, dry, no rashes , lesions, or scars noted Neuro: Alert and oriented to person, place, month, year, and president, no focal defects, no tremors noted Psych: No acute distress, calm and cooperative during the exam Results & Data Results & Data Vital Signs (Past 12 Hours) Vital Signs Temp Pulse Pulse Resp BP BP Pulse Ox 04/16/23 16:31 78 18 94/67 L 94 04/16/23 16:12 81 04/16/23 14:35 37.1 C 87 20 105/75 96 O2 Del Method 04/16/23 16:31 Room Air 04/16/23 16:12 04/16/23 14:35 Room Air Laboratory Results Abnormal lab results 04/16/23 04/16/23 Range/Units 14:45 16:59 WBC 4.65 L (4.8-10.8) K/ul RBC 3.39 L (4.20-5.40) M/uL Hgb 11.4 L (12.0-16.0) g/dl Hct 34.4 L (37.0-47.0) % MCV 101.5 H (80.0-100.0) fL RDW Std Deviation 60.4 H (36.4-46.3) fL RDW Coeff of Laureen 16.5 H (11.5-14.5) % ESR 34 H (0-30) mm/hr BUN/Creatinine Ratio 21.9 H (10-20) Glucose 106 H (70-99(Fasting)) mg/dl Magnesium 1.5 L (1.7-2.4) mg/dl Troponin I High Sens 185.6 H* 218.2 H* (0-14) pg/ml Globulin 2.4 L (2.5-4.0) gm/dl Diagnostic Findings Chest X-Ray 04/16/23 14:37 XR chest 1V portable HISTORY: 62 years-old Female Chest pain, nonspecific COMPARISON: 02/15/2023 TECHNIQUE: AP view of the chest FINDINGS: Cardiomediastinal and hilar silhouettes are within normal limits. Right subclavian Xsiecm-m-Eeqj catheter is unchanged. No pneumothorax, pleural effusion or airspace consolidation. Bilateral axillary surgical clips related to mastectomy. The bones appear grossly intact. IMPRESSION: No acute process of the chest. ACT 112: Negative or not required by law. The above report was generated using voice recognition software. It may contain grammatical, syntax or spelling errors. Electronically signed by: Eliu Nicolas M.D. 04/16/2023 3:31 PM Chest CTA 04/16/23 15:01 CT ANGIOGRAPHY OF THE CHEST, PULMONARY EMBOLUS PROTOCOL CLINICAL HISTORY: chest pain, pleurisy, breast CA, r/o PE COMPARISON STUDY: Chest CT February 07, 2023. Chest radiograph performed earlier today. TECHNIQUE: Following IV administration of 116 mL of Optiray, helical axial images of the chest were obtained utilizing the pulmonary embolus protocol. Maximal intensity projections and sagittal and coronal reformats were viewed on an independent 3D workstation. IV contrast was administered without complication. Automated exposure control was utilized for the study. A dose lowering technique was utilized adhering to the principles of ALARA. CT DOSE: 624.42 mGy.cm FINDINGS: No pulmonary emboli are identified. Size of the heart is normal. There is no pericardial effusion. No enlarged thoracic lymph nodes are present. Multiple small pulmonary nodules measuring up to 5 mm are unchanged since earlier chest CTs. No new pulmonary nodules are present. There is no consolidation to suggest pneumonia. There is no pneumothorax or pleural effusion. There are postoperative findings consistent with bilateral mastectomies. Right-sided Sdamzm-p-Vmps is in place. A 2.6 cm low-attenuation left adrenal nodule is unchanged. This is benign. No suspicious lesions within the bony thorax are identified. IMPRESSION: 1. No pulmonary emboli identified. 2. No acute intrathoracic findings. 3. No change in multiple small pulmonary nodules which are probably benign. These can be assessed on follow-up exams to ensure continued stability. 4. No evidence for metastatic disease within the chest. ACT 112: Negative or not required by law. Electronically signed by: Buddy Del Real M.D. 04/16/2023 4:11 PM ECG Additional Comments: Normal sinus rhythm Normal ECG When compared with ECG of 15-FEB-2023 16:51, No significant change Confirmed by Micha Thomson ([id number]) on 04/16/2023 2:46:06 PM Code Status & VTE Plan Code Status Full code VTE Prophylaxis Plan VTE Prophylaxis will be ordered: Yes Supervising Physician Co-Signing Physician Notes Patient seen and examined, chart reviewed, case discussed with Jose E Nettles, CHANEL and I agree with the assessment and plan as above except as otherwise noted Labs and images reviewed 62-year-old with past medical history of breast cancer s/p mastectomy on anastr ozole and doxorubicin therapy, hypertension, hypothyroidism who presented with substernal chest pain/chest pressure with complete resolution following aspirin/sublingual nitro. CT of the chest is with small likely benign pulmonary nodules, no evidence of metastatic disease, and no acute intrathoracic findings. EKG is without acute ischemic findings, troponin is elevated at 185/218. Trended every 6 hours. Echo is pendin, DDx does include chemotherapy-induced cardiomyopathy. Seen at the bedside, she remains pain-free on reassessment. No acute questions or concerns other than following up on the echo and having her troponin trended overnight. She is not short of breath and has no lightheadedness or dizziness. Lungs are clear heart rate is regular. PG Care Time/CCT Total # of Minutes Spent Total Time Spent with Patient: Total time spent is greater than 50% in coordination of care (as documented) at patient's floor/unit and/or counseling patient: C[place] [address] INT INP/OBS CARE MIN Patient Type Established Medical Decision Making High Complexity Diagnoses Chest pain R07.9 Chest pain type: unspecified Elevated troponin R79.89 Recurrent cancer of left breast C50.912 Cerebrovascular disease I67.9 Hypothyroidism E03.9 Diabetes mellitus E11.9 Chronic pain G89.29 Bipolar 1 disorder F31.9 (1) Chest pain Chest pain type: unspecified Qualified Code(s): R07.9 - Chest pain, unspecified
[2023-04-16 18:24] LABS: C Reactive Protein < 0.50 mg/dl (0-0.5)
[2023-04-16] MEDS: MAGNESIUM SULFATE / D5W 1 GM/100 ML BAG IV STA (18:29)
[2023-04-16] MEDS ORDERED: GLUCAGON FOR INJ 1 MG VIAL SQ PRN (18:44)
[2023-04-16] MEDS ORDERED: GLUCOSE 40% GEL 15 GM TUBE PO PRN (18:44)
[2023-04-16] MEDS ORDERED: CARBOHYDRATES FOR HYPOGLYCEMIA PO PRN (18:44)
[2023-04-16] MEDS ORDERED: GLUCOSE 10 TAB/TUBE PO PRN (18:44)
[2023-04-16] MEDS ORDERED: DEXTROSE 50% 50 ML SYRINGE IV PRN (18:44)
[2023-04-16] MEDS ORDERED: NALOXONE HCL 0.4 MG/1 ML VIAL/CARP IV PRN (18:47)
[2023-04-16] MEDS ORDERED: ACETAMINOPHEN 500 MG TAB PO PRN (19:48)
[2023-04-16] MEDS ORDERED: MELATONIN 3 MG TAB PO PRN (19:54)
[2023-04-16] MEDS: MAGNESIUM SULFATE / D5W 1 GM/100 ML BAG IV SCH (19:56)
[2023-04-16] MEDS: PRAVASTATIN SOD 10 MG TAB PO SCH (21:20)
[2023-04-16] MEDS: lisinopril 2.5 MG TAB PO SCH (21:20)
[2023-04-16] MEDS: QUEtiapine FUMARATE 25 MG TABLET PO SCH (21:20)
[2023-04-16] MEDS: ENOXAPARIN INJ 40 MG/0.4 ML SYR SQ SCH (21:21)
[2023-04-16] MEDS: CLOPIDOGREL BISULFATE 75 MG TAB PO SCH (21:21)
[2023-04-16] MEDS: ANASTROZOLE 1 MG TAB PO SCH (21:21)
[2023-04-16] MEDS: PANTOprazole 40 MG in SYRINGE 0 ML IV ONE (21:26)
[2023-04-16] MEDS: oxyCODONE HCL IR 5 MG TAB (IMMEDIATE RELEASE) PO PRN (21:30)
[2023-04-16] MEDS: NICOTINE POLACRILEX 2 MG GUM MT PRN (21:30)
[2023-04-16] MEDS: GABAPENTIN 300 MG CAP PO SCH (21:34)
[2023-04-16] MEDS: diphenhydrAMINE Capsule 25 MG CAP PO PRN (22:12)
[2023-04-16] MEDS: INSULIN ASPART PER UNIT CHARGE SC SCH (22:25)
[2023-04-16] MEDS: ASPIRIN CHEW 324 MG ONE (22:30)
[2023-04-17 03:02] LABS: Hematocrit (blood only) 30.9 % (37.0-47.0); Hemoglobin 10.3 g/dl (12.0-16.0); Mean Corpuscular Hemoglobin 33.9 pg (25.0-34.0); Mean Corpuscular Hgb Conc 33.3 g/dL (32.0-36.0); Mean Corpuscular Volume 101.6 fL (80.0-100.0); Mean Platelet Volume 10.1 fL (9.4-12.4); Platelet Count 241 K/uL (130-400); RDW Coefficient of Variation 16.8 % (11.5-14.5); RDW Standard Deviation 61.2 fL (36.4-46.3); Red Blood Count 3.04 M/uL (4.20-5.40); White Blood Count 4.07 K/ul (4.8-10.8)
[2023-04-17 03:21] LABS: BUN Creatinine Ratio 20.4 (10-20); Calcium 8.4 mg/dl (8.6-10.3); Creatinine Clr Calc Pharmacy 101.5 ml/min; Est GFR (African American) 115.6 ml/min; Est GFR (Non-African American) 99.7 ml/min; Potassium 4.1 mmol/L (3.5-5.1)
[2023-04-17 03:28] LABS: Troponin I High Sensitivity 259.4 pg/ml (0-14)
[2023-04-17 03:34] LABS: INR 0.9 (0.9-1.1); Prothrombin Time 10.2 Seconds (9.0-12.0)
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
[2023-04-17 03:47] LABS: ALC (manual) 2.93 K/uL (1.2-3.4); ANC (manual) 1.02 K/uL (1.4-6.5); Eosinophils # (manual) 0.04 K/uL (0-0.50); Eosinophils % (manual) 1 %; Large Granular Lymph # (manua 0.98 K/uL; Large Granular Lymph % (manual) 24 %; Lymphocytes # (manual) 1.95 K/uL (1.2-3.4); Lymphocytes % (manual) 48 %; Monocytes # (manual) 0.08 K/uL (0.11-0.59); Monocytes % (manual) 2 %; Neutrophils # (manual) 1.02 K/uL (1.40-6.50); Neutrophils % (manual) 25 %; Tear Drop Cells 1+
[2023-04-17] MEDS ORDERED: PANTOprazole 40 MG TAB PO SCH (09:00)
[2023-04-17] MEDS: buPROPion XL 300 MG TABCR PO SCH (09:29)
[2023-04-17] MEDS: LEVOTHYROXINE SODIUM 25 MCG TABLET PO SCH (09:30)
[2023-04-17] MEDS: PANTOprazole 40 MG in SYRINGE 0 ML IV SCH (09:32)
--- NOTE | 2023-04-17 10:06 | XCELERA ---
[id number]
[2023-04-17] MEDS: HYDROmorphone HCL 2 MG TAB PO STA (10:53)
--- NOTE | 2023-04-17 11:34 | Electrocardiogram Report ---
Test Reason : Blood Pressure : / mmHG Vent. Rate : 065 BPM Atrial Rate : 065 BPM P-R Int : 168 ms QRS Dur : 082 ms QT Int : 402 ms P-R-T Axes : 053 066 048 degrees QTc Int : 418 ms Normal sinus rhythm with sinus arrhythmia Normal ECG When compared with ECG of 16-APR-2023 14:39, No significant change Confirmed by Micha Thomson ([id number]) on 04/17/2023 11:34:18 AM Referred By: REFERRED SELF Confirmed By:Micha Thomson
--- NOTE | 2023-04-17 12:13 | Oncology Consultation ---
Date of Consultation April 17, 2023 Assessment & Plan (1) Chest pain: (2) Recurrent cancer of left breast: Plan Patient with history of stage III breast cancer currently on adjuvant chemoimmunotherapy treatment presenting with atypical chest pain. EKG and echocardiogram have been unremarkable but troponin remains elevated. -given persistently elevated troponins and chest pain, I am concerned that she could have immunotherapy induced myocarditis. If symptoms do not improve over the next 24 hours, would recommend considering transfer to tertiary center for cardiac MRI to rule out immunotherapy induced myocarditis Thank you for this consult. Oncology will continue following patient while she is in the hospital. Please feel free to call if you have any other questions. History of Present Illness Reason for Consultation: Breast cancer Attending Physician: Jeff Campbell MD History of Present Illness Patient with history of stage III triple negative breast cancer currently on adjuvant chemoimmunotherapy treatment consisting of carboplatin, paclitaxel and pembrolizumab. She recently received cycle 3-day 15 of treatment On 04/10/2023 and presented to the ER with complaints of chest pain. Labs obtained in the ER revealed chemotherapy-induced anemia and leukopenia as well as elevated troponin of 267. EKG and 2D echocardiogram were both unremarkable. Allergies Allergy/AdvReac Type Severity Reaction Status Date / Time bacitracin Allergy Severe ITCHING/INF Verified 02/07/23 12:48 ECTION Quinolones Allergy Severe ANAPHYLAXIS/HEART Verified 02/07/23 12:48 FLUTTERING rizatriptan Allergy Severe SHORTNESS Verified 02/07/23 12:48 OF BREATH amoxicillin [From Augmentin] Allergy Intermediate Hives Verified 02/07/23 12:48 ciprofloxacin Allergy Intermediate Palpitations, Verified 02/07/23 12:48 rash, clavulanic acid Allergy Intermediate Hives Verified 02/07/23 12:48 [From Augmentin] clindamycin Allergy Intermediate Hives Verified 02/07/23 12:48 escitalopram [From Lexapro] Allergy Intermediate Hives Verified 02/07/23 12:48 nickel Allergy Intermediate SKIN Verified 02/07/23 12:48 IRRITATION ofloxacin Allergy Intermediate Rash Verified 02/07/23 12:48 polymyxin B Allergy Intermediate Hives Verified 02/07/23 12:48 silver Allergy Intermediate pruritus Verified 02/07/23 12:48 varenicline [From Chantix] Allergy Intermediate ITCHY HIVES Verified 02/07/23 12:48 lamotrigine Allergy Mild RASH Verified 02/07/23 12:48 neomycin Allergy Mild ITCHING Verified 02/07/23 12:48 WITH THE OINTMENT adhesive Allergy Unknown ALLERGIC Verified 02/07/23 12:48 TO MEDICATED STERI-STRIPS AND SOME TAPE-RASH BLISTE citalopram Allergy Unknown CAN'T Verified 02/07/23 12:48 REMEMBER celecoxib AdvReac Intermediate GI SYMPTOMS Verified 02/07/23 12:48 dichloralphenazone AdvReac Intermediate ALTERED Verified 02/07/23 12:48 [From Midrin] MENTAL STATUS isometheptene [From Midrin] AdvReac Intermediate ALTERED Verified 02/07/23 12:48 MENTAL STATUS paroxetine AdvReac Intermediate OUT OF Verified 02/07/23 12:48 BODY EXPERIENCE piperacillin AdvReac Unknown BETALACTAMASE Verified 02/07/23 12:48 INHIBITORS-UNKNOWN tazobactam AdvReac Unknown BETALACTAMASE Verified 02/07/23 12:48 INHIBITORS-UNKNOWN Home Medications Medication Instructions Recorded Confirmed Type bupropion HCl 300 mg 24 hr tablet, 300 mg PO QAM 12/12/17 04/16/23 History extended release (Wellbutrin XL) fenofibrate micronized 134 mg 134 mg PO QAM 04/16/19 04/16/23 History capsule pravastatin 10 mg tablet 10 mg PO HS #30 tabs 07/13/19 04/16/23 Rx levothyroxine 25 mcg tablet 25 mcg PO QAM 09/12/19 04/16/23 History lisinopril 2.5 mg tablet 2.5 mg PO HS 04/05/20 04/16/23 History mirtazapine 15 mg tablet (Remeron) 15 mg PO HS 01/03/21 04/16/23 History calcium carbonate 600 mg-vitamin 1 tab PO HS 01/18/21 04/16/23 History D3 20 mcg (800 unit) chewable tablet (Caltrate 600 plus D) ondansetron HCl 8 mg tablet 8 - 16 mg PO DIRECTED PRN Nausea 03/21/21 04/16/23 History anastrozole 1 mg tablet 1 mg PO HS 04/07/21 04/16/23 History gabapentin 300 mg capsule 600 mg PO TID 01/18/22 04/16/23 History clopidogrel 75 mg tablet (Plavix) 75 mg PO HS 01/31/22 04/16/23 History multivitamin 1 tab PO QAM 01/31/22 04/16/23 History quetiapine 25 mg tablet (Seroquel) 50 mg PO HS 01/31/22 04/16/23 History vitamin B complex 1 tab PO QAM 01/31/22 04/16/23 History pantoprazole 20 mg tablet,delayed 20 mg PO DAILY PRN Heartburn 05/14/22 04/16/23 History release temazepam 22.5 mg capsule 22.5 mg PO HS 07/16/22 04/16/23 History (Restoril) acetaminophen 500 mg capsule 1,000 mg PO Q6H PRN Pain 10/23/22 04/16/23 History hydroxyzine HCl 25 mg tablet 25 mg PO BID PRN Anxiety/ALLERGY 10/23/22 04/16/23 History oxycodone 5 mg tablet 5 mg PO Q6H PRN pain #10 tabs 01/29/23 04/16/23 Rx alprazolam 0.5 mg tablet 0.5 mg PO DAILY PRN severe anxiety 02/07/23 04/16/23 History cyclobenzaprine 10 mg tablet 10 mg PO DAILY PRN Muscle Spasm 02/07/23 04/16/23 History dexamethasone 4 mg tablet See Rx Instructions .Route .COMPLEX 02/07/23 04/16/23 History melatonin 10 mg tablet 10 mg PO HS PRN Sleep 02/07/23 04/16/23 History olopatadine 0.2 % eye drops 1 drp ophthalmic (eye) DAILY PRN 02/07/23 04/16/23 History Dry Eye(S) ascorbic acid (vitamin C) 500 mg 500 mg PO HS 04/16/23 04/16/23 History chewable tablet semaglutide 0.25 mg or 0.5 mg (2 0.25 mg subcut WK 04/16/23 04/16/23 History mg/3 mL) subcutaneous pen injector (Ozempic) Patient History Medical History Cervical pain (neck) ROM "is ok, but not quite what it should be" Hemochromatosis Vaginismus Sleep apnea no device Schizoaffective disorder Personality disorder Osteoporosis (09/05/12) Morbid obesity Menopause Lymphocytosis Invasive carcinoma of breast Gastroesophageal reflux disease hx-no issues currently Depression Corneal dystrophy Chronic pain Arthralgia of multiple sites Abnormal liver function test Arthritis of foot History of chemotherapy History of anemia Esophagus disorder "narrow esophagus per pt" Diabetes mellitus Endometriosis Scoliosis History of fatty infiltration of liver Diverticular disease History of breast cancer Left 2005 and 2017 and 2022; 2017 h/o lumpectomy + chemo/radiaton Osteoarthritis TMJ (temporomandibular joint disorder) no clicking or locking PTSD (post-traumatic stress disorder) Bipolar disorder History of migraine History of TIA (transient ischemic attack) 07/2019 > no residual effects > follows with Dr. Reji NAVA (hyperlipidemia) Sacral fracture hx-2013 Surgical History Port-A-Cath in place (01/29/23) Insertion of Right Subclavian Access Port, Removal of Left Access Port(Right) - Janet Bajwa DO Port-A-Cath in place (01/25/23) Insertion of Access Port in Left Subclavian with Fluoroscopy(Left) - Janet Bajwa, DO Hx of bilateral mastectomy 2022, [facility] for recurrent breast cancer Hx of colectomy sigmoid colectomy, 6-7 years ago Hx of bilateral cataract extraction S/P epidural steroid injection History of vascular access device removed History of breast biopsy History of laparoscopy mult History of lumpectomy of right breast benign History of lumpectomy of left breast x 2 History of appendectomy History of open reduction and internal fixation (ORIF) procedure LLE History of ankle surgery left x 6 History of colonoscopy History of bowel resection due to diverticulitis History of fracture of left ankle left tibia Family History Mother Hypertension Adrenal gland cancer Cancer Father , age 59 of lung cancer Lung cancer smoker Liver cancer Cancer Aunt Breast cancer Other Colorectal cancer No family history of adverse response to anesthesia No family history of bleeding disorder Social History Smoking Status: Current every day smoker Tobacco Type: Cigarettes packs per day: 1; Cigarettes Per Day: Pack; Second Hand Exposure: No; Do You Dip or Chew Tobacco: No; Hx Alcohol Use: No Hx Substance Use: No Preferred Language: Marshallese Communication Ability: Effective Visual Impairment: No Limitations Hearing Ability: Normal Marine Engine Mechanic Required: No Beliefs That Will Affect Care: None marital status: Current Living Situation: Spouse Current Living Situation Comment: At home with 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al status: retired and disabled 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
--- NOTE | 2023-04-17 13:39 | Cardiology Consultation ---
Date of Consultation April 17, 2023 Assessment & Plan (1) Chest pain: (2) Elevated troponin: (3) Chronic pain: (4) Recurrent cancer of left breast: Plan 62-year-old woman with no prior cardiac history undergoing chemotherapy for recurrent breast carcinoma presented with chest pain and elevated troponin but benign appearing ECG. There was some suggestion that she was on doxorubicin but apparently this is inaccurate, her oncology note from December mentions paclitaxel, carboplatin, and pembrolizumab as planned therapies. Abrupt onset of anginal type chest pain with subsequent troponin rise are suggestive of acute coronary syndrome, however her ECG was completely benign and echocardiogram shows no wall motion abnormalities. Will check creatinine kinase to better quantify degree of myocardial damage. Continue clopidogrel, originally started for TIA, as antiplatelet agent. She did receive a dose of aspirin in the ER as well. Adequate analgesia for her cancer related pain will be important to decrease hyperadrenergic state. Favor conservative management with observation throughout today and repeat ECG for any further typical of chest discomfort (she had a separate atypical chest pain phenomenon today which was unlike her presenting complaint). If ECG changes with chest pain, may merit aggressive evaluation with cardiac catheterization. If no recurrent pain, could risk stratify tomorrow, likely with dobutamine stress echocardiogram. An alternative explanation for her chest discomfort with troponin rise would be a myocarditis from pembrolizumab, if her troponin remains elevated and coronary disease seems unlikely, would need to entertain this possibility. Therefore, continue to trend troponin values. History of Present Illness Reason for Consultation: chest pain, elevated trop, on chemo Requesting Physician: Jeff Campbell MD Attending Physician: Jeff Campbell MD History of Present Illness 62-year-old woman with no prior cardiac history but with history of recurrent breast cancer status post bilateral mastectomy December 2022 undergoing chemotherapy was admitted 04/16/23 with significant chest discomfort, noted to have elevated troponin but unremarkable ECG. Her initial discomfort felt as if she had "someone sitting on my chest" and lasted an hour or so before she received aspirin and nitroglycerin by EMS with resolution of her discomfort. She subsequently developed a separate type of chest discomfort which she described as a "walnut rolling around in my chest" with short sharp moments of pain lasting only a few seconds. She denied any dyspnea, palpitations, lightheadedness, presyncope, or syncope. She does note significant arthralgias and generalized pain related to her cancer for which she usually takes oxycodone. She has been on clopidogrel ever since a TIA a few years ago. Aside from her current noncardiac cancer related chronic pain, she had no chest pain at the time of my evaluation this morning. Allergies Allergy/AdvReac Type Severity Reaction Status Date / Time bacitracin Allergy Severe ITCHING/INF Verified 02/07/23 12:48 ECTION Quinolones Allergy Severe ANAPHYLAXIS/HEART Verified 02/07/23 12:48 FLUTTERING rizatriptan Allergy Severe SHORTNESS Verified 02/07/23 12:48 OF BREATH amoxicillin [From Augmentin] Allergy Intermediate Hives Verified 02/07/23 12:48 ciprofloxacin Allergy Intermediate Palpitations, Verified 02/07/23 12:48 rash, clavulanic acid Allergy Intermediate Hives Verified 02/07/23 12:48 [From Augmentin] clindamycin Allergy Intermediate Hives Verified 02/07/23 12:48 escitalopram [From Lexapro] Allergy Intermediate Hives Verified 02/07/23 12:48 nickel Allergy Intermediate SKIN Verified 02/07/23 12:48 IRRITATION ofloxacin Allergy Intermediate Rash Verified 02/07/23 12:48 polymyxin B Allergy Intermediate Hives Verified 02/07/23 12:48 silver Allergy Intermediate pruritus Verified 02/07/23 12:48 varenicline [From Chantix] Allergy Intermediate ITCHY HIVES Verified 02/07/23 12:48 lamotrigine Allergy Mild RASH Verified 02/07/23 12:48 neomycin Allergy Mild ITCHING Verified 02/07/23 12:48 WITH THE OINTMENT adhesive Allergy Unknown ALLERGIC Verified 02/07/23 12:48 TO MEDICATED STERI-STRIPS AND SOME TAPE-RASH BLISTE citalopram Allergy Unknown CAN'T Verified 02/07/23 12:48 REMEMBER celecoxib AdvReac Intermediate GI SYMPTOMS Verified 02/07/23 12:48 dichloralphenazone AdvReac Intermediate ALTERED Verified 02/07/23 12:48 [From Midrin] MENTAL STATUS isometheptene [From Midrin] AdvReac Intermediate ALTERED Verified 02/07/23 12:48 MENTAL STATUS paroxetine AdvReac Intermediate OUT OF Verified 02/07/23 12:48 BODY EXPERIENCE piperacillin AdvReac Unknown BETALACTAMASE Verified 02/07/23 12:48 INHIBITORS-UNKNOWN tazobactam AdvReac Unknown BETALACTAMASE Verified 02/07/23 12:48 INHIBITORS-UNKNOWN Home Medications Medication Instructions Recorded Confirmed Type bupropion HCl 300 mg 24 hr tablet, 300 mg PO QAM 12/12/17 04/16/23 History extended release (Wellbutrin XL) fenofibrate micronized 134 mg 134 mg PO QAM 04/16/19 04/16/23 History capsule pravastatin 10 mg tablet 10 mg PO HS #30 tabs 07/13/19 04/16/23 Rx levothyroxine 25 mcg tablet 25 mcg PO QAM 09/12/19 04/16/23 History lisinopril 2.5 mg tablet 2.5 mg PO HS 04/05/20 04/16/23 History mirtazapine 15 mg tablet (Remeron) 15 mg PO HS 01/03/21 04/16/23 History calcium carbonate 600 mg-vitamin 1 tab PO HS 01/18/21 04/16/23 History D3 20 mcg (800 unit) chewable tablet (Caltrate 600 plus D) ondansetron HCl 8 mg tablet 8 - 16 mg PO DIRECTED PRN Nausea 03/21/21 04/16/23 History anastrozole 1 mg tablet 1 mg PO HS 04/07/21 04/16/23 History gabapentin 300 mg capsule 600 mg PO TID 01/18/22 04/16/23 History clopidogrel 75 mg tablet (Plavix) 75 mg PO HS 01/31/22 04/16/23 History multivitamin 1 tab PO QAM 01/31/22 04/16/23 History quetiapine 25 mg tablet (Seroquel) 50 mg PO HS 01/31/22 04/16/23 History vitamin B complex 1 tab PO QAM 01/31/22 04/16/23 History pantoprazole 20 mg tablet,delayed 20 mg PO DAILY PRN Heartburn 05/14/22 04/16/23 History release temazepam 22.5 mg capsule 22.5 mg PO HS 07/16/22 04/16/23 History (Restoril) acetaminophen 500 mg capsule 1,000 mg PO Q6H PRN Pain 10/23/22 04/16/23 History hydroxyzine HCl 25 mg tablet 25 mg PO BID PRN Anxiety/ALLERGY 10/23/22 04/16/23 History oxycodone 5 mg tablet 5 mg PO Q6H PRN pain #10 tabs 01/29/23 04/16/23 Rx alprazolam 0.5 mg tablet 0.5 mg PO DAILY PRN severe anxiety 02/07/23 04/16/23 History cyclobenzaprine 10 mg tablet 10 mg PO DAILY PRN Muscle Spasm 02/07/23 04/16/23 History dexamethasone 4 mg tablet See Rx Instructions .Route .COMPLEX 02/07/23 04/16/23 History melatonin 10 mg tablet 10 mg PO HS PRN Sleep 02/07/23 04/16/23 History olopatadine 0.2 % eye drops 1 drp ophthalmic (eye) DAILY PRN 02/07/23 04/16/23 History Dry Eye(S) ascorbic acid (vitamin C) 500 mg 500 mg PO HS 04/16/23 04/16/23 History chewable tablet semaglutide 0.25 mg or 0.5 mg (2 0.25 mg subcut WK 04/16/23 04/16/23 History mg/3 mL) subcutaneous pen injector (Ozempic) Patient History Medical History Cervical pain (neck) ROM "is ok, but not quite what it should be" Hemochromatosis Vaginismus Sleep apnea no device Schizoaffective disorder Personality disorder Osteoporosis (09/05/12) Morbid obesity Menopause Lymphocytosis Invasive carcinoma of breast Gastroesophageal reflux disease hx-no issues currently Depression Corneal dystrophy Chronic pain Arthralgia of multiple sites Abnormal liver function test Arthritis of foot History of chemotherapy History of anemia Esophagus disorder "narrow esophagus per pt" Diabetes mellitus Endometriosis Scoliosis History of fatty infiltration of liver Diverticular disease History of breast cancer Left 2005 and 2017 and 2017 h/o lumpectomy + chemo/radiaton Osteoarthritis TMJ (temporomandibular joint disorder) no clicking or locking PTSD (post-traumatic stress disorder) Bipolar disorder History of migraine History of TIA (transient ischemic attack) 07/2019 > no residual effects > follows with Dr. Reji NAVA (hyperlipidemia) Sacral fracture hx-2013 Surgical History Port-A-Cath in place (01/29/23) Insertion of Right Subclavian Access Port, Removal of Left Access Port(Right) - Janet Bajwa, DO Port-A-Cath in place (01/25/23) Insertion of Access Port in Left Subclavian with Fluoroscopy(Left) - Janet Bajwa DO Hx of bilateral mastectomy 2022, [facility] for recurrent breast cancer Hx of colectomy sigmoid colectomy, 6-7 years ago Hx of bilateral cataract extraction S/P epidural steroid injection History of vascular access device removed History of breast biopsy History of laparoscopy mult History of lumpectomy of right breast benign History of lumpectomy of left breast x 2 History of appendectomy History of open reduction and internal fixation (ORIF) procedure LLE History of ankle surgery left x 6 History of colonoscopy History of bowel resection due to diverticulitis History of fracture of left ankle left tibia Family History Mother Hypertension Adrenal gland cancer Cancer Father , age 59 of lung cancer Lung cancer smoker Liver cancer Cancer Aunt Breast cancer Other Colorectal cancer No family history of adverse response to anesthesia No family history of bleeding disorder Social History Smoking Status: Current every day smoker Tobacco Type: Cigarettes packs per day: 1; Cigarettes Per Day: Pack; Second Hand Exposure: No; Do You Dip or Chew Tobacco: No; Hx Alcohol Use: No Hx Substance Use: No Preferred Language: Azeri Communication Ability: Effective Visual Impairment: No Limitations Hearing Ability: Normal Toter Required: No Beliefs That Will Affect Care: None marital status: Current Living Situation: Spouse Current Living Situation Comment: At home with 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al status: retired and disabled 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 BMI 26.7. Normotensive BP. Pulse 80 bpm and regular. Respirations 16 and unlabored. Skin: no generalized lesions. HEENT: unremarkable. Neck: JVP just above the clavicle at 90 degrees, no carotid bruits. Lungs: Clear and equal breath sounds, no wheezing or rhonchi. Cardiac: regular rhythm, normal S1-2, no murmur. Abdomen: benign. Extremities: no pretibial edema, pulses intact. Neurologic: normal affect and conversation, nonfocal. Results & Data Vital Signs (Past 12 Hours) Vital Signs Temp Pulse Pulse Pulse Resp BP Pulse Ox 04/17/23 12:20 79 04/17/23 12:15 98.2 F 82 16 119/73 96 04/17/23 08:48 98.6 F 75 18 104/63 97 04/17/23 07:19 74 04/17/23 06:09 79 16 112/74 97 O2 Del Method 04/17/23 12:20 04/17/23 12:15 Room Air 04/17/23 08:48 Room Air 04/17/23 07:19 04/17/23 06:09 Room Air Laboratory Results Troponin 185, peak value 267 before declining but generally flat curve. BNP 10. Hemoglobin 10.3. Normal electrolytes, BUN 11, creatinine 0.54. Diagnostic Findings Initial ECG showed sinus rhythm at 84 bpm and was completely unremarkable. ECG today showed sinus rhythm at 65 bpm and was also unremarkable. Echocardiogram showed EF 55 to 60% with no wall motion abnormalities, no significant valvular disease. Compared with 04/04/2023 study, diastolic dysfunction no longer apparent, otherwise no significant change. Chest x-ray was unremarkable. Chest CT notable for benign pulmonary nodules PG Care Time/CCT Total # of Minutes Spent Total Time Spent with Patient: Total time spent is greater than 50% in coordination of care (as documented) at patient's floor/unit and/or counseling patient: Coding Level of Care Code 33314 IN/OBS CONSULT LVL 5,80M Diagnoses Chest pain R07.9 Chest pain type: unspecified Elevated troponin R79.89 Chronic pain G89.29 Recurrent cancer of left breast C50.912 (1) Chest pain Chest pain type: unspecified Qualified Code(s): R07.9 - Chest pain, unspecified
[2023-04-17] MEDS: HYDROmorphone HCL 2 MG TAB PO PRN (15:04)
--- NOTE | 2023-04-17 16:41 | Hospitalist Progress Note ---
Date of Service April 17, 2023 Assessment & Plan (1) Chest pain: Plan: Appears to be noncardiac. Atypical at this time. Cardiac echo reveals normal left ventricular wall motion. No acute EKG changes. Dilaudid replaces oxycodone. Chest CTA negative for PE (2) Elevated troponin: Plan: Does not appear to be associated with acute acute EKG changes or acute coronary syndrome. Currently on telemetry (3) Recurrent cancer of left breast: Plan: Pain control measures in place. Oncology consultation requested. (4) Cerebrovascular disease: Plan: Stable. Continue plavix and statin (5) Hypothyroidism: Plan: Stable. Conitnue levothyroxine (6) Diabetes mellitus: Plan: ADA diet. Sliding scale coverage. Hold Ozempic while hospitalized (7) Chronic pain: Plan: Dilaudid replaces oxycodone. (8) Bipolar 1 disorder: Plan: Stable. Continue Wellbutrin, Seroquel Plan Hopeful discharge to home tomorrow, April 18 Admission and Anticipated Discharge Date Admission Date: April 16, 2023 Subjective Alert and oriented. Chest pain appears to be noncardiac. Cardiology consultation and recommendations appreciated. Cardiac echo reveals normal left ventricular ejection fraction with no regional wall motion abnormalities. Dilaudid has been started for pain control which replaces oxycodone. Hypomagnesemia present on admission has been corrected. Hopefully she can go home tomorrow, April 18 Review of Systems 2 Review of Systems: Constitutional-no fever or chills ENT-no blurred vision, no double vision, no epistaxis, no sore throat Respiratory-no cough, no wheezing, no shortness of breath Cardiac-no palpitations, no syncope. Sharp intermittent right parasternal chest pain GI-no nausea, vomiting, diarrhea, melena, hematochezia -no urinary retention, no urinary incontinence, no dysuria, no hematuria Musculoskeletal-no joint pain, no muscle tenderness Skin-no bruising, no rashes, no pruritus Neuro-no isolated weakness, no paresthesia Psych-no depression, no anxiety Physical Exam 2 Physical Exam: General-alert and oriented x3, no fever, no chills HEENT-head atraumatic and normocephalic, pupils equal and reactive to light, extraocular muscles intact Neck-no lymphadenopathy or thyromegaly, trachea midline Chest-clear to auscultation. No rales, wheezing or rhonchi Cardiac-regular rate and rhythm, normal S1 and S2 Abdomen-normal bowel sounds, nontender, no hepatosplenomegaly Musculoskeletalno parasternal tenderness Extremities-no cyanosis, clubbing, or edema Neuro-cranial nerves II through XII intact, motor and sensory function within normal limits, strength symmetrical, no focal deficits Psych-normal affect, normal mood Results & Data Results & Data Vital Signs (Past 12 Hours) Vital Signs Temp Pulse Pulse Pulse Resp BP Pulse Ox 04/17/23 15:53 37.0 C 84 18 119/78 97 04/17/23 15:21 88 04/17/23 12:20 79 04/17/23 12:15 36.8 C 82 16 119/73 96 04/17/23 08:48 37 C 75 18 104/63 97 04/17/23 07:19 74 04/17/23 06:09 79 16 112/74 97 O2 Del Method 04/17/23 15:53 Room Air 04/17/23 15:21 04/17/23 12:20 04/17/23 12:15 Room Air 04/17/23 08:48 Room Air 04/17/23 07:19 04/17/23 06:09 Room Air Laboratory Results 04/17/23 02:39 04/17/23 02:39 PG Care Time/CCT Total # of Minutes Spent Total Time Spent with Patient: Total time spent is greater than 50% in coordination of care (as documented) at patient's floor/unit and/or counseling patient: Coding Level of Care Code 48765 SUB INP/OBS CARE 3/50MIN Diagnoses Chest pain R07.9 Chest pain type: unspecified Elevated troponin R79.89 Recurrent cancer of left breast C50.912 Cerebrovascular disease I67.9 Hypothyroidism E03.9 Diabetes mellitus E11.9 Chronic pain G89.29 Bipolar 1 disorder F31.9 (1) Chest pain Chest pain type: unspecified Qualified Code(s): R07.9 - Chest pain, unspecified
[2023-04-17] MEDS: MIRTAZAPINE TAB 15 MG TAB PO SCH (22:55)
[2023-04-17] MEDS: TEMAZEPAM 15 MG CAPSULE PO SCH (23:08)
[2023-04-17] MEDS: TEMAZEPAM 7.5 MG CAPSULE PO SCH (23:08)
[2023-04-18 06:51] LABS: Hematocrit (blood only) 33.4 % (37.0-47.0); Hemoglobin 10.8 g/dl (12.0-16.0); Mean Corpuscular Hemoglobin 33.1 pg (25.0-34.0); Mean Corpuscular Hgb Conc 32.3 g/dL (32.0-36.0); Mean Corpuscular Volume 102.5 fL (80.0-100.0); Mean Platelet Volume 10.2 fL (9.4-12.4); Platelet Count 241 K/uL (130-400); RDW Coefficient of Variation 16.6 % (11.5-14.5); Red Blood Count 3.26 M/uL (4.20-5.40); White Blood Count 3.49 K/ul (4.8-10.8)
[2023-04-18 07:01] LABS: BUN Creatinine Ratio 21.9 (10-20); Est GFR (African American) 100.9 ml/min; Magnesium 1.7 mg/dl (1.7-2.4); Potassium 4.1 mmol/L (3.5-5.1)
[2023-04-18 07:20] LABS: INR 0.9 (0.9-1.1); Prothrombin Time 10.2 Seconds (9.0-12.0)
[2023-04-18 07:42] LABS: ALC (manual) 2.23 K/uL (1.2-3.4); ANC (manual) 1.05 K/uL (1.4-6.5); Basophils # (manual) 0.03 K/uL (0-0.2); Basophils % (manual) 1 %; Eosinophils # (manual) 0.03 K/uL (0-0.50); Eosinophils % (manual) 1 %; Lymphocytes # (manual) 2.23 K/uL (1.2-3.4); Lymphocytes % (manual) 64 %; Monocytes # (manual) 0.14 K/uL (0.11-0.59); Monocytes % (manual) 4 %; Neutrophils # (manual) 1.05 K/uL (1.40-6.50); Neutrophils % (manual) 30 %
[2023-04-18 08:19] VITALS: RESP 16
[2023-04-18 08:54] LABS: Troponin I High Sensitivity 295.3 pg/ml (0-14)
--- NOTE | 2023-04-18 11:14 | Electrocardiogram Report ---
Test Reason : Blood Pressure : / mmHG Vent. Rate : 069 BPM Atrial Rate : 069 BPM P-R Int : 154 ms QRS Dur : 084 ms QT Int : 388 ms P-R-T Axes : 052 069 037 degrees QTc Int : 415 ms Normal sinus rhythm with sinus arrhythmia Normal ECG When compared with ECG of 17-APR-2023 06:14, No significant change was found Confirmed by Micha Thomson ([id number]) on 04/18/2023 11:13:56 AM Referred By: REFERRED SELF Confirmed By:Micha Thomson
[2023-04-18] MEDS: MAGNESIUM OXIDE 400 MG TAB PO SCH (11:24)
[2023-04-18 11:36] VITALS: BP 121/80; TEMP 97.9; O2SAT 98
[2023-04-18] MEDS ORDERED: bisacodyL 5 MG TABEC PO PRN (11:38)
--- NOTE | 2023-04-18 11:52 | Cardiology Progress Note ---
Date of Service April 18, 2023 Assessment & Plan (1) Chest pain: (2) Elevated troponin: (3) Chronic pain: (4) Recurrent cancer of left breast: Plan Mild but persistent troponin elevation in the absence of ECG or echocardiographic abnormalities in patient who is status post Keytruda therapy is suggestive of immunotherapy related myocarditis. Mildly elevated erythrocyte segmentation rate (34) would tend to corroborate inflammatory process. Fortunately, she is now asymptomatic, her troponin curve is flat and not rising, she has had no dysrhythmias, and her left ventricular systolic function is normal on echocardiogram. Given low likelihood this represents an acute coronary syndrome would not proceed to cardiac catheterization and would avoid stress testing in the context of active myocarditis, would recommend surveillance and medical management of apparent immunotherapy related myocarditis. As per below algorithm from [employer], she could merit corticosteroid use for mild symptoms, but since she is now asymptomatic and has had no complicating factors such as dysrhythmia or reduced LV function, no immediate treatment may be necessary. Would have low threshold for corticosteroids if recurrent symptoms or rising troponin levels, in the absence of these simply withholding further Keytruda doses may be adequate management. Reasonable to obtain cardiac MRI to verify diagnosis, however this is unlikely to change immediate management and perhaps could be obtained as an outpatient to guide future immunotherapy. Will discuss case further with Dr. Tobin to determine best course of action. Admission and Anticipated Discharge Date Admission Date: April 16, 2023 Subjective Uneventful night. No further chest pain. She was comfortable at rest with adequate control of her cancer. And no ongoing symptoms. ECG today remains normal. Troponin shows mild but persistent elevation. Telemetry shows sinus rhythm in the 70-80 bpm range. Physical Exam 2 Physical Exam: No distress. Afebrile. Normotensive. Pulse 80 bpm and regular. Respirations 16 and unlabored. Skin: no generalized lesions. HEENT: unremarkable. Neck: JVP just above the clavicle at 90 degrees, no carotid bruits. Lungs: Clear and equal breath sounds, no wheezing or rhonchi. Cardiac: regular rhythm, normal S1-2, no murmur. Abdomen: benign. Extremities: no pretibial edema, pulses intact. Neurologic: normal affect and conversation, nonfocal. Results & Data Vital Signs (Past 12 Hours) Vital Signs Temp Pulse Pulse Resp BP Pulse Ox O2 Del Method 04/18/23 11:35 97.9 F 87 16 121/80 98 Room Air 04/18/23 08:18 97.5 F L 77 16 114/70 96 Room Air 04/18/23 08:11 78 04/18/23 03:15 97.5 F L 77 20 94/62 L 96 Room Air 04/18/23 00:26 97.2 F L 75 20 105/70 92 Room Air PG Care Time/CCT Total # of Minutes Spent Total Time Spent with Patient: Total time spent is greater than 50% in coordination of care (as documented) at patient's floor/unit and/or counseling patient: Coding Level of Care Code 56214 SUB INP/OBS CARE 3/50MIN Diagnoses Chest pain R07.9 Chest pain type: unspecified Elevated troponin R79.89 Chronic pain G89.29 Recurrent cancer of left breast C50.912 (1) Chest pain Chest pain type: unspecified Qualified Code(s): R07.9 - Chest pain, unspecified
--- NOTE | 2023-04-18 13:03 | Discharge Summary ---
Date of Service April 18, 2023 Admission HPI Per Admitting Provider Shaheed is a 62 year old female with a PMH significant for recurrent left breast cancer S/P BL mastectomy at [facility] on 12/19/22, currently on anastrazole and undergoing weekly chemotherapy (Doxorubicin) infusions with most recent treatment on 04/10/23, HTN, hypothyroidism, GERD, and Bipolar 1 Disorder who presented to the [facility] ED via EMS on 04/16/23 with acute onset of substernal chest pain/pressure. In route to the ED she was given full dose Aspirin and one dose of SL nitroglycerine with resolution of her symptoms. She remained stable in the ED and remained chest pain free. Labs were significant for a magnesium of 1.5, high sen trop of 186 ---> 218 on 2 hour repeat. ECG was negative for acute ST segment or T-wave changes. Chest xray was read as negative for acute findings. CT of the chest with PE protocol was read as "1. No pulmonary emboli identified. 2. No acute intrathoracic findings. 3. No change in multiple small pulmonary nodules which are probably benign. These can be assessed on follow-up exams to ensure continued stability. 4. No evidence for metastatic disease within the chest.". Prior to admission the patient was given 1L NSS, 1gm IV tylenol, and 1gm IV mag sulfate. At the time of the exam the patient was lying in bed in no acute distress with her sitting bedside, history was obtained form both. The patient states that she has been receiving weekly chemotherapy infusions over the past 4 weeks with her next dose scheduled for tomorrow. Over the past week she has been experiencing increased fatigue and decreased appetite. This am around 0900 while at rest she experienced acute onset of substernal chest pressure. She described the sensation as though "someone was sitting on my chest". She waited for approximately an hour but the chest pressure continued so she called 911. She did have improvement in her chest discomfort after receiving Aspirin and Nitroglycerin by EMS. She is currently chest discomfort free at the time of my exam. She denies recent fever, chills, cough, SOB, and pain, mediport pain, nausea, vomiting, dysuria, hematuria, melena, diarrhea, LE swelling, and recent trauma. She is a full code and would want her to make medical decisions for her if she cannot make them herself. I discussed the patient home medications with her to confirm what pain medications, anxiolytics, and sleep aids she is currently taking. She is currently taking PRN oxycodone for bone/cancer related pain. She is currently prescribed Seroquel and Temazepam for sleep and uses prn Cyclobenzaprine for muscle spasms. She tells me she was previously taking HS Remeron with the HS Seroquel but the Remeron has not been re-filled in approximately one month. I explained to her that I am concerned for oversedation when she is taking all of these medications in a similar time frame as this can cause oversedation and respiratory suppression/failure, confusion, and increased risk for falls. Please refer to Dr. Mitchell's attestation for any changes to the treatment plan Principal Diagnosis Atypical chest pain, hypomagnesemia Discharge Exam General-alert and oriented x3, no fever, no chills HEENT-head atraumatic and normocephalic, pupils equal and reactive to light, extraocular muscles intact Neck-no lymphadenopathy or thyromegaly, trachea midline Chest-clear to auscultation. No rales, wheezing or rhonchi Cardiac-regular rate and rhythm, normal S1 and S2 Abdomen-normal bowel sounds, nontender, no hepatosplenomegaly Musculoskeletalno parasternal tenderness Extremities-no cyanosis, clubbing, or edema Neuro-cranial nerves II through XII intact, motor and sensory function within normal limits, strength symmetrical, no focal deficits Psych-normal affect, normal mood Discharge Data Allergies Allergy/AdvReac Type Severity Reaction Status Date / Time bacitracin Allergy Severe ITCHING/INF Verified 02/07/23 12:48 ECTION Quinolones Allergy Severe ANAPHYLAXIS/HEART Verified 02/07/23 12:48 FLUTTERING rizatriptan Allergy Severe SHORTNESS Verified 02/07/23 12:48 OF BREATH amoxicillin [From Augmentin] Allergy Intermediate Hives Verified 02/07/23 12:48 ciprofloxacin Allergy Intermediate Palpitations, Verified 02/07/23 12:48 rash, clavulanic acid Allergy Intermediate Hives Verified 02/07/23 12:48 [From Augmentin] clindamycin Allergy Intermediate Hives Verified 02/07/23 12:48 escitalopram [From Lexapro] Allergy Intermediate Hives Verified 02/07/23 12:48 nickel Allergy Intermediate SKIN Verified 02/07/23 12:48 IRRITATION ofloxacin Allergy Intermediate Rash Verified 02/07/23 12:48 polymyxin B Allergy Intermediate Hives Verified 02/07/23 12:48 silver Allergy Intermediate pruritus Verified 02/07/23 12:48 varenicline [From Chantix] Allergy Intermediate ITCHY HIVES Verified 02/07/23 12:48 lamotrigine Allergy Mild RASH Verified 02/07/23 12:48 neomycin Allergy Mild ITCHING Verified 02/07/23 12:48 WITH THE OINTMENT adhesive Allergy Unknown ALLERGIC Verified 02/07/23 12:48 TO MEDICATED STERI-STRIPS AND SOME TAPE-RASH BLISTE citalopram Allergy Unknown CAN'T Verified 02/07/23 12:48 REMEMBER celecoxib AdvReac Intermediate GI SYMPTOMS Verified 02/07/23 12:48 dichloralphenazone AdvReac Intermediate ALTERED Verified 02/07/23 12:48 [From Midrin] MENTAL STATUS isometheptene [From Midrin] AdvReac Intermediate ALTERED Verified 02/07/23 12:48 MENTAL STATUS paroxetine AdvReac Intermediate OUT OF Verified 02/07/23 12:48 BODY EXPERIENCE piperacillin AdvReac Unknown BETALACTAMASE Verified 02/07/23 12:48 INHIBITORS-UNKNOWN tazobactam AdvReac Unknown BETALACTAMASE Verified 02/07/23 12:48 INHIBITORS-UNKNOWN Consultations 04/16/23 17:08 ED Decision to Admit Stat 04/16/23 18:15 Consult Oncology Routine 04/16/23 18:18 Consult Cardiology Routine Ordered Studies 04/16/23 15:01 CT angio chest PE protocol Stat Hospital Course (1) Chest pain: Appears to be noncardiac. Atypical at this time. Cardiac echo reveals normal left ventricular wall motion. No acute EKG changes. Cardiology consultation and recommendations appreciated. They raise the possibility of immunotherapy related myocarditis. The patient is currently symptomatic. Dilaudid replaces oxycodone. Chest CTA negative for PE (2) Elevated troponin: Does not appear to be associated with acute EKG changes or acute coronary syndrome. Currently on telemetry (3) Recurrent cancer of left breast: Pain control measures in place. Oncology consultation requested. (4) Cerebrovascular disease: Stable. Continue plavix and statin (5) Hypothyroidism: Stable. Conitnue levothyroxine (6) Diabetes mellitus: ADA diet. Sliding scale coverage. Hold Ozempic while hospitalized (7) Chronic pain: Dilaudid replaces oxycodone. Improved (8) Bipolar 1 disorder: Stable. 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 Take magnesium oxide twice daily to prevent low magnesium levels Pending Studies at Discharge: No Stand-Alone Forms: Huan Xiong, Smoking Cessation Medications and DC Order Prescriptions: New hydromorphone [Dilaudid] 2 mg Tablet 2 mg PO Q4H PRN (Reason: pain) Qty: 30 0RF magnesium oxide 400 mg (241.3 mg magnesium) Tablet 400 mg PO BID Qty: 60 0RF Continued bupropion HCl [Wellbutrin XL] 300 mg tablet extended release 24 hr 300 mg PO QAM Caltrate 600 plus D 600 mg (1,500 mg)-800 unit tablet,chewable 1 tab PO HS gabapentin 300 mg capsule 600 mg PO TID lisinopril 2.5 mg tablet 2.5 mg PO HS acetaminophen 500 mg capsule 1,000 mg PO Q6H PRN (Reason: Pain) hydroxyzine HCl 25 mg tablet 25 mg PO BID PRN (Reason: Anxiety/ALLERGY) ondansetron HCl 8 mg tablet 8 - 16 mg PO DIRECTED PRN (Reason: Nausea) mirtazapine [Remeron] 15 mg tablet 15 mg PO HS anastrozole 1 mg tablet 1 mg PO HS pantoprazole 20 mg tablet,delayed release (DR/EC) 20 mg PO DAILY PRN (Reason: Heartburn) pravastatin 10 mg tablet 10 mg PO HS Qty: 30 0RF fenofibrate micronized 134 mg capsule 134 mg PO QAM levothyroxine 25 mcg Tablet 25 mcg PO QAM multivitamin Tablet 1 tab PO QAM quetiapine [Seroquel] 25 mg tablet 50 mg PO HS clopidogrel [Plavix] 75 mg Tablet 75 mg PO HS Hold Instructions: Resume on 02/02/23. vitamin B complex Tablet 1 tab PO QAM temazepam [Restoril] 22.5 mg capsule 22.5 mg PO HS Patient Comments: currently out of pills, waiting on refill cyclobenzaprine 10 mg tablet 10 mg PO DAILY PRN (Reason: Muscle Spasm) alprazolam 0.5 mg tablet 0.5 mg PO DAILY PRN (Reason: severe anxiety) dexamethasone 4 mg tablet See Rx Instructions .ROUTE .COMPLEX Rx Instructions: TAKE 5 TABLETS BY MOUTH 12, THEN 6 HOURS PRIOR TO PACLITAXEL DIRECTED. starts saturday nights for wednesdays infusion olopatadine [Pataday] 0.2 % Drops 1 drp OPHTHALMIC (EYE) DAILY PRN (Reason: Dry Eye(S)) melatonin 10 mg Tablet 10 mg PO HS PRN (Reason: Sleep) Ozempic 0.25 mg or 0.5 mg (2 mg/3 mL) pen injector 0.25 mg SUBCUT WK Rx Instructions: ascorbic acid (vitamin C) 500 mg Tablet,Chewable 500 mg PO HS Discontinued oxycodone 5 mg tablet 5 mg PO Q6H PRN (Reason: pain) Qty: 10 0RF Discharge Orders: Discharge Order (Routine); Ordered 04/18/23 Ordered By: Jeff Campbell Admission Data Admit Date/Time: 04/16/23 17:48 Attending Provider: Jeff Campbell Admit Provider: Jose E Nettles Primary Care Provider: Justice Madera Other Providers: Branden Mitchell; Ankit Rosa; Darshan Lorenzana Coding Level of Care Code 80120 INP/OBS DISCH >30 MIN Diagnoses Chest pain R07.9 Chest pain type: unspecified Elevated troponin R79.89 Recurrent cancer of left breast C50.912 Cerebrovascular disease I67.9 Hypothyroidism E03.9 Diabetes mellitus E11.9 Chronic pain G89.29 Bipolar 1 disorder F31.9
[2023-04-18 14:51] VITALS: PULSE 98
== END 2023-04-18 14:59 | disposition home or self-care (01) ==
LOC: ED 14:31 → SUATTDRO 17:48 → EDINP 17:48 → INTOOBSV 17:48 → 2W 19:48

== ENCOUNTER 2023-05-04 12:49 | Observation (INO) ==
--- NOTE | 2023-05-04 13:40 | XRay Report ---
SINGLE VIEW CHEST CLINICAL HISTORY: Atypical chest pain. FINDINGS: An AP, portable, upright chest radiograph is compared to chest x-ray and chest CT dated 04/16. Surgical clips are seen in the chest wall bilaterally. A right subclavian central venous infus ion port is unchanged in position. The cardiomediastinal silhouette is top normal for projection. The lungs and pleural spaces are clear. No pneumothorax is seen. The skeletal structures are osteopenic. The bony thorax is grossly intact. IMPRESSION: No active disease in the chest. ACT 112: Negative or not required by law. Electronically signed by: Colin Clifford M.D. 05/04/2023 1:38 PM
[2023-05-04 13:44] LABS: Basophils # (auto) 0.04 K/uL (0.00-0.20); Basophils % (auto) 0.6 %; Eosinophils # (auto) 0.18 K/uL (0.00-0.50); Eosinophils % (auto) 2.6 %; Hematocrit (blood only) 35.6 % (37.0-47.0); Hemoglobin 11.9 g/dl (12.0-16.0); Immature Granulocytes # (auto) 0.07 K/uL (0.01-0.20); Lymphocytes # (auto) 2.83 K/uL (1.20-3.40); Lymphocytes % (auto) 40.8 %; Mean Corpuscular Hemoglobin 33.8 pg (25.0-34.0); Mean Corpuscular Hgb Conc 33.4 g/dL (32.0-36.0); Mean Corpuscular Volume 101.1 fL (80.0-100.0); Mean Platelet Volume 9.9 fL (9.4-12.4); Monocytes # (auto) 0.63 K/uL (0.11-0.59); Monocytes % (auto) 9.1 %; Neutrophils # (auto) 3.19 K/uL (1.40-6.50); Neutrophils % (auto) 45.9 %; Platelet Count 154 K/uL (130-400); RDW Coefficient of Variation 16.1 % (11.5-14.5); RDW Standard Deviation 60.4 fL (36.4-46.3); Red Blood Count 3.52 M/uL (4.20-5.40); White Blood Count 6.94 K/ul (4.8-10.8)
[2023-05-04 13:59] LABS: Albumin Globulin Ratio 1.6 (0.9-2); Albumin Level 4.3 gm/dl (3.4-5.0); BUN Creatinine Ratio 17.6 (10-20); Bilirubin,Total 0.3 mg/dl (0.2-1.0); Calcium 9.6 mg/dl (8.6-10.3); Creatinine Clr Calc Pharmacy 81.3 ml/min; Est GFR (African American) 107.1 ml/min; Est GFR (Non-African American) 92.4 ml/min; Globulin 2.7 gm/dl (2.5-4.0); Potassium 4.1 mmol/L (3.5-5.1)
[2023-05-04] MEDS: KETOROLAC TROMETHAMINE 15 MG/ML VIAL IV ONE (14:12)
--- NOTE | 2023-05-04 14:13 | Emergency Department Note ---
Impression & Plan Myocarditis, Chest pain ED Provider Note NAME: TYRELL OLIVARES AGE: 62 SEX: F : 1960 ARRIVES VIA: Ambulance INFORMANT: Patient, ED PROVIDER(S): Bryan Waller DO CHIEF COMPLAINT: Chest pain HPI: The patient is a 62-year-old female who presented to the emergency department for an evaluation of chest pain. The patient states that she was in our facility recently for similar complaints. She was diagnosed with myocarditis. She did note that the pain was somewhat worsened when she laid flat. She denies having any fever or chills. She denies having any coughing or difficulty breathing at this time. She has had no lower extremity swelling. ROS: See above HPI for pertinent positives & negatives. A total of 10 systems reviewed and were otherwise negative. PAST MEDICAL HISTORY: See Below PAST SURGICAL HISTORY: See Below FAMILY HISTORY: See Below SOCIAL HISTORY: See Below HOME MEDICATIONS: See Below ALLERGIES: See Below VITALS: See Below PHYSICAL EXAMINATION: GENERAL: Patient is awake alert in no acute distress patient is resting comfortably and showing no signs of anxiety EYES: The conjunctivae are clear. The pupils are round and reactive. EARS, NOSE, MOUTH AND THROAT: The nose is without any evidence of any deformity. Mucous membranes are moist. Tongue is midline. NECK: The neck is nontender and supple. RESPIRATORY: Normal respiratory effort is noted there is no evidence of wheezing rhonchi or rales CARDIOVASCULAR: Regular rate and rhythm noted there no murmurs rubs or gallops normal S1 normal S2. GASTROINTESTINAL: The abdomen is soft. Abdomen is nontender. MUSCULOSKELETAL/EXTREMITIES: There is no evidence of gross deformity full range of motion is noted in the hips and shoulders. SKIN: There is no obvious evidence of any rash. There are no petechiae, pallor or cyanosis noted. NEUROLOGIC: Patient is awake alert and oriented x3 MEDICAL DECISION MAKING: The patient is a 62-year-old female who presented to the emergency department for an evaluation of chest pain. The pain was positional. The patient was recently diagnosed with myocarditis. The patient has a history of using Keytruda. The patient was treated with Toradol in the emergency department. She was also ordered Decadron. I discussed the patient's laboratory and radiographic studies with her. She had serial troponins that were both elevated. I discussed her condition with the on-call [facility] dinkey locomotive engineer. Given the patient's history he feels that she would be a better candidate for inpatient management. I discussed this case with the on-call [facility] hospitalist Triage Nursing notes reviewed. Prior medical records reviewed Vital Signs: reviewed and remarkable for no significant abnormalities Differential diagnosis: Cardiac ischemia, aortic dissection, pulmonary embolism, pneumothorax, pneumonia, pericarditis, myocarditis, esophageal rupture, GERD, cholecystitis, pancreatitis, musculoskeletal, as well as other pathologies. ER treatment provided: See below Diagnostics interpreted by me: ECG: EKG was obtained in the emergency department. My interpretation is normal sinus rhythm at 81 bpm. There is no ectopy. There is no acute ST segment abnormalities noted. This was compared to a tracing from April 17, 2023. No changes were noted. Cardiac Monitoring: An order was placed for continuous cardiac monitoring. The monitor shows a rate of 79 bpm with sinus rhythm. Laboratory studies: As stated above and show below. Imaging studies: See below. Radiographic imaging was reviewed by myself Consultation(s): I discussed this case with Dr. Lorenzana who is on-call for [facility] cardiology. I discussed this case with Dr. Iraheta who is on-call for the [facility] hospitalist group. Past Med/Surg History Medical History Recurrent cancer of left breast Pain at surgical site Acute diverticulitis Cerebrovascular disease Hypothyroidism Diabetes mellitus Bipolar 1 disorder Cervical pain (neck) ROM "is ok, but not quite what it should be" Hemochromatosis Vaginismus Sleep apnea no device Schizoaffective disorder Personality disorder Osteoporosis (09/05/12) Morbid obesity Menopause Lymphocytosis Invasive carcinoma of breast Gastroesophageal reflux disease hx-no issues currently Depression Corneal dystrophy Chronic pain Arthralgia of multiple sites Abnormal liver function test Arthritis of foot History of chemotherapy History of anemia Esophagus disorder "narrow esophagus per pt" Diabetes mellitus Endometriosis Scoliosis History of fatty infiltration of liver Diverticular disease History of breast cancer Left 2005 and 2017 and 2017 h/o lumpectomy + chemo/radiaton Osteoarthritis TMJ (temporomandibular joint disorder) no clicking or locking PTSD (post-traumatic stress disorder) Bipolar disorder History of migraine History of TIA (transient ischemic attack) 07/2019 > no residual effects > follows with Dr. Reji NAVA (hyperlipidemia) Sacral fracture hx-2013 Surgical History History of tonsillectomy Port-A-Cath in place (01/29/23) Insertion of Right Subclavian Access Port, Removal of Left Access Port(Right) - Janet Bajwa DO Port-A-Cath in place (01/25/23) Insertion of Access Port in Left Subclavian with Fluoroscopy(Left) - Janet Bajwa DO Hx of bilateral mastectomy 2022, [facility] for recurrent breast cancer Hx of colectomy sigmoid colectomy, 6-7 years ago Hx of bilateral cataract extraction S/P epidural steroid injection History of vascular access device removed History of breast biopsy History of laparoscopy mult History of lumpectomy of right breast benign History of lumpectomy of left breast x 2 History of appendectomy History of open reduction and internal fixation (ORIF) procedure LLE History of ankle surgery left x 6 History of colonoscopy History of bowel resection due to diverticulitis History of fracture of left ankle left tibia Family History Mother Hypertension Adrenal gland cancer Cancer Father , age 59 of lung cancer Lung cancer smoker Liver cancer Cancer Aunt Breast cancer Other Colorectal cancer No family history of adverse response to anesthesia No family history of bleeding disorder Social History Smoking Status: Unknown if ever smoked Tobacco Type: Cigarettes packs per day: 1; Cigarettes Per Day: Pack; Second Hand Exposure: No; Do You Dip or Chew Tobacco: No; Hx Alcohol Use: No Hx Substance Use: No Preferred Language: Latvian Communication Ability: Effective Visual Impairment: No Limitations Hearing Ability: Normal Processing Assistant Required: No Beliefs That Will Affect Care: None marital status: Current Living Situation: Spouse Current Living Situation Comment: At home with 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al status: retired and disabled 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 [employer] other: Stopped work in 2001 on disability Feels Safe at Home: Yes Diet: diabetic during the past year weight has: increased > 10 lbs Assistive Devices: Cane Allergies Allergies Allergy/AdvReac Type Severity Reaction Status Date / Time bacitracin Allergy Severe ITCHING/INF Verified 05/04/23 15:40 ECTION Quinolones Allergy Severe ANAPHYLAXIS/HEART Verified 05/04/23 15:40 FLUTTERING rizatriptan Allergy Severe SHORTNESS Verified 05/04/23 15:40 OF BREATH amoxicillin [From Augmentin] Allergy Intermediate Hives Verified 05/04/23 15:40 ciprofloxacin Allergy Intermediate Palpitations, Verified 05/04/23 15:40 rash, clavulanic acid Allergy Intermediate Hives Verified 05/04/23 15:40 [From Augmentin] clindamycin Allergy Intermediate Hives Verified 05/04/23 15:40 escitalopram [From Lexapro] Allergy Intermediate Hives Verified 05/04/23 15:40 nickel Allergy Intermediate SKIN Verified 05/04/23 15:40 IRRITATION ofloxacin Allergy Intermediate Rash Verified 05/04/23 15:40 polymyxin B Allergy Intermediate Hives Verified 05/04/23 15:40 silver Allergy Intermediate pruritus Verified 05/04/23 15:40 varenicline [From Chantix] Allergy Intermediate ITCHY HIVES Verified 05/04/23 15:40 lamotrigine Allergy Mild RASH Verified 05/04/23 15:40 neomycin Allergy Mild ITCHING Verified 05/04/23 15:40 WITH THE OINTMENT adhesive Allergy Unknown ALLERGIC Verified 05/04/23 15:40 TO MEDICATED STERI-STRIPS AND SOME TAPE-RASH BLISTE citalopram Allergy Unknown CAN'T Verified 05/04/23 15:40 REMEMBER celecoxib AdvReac Intermediate GI SYMPTOMS Verified 05/04/23 15:40 dichloralphenazone AdvReac Intermediate ALTERED Verified 05/04/23 15:40 [From Midrin] MENTAL STATUS isometheptene [From Midrin] AdvReac Intermediate ALTERED Verified 05/04/23 15:40 MENTAL STATUS paroxetine AdvReac Intermediate OUT OF Verified 05/04/23 15:40 BODY EXPERIENCE piperacillin AdvReac Unknown BETALACTAMASE Verified 05/04/23 15:40 INHIBITORS-UNKNOWN tazobactam AdvReac Unknown BETALACTAMASE Verified 05/04/23 15:40 INHIBITORS-UNKNOWN Home Meds Home Medications Medication Instructions Recorded Confirmed bupropion HCl 300 mg 24 hr tablet, 300 mg PO QAM 12/12/17 05/04/23 extended release (Wellbutrin XL) fenofibrate micronized 134 mg 134 mg PO QAM 04/16/19 05/04/23 capsule levothyroxine 25 mcg tablet 25 mcg PO DAILYBB 09/12/19 05/04/23 lisinopril 2.5 mg tablet 2.5 mg PO HS 04/05/20 05/04/23 mirtazapine 15 mg tablet (Remeron) 15 mg PO HS 01/03/21 05/04/23 calcium carbonate 600 mg-vitamin 1 tab PO HS 01/18/21 05/04/23 D3 20 mcg (800 unit) chewable tablet (Caltrate 600 plus D) ondansetron HCl 8 mg tablet 8 - 16 mg PO DIRECTED PRN Nausea 03/21/21 05/04/23 anastrozole 1 mg tablet 1 mg PO HS 04/07/21 05/04/23 gabapentin 300 mg capsule 600 mg PO TID 01/18/22 05/04/23 clopidogrel 75 mg tablet (Plavix) 75 mg PO HS 01/31/22 05/04/23 multivitamin 1 tab PO QAM 01/31/22 05/04/23 quetiapine 25 mg tablet (Seroquel) 50 mg PO HS 01/31/22 05/04/23 vitamin B complex 1 tab PO QAM 01/31/22 05/04/23 pantoprazole 20 mg tablet,delayed 20 mg PO DAILY PRN Heartburn 05/14/22 05/04/23 release temazepam 22.5 mg capsule 22.5 mg PO HS 07/16/22 05/04/23 (Restoril) acetaminophen 500 mg capsule 1,000 mg PO Q6H PRN Pain 10/23/22 05/04/23 hydroxyzine HCl 25 mg tablet 25 mg PO BID PRN Anxiety/ALLERGY 10/23/22 05/04/23 alprazolam 0.5 mg tablet 0.5 mg PO DAILY PRN severe anxiety 02/07/23 05/04/23 cyclobenzaprine 10 mg tablet 10 mg PO DAILY PRN Muscle Spasm 02/07/23 05/04/23 dexamethasone 4 mg tablet See Rx Instructions .Route .COMPLEX 02/07/23 05/04/23 melatonin 10 mg tablet 10 mg PO HS PRN Sleep 02/07/23 05/04/23 olopatadine 0.2 % eye drops 1 drp ophthalmic (eye) DAILY PRN 02/07/23 05/04/23 Dry Eye(S) ascorbic acid (vitamin C) 500 mg 500 mg PO HS 04/16/23 05/04/23 chewable tablet semaglutide 0.25 mg or 0.5 mg (2 0.25 mg subcut WK 04/16/23 05/04/23 mg/3 mL) subcutaneous pen injector (Ozempic) furosemide 20 mg tablet 20 mg PO QAM 05/04/23 05/04/23 Previous Rx's Medication Instructions Recorded pravastatin 10 mg tablet 10 mg PO HS #30 tabs 07/13/19 hydromorphone 2 mg tablet 2 mg PO Q4H PRN pain #30 tabs 04/18/23 (Dilaudid) magnesium oxide 400 mg (241.3 mg 400 mg PO BID #60 tabs 04/18/23 magnesium) tablet Results & Data (ED) Vital Signs Vital Signs - 24 hr 05/04/23 12:56 05/04/23 12:58 05/04/23 12:58 Temperature 37 C Temperature Source Oral Pulse Rate 83 82 Pulse Rate [Right Finger] Pulse Rate from SpO2 Sensor 83 Respiratory Rate 20 Respiratory Effort / Characteristics Non-Labored Spontaneous Respiratory Depth Normal Blood Pressure 125/88 Blood Pressure [Right Arm] Blood Pressure Mean 100 Blood Pressure Mean [Right Arm] Pulse Oximetry 96 95 95 Oxygen Delivery Method Room Air Room Air Sepsis Recent Fever Within 48 Hours No Sepsis New/Unexplained Change in Mental Status N/A Sepsis Action Taken by Nursing No Action Required 05/04/23 12:59 05/04/23 13:00 05/04/23 13:10 Temperature Temperature Source Pulse Rate 89 81 80 Pulse Rate [Right Finger] Pulse Rate from SpO2 Sensor 83 80 Respiratory Rate 16 17 Respiratory Effort / Characteristics Respiratory Depth Blood Pressure Blood Pressure [Right Arm] Blood Pressure Mean Blood Pressure Mean [Right Arm] Pulse Oximetry 94 93 Oxygen Delivery Method Sepsis Recent Fever Within 48 Hours Sepsis New/Unexplained Change in Mental Status Sepsis Action Taken by Nursing 05/04/23 13:20 05/04/23 13:23 05/04/23 13:30 Temperature Temperature Source Pulse Rate 83 83 80 Pulse Rate [Right Finger] Pulse Rate from SpO2 Sensor 83 80 Respiratory Rate 17 20 15 Respiratory Effort / Characteristics Respiratory Depth Blood Pressure Blood Pressure [Right Arm] Blood Pressure Mean Blood Pressure Mean [Right Arm] Pulse Oximetry 93 95 95 Oxygen Delivery Method Room Air Sepsis Recent Fever Within 48 Hours Sepsis New/Unexplained Change in Mental Status Sepsis Action Taken by Nursing 05/04/23 13:40 05/04/23 13:50 05/04/23 14:00 Temperature Temperature Source Pulse Rate 80 81 76 Pulse Rate [Right Finger] Pulse Rate from SpO2 Sensor 80 80 76 Respiratory Rate 12 14 18 Respiratory Effort / Characteristics Respiratory Depth Blood Pressure Blood Pressure [Right Arm] Blood Pressure Mean Blood Pressure Mean [Right Arm] Pulse Oximetry 93 95 94 Oxygen Delivery Method Sepsis Recent Fever Within 48 Hours Sepsis New/Unexplained Change in Mental Status Sepsis Action Taken by Nursing 05/04/23 14:10 05/04/23 14:20 05/04/23 14:30 Temperature Temperature Source Pulse Rate 77 78 90 Pulse Rate [Right Finger] Pulse Rate from SpO2 Sensor 78 79 Respiratory Rate 13 21 21 Respiratory Effort / Characteristics Respiratory Depth Blood Pressure Blood Pressure [Right Arm] Blood Pressure Mean Blood Pressure Mean [Right Arm] Pulse Oximetry 95 98 Oxygen Delivery Method Sepsis Recent Fever Within 48 Hours Sepsis New/Unexplained Change in Mental Status Sepsis Action Taken by Nursing 05/04/23 14:40 05/04/23 14:50 05/04/23 15:00 Temperature Temperature Source Pulse Rate 82 81 84 Pulse Rate [Right Finger] Pulse Rate from SpO2 Sensor 82 84 Respiratory Rate 15 Respiratory Effort / Characteristics Respiratory Depth Blood Pressure Blood Pressure [Right Arm] Blood Pressure Mean Blood Pressure Mean [Right Arm] Pulse Oximetry 96 95 Oxygen Delivery Method Sepsis Recent Fever Within 48 Hours Sepsis New/Unexplained Change in Mental Status Sepsis Action Taken by Nursing 05/04/23 15:01 05/04/23 15:03 05/04/23 15:03 Temperature Temperature Source Pulse Rate 84 Pulse Rate [Right Finger] 85 Pulse Rate from SpO2 Sensor 86 Respiratory Rate 22 18 Respiratory Effort / Characteristics Respiratory Depth Blood Pressure 120/76 Blood Pressure [Right Arm] 120/76 Blood Pressure Mean 100 Blood Pressure Mean [Right Arm] 90 Pulse Oximetry 95 94 Oxygen Delivery Method Room Air Sepsis Recent Fever Within 48 Hours Sepsis New/Unexplained Change in Mental Status Sepsis Action Taken by Nursing 05/04/23 15:10 05/04/23 15:20 05/04/23 15:30 Temperature Temperature Source Pulse Rate 78 81 79 Pulse Rate [Right Finger] Pulse Rate from SpO2 Sensor 79 80 79 Respiratory Rate 12 14 Respiratory Effort / Characteristics Respiratory Depth Blood Pressure Blood Pressure [Right Arm] Blood Pressure Mean Blood Pressure Mean [Right Arm] Pulse Oximetry 97 95 94 Oxygen Delivery Method Sepsis Recent Fever Within 48 Hours Sepsis New/Unexplained Change in Mental Status Sepsis Action Taken by Nursing 05/04/23 15:40 05/04/23 15:50 05/04/23 16:00 Temperature Temperature Source Pulse Rate 84 78 78 Pulse Rate [Right Finger] Pulse Rate from SpO2 Sensor 80 79 78 Respiratory Rate 12 14 Respiratory Effort / Characteristics Respiratory Depth Blood Pressure Blood Pressure [Right Arm] Blood Pressure Mean Blood Pressure Mean [Right Arm] Pulse Oximetry 96 94 96 Oxygen Delivery Method Sepsis Recent Fever Within 48 Hours Sepsis New/Unexplained Change in Mental Status Sepsis Action Taken by Nursing 05/04/23 16:10 05/04/23 16:20 Temperature Temperature Source Pulse Rate 76 79 Pulse Rate [Right Finger] Pulse Rate from SpO2 Sensor 76 78 Respiratory Rate 16 18 Respiratory Effort / Characteristics Respiratory Depth Blood Pressure Blood Pressure [Right Arm] Blood Pressure Mean Blood Pressure Mean [Right Arm] Pulse Oximetry 97 96 Oxygen Delivery Method Sepsis Recent Fever Within 48 Hours Sepsis New/Unexplained Change in Mental Status Sepsis Action Taken by [facility] Medications Current Medication List: was personally reviewed by me Laboratory Data Attestation: I reviewed the patient's lab results. 05/04/23 13:07 05/04/23 13:07 Lab Results 05/04/23 05/04/23 Range/Units 13:07 15:18 WBC 6.94 (4.8-10.8) K/ul RBC 3.52 L (4.20-5.40) M/uL Hgb 11.9 L (12.0-16.0) g/dl Hct 35.6 L (37.0-47.0) % MCV 101.1 H (80.0-100.0) fL MCH 33.8 (25.0-34.0) pg MCHC 33.4 (32.0-36.0) g/dL RDW Std Deviation 60.4 H (36.4-46.3) fL RDW Coeff of Laureen 16.1 H (11.5-14.5) % Plt Count 154 (130-400) K/uL MPV 9.9 (9.4-12.4) fL Immature Gran % (Auto) 1.0 % Neut % (Auto) 45.9 % Lymph % (Auto) 40.8 % [place] % (Auto) 9.1 % Eos % (Auto) 2.6 % Baso % (Auto) 0.6 % Neut # (Auto) 3.19 (1.40-6.50) K/uL Lymph # (Auto) 2.83 (1.20-3.40) K/uL [place] # (Auto) 0.63 H (0.11-0.59) K/uL Eos # (Auto) 0.18 (0.00-0.50) K/uL Baso # (Auto) 0.04 (0.00-0.20) K/uL Immature Gran # (Auto) 0.07 (0.01-0.20) K/uL Sodium 139 (136-145) mmol/L Potassium 4.1 (3.5-5.1) mmol/L Chloride 107 (98-107) mmol/L Carbon Dioxide 25 (21-32) mmol/L Anion Gap 7 (3-11) BUN 12 (6-23) mg/dl Creatinine 0.68 (0.6-1.2) mg/dl Est Cr Clr Drug Dosing 81.3 ml/min Est GFR ( Amer) 107.1 ml/min Est GFR (Non-Af Amer) 92.4 ml/min BUN/Creatinine Ratio 17.6 (10-20) Glucose 100 H (70-99(Fasting)) mg/dl Calcium 9.6 (8.6-10.3) mg/dl Total Bilirubin 0.3 (0.2-1.0) mg/dl AST 16 (13-39) U/L ALT 15 (7-52) U/L Alkaline Phosphatase 74 (34-104) U/L Troponin I High Sens 138.2 H* 144.4 H* (0-14) pg/ml Total Protein 7.0 (6.0-8.3) gm/dl Albumin 4.3 (3.4-5.0) gm/dl Globulin 2.7 (2.5-4.0) gm/dl Albumin/Globulin Ratio 1.6 (0.9-2) Lipase 39 (11-82) U/L Administered Medications Discontinued Medications Dexamethasone Sodium Phosphate (DexamethasonePf 10 Mg/Ml Vial) 10 mg IV NOW ONE Stop: 05/04/23 16:33 Last Admin: 05/04/23 16:36 Dose: 10 mg Documented By: BCN Ketorolac Tromethamine (Ketorolac Tromethamine 15 Mg/Ml Vial) 10 mg IV NOW ONE Stop: 05/04/23 14:05 Last Admin: 05/04/23 14:12 Dose: 10 mg Documented By: LENORA Ondansetron HCl (Ondansetron Inj 2 Mg/Ml 2 Ml Vial) 4 mg IV NOW STA Stop: 05/04/23 16:07 Last Admin: 05/04/23 16:08 Dose: 4 mg Documented By: TEE Imaging Data Attestation: I personally reviewed and interpreted this imaging study as follows: My Impression: 1 view chest x-ray was obtained in the emergency department. My interpretation is no free air or definite filtrate. Radiologist's Impression: Chest X-Ray 05/04/23 13:22 SINGLE VIEW CHEST CLINICAL HISTORY: Atypical chest pain. FINDINGS: An AP, portable, upright chest radiograph is compared to chest x-ray and chest CT dated 04/16/2023. Surgical clips are seen in the chest wall bilaterally. A right subclavian central venous infusion port is unchanged in position. The cardiomediastinal silhouette is top normal for projection. The lungs and pleural spaces are clear. No pneumothorax is seen. The skeletal structures are osteopenic. The bony thorax is grossly intact. IMPRESSION: No active disease in the chest. ACT 112: Negative or not required by law. Electronically signed by: Colin Clifford M.D. 05/04/2023 1:38 PM Discharge Plan Visit Data Chief Complaint: Chest Pain ED Provider: Bryan Waller Discharge Problem: Myocarditis, Chest pain Prescriptions Prescriptions: No Action bupropion HCl [Wellbutrin XL] 300 mg tablet extended release 24 hr 300 mg PO QAM Caltrate 600 plus D 600 mg (1,500 mg)-800 unit tablet,chewable 1 tab PO HS gabapentin 300 mg capsule 600 mg PO TID lisinopril 2.5 mg tablet 2.5 mg PO HS acetaminophen 500 mg capsule 1,000 mg PO Q6H PRN (Reason: Pain) hydroxyzine HCl 25 mg tablet 25 mg PO BID PRN (Reason: Anxiety/ALLERGY) ondansetron HCl 8 mg tablet 8 - 16 mg PO DIRECTED PRN (Reason: Nausea) mirtazapine [Remeron] 15 mg tablet 15 mg PO HS anastrozole 1 mg tablet 1 mg PO HS pantoprazole 20 mg tablet,delayed release (DR/EC) 20 mg PO DAILY PRN (Reason: Heartburn) pravastatin 10 mg tablet 10 mg PO HS Qty: 30 0RF fenofibrate micronized 134 mg capsule 134 mg PO QAM levothyroxine 25 mcg Tablet 25 mcg PO DAILYBB multivitamin Tablet 1 tab PO QAM quetiapine [Seroquel] 25 mg tablet 50 mg PO HS clopidogrel [Plavix] 75 mg Tablet 75 mg PO HS Hold Instructions: Resume on 02/02/23. vitamin B complex Tablet 1 tab PO QAM temazepam [Restoril] 22.5 mg capsule 22.5 mg PO HS Patient Comments: currently out of pills, waiting on refill cyclobenzaprine 10 mg tablet 10 mg PO DAILY PRN (Reason: Muscle Spasm) alprazolam 0.5 mg tablet 0.5 mg PO DAILY PRN (Reason: severe anxiety) dexamethasone 4 mg tablet See Rx Instructions .ROUTE .COMPLEX Rx Instructions: TAKE 5 TABLETS BY MOUTH 12, THEN 6 HOURS PRIOR TO PACLITAXEL DIRECTED. starts saturday nights for wednesdays infusion olopatadine 0.2 % Drops 1 drp OPHTHALMIC (EYE) DAILY PRN (Reason: Dry Eye(S)) melatonin 10 mg Tablet 10 mg PO HS PRN (Reason: Sleep) furosemide 20 mg tablet 20 mg PO QAM Ozempic 0.25 mg or 0.5 mg (2 mg/3 mL) pen injector 0.25 mg SUBCUT WK Rx Instructions: ascorbic acid (vitamin C) 500 mg Tablet,Chewable 500 mg PO HS hydromorphone [Dilaudid] 2 mg Tablet 2 mg PO Q4H PRN (Reason: pain) Qty: 30 0RF magnesium oxide 400 mg (241.3 mg magnesium) Tablet 400 mg PO BID Qty: 60 0RF Discharge Problem: Myocarditis Qualifiers: Myocarditis type: unspecified Chronicity: acute Qualified Code(s): I40.9 - Acute myocarditis, unspecified Chest pain Qualifiers: Chest pain type: unspecified Qualified Code(s): R07.9 - Chest pain, unspecified
[2023-05-04 14:21] LABS: Troponin I High Sensitivity 138.2 pg/ml (0-14)
[2023-05-04] MEDS: ONDANSETRON INJ 2 MG/ML 2 ML VIAL IV STA (16:08)
[2023-05-04] MEDS: dexAMETHasone**PF** 10 MG/ML VIAL IV ONE (16:36)
[2023-05-04] MEDS ORDERED: DEXTROSE 50% 50 ML SYRINGE IV PRN (16:57)
[2023-05-04] MEDS ORDERED: GLUCOSE 40% GEL 15 GM TUBE PO PRN (16:57)
[2023-05-04] MEDS ORDERED: GLUCAGON FOR INJ 1 MG VIAL SQ PRN (16:57)
[2023-05-04] MEDS ORDERED: PHARMACY GLYCEMIC MGMT CONSULT PRN (16:57)
[2023-05-04] MEDS ORDERED: CARBOHYDRATES FOR HYPOGLYCEMIA PO PRN (16:57)
[2023-05-04] MEDS ORDERED: GLUCOSE 10 TAB/TUBE PO PRN (16:57)
--- NOTE | 2023-05-04 16:58 | History & Physical Report ---
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 -Corticosteroids had been on hold as patient's high sen trop was slowly trending down and she was essentially asymptomatic at the time of last discharge -Cardiology has been consulted, appreciate their help, current recs below >Continue daily corticosteroids at 1mg/kg Prednisone dosing or equivalent dose for other steroids >Trend daily troponin and ECG >They will continue to follow -Patient was given 15 mg IV toradol and 10 mg IV Dexamethasone in the ED -We will continue with 10 mg IV dexamethasone for now -Patient has been off Keytruda since last admission and has yet to be started on a new therapy -Conitnue home pain regimen -Will obtain TTE tomorrow -SQ lovenox for DVT PPX -HH/DMII diet -AM CBC, CMP, jean-pierre sen trop, ECG, mag (2) Recurrent cancer of left breast: Plan: -[facility] -Continues to take daily Anastrazole -New immunotherapy is yet to be started -Continue to follow with [facility] on discharge (3) Elevated troponin: Plan: -See chest pain (4) Tobacco abuse: Plan: -Currently smoking 1PPD since she was diagnosed with recurrent breast cancer -Strongly encourage cessation with her current cancer diagnosis, history of CVA, and likely myocarditis -Patient is in agreement with starting cessation -Patient has an allergy to many adhesives, will hold nicotine patch for now -Will start prn nicotine gum -Incentive spirometry -Will hold albuterol for now to avoid increased stress on her heart (5) Diabetes mellitus: Plan: -Hold Ozempic -Monitor BSG ACHS, goal is 110-160 while on steroids -Will start 5 units lantus BID and CF 50 ACHS for now with current steroid treatment -Will consult pharmacy for continued glycemic control management -HH/DMII diet (6) PTSD (post-traumatic stress disorder): Plan: -Continue prn xanax -Continue Wellbutrin and HS temazepam (7) Hypothyroidism: Plan: -Continue levothyroxine (8) Cerebrovascular disease: Plan: -Continue aspirin and Plavix (9) Gastroesophageal reflux disease: Plan: -Continue daily PPI Plan The patient was discussed with Dr. 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 She remained stable in the ED. Labs were significant for a HCT 35, MCV of 101, initial high sen trop of 138 --> 144 on 2 hour repeat. ECG shows NSR without acute ST segment or T- wave inversion. Chest was read as negative for acute findings. 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 Cardiology recommended admission with initiation of Glucocorticoid therapy and continued monitoring. Prior to admission the patient was given 10 mg IV dexamethasone, 10 mg IV toradol, and 4 mg IV zofran. At the time of the exam the patient was sitting in bed in no acute distress with her sitting bedside, history was obtained from both. Since her Cardiology Clinic appointment on 05/02/23 she had been doing well. She denies recurrent chest discomfort or increased SOB/DAVIDSON until this am. She states that around 10 am she was cleaning books off their kitchen table when she suddenly developed substernal chest pressure and SOB. Symptoms lasted until shortly after EMS arrived, which was approximately 50 minutes. She states that the chest discomfort radiated up into her anterior neck as well. When asked, she states that it seems as though he symptoms improve when she is sitting up and are exacerbated when lying flat. She denies recent fever, cough, hemoptysis, and pain, nausea, vomiting, diarrhea, dysuria, hematuria, melena, LE swelling, and recent trauma. 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 She has been smoking 1PPD since her recurrent breast cancer diagnosis. She is a full code and would want her to make medical decisions for her if she cannot make them herself. Patient denies current chest discomfort at the time of admission. She confirms that she was given 4, baby aspirin by EMS in route to the ED. Please refer to Dr. Iraheta's attestation for any changes to the treatment plan Allergies Allergy/AdvReac Type Severity Reaction Status Date / Time bacitracin Allergy Severe ITCHING/INF Verified 05/04/23 15:40 ECTION Quinolones Allergy Severe ANAPHYLAXIS/HEART Verified 05/04/23 15:40 FLUTTERING rizatriptan Allergy Severe SHORTNESS Verified 05/04/23 15:40 OF BREATH amoxicillin [From Augmentin] Allergy Intermediate Hives Verified 05/04/23 15:40 ciprofloxacin Allergy Intermediate Palpitations, Verified 05/04/23 15:40 rash, clavulanic acid Allergy Intermediate Hives Verified 05/04/23 15:40 [From Augmentin] clindamycin Allergy Intermediate Hives Verified 05/04/23 15:40 escitalopram [From Lexapro] Allergy Intermediate Hives Verified 05/04/23 15:40 nickel Allergy Intermediate SKIN Verified 05/04/23 15:40 IRRITATION ofloxacin Allergy Intermediate Rash Verified 05/04/23 15:40 polymyxin B Allergy Intermediate Hives Verified 05/04/23 15:40 silver Allergy Intermediate pruritus Verified 05/04/23 15:40 varenicline [From Chantix] Allergy Intermediate ITCHY HIVES Verified 05/04/23 15:40 lamotrigine Allergy Mild RASH Verified 05/04/23 15:40 neomycin Allergy Mild ITCHING Verified 05/04/23 15:40 WITH THE OINTMENT adhesive Allergy Unknown ALLERGIC Verified 05/04/23 15:40 TO MEDICATED STERI-STRIPS AND SOME TAPE-RASH BLISTE citalopram Allergy Unknown CAN'T Verified 05/04/23 15:40 REMEMBER celecoxib AdvReac Intermediate GI SYMPTOMS Verified 05/04/23 15:40 dichloralphenazone AdvReac Intermediate ALTERED Verified 05/04/23 15:40 [From Midrin] MENTAL STATUS isometheptene [From Midrin] AdvReac Intermediate ALTERED Verified 05/04/23 15:40 MENTAL STATUS paroxetine AdvReac Intermediate OUT OF Verified 05/04/23 15:40 BODY EXPERIENCE piperacillin AdvReac Unknown BETALACTAMASE Verified 05/04/23 15:40 INHIBITORS-UNKNOWN tazobactam AdvReac Unknown BETALACTAMASE Verified 05/04/23 15:40 INHIBITORS-UNKNOWN Home Medications Medication Instructions Recorded Confirmed Type bupropion HCl 300 mg 24 hr tablet, 300 mg PO QAM 12/12/17 05/04/23 History extended release (Wellbutrin XL) fenofibrate micronized 134 mg 134 mg PO QAM 04/16/19 05/04/23 History capsule pravastatin 10 mg tablet 10 mg PO HS #30 tabs 07/13/19 05/04/23 Rx levothyroxine 25 mcg tablet 25 mcg PO DAILYBB 09/12/19 05/04/23 History lisinopril 2.5 mg tablet 2.5 mg PO HS 04/05/20 05/04/23 History mirtazapine 15 mg tablet (Remeron) 15 mg PO HS 01/03/21 05/04/23 History calcium carbonate 600 mg-vitamin 1 tab PO HS 01/18/21 05/04/23 History D3 20 mcg (800 unit) chewable tablet (Caltrate 600 plus D) ondansetron HCl 8 mg tablet 8 - 16 mg PO DIRECTED PRN Nausea 03/21/21 05/04/23 History anastrozole 1 mg tablet 1 mg PO HS 04/07/21 05/04/23 History gabapentin 300 mg capsule 600 mg PO TID 01/18/22 05/04/23 History clopidogrel 75 mg tablet (Plavix) 75 mg PO HS 01/31/22 05/04/23 History multivitamin 1 tab PO QAM 01/31/22 05/04/23 History quetiapine 25 mg tablet (Seroquel) 50 mg PO HS 01/31/22 05/04/23 History vitamin B complex 1 tab PO QAM 01/31/22 05/04/23 History pantoprazole 20 mg tablet,delayed 20 mg PO DAILY PRN Heartburn 05/14/22 05/04/23 History release temazepam 22.5 mg capsule 22.5 mg PO HS 07/16/22 05/04/23 History (Restoril) acetaminophen 500 mg capsule 1,000 mg PO Q6H PRN Pain 10/23/22 05/04/23 History hydroxyzine HCl 25 mg tablet 25 mg PO BID PRN Anxiety/ALLERGY 10/23/22 05/04/23 History alprazolam 0.5 mg tablet 0.5 mg PO DAILY PRN severe anxiety 02/07/23 05/04/23 History cyclobenzaprine 10 mg tablet 10 mg PO DAILY PRN Muscle Spasm 02/07/23 05/04/23 History dexamethasone 4 mg tablet See Rx Instructions .Route .COMPLEX 02/07/23 05/04/23 History melatonin 10 mg tablet 10 mg PO HS PRN Sleep 02/07/23 05/04/23 History olopatadine 0.2 % eye drops 1 drp ophthalmic (eye) DAILY PRN 02/07/23 05/04/23 History Dry Eye(S) ascorbic acid (vitamin C) 500 mg 500 mg PO HS 04/16/23 05/04/23 History chewable tablet semaglutide 0.25 mg or 0.5 mg (2 0.25 mg subcut WK 04/16/23 05/04/23 History mg/3 mL) subcutaneous pen injector (Ozempic) hydromorphone 2 mg tablet 2 mg PO Q4H PRN pain #30 tabs 04/18/23 05/04/23 Rx (Dilaudid) magnesium oxide 400 mg (241.3 mg 400 mg PO BID #60 tabs 04/18/23 05/04/23 Rx magnesium) tablet furosemide 20 mg tablet 20 mg PO QAM 05/04/23 05/04/23 History prednisone 10 mg tablet See Rx Instructions .Route 05/06/23 Rx .COMPLEX #12 tabs Past Med/Surg History Medical History (Updated 05/04/23 @ 17:32 by NADINE LingC) Cerebrovascular disease Hypothyroidism Diabetes mellitus Recurrent cancer of left breast Pain at surgical site Acute diverticulitis Bipolar 1 disorder Cervical pain (neck) ROM "is ok, but not quite what it should be" Hemochromatosis Vaginismus Sleep apnea no device Schizoaffective disorder Personality disorder Osteoporosis (09/05/12) Morbid obesity Menopause Lymphocytosis Invasive carcinoma of breast Gastroesophageal reflux disease hx-no issues currently Depression Corneal dystrophy Chronic pain Arthralgia of multiple sites Abnormal liver function test Arthritis of foot History of chemotherapy History of anemia Esophagus disorder "narrow esophagus per pt" Diabetes mellitus Endometriosis Scoliosis History of fatty infiltration of liver Diverticular disease History of breast cancer Left 2005 and 2017 and 2017 h/o lumpectomy + chemo/radiaton Osteoarthritis TMJ (temporomandibular joint disorder) no clicking or locking PTSD (post-traumatic stress disorder) Bipolar disorder History of migraine History of TIA (transient ischemic attack) 07/2019 > no residual effects > follows with Dr. Reji NAVA (hyperlipidemia) Sacral fracture hx-2013 Surgical History History of tonsillectomy Port-A-Cath in place (01/29/23) Insertion of Right Subclavian Access Port, Removal of Left Access Port(Right) - Janet Bajwa DO Port-A-Cath in place (01/25/23) Insertion of Access Port in Left Subclavian with Fluoroscopy(Left) - Janet Bajwa DO Hx of bilateral mastectomy 2022, [facility] for recurrent breast cancer Hx of colectomy sigmoid colectomy, 6-7 years ago Hx of bilateral cataract extraction S/P epidural steroid injection History of vascular access device removed History of breast biopsy History of laparoscopy mult History of lumpectomy of right breast benign History of lumpectomy of left breast x 2 History of appendectomy History of open reduction and internal fixation (ORIF) procedure LLE History of ankle surgery left x 6 History of colonoscopy History of bowel resection due to diverticulitis History of fracture of left ankle left tibia Family History Mother Hypertension Adrenal gland cancer Cancer Father , age 59 of lung cancer Lung cancer smoker Liver cancer Cancer Aunt Breast cancer Other Colorectal cancer No family history of adverse response to anesthesia No family history of bleeding disorder Social History Smoking Status: Current every day smoker Tobacco Type: Cigarettes packs per day: 1; Cigarettes Per Day: Pack; Second Hand Exposure: No; Do You Dip or Chew Tobacco: No; Tobacco Cessation Education Requested by Patient: Yes Hx Alcohol Use: Yes Alcohol type: hard liquor Alcohol Intake Frequency: Monthly or Less Hx Substance Use: No Preferred Language: Swazi Communication Ability: Effective Visual Impairment: No Limitations Hearing Ability: Normal Fisher Purse Seine Required: No Beliefs That Will Affect Care: None marital status: Current Living Situation: Spouse Current Living Situation Comment: At home with 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al status: retired and disabled 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 [employer] Other Information That Helps Us Care for You: No other: Stopped work in 2001 on disability Feels Safe at Home: Yes Safety Concerns: Feels Safe At This Time Diet: diabetic during the past year weight has: increased > 10 lbs Assistive Devices: Cane and Glasses Physical Exam Physical Exam: Physical Exam: General: In no acute distress, stated age, chronically ill appearing but non- toxic HEENT: Normocephalic, atraumatic, no scleral icterus, pupils around round, symmetrical, and reactive to light, moist mucus membranes, trachea midline, no thyromegaly Chest/Pulm: Mediport located in the right upper chest is without signs of irritation or infection, No respiratory distress, symmetrical chest expansion, scattered expiratory wheezing Cardiac: RRR, no murmurs noted Abdomen: Negative for ascites and bruising, normoactive bowel sounds, soft, non-tender to palpation throughout Musculoskeletal: Symmetrical and without signs of acute trauma, upper and lower extremities with full ROM, no atrophy, spasticity, or flaccidity Extremities: Radial, dorsalis pedis, and posterior tibial pulses are intact and symmetrical, no edema noted in the BL LE's Skin: Warm, dry, no rashes , lesions, or scars noted Neuro: Alert and oriented to person, place, month, year, and president, no focal defects, no tremors noted Psych: No acute distress, calm and cooperative during the exam Results & Data Results & Data Vital Signs (Past 12 Hours) Vital Signs Temp Pulse Pulse Resp BP BP Pulse Ox 05/04/23 16:20 79 18 96 05/04/23 16:10 76 16 97 05/04/23 16:00 78 14 96 05/04/23 15:50 78 94 05/04/23 15:40 84 12 96 05/04/23 15:30 79 94 05/04/23 15:20 81 14 95 05/04/23 15:10 78 12 97 05/04/23 15:03 120/76 05/04/23 15:03 84 18 94 05/04/23 15:01 85 22 120/76 95 05/04/23 15:00 84 15 95 05/04/23 14:50 81 05/04/23 14:40 82 96 05/04/23 14:30 90 21 05/04/23 14:20 78 21 98 05/04/23 14:10 77 13 95 05/04/23 14:00 76 18 94 05/04/23 13:50 81 14 95 05/04/23 13:40 80 12 93 05/04/23 13:30 80 15 95 05/04/23 13:23 83 20 95 05/04/23 13:20 83 17 93 05/04/23 13:10 80 17 93 05/04/23 13:00 81 16 94 05/04/23 12:59 89 05/04/23 12:58 95 05/04/23 12:58 37 C 82 20 125/88 95 05/04/23 12:56 83 96 O2 Del Method 05/04/23 16:20 05/04/23 16:10 05/04/23 16:00 05/04/23 15:50 05/04/23 15:40 05/04/23 15:30 05/04/23 15:20 05/04/23 15:10 05/04/23 15:03 05/04/23 15:03 05/04/23 15:01 Room Air 05/04/23 15:00 05/04/23 14:50 05/04/23 14:40 05/04/23 14:30 05/04/23 14:20 05/04/23 14:10 05/04/23 14:00 05/04/23 13:50 05/04/23 13:40 05/04/23 13:30 05/04/23 13:23 Room Air 05/04/23 13:20 05/04/23 13:10 05/04/23 13:00 05/04/23 12:59 05/04/23 12:58 Room Air 05/04/23 12:58 Room Air 05/04/23 12:56 Laboratory Results Abnormal lab results 05/04/23 05/04/23 Range/Units 13:07 15:18 RBC 3.52 L (4.20-5.40) M/uL Hgb 11.9 L (12.0-16.0) g/dl Hct 35.6 L (37.0-47.0) % MCV 101.1 H (80.0-100.0) fL RDW Std Deviation 60.4 H (36.4-46.3) fL RDW Coeff of Laureen 16.1 H (11.5-14.5) % [place] # (Auto) 0.63 H (0.11-0.59) K/uL Glucose 100 H (70-99(Fasting)) mg/dl Troponin I High Sens 138.2 H* 144.4 H* (0-14) pg/ml Diagnostic Findings Chest X-Ray 05/04/23 13:22 SINGLE VIEW CHEST CLINICAL HISTORY: Atypical chest pain. FINDINGS: An AP, portable, upright chest radiograph is compared to chest x-ray and chest CT dated 04/16/2023. Surgical clips are seen in the chest wall bilaterally. A right subclavian central venous infusion port is unchanged in position. The cardiomediastinal silhouette is top normal for projection. The lungs and pleural spaces are clear. No pneumothorax is seen. The skeletal structures are osteopenic. The bony thorax is grossly intact. IMPRESSION: No active disease in the chest. ACT 112: Negative or not required by law. Electronically signed by: Colin Clifford M.D. 05/04/2023 1:38 PM ECG Additional Comments: Normal sinus rhythm Normal ECG When compared with ECG of 17-APR-2023 19:20, No significant change was found Code Status & VTE Plan Code Status Dull code VTE Prophylaxis Plan VTE Prophylaxis will be ordered: Yes Supervising Physician Co-Signing Physician Notes I personally saw and examined the patient. 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 Troponin has been downtrending as an outpatient and therefore steroids not previously u sed. Case discussed with cardiology on admission and recommended starting steroids 1 mg/kg at this time. O/E A&Ox3, HS RRR, no murmurs, no friction rub, Chest CTAB, Abdo SNT A/P Keytruda induced myocarditis - dexamethasone given in the emergency room, switch steroids to Solu-Medrol 1 mg/kg IV. Consult cardiology. PG Care Time/CCT Total # of Minutes Spent Total Time Spent with Patient: Total time spent is greater than 50% in coordination of care (as documented) at patient's floor/unit and/or counseling patient: [place] [address] INT INP/OBS CARE 2/55MIN Patient Type Established Medical Decision Making High Complexity Diagnoses Chest pain R07.9 Chest pain type: unspecified Recurrent cancer of left breast C50.912 Elevated troponin R79.89 Tobacco abuse Z72.0 Diabetes mellitus E11.9 PTSD (post-traumatic stress disorder) F43.10 Hypothyroidism E03.9 Cerebrovascular disease I67.9 Gastroesophageal reflux disease K21.9 (1) Chest pain Chest pain type: unspecified Qualified Code(s): R07.9 - Chest pain, unspecified
[2023-05-04] MEDS ORDERED: NICOTINE POLACRILEX 2 MG GUM MT PRN (17:26)
[2023-05-04] MEDS ORDERED: NICOTINE 21 MG/24 HR TDSY TD SCH (17:30)
[2023-05-04] MEDS: INSULIN ASPART PER UNIT CHARGE SC SCH ×2 (18:29→23:23)
[2023-05-04] MEDS ORDERED: CYCLOBENZAPRINE HCL 10 MG TAB PO PRN (18:33)
[2023-05-04] MEDS ORDERED: PANTOprazole 40 MG TAB PO PRN (18:33)
[2023-05-04] MEDS ORDERED: MELATONIN 3 MG TAB PO PRN (18:45)
[2023-05-04] MEDS: HYDROmorphone HCL 2 MG TAB PO PRN (19:56)
[2023-05-04] MEDS: ALPRAZolam 0.5 MG TABLET PO PRN (19:58)
[2023-05-04] MEDS: ANASTROZOLE 1 MG TAB PO SCH (20:43)
[2023-05-04] MEDS: PRAVASTATIN SOD 10 MG TAB PO SCH (20:43)
[2023-05-04] MEDS: GABAPENTIN 300 MG CAP PO SCH (20:44)
[2023-05-04] MEDS: ENOXAPARIN INJ 40 MG/0.4 ML SYR SQ SCH (20:44)
[2023-05-04] MEDS: CLOPIDOGREL BISULFATE 75 MG TAB PO SCH (20:44)
[2023-05-04] MEDS: TEMAZEPAM 7.5 MG CAPSULE PO SCH (20:44)
[2023-05-04] MEDS: lisinopril 2.5 MG TAB PO SCH (20:49)
[2023-05-04] MEDS ORDERED: LANTUS PER UNIT CHARGE SQ SCH (21:00)
[2023-05-04] MEDS: LANTUS PER UNIT CHARGE SC ONE (21:28)
[2023-05-05] MEDS: QUEtiapine FUMARATE 25 MG TABLET PO SCH (02:20)
[2023-05-05] MEDS: LEVOTHYROXINE SODIUM 25 MCG TABLET PO SCH (06:10)
[2023-05-05 07:46] LABS: Basophils # (auto) 0.01 K/uL (0.00-0.20); Basophils % (auto) 0.1 %; Hematocrit (blood only) 33.6 % (37.0-47.0); Hemoglobin 11.6 g/dl (12.0-16.0); Immature Granulocytes # (auto) 0.08 K/uL (0.01-0.20); Immature Granulocytes % (auto) 0.8 %; Lymphocytes # (auto) 1.89 K/uL (1.20-3.40); Lymphocytes % (auto) 18.9 %; Mean Corpuscular Hemoglobin 34.1 pg (25.0-34.0); Mean Corpuscular Hgb Conc 34.5 g/dL (32.0-36.0); Mean Corpuscular Volume 98.8 fL (80.0-100.0); Mean Platelet Volume 10.2 fL (9.4-12.4); Monocytes # (auto) 0.41 K/uL (0.11-0.59); Monocytes % (auto) 4.1 %; Neutrophils # (auto) 7.61 K/uL (1.40-6.50); Neutrophils % (auto) 76.1 %; Platelet Count 163 K/uL (130-400); RDW Standard Deviation 58.1 fL (36.4-46.3)
[2023-05-05 07:56] LABS: Albumin Globulin Ratio 1.6 (0.9-2); Albumin Level 4.1 gm/dl (3.4-5.0); BUN Creatinine Ratio 30.3 (10-20); Bilirubin,Total 0.3 mg/dl (0.2-1.0); Calcium 9.3 mg/dl (8.6-10.3); Creatinine Clr Calc Pharmacy 83.7 ml/min; Est GFR (African American) 108.2 ml/min; Est GFR (Non-African American) 93.4 ml/min; Globulin 2.6 gm/dl (2.5-4.0); Potassium 4.3 mmol/L (3.5-5.1); Total Protein 6.7 gm/dl (6.0-8.3)
[2023-05-05 08:12] LABS: Troponin I High Sensitivity 57.8 pg/ml (0-14)
[2023-05-05] MEDS: PANTOprazole 40 MG TAB PO SCH (08:44)
[2023-05-05] MEDS ORDERED: DEXAMETHASONE SOD INJ 4 MG/ML VIAL IV SCH (09:00)
[2023-05-05] MEDS ORDERED: METHYLPREDNISOLONE IV SCH (09:00)
[2023-05-05] MEDS ORDERED: dexAMETHasone 10 MG in SYRINGE 0 ML IV SCH (09:00)
[2023-05-05] MEDS: methylPREDNISolone 60 MG in SYRINGE 0 ML IV SCH (09:15)
[2023-05-05] MEDS: buPROPion XL 300 MG TABCR PO SCH (09:15)
[2023-05-05] MEDS: HYDROmorphone HCL 2 MG TAB PO PRN (10:12)
[2023-05-05] MEDS: ACETAMINOPHEN 325 MG TAB ONE (10:30)
--- NOTE | 2023-05-05 11:33 | XCELERA ---
[id number] [email or web address]\[id number]
--- NOTE | 2023-05-05 12:06 | Cardiology Progress Note ---
Date of Service May 05, 2023 Assessment & Plan (1) Chest pain: Plan: -total duration for symptoms was 30 minutes. -her symptoms improved with the administration of aspirin in the ambulance. -high sensitivity troponin peaked at 144, down from a value of 193 on May 02 -no acute EKG changes. -echocardiogram with normal systolic function and no wall motion abnormality. -no evidence of an acute coronary syndrome. 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 -continues on IV in methylprednisolone. -hopefully her high sensitivity troponin will normalize with this treatment. Admission and Anticipated Discharge Date Admission Date: May 04, 2023 Subjective The patient is resting comfortably in bed without complaints of chest pain or dyspnea. The chest pain syndrome which prompted hospitalization was reviewed in detail. Physical Exam Physical Exam: In general this is a well-developed well-nourished white female in no acute distress. HEENT exam is negative. Neck is supple with full carotid upstrokes. There are no carotid bruits. Jugular venous pressure is flat at 90. There is no thyromegaly. Cardiovascular exam reveals a regular rhythm with a normal S1 and S2. No S3, S4, or murmurs are noted. Lungs are clear without rales, rhonchi, or wheezes. Abdomen is soft and nontender without bruits. Extremities reveal intact radial artery and posterior tibial pulses bilaterally. There is no peripheral edema. Results & Data Vital Signs (Past 12 Hours) Vital Signs Temp Pulse Pulse Resp BP Pulse Ox O2 Del Method 05/05/23 08:00 93 H 05/05/23 03:10 36.7 C 97 H 18 109/70 92 Room Air Laboratory Results High sensitivity troponin on presentation was 138 follow-up values of 144.4 and 57.8. Diagnostic Findings ECG notes sinus rhythm nonspecific ST abnormality. quality assurance monitor body notes sinus rhythm. Echocardiogram notes normal ventricular systolic function without wall motion abnormalities. The left ventricular ejection fraction is 65-70%. There was mild LVH and no valvular pathology. Compared with the study performed on April 17, no significant change. Chest x-ray shows no acute disease. 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
--- NOTE | 2023-05-05 12:33 | Hospitalist Progress Note ---
Date of Service May 05, 2023 Assessment & Plan (1) Chest pain: Plan: Troponin is downtrending. No evidence of acute coronary syndrome. This appears to entirely be related to her underlying myocarditis. Cardiology consultation and recommendations appreciated. Continue parenteral steroid therapy for now. Telemetry. (2) Recurrent cancer of left breast: Plan: Outpatient oncology follow-up. Continue anastrozole (3) Elevated troponin: Plan: Downtrending. Serial labs. No evidence of acute coronary syndrome (4) Tobacco abuse: Plan: Encouraged to stop smoking. (5) Diabetes mellitus: Plan: ADA diet. Sliding scale insulin coverage. Low-dose Lantus replaces Ozempic temporarily. (6) PTSD (post-traumatic stress disorder): Plan: Supportive care. Continue current medical management. No intervention needed at this time (7) Hypothyroidism: Plan: Stable. Continue levothyroxine replacement therapy Plan Hopeful discharge to home tomorrow, May 06, on a tapering dose of oral prednisone Admission and Anticipated Discharge Date Admission Date: May 04, 2023 Subjective Alert and oriented although she has a headache and is requesting Tylenol. Cardiology entry noted. She is currently on parenteral Solu-Medrol and will be discharged on a tapering dose of prednisone. Troponins are downtrending. No evidence of acute coronary syndrome. Review of Systems 2 Review of Systems: Constitutional-no fever or chills. She does have a typical headache ENT-no blurred vision, no double vision, no epistaxis, no sore throat Respiratory-no cough, no wheezing. Shortness of breath has resolved Cardiac-no palpitations, no syncope. Chest discomfort has resolved GI-no nausea, vomiting, diarrhea, melena, hematochezia -no urinary retention, no urinary incontinence, no dysuria, no hematuria Musculoskeletal-no joint pain, no muscle tenderness Skin-no bruising, no rashes, no pruritus Neuro-no isolated weakness, no paresthesia, no weakness Psych-no depression, no anxiety Physical Exam 2 Physical Exam: General-alert and oriented x3, no fevers, no chills HEENT-head atraumatic and normocephalic, pupils equal and reactive to light, extraocular muscles intact Neck-no lymphadenopathy or thyromegaly, trachea midline Chest-clear to auscultation. No rales, wheezing or rhonchi Cardiac-regular rate and rhythm, normal S1 and S2 Abdomen-normal bowel sounds, nontender, no hepatosplenomegaly Extremities-no cyanosis, clubbing, or edema Neuro-cranial nerves II through XII intact, motor and sensory function within normal limits, strength symmetrical, no focal deficits Psych-normal affect, normal mood Results & Data Results & Data Vital Signs (Past 12 Hours) Vital Signs Temp Pulse Pulse Resp BP BP Pulse Ox 05/05/23 11:30 36.6 C 98 H 18 115/63 115/60 94 05/05/23 08:00 93 H 05/05/23 07:45 36.5 C 88 16 100/59 L 95 05/05/23 03:10 36.7 C 97 H 18 109/70 92 O2 Del Method 05/05/23 11:30 Room Air 05/05/23 08:00 05/05/23 07:45 Room Air 05/05/23 03:10 Room Air Laboratory Results 05/05/23 07:11 05/05/23 07:11 PG Care Time/CCT Total # of Minutes Spent Total Time Spent with Patient: Total time spent is greater than 50% in coordination of care (as documented) at patient's floor/unit and/or counseling patient: Coding Level of Care Code 02311 SUB INP/OBS CARE 3/50MIN Diagnoses Chest pain R07.9 Chest pain type: unspecified Recurrent cancer of left breast C50.912 Elevated troponin R79.89 Tobacco abuse Z72.0 Diabetes mellitus E11.9 PTSD (post-traumatic stress disorder) F43.10 Hypothyroidism E03.9 (1) Chest pain Chest pain type: unspecified Qualified Code(s): R07.9 - Chest pain, unspecified
--- NOTE | 2023-05-05 13:28 | Electrocardiogram Report ---
Test Reason : Blood Pressure : / mmHG Vent. Rate : 081 BPM Atrial Rate : 081 BPM P-R Int : 162 ms QRS Dur : 086 ms QT Int : 380 ms P-R-T Axes : 045 079 039 degrees QTc Int : 441 ms Normal sinus rhythm Normal ECG When compared with ECG of 17-APR-2023 19:20, No significant change was found Confirmed by Bryan Waters ([id number]) on 05/05/2023 1:28:09 PM Referred By: REFERRED SELF Confirmed By:Bryan Waters
--- NOTE | 2023-05-05 13:44 | Electrocardiogram Report ---
Test Reason : Blood Pressure : / mmHG Vent. Rate : 092 BPM Atrial Rate : 092 BPM P-R Int : 180 ms QRS Dur : 086 ms QT Int : 374 ms P-R-T Axes : 047 068 051 degrees QTc Int : 462 ms Normal sinus rhythm Nonspecific ST and T wave abnormality Abnormal ECG When compared with ECG of 04-MAY-2023 12:56, (unconfirmed) No significant change was found Confirmed by Bryan Waters ([id number]) on 05/05/2023 1:44:17 PM Referred By: REFERRED SELF Confirmed By:Bryan Waters
[2023-05-05] MEDS: CYCLOBENZAPRINE HCL 10 MG TAB PO PRN (14:36)
[2023-05-05] MEDS: ACETAMINOPHEN 325 MG TAB PO PRN (19:52)
[2023-05-05 20:14] VITALS: RESP 18
[2023-05-06 07:45] VITALS: TEMP 98.6
[2023-05-06 08:27] LABS: Albumin Globulin Ratio 1.7 (0.9-2); BUN Creatinine Ratio 29.2 (10-20); Basophils # (auto) 0.03 K/uL (0.00-0.20); Basophils % (auto) 0.3 %; Bilirubin,Total 0.2 mg/dl (0.2-1.0); Calcium 9.3 mg/dl (8.6-10.3); Creatinine Clr Calc Pharmacy 76.8 ml/min; Eosinophils # (auto) 0.05 K/uL (0.00-0.50); Eosinophils % (auto) 0.5 %; Est GFR (African American) 102.6 ml/min; Est GFR (Non-African American) 88.5 ml/min; Globulin 2.4 gm/dl (2.5-4.0); Hematocrit (blood only) 32.8 % (37.0-47.0); Immature Granulocytes # (auto) 0.06 K/uL (0.01-0.20); Immature Granulocytes % (auto) 0.6 %; Lymphocytes # (auto) 3.72 K/uL (1.20-3.40); Lymphocytes % (auto) 35.2 %; Mean Corpuscular Hemoglobin 33.6 pg (25.0-34.0); Mean Corpuscular Hgb Conc 33.5 g/dL (32.0-36.0); Mean Corpuscular Volume 100.3 fL (80.0-100.0); Mean Platelet Volume 10.4 fL (9.4-12.4); Monocytes % (auto) 10.4 %; Neutrophils # (auto) 5.61 K/uL (1.40-6.50); Platelet Count 167 K/uL (130-400); RDW Coefficient of Variation 16.4 % (11.5-14.5); RDW Standard Deviation 59.8 fL (36.4-46.3); Red Blood Count 3.27 M/uL (4.20-5.40); Total Protein 6.4 gm/dl (6.0-8.3); White Blood Count 10.57 K/ul (4.8-10.8)
--- NOTE | 2023-05-06 10:16 | Cardiology Progress Note ---
Date of Service May 06, 2023 Assessment & Plan (1) Chest pain: Plan: -- Total duration for symptoms was 30 minutes. -- Her symptoms improved with the administration of Aspirin in the ambulance. -- High sensitivity troponin peaked at 144 pg/mL and is now down to 57.8 pg/mL. Down from a value of 193 on May 02 -- No acute EKG changes. -- Echocardiogram with normal systolic function, LVEF 65% to 70% and no wall motion abnormalities. -- No evidence of an acute coronary syndrome. 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 -- She was started on intravenous steroids in the ER. -- She has been IV Methylprednisolone during this hospitalization. -- Her high sensitivity troponin I is down to 57.8 pg/mL and will eventually normalize, at discharge recommend 3 to 4 week corticosteroid taper. -- Patient has been hemodynamically stable throughout this hospitalization and she has not had any arrhythmias. Follow-up in the next week with Dr. Thomson or myself. At this patient appears to be stable for discharge to home. Admission and Anticipated Discharge Date Admission Date: May 04, 2023 Subjective Mrs. 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 Dr. Tobin has held chemotherapy over the past week. Patient offers no complaints today and feels very well. She denies any further chest pain, exertional, positional, or otherwise. She denies any SOB, DAVIDSON, orthpnea, or PND. She denies any palpitations, syncope, or near syncope. Her last 2 high sensitivity Troponin I levels have been 144.4 pg/mL and trended down to 57.8 pg/mL. Echocardiogram 05/05/23 showed Normal LV size, wall motion, and LV systolic function. Mild concentric LVH. LVEF 65% to 70%. No valvular abnormalities. Creative Specialist has been NSR throughout this hospitalization, HR's currently in the 70's to 90's. No abnormal rhythms have been identified. Review of Systems Review of Systems: -- She does have a neuropathy/paresthesi as of her distal legs, feet, and fingertips -- She denies any fever, chills, nausea, or vomiting. -- No muscular weakness. -- No visual disturbances. -- No No neurologic symptoms suggestive of stroke or mini-stroke. Physical Exam Physical Exam: BP 107/68. Pulse 82 and regular. GENERAL: Patient in no acute distress. HEENT: Head is atraumatic, normocephalic. EOM's intact. Facies symmetric. No perioral cyanosis. NECK: No JVD. JVP is not elevated. Carotid upstrokes are + 2 bilaterally without bruits. CHEST/LUNGS: Clear to auscultation throughout all lung alberts. No wheezes, rales, or crackles. CVS: S1 and S2 are regular without murmurs, gallops, or rubs. PMI is nondisplaced. No lifts, heaves, or thrills. No abdominal aortic or renal bruits. ABDOMINAL EXAM: Bowel sounds are present. No masses, organomegaly, or tenderness. EXTREMITIES: No clubbing or cyanosis. No edema. Intact posterior tibial and radial pulses bilaterally. NEUROLOGIC EXAM: Patient is awake, alert, and oriented. Pleasant and cooperative. Answers questions appropriately. Speech is clear. Echocardiogram and Creative Specialist as described under HPI. Results & Data Vital Signs (Past 12 Hours) Vital Signs Temp Pulse Pulse Resp BP BP Pulse Ox 05/06/23 08:00 82 05/06/23 07:44 37.0 C 82 18 107/68 97 05/06/23 03:00 37 C 82 18 98/65 L 95 05/05/23 23:51 83 05/05/23 23:00 36.7 C 80 18 111/73 95 O2 Del Method 05/06/23 08:00 05/06/23 07:44 Room Air 05/06/23 03:00 Room Air 05/05/23 23:51 05/05/23 23:00 Room Air Laboratory Results Laboratory Results - last 24 hr 05/05/23 05/05/23 05/05/23 11:53 16:46 20:34 WBC RBC Hgb Hct MCV MCH MCHC RDW Std Deviation RDW Coeff of Laureen Plt Count MPV Immature Gran % (Auto) Neut % (Auto) Lymph % (Auto) [place] % (Auto) Eos % (Auto) Baso % (Auto) Neut # (Auto) Lymph # (Auto) [place] # (Auto) Eos # (Auto) Baso # (Auto) Immature Gran # (Auto) Sodium Potassium Chloride Carbon Dioxide Anion Gap BUN Creatinine Est Cr Clr Drug Dosing Est GFR ( Amer) Est GFR (Non-Af Amer) BUN/Creatinine Ratio Glucose POC Glucose 124 H 158 H 148 H Calcium Total Bilirubin AST ALT Alkaline Phosphatase Total Protein Albumin Globulin Albumin/Globulin Ratio 05/06/23 05/06/23 07:32 07:34 WBC 10.57 RBC 3.27 L Hgb 11.0 L Hct 32.8 L MCV 100.3 H MCH 33.6 MCHC 33.5 RDW Std Deviation 59.8 H RDW Coeff of Laureen 16.4 H Plt Count 167 MPV 10.4 Immature Gran % (Auto) 0.6 Neut % (Auto) 53.0 Lymph % (Auto) 35.2 [place] % (Auto) 10.4 Eos % (Auto) 0.5 Baso % (Auto) 0.3 Neut # (Auto) 5.61 Lymph # (Auto) 3.72 H [place] # (Auto) 1.10 H Eos # (Auto) 0.05 Baso # (Auto) 0.03 Immature Gran # (Auto) 0.06 Sodium 141 Potassium 4.0 Chloride 109 H Carbon Dioxide 26 Anion Gap 6 BUN 21 Creatinine 0.72 Est Cr Clr Drug Dosing 76.8 Est GFR ( Amer) 102.6 Est GFR (Non-Af Amer) 88.5 BUN/Creatinine Ratio 29.2 H Glucose 89 POC Glucose 112 H Calcium 9.3 Total Bilirubin 0.2 AST 15 ALT 14 Alkaline Phosphatase 62 Total Protein 6.4 Albumin 4.0 Globulin 2.4 L Albumin/Globulin Ratio 1.7 Medications Administered Medication List Acetaminophen (Acetaminophen 325 Mg Tab) 650 mg PO Q6H PRN PRN Reason: Headache Stop: 06/04/23 09:55 Last Admin: 05/05/23 19:52 Dose: 650 mg Documented By: MATI Alprazolam (Alprazolam 0.5 Mg Tablet) 0.5 mg PO DAILY PRN PRN Reason: severe anxiety Stop: 06/03/23 18:32 Last Admin: 05/05/23 20:40 Dose: 0.5 mg Documented By: Admin: 05/04/23 19:58 Dose: 0.5 mg Documented By: MATI Anastrozole (Anastrozole 1 Mg Tab) 1 mg PO HS EDISON Stop: 06/03/23 20:59 Last Admin: 05/05/23 20:42 Dose: 1 mg Documented By: MATI Co-signed By: ELPIDIO Admin: 05/04/23 20:43 Dose: 1 mg Documented By: MATI Co-signed By: CARLOS Bupropion HCl (Bupropion Xl 300 Mg Tabcr) 300 mg PO QAM EDISON Stop: 06/04/23 08:59 Last Admin: 05/06/23 08:15 Dose: 300 mg Documented By: Admin: 05/05/23 09:15 Dose: 300 mg Documented By: ANKIT Clopidogrel Bisulfate (Clopidogrel Bisulfate 75 Mg Tab) 75 mg PO HS EDISON Stop: 06/03/23 20:59 Last Admin: 05/05/23 20:42 Dose: 75 mg Documented By: Admin: 05/04/23 20:44 Dose: 75 mg Documented By: MATI Cyclobenzaprine HCl (Cyclobenzaprine Hcl 10 Mg Tab) 10 mg PO Q8H PRN PRN Reason: Muscle Spasm Stop: 06/03/23 18:32 Last Admin: 05/05/23 14:36 Dose: 10 mg Documented By: ANKIT Enoxaparin Sodium (Enoxaparin Inj 40 Mg/0.4 Ml Syr) 40 mg SQ Q24H EDISON Stop: 06/03/23 20:59 Last Admin: 05/05/23 20:54 Dose: 40 mg Documented By: Admin: 05/04/23 20:44 Dose: 40 mg Documented By: MATI Gabapentin (Gabapentin 300 Mg Cap) 600 mg PO TID EDISON Stop: 06/03/23 20:59 Last Admin: 05/06/23 08:15 Dose: 600 mg Documented By: Admin: 05/05/23 20:42 Dose: 600 mg Documented By: Admin: 05/05/23 13:33 Dose: 600 mg Documented By: Admin: 05/05/23 08:44 Dose: 600 mg Documented By: Admin: 05/04/23 20:44 Dose: 600 mg Documented By: MATI Hydromorphone HCl (Hydromorphone Hcl 2 Mg Tab) 1 mg PO Q4H PRN PRN Reason: pain Stop: 05/18/23 18:32 Last Admin: 05/05/23 20:40 Dose: 1 mg Documented By: Admin: 05/05/23 17:12 Dose: 1 mg Documented By: Admin: 05/05/23 10:12 Dose: 1 mg Documented By: ANKIT Methylprednisolone 60 mg/ (Syringe) 0.96 mls @ 1.5 mls/min IV QAM EDISON Stop: 06/04/23 08:59 Last Admin: 05/06/23 08:15 Dose: 1.5 mls/min Documented By: Admin: 05/05/23 09:15 Dose: 1.5 mls/min Documented By: ANKIT Insulin Aspart (Insulin Aspart Per Unit Charge) 0 units SC ACHS EDISON Stop: 06/03/23 17:14 Last Admin: 05/06/23 08:14 Dose: 3 units Documented By: ANKIT Co-signed By: CAMRON Admin: 05/05/23 20:50 Dose: 1 units Documented By: MATI Co-signed By: TEVIN Admin: 05/05/23 17:13 Dose: 6 units Documented By: ANKIT Co-signed By: DORA Admin: 05/05/23 12:14 Dose: 7 units Documented By: ANKIT Co-signed By: KATERINA Admin: 05/05/23 08:42 Dose: 6 units Documented By: ANKIT Co-signed By: DORA Admin: 05/04/23 20:52 Dose: 3 units Documented By: MATI Co-signed By: [facility] Admin: 05/04/23 18:29 Dose: Not Given Documented By: ANKIT Levothyroxine Sodium (Levothyroxine Sodium 25 Mcg Tablet) [facility] Stop: 06/04/23 06:29 Last Admin: 05/06/23 05:46 Dose: 25 mcg Documented By: Admin: 05/05/23 06:10 Dose: 25 mcg Documented By: MATI Lisinopril (Lisinopril 2.5 Mg Tab) 2.5 mg PO [facility] Stop: 06/03/23 20:59 Last Admin: 05/05/23 20:41 Dose: 2.5 mg Documented By: Admin: 05/04/23 20:49 Dose: 2.5 mg Documented By: MATI Pantoprazole Sodium (Pantoprazole 40 Mg Tab) 40 mg PO DAILY [facility] Stop: 06/04/23 08:59 Last Admin: 05/06/23 08:15 Dose: 40 mg Documented By: Admin: 05/05/23 08:44 Dose: 40 mg Documented By: ANKIT Pravastatin Sodium (Pravastatin Sod 10 Mg Tab) 10 mg PO [facility] Stop: 06/03/23 20:59 Last Admin: 05/05/23 20:41 Dose: 10 mg Documented By: Admin: 05/04/23 20:43 Dose: 10 mg Documented By: MATI Quetiapine Fumarate (Quetiapine Fumarate 25 Mg Tablet) 50 mg PO [facility] Stop: 06/04/23 02:04 Last Admin: 05/05/23 20:42 Dose: 50 mg Documented By: Admin: 05/05/23 02:20 Dose: 50 mg Documented By: MATI Temazepam (Temazepam 7.5 Mg Capsule) 22.5 mg PO [facility] Stop: 06/03/23 20:59 Last Admin: 05/05/23 20:40 Dose: 22.5 mg Documented By: Admin: 05/04/23 20:44 Dose: 22.5 mg Documented By: MATI Discontinued Medications Acetaminophen (Acetaminophen 325 Mg Tab) Confirm Administered Dose 650 mg .ROUTE .STK-MED ONE Stop: 05/05/23 10:09 Last Admin: 05/05/23 10:30 Dose: Not Given Documented By: ANKIT Dexamethasone Sodium Phosphate (DexamethasonePf 10 Mg/Ml Vial) 10 mg IV NOW ONE Stop: 05/04/23 16:33 Last Admin: 05/04/23 16:36 Dose: 10 mg Documented By: TEE Hydromorphone HCl (Hydromorphone Hcl 2 Mg Tab) 2 mg PO Q4H PRN PRN Reason: pain Stop: 05/18/23 18:32 Last Admin: 05/04/23 23:53 Dose: 2 mg Documented By: Admin: 05/04/23 19:56 Dose: 2 mg Documented By: MATI Insulin Aspart (Insulin Aspart Per Unit Charge) 0 units SC TODAY@0000 [facility] Stop: 05/05/23 00:01 Last Admin: 05/04/23 23:23 Dose: 2 units Documented By: MATI Co-signed By: CARLOS Insulin Glargine (Lantus Per Unit Charge) 10 units SC ONE ONE Stop: 05/04/23 21:01 Last Admin: 05/04/23 21:28 Dose: 10 units Documented By: MATI Co-signed By: ELPIDIO Ketorolac Tromethamine (Ketorolac Tromethamine 15 Mg/Ml Vial) 10 mg IV NOW ONE Stop: 05/04/23 14:05 Last Admin: 05/04/23 14:12 Dose: 10 mg Documented By: LENORA Ondansetron HCl (Ondansetron Inj 2 Mg/Ml 2 Ml Vial) 4 mg IV NOW STA Stop: 05/04/23 16:07 Last Admin: 05/04/23 16:08 Dose: 4 mg Documented By: TEE PG Care Time/CCT Total # of Minutes Spent Total Time Spent with Patient: Total time spent is greater than 50% in coordination of care (as documented) at patient's floor/unit and/or counseling patient:40 C[place] [address] SUB INP/OBS CARE 3/50MIN Patient Type Established History Detailed Exam Detailed Medical Decision Making High Complexity Diagnoses Chest pain R07.9 Chest pain type: unspecified Myocarditis due to drug I51.4; T50.905A Time Spent (min) 57 (1) Chest pain Chest pain type: unspecified Qualified Code(s): R07.9 - Chest pain, unspecified
--- NOTE | 2023-05-06 11:29 | Discharge Summary ---
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 ED on 05/04/23 with a chief complaint of chest pain. She remained stable in the ED. Labs were significant for a HCT 35, MCV of 101, initial high sen trop of 138 --> 144 on 2 hour repeat. ECG shows NSR without acute ST segment or T- wave inversion. Chest was read as negative for acute findings. 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 Cardiology recommended admission with initiation of Glucocorticoid therapy and continued monitoring. Prior to admission the patient was given 10 mg IV dexamethasone, 10 mg IV toradol, and 4 mg IV zofran. At the time of the exam the patient was sitting in bed in no acute distress with her sitting bedside, history was obtained from both. Since her Cardiology Clinic appointment on 05/02/23 she had been doing well. She denies recurrent chest discomfort or increased SOB/DAVIDSON until this am. She states that around 10 am she was cleaning books off their kitchen table when she suddenly developed substernal chest pressure and SOB. Symptoms lasted until shortly after EMS arrived, which was approximately 50 minutes. She states that the chest discomfort radiated up into her anterior neck as well. When asked, she states that it seems as though he symptoms improve when she is sitting up and are exacerbated when lying flat. She denies recent fever, cough, hemoptysis, and pain, nausea, vomiting, diarrhea, dysuria, hematuria, melena, LE swelling, and recent trauma. 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 She has been smoking 1PPD since her recurrent breast cancer diagnosis. She is a full code and would want her to make medical decisions for her if she cannot make them herself. Patient denies current chest discomfort at the time of admission. She confirms that she was given 4, baby aspirin by EMS in route to the ED. Please refer to Dr. Iraheta's attestation for any changes to the treatment plan Principal Diagnosis Myocarditis with elevated troponin, chest pain without acute coronary syndrome, shortness of breath Discharge Exam General-alert and oriented x3, no fevers, no chills HEENT-head atraumatic and normocephalic, pupils equal and reactive to light, extraocular muscles intact Neck-no lymphadenopathy or thyromegaly, trachea midline Chest-clear to auscultation. No rales, wheezing or rhonchi Cardiac-regular rate and rhythm, normal S1 and S2 Abdomen-normal bowel sounds, nontender, no hepatosplenomegaly Extremities-no cyanosis, clubbing, or edema Neuro-cranial nerves II through XII intact, motor and sensory function within normal limits, strength symmetrical, no focal deficits Psych-normal affect, normal mood Discharge Data Allergies Allergy/AdvReac Type Severity Reaction Status Date / Time bacitracin Allergy Severe ITCHING/INF Verified 05/04/23 15:40 ECTION Quinolones Allergy Severe ANAPHYLAXIS/HEART Verified 05/04/23 15:40 FLUTTERING rizatriptan Allergy Severe SHORTNESS Verified 05/04/23 15:40 OF BREATH amoxicillin [From Augmentin] Allergy Intermediate Hives Verified 05/04/23 15:40 ciprofloxacin Allergy Intermediate Palpitations, Verified 05/04/23 15:40 rash, clavulanic acid Allergy Intermediate Hives Verified 05/04/23 15:40 [From Augmentin] clindamycin Allergy Intermediate Hives Verified 05/04/23 15:40 escitalopram [From Lexapro] Allergy Intermediate Hives Verified 05/04/23 15:40 nickel Allergy Intermediate SKIN Verified 05/04/23 15:40 IRRITATION ofloxacin Allergy Intermediate Rash Verified 05/04/23 15:40 polymyxin B Allergy Intermediate Hives Verified 05/04/23 15:40 silver Allergy Intermediate pruritus Verified 05/04/23 15:40 varenicline [From Chantix] Allergy Intermediate ITCHY HIVES Verified 05/04/23 15:40 lamotrigine Allergy Mild RASH Verified 05/04/23 15:40 neomycin Allergy Mild ITCHING Verified 05/04/23 15:40 WITH THE OINTMENT adhesive Allergy Unknown ALLERGIC Verified 05/04/23 15:40 TO MEDICATED STERI-STRIPS AND SOME TAPE-RASH BLISTE citalopram Allergy Unknown CAN'T Verified 05/04/23 15:40 REMEMBER celecoxib AdvReac Intermediate GI SYMPTOMS Verified 05/04/23 15:40 dichloralphenazone AdvReac Intermediate ALTERED Verified 05/04/23 15:40 [From Midrin] MENTAL STATUS isometheptene [From Midrin] AdvReac Intermediate ALTERED Verified 05/04/23 15:40 MENTAL STATUS paroxetine AdvReac Intermediate OUT OF Verified 05/04/23 15:40 BODY EXPERIENCE piperacillin AdvReac Unknown BETALACTAMASE Verified 05/04/23 15:40 INHIBITORS-UNKNOWN tazobactam AdvReac Unknown BETALACTAMASE Verified 05/04/23 15:40 INHIBITORS-UNKNOWN Consultations 05/04/23 16:54 ED Decision to Admit Stat 05/04/23 16:55 Consult Cardiology Routine Hospital Course (1) Chest pain: Troponin is downtrending. No evidence of acute coronary syndrome. This appears to entirely be related to her underlying myocarditis. Cardiology consultation and recommendations appreciated. Treated while hospitalized with parenteral steroid therapy. Home on prednisone tapering dose. Telemetry. (2) Recurrent cancer of left breast: Outpatient oncology follow-up. Continue anastrozole (3) Elevated troponin: Downtrending. Serial labs. No evidence of acute coronary syndrome (4) Tobacco abuse: Encouraged to stop smoking. (5) Diabetes mellitus: ADA diet. Sliding scale insulin coverage. Low-dose Lantus replaces Ozempic temporarily while hospitalized. (6) PTSD (post-traumatic stress disorder): Supportive care. Continue current medical management. No intervention needed at this time (7) Hypothyroidism: Stable. Continue levothyroxine replacement therapy Plan Home today, May 06, on prednisone tapering dose Total Time Total Time Spent Total Time Spent (In Minutes): 45 minutes Discharge Plan Discharge Items Patient Disposition: Home - Self-Care Reason For Visit: CHEST PAIN, CONCERN FOR MYOCARDITIS Discharge Diagnosis: Acute myocarditis, chest pain, shortness of breath Activity: Resume your previous activity Non-emergency contact: Primary Care Provider and Transcript Evaluator Call non-emergency contact if: you have any medication questions and your symptoms worsen Follow-up/Referrals: Justice Madera [Primary Care Provider] - Diet: Carb Consistent or DM2 and Heart Healthy Addtl Attending Provider Instructions: Take prednisone in a tapering dose fashion as directed. All other medications remain the same. See sign language instructor for follow-up in 1 week Pending Studies at Discharge: No Stand-Alone Forms: My [facility], Smoking Cessation Medications and DC Order Prescriptions: New prednisone 10 mg tablet See Rx Instructions .ROUTE .COMPLEX Qty: 12 0RF Rx Instructions: 10 mg orally 3 times a day for 2 days, then 10 mg twice a day for 2 days, then 10 mg once a day for 2 days, then stop Continued bupropion HCl [Wellbutrin XL] 300 mg tablet extended release 24 hr 300 mg PO QAM Caltrate 600 plus D 600 mg (1,500 mg)-800 unit tablet,chewable 1 tab PO HS gabapentin 300 mg capsule 600 mg PO TID lisinopril 2.5 mg tablet 2.5 mg PO HS acetaminophen 500 mg capsule 1,000 mg PO Q6H PRN (Reason: Pain) hydroxyzine HCl 25 mg tablet 25 mg PO BID PRN (Reason: Anxiety/ALLERGY) ondansetron HCl 8 mg tablet 8 - 16 mg PO DIRECTED PRN (Reason: Nausea) mirtazapine [Remeron] 15 mg tablet 15 mg PO HS anastrozole 1 mg tablet 1 mg PO HS pantoprazole 20 mg tablet,delayed release (DR/EC) 20 mg PO DAILY PRN (Reason: Heartburn) pravastatin 10 mg tablet 10 mg PO HS Qty: 30 0RF fenofibrate micronized 134 mg capsule 134 mg PO QAM levothyroxine 25 mcg Tablet 25 mcg PO DAILYBB multivitamin Tablet 1 tab PO QAM quetiapine [Seroquel] 25 mg tablet 50 mg PO HS clopidogrel [Plavix] 75 mg Tablet 75 mg PO HS Hold Instructions: Resume on 02/02/23. vitamin B complex Tablet 1 tab PO QAM temazepam [Restoril] 22.5 mg capsule 22.5 mg PO HS Patient Comments: currently out of pills, waiting on refill cyclobenzaprine 10 mg tablet 10 mg PO DAILY PRN (Reason: Muscle Spasm) alprazolam 0.5 mg tablet 0.5 mg PO DAILY PRN (Reason: severe anxiety) olopatadine 0.2 % Drops 1 drp OPHTHALMIC (EYE) DAILY PRN (Reason: Dry Eye(S)) melatonin 10 mg Tablet 10 mg PO HS PRN (Reason: Sleep) furosemide 20 mg tablet 20 mg PO QAM Ozempic 0.25 mg or 0.5 mg (2 mg/3 mL) pen injector 0.25 mg SUBCUT WK Rx Instructions: ascorbic acid (vitamin C) 500 mg Tablet,Chewable 500 mg PO HS hydromorphone [Dilaudid] 2 mg Tablet 2 mg PO Q4H PRN (Reason: pain) Qty: 30 0RF magnesium oxide 400 mg (241.3 mg magnesium) Tablet 400 mg PO BID Qty: 60 0RF Discontinued dexamethasone 4 mg tablet See Rx Instructions .ROUTE .COMPLEX Rx Instructions: TAKE 5 TABLETS BY MOUTH 12, THEN 6 HOURS PRIOR TO PACLITAXEL DIRECTED. starts saturday for wednesdays infusion Discharge Orders: Discharge Order (Routine); Ordered 05/06/23 Ordered By: Jeff Campbell Admission Data Admit Date/Time: 05/04/23 16:55 Attending Provider: Jeff Campbell Admit Provider: Casa Iraheta Primary Care Provider: Justice Madera Other Providers: Casa Iraheta; Darshan Lorenzana Coding Level of Care Code 02680 INP/OBS DISCH >30 MIN Diagnoses Chest pain R07.9 Chest pain type: unspecified Recurrent cancer of left breast C50.912 Elevated troponin R79.89 Tobacco abuse Z72.0 Diabetes mellitus E11.9 PTSD (post-traumatic stress disorder) F43.10 Hypothyroidism E03.9
[2023-05-06 11:37] VITALS: PULSE 85; O2SAT 95
[2023-05-06 12:07] VITALS: BP 111/73
== END 2023-05-06 13:15 | disposition home or self-care (01) | DRG 316 ==
LOC: ED 12:49 → SUATTDRO 16:55 → 2S 16:55 → INTOOBSV 16:55 → 2S 18:03

== ENCOUNTER 2023-07-08 20:30 | Observation (INO) ==
[2023-07-08 21:56] LABS: Albumin Globulin Ratio 1.7 (0.9-2); BUN Creatinine Ratio 19.8 (10-20); Bilirubin,Total 0.2 mg/dl (0.2-1.0); Calcium 8.9 mg/dl (8.6-10.3); Creatinine Clr Calc Pharmacy 48.6 ml/min; Est GFR (African American) 60.8 ml/min; Est GFR (Non-African American) 52.4 ml/min; Globulin 2.3 gm/dl (2.5-4.0); Potassium 3.9 mmol/L (3.5-5.1); Total Protein 6.3 gm/dl (6.0-8.3)
[2023-07-08 22:04] LABS: Hematocrit (blood only) 35.4 % (37.0-47.0); Hemoglobin 11.8 g/dl (12.0-16.0); Mean Corpuscular Hemoglobin 34.5 pg (25.0-34.0); Mean Corpuscular Hgb Conc 33.3 g/dL (32.0-36.0); Mean Corpuscular Volume 103.5 fL (80.0-100.0); Mean Platelet Volume 10.6 fL (9.4-12.4); Nucleated RBC % (auto) 0.5 %; Platelet Count 226 K/uL (130-400); RDW Coefficient of Variation 13.8 % (11.5-14.5); RDW Standard Deviation 52.3 fL (36.4-46.3); Red Blood Count 3.42 M/uL (4.20-5.40); White Blood Count 20.13 K/ul (4.8-10.8)
[2023-07-08 22:06] LABS: Troponin I High Sensitivity 45.3 pg/ml (0-14)
[2023-07-08 22:15] LABS: ALC (manual) 3.42 K/uL (1.2-3.4); Lymphocytes # (manual) 3.42 K/uL (1.2-3.4); Lymphocytes % (manual) 17 %; Monocytes # (manual) 0.81 K/uL (0.11-0.59); Monocytes % (manual) 4 %; Myelocytes # (manual) 0.81 K/uL (0-0); Myelocytes % (manual) 4 %; Neutrophils % (manual) 75 %; Polychromasia 1+
[2023-07-08] MEDS: FAMOTIDINE 20MG IV PUSH 20 MG/5 ML SYR IV STA (22:35)
[2023-07-08] MEDS: MoRPHine SULFATE 4 MG/ML 1 ML CARP\\VIAL IV STA (22:35)
--- NOTE | 2023-07-08 22:50 | Emergency Department Note ---
History of Present Illness General Chief complaint: Chest Pain Stated complaint: CHEST PAIN, HEADACHE Time Seen by Provider: 07/08/23 22:27 History of Present Illness Maximum Pain Intensity: 7 This 62-year-old female with a history of breast cancer that received chemotherapy 2 and half weeks ago presents the ER complaint of chest pain tonight. 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 Patient states she took 3 nitros and symptoms have improved. Her troponin did go back to normal. She follows Dr. Thomson. She is on a prednisone taper. Patient denies fever, chills, abdominal pain, flulike illness. No history of PE. She feels like her chest is swollen. Home Medications Medication Instructions Recorded Confirmed Type bupropion HCl 300 mg 24 hr tablet, 300 mg PO QAM 12/12/17 07/08/23 History extended release (Wellbutrin XL) fenofibrate micronized 134 mg 134 mg PO QAM 04/16/19 07/08/23 History capsule pravastatin 10 mg tablet 10 mg PO HS #30 tabs 07/13/19 07/08/23 Rx levothyroxine 25 mcg tablet 25 mcg PO DAILYBB 09/12/19 07/08/23 History lisinopril 2.5 mg tablet 2.5 mg PO HS 04/05/20 07/08/23 History calcium carbonate 600 mg-vitamin 1 tab PO HS 01/18/21 07/08/23 History D3 20 mcg (800 unit) chewable tablet (Caltrate 600 plus D) ondansetron HCl 8 mg tablet 8 - 16 mg PO DIRECTED PRN Nausea 03/21/21 07/08/23 History anastrozole 1 mg tablet 1 mg PO HS 04/07/21 07/08/23 History clopidogrel 75 mg tablet (Plavix) 75 mg PO HS 01/31/22 07/08/23 History multivitamin 1 tab PO QAM 01/31/22 07/08/23 History quetiapine 25 mg tablet (Seroquel) 50 mg PO HS 01/31/22 07/08/23 History vitamin B complex 1 tab PO QAM 01/31/22 07/08/23 History pantoprazole 20 mg tablet,delayed 20 mg PO DAILY PRN Heartburn 05/14/22 07/08/23 History release temazepam 22.5 mg capsule 22.5 mg PO HS 07/16/22 07/08/23 History (Restoril) acetaminophen 500 mg capsule 1,000 mg PO Q6H PRN Pain 10/23/22 07/08/23 History hydroxyzine HCl 25 mg tablet 25 mg PO BID PRN Anxiety/ALLERGY 10/23/22 07/08/23 History alprazolam 0.5 mg tablet 0.5 mg PO DAILY PRN severe anxiety 02/07/23 07/08/23 History cyclobenzaprine 10 mg tablet 10 mg PO DAILY PRN Muscle Spasm 02/07/23 07/08/23 History melatonin 10 mg tablet 10 mg PO HS PRN Sleep 02/07/23 07/08/23 History olopatadine 0.2 % eye drops 1 drp ophthalmic (eye) DAILY PRN 02/07/23 07/08/23 History Dry Eye(S) ascorbic acid (vitamin C) 500 mg 500 mg PO HS 04/16/23 07/08/23 History chewable tablet semaglutide 0.25 mg or 0.5 mg (2 0.25 mg subcut WK 04/16/23 07/08/23 History mg/3 mL) subcutaneous pen injector (Ozempic) furosemide 20 mg tablet 20 mg PO QAM 05/04/23 07/08/23 History oxycodone 5 mg tablet 5 mg PO .Q4-6H PRN Pain 05/10/23 07/08/23 History nitroglycerin 0.4 mg sublingual 0.4 mg sublingual Q5M PRN chest 05/13/23 07/08/23 Rx tablet pain #25 tabs gabapentin 300 mg capsule 300 mg PO TID 06/06/23 07/08/23 History magnesium oxide 400 mg (241.3 mg 400 mg PO BID PRN Constipation 06/06/23 07/08/23 History magnesium) tablet prednisone 10 mg tablet See Rx Instructions PO .COMPLEX 06/11/23 07/08/23 Rx #60 tabs Allergies Allergy/AdvReac Type Severity Reaction Status Date / Time bacitracin Allergy Severe ITCHING/INF Verified 07/08/23 22:24 ECTION Quinolones Allergy Severe ANAPHYLAXIS/HEART Verified 07/08/23 22:24 FLUTTERING rizatriptan Allergy Severe SHORTNESS Verified 07/08/23 22:24 OF BREATH amoxicillin [From Augmentin] Allergy Intermediate Hives Verified 04/29/24 22:24 ciprofloxacin Allergy Intermediate Palpitations, Verified 07/08/23 22:24 rash, clavulanic acid Allergy Intermediate Hives Verified 07/08/23 22:24 [From Augmentin] clindamycin Allergy Intermediate Hives Verified 07/08/23 22:24 escitalopram [From Lexapro] Allergy Intermediate Hives Verified 07/08/23 22:24 nickel Allergy Intermediate SKIN Verified 07/08/23 22:24 IRRITATION ofloxacin Allergy Intermediate Rash Verified 07/08/23 22:24 polymyxin B Allergy Intermediate Hives Verified 07/08/23 22:24 silver Allergy Intermediate pruritus Verified 07/08/23 22:24 varenicline [From Chantix] Allergy Intermediate ITCHY HIVES Verified 07/08/23 22:24 lamotrigine Allergy Mild RASH Verified 07/08/23 22:24 neomycin Allergy Mild ITCHING Verified 07/08/23 22:24 WITH THE OINTMENT adhesive Allergy Unknown ALLERGIC Verified 07/08/23 22:24 TO MEDICATED STERI-STRIPS AND SOME TAPE-RASH BLISTE citalopram Allergy Unknown CAN'T Verified 07/08/23 22:24 REMEMBER celecoxib AdvReac Intermediate GI SYMPTOMS Verified 07/08/23 22:24 dichloralphenazone AdvReac Intermediate ALTERED Verified 07/08/23 22:24 [From Midrin] MENTAL STATUS isometheptene [From Midrin] AdvReac Intermediate ALTERED Verified 07/08/23 22:24 MENTAL STATUS paroxetine AdvReac Intermediate OUT OF Verified 07/08/23 22:24 BODY EXPERIENCE piperacillin AdvReac Unknown BETALACTAMASE Verified 07/08/23 22:24 INHIBITORS-UNKNOWN tazobactam AdvReac Unknown BETALACTAMASE Verified 07/08/23 22:24 INHIBITORS-UNKNOWN Past Med/Surg History Medical History (Updated 07/08/23 @ 23:39 by Itzel King DO) Gastroesophageal reflux disease hx-no issues currently Cerebrovascular disease Hypothyroidism Anxiety Diabetes mellitus Left leg pain Breast cancer (07/06/16) Tobacco abuse PTSD (post-traumatic stress disorder) Recurrent cancer of left breast Pain at surgical site Acute diverticulitis Bipolar 1 disorder Cervical pain (neck) ROM "is ok, but not quite what it should be" Hemochromatosis Vaginismus Sleep apnea no device Schizoaffective disorder Personality disorder Osteoporosis (09/05/12) Morbid obesity Menopause Lymphocytosis Invasive carcinoma of breast Depression Corneal dystrophy Chronic pain Arthralgia of multiple sites Abnormal liver function test Arthritis of foot History of chemotherapy History of anemia Esophagus disorder "narrow esophagus per pt" Diabetes mellitus Endometriosis Scoliosis History of fatty infiltration of liver Diverticular disease History of breast cancer Left 2005 and 2017 and 2022; 2017 h/o lumpectomy + chemo/radiaton Osteoarthritis TMJ (temporomandibular joint disorder) no clicking or locking PTSD (post-traumatic stress disorder) Bipolar disorder History of migraine History of TIA (transient ischemic attack) 07/2019 > no residual effects > follows with Dr. Reji NAVA (hyperlipidemia) Sacral fracture hx-2013 Surgical History History of tonsillectomy Port-A-Cath in place (01/29/23) Insertion of Right Subclavian Access Port, Removal of Left Access Port(Right) - Janet Bajwa DO Port-A-Cath in place (01/25/23) Insertion of Access Port in Left Subclavian with Fluoroscopy(Left) - Janet Bajwa, DO Hx of bilateral mastectomy 2022, [facility] for recurrent breast cancer Hx of colectomy sigmoid colectomy, 6-7 years ago Hx of bilateral cataract extraction S/P epidural steroid injection History of vascular access device removed History of breast biopsy History of laparoscopy mult History of lumpectomy of right breast benign History of lumpectomy of left breast x 2 History of appendectomy History of open reduction and internal fixation (ORIF) procedure LLE History of ankle surgery left x 6 History of colonoscopy History of bowel resection due to diverticulitis History of fracture of left ankle left tibia Family History Mother Hypertension Adrenal gland cancer Cancer Father , age 59 of lung cancer Lung cancer smoker Liver cancer Cancer Aunt Breast cancer Other Colorectal cancer No family history of adverse response to anesthesia No family history of bleeding disorder Social History Smoking Status: Current every day smoker Tobacco Type: Cigarettes packs per day: 1; Cigarettes Per Day: Pack; Second Hand Exposure: No; Do You Dip or Chew Tobacco: No; Hx Alcohol Use: Yes Alcohol type: hard liquor Alcohol Intake Frequency: Monthly or Less Hx Substance Use: No Preferred Language: Sami Communication Ability: Effective Visual Impairment: No Limitations Hearing Ability: Normal 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: No Beliefs That Will Affect Care: None marital status: Current Living Situation: Spouse Current Living Situation Comment: At home with 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al status: retired and disabled 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 [employer] other: Stopped work in 2001 on disability Feels Safe at Home: Yes Diet: diabetic during the past year weight has: increased > 10 lbs Assistive Devices: Cane, Glasses and Walker Review of Systems A total of 10 systems reviewed and were otherwise negative Physical Exam Vital Signs Vital Signs - 24 hr 07/08/23 20:35 07/08/23 20:50 07/08/23 21:00 Temperature 36.6 C Temperature Source Temporal Artery Scan Pulse Rate 99 H 92 H 91 H Respiratory Rate 20 21 Respiratory Effort / Characteristics Non-Labored Spontaneous Respiratory Depth Normal Blood Pressure 119/74 Blood Pressure Mean 89 Pulse Oximetry 95 Oxygen Delivery Method Room Air Sepsis Recent Fever Within 48 Hours No Sepsis New/Unexplained Change in Mental Status N/A Sepsis Action Taken by Nursing No Action Required 07/08/23 21:11 07/08/23 21:29 07/08/23 21:30 Temperature 36.9 C Temperature Source Oral Pulse Rate 86 85 Respiratory Rate 18 21 Respiratory Effort / Characteristics Respiratory Depth Blood Pressure 106/71 104/70 Blood Pressure Mean 82 81 Pulse Oximetry 95 96 Oxygen Delivery Method Room Air Room Air Sepsis Recent Fever Within 48 Hours Sepsis New/Unexplained Change in Mental Status Sepsis Action Taken by Nursing 07/08/23 22:00 07/08/23 22:30 07/08/23 22:40 Temperature Temperature Source Pulse Rate 83 83 87 Respiratory Rate 16 15 19 Respiratory Effort / Characteristics Respiratory Depth Blood Pressure 118/78 Blood Pressure Mean 91 Pulse Oximetry 94 95 96 Oxygen Delivery Method Room Air Room Air Room Air Sepsis Recent Fever Within 48 Hours Sepsis New/Unexplained Change in Mental Status Sepsis Action Taken by Nursing 07/08/23 22:41 07/09/23 00:50 Temperature Temperature Source Pulse Rate 86 Respiratory Rate Respiratory Effort / Characteristics Respiratory Depth Blood Pressure 116/80 Blood Pressure Mean 96 Pulse Oximetry Oxygen Delivery Method Sepsis Recent Fever Within 48 Hours Sepsis New/Unexplained Change in Mental Status Sepsis Action Taken by Nursing VITALS: Vitals are noted on the nurse's note and reviewed by myself. Vital signs stable. GENERAL: Pleasant female with family present, in no acute distress, nondiaphoretic, well-developed well-nourished. SKIN: Capillary reflex less than 2 seconds. HEENT: Normocephalic. PERRLA. EOMI. Nares patent. Mucous membranes moist. Neck is supple without nuchal rigidity. HEART: Regular rate and rhythm LUNGS: Clear to auscultation bilaterally without wheezes, rales or rhonchi. No retractions or accessory muscle use. ABDOMEN: Positive bowel sounds x 4. Normal tympanic percussion. Soft, nontender, without masses or organomegaly. Ford sign negative. No guarding or rebound tenderness. no CVA tenderness MUSCULOSKELETAL: No gross musculoskeletal defects. NEURO: Patient was alert and oriented to person place and time. No focal neurological deficits. Course Administered Medications Discontinued Medications Famotidine (Pepcid 20mg Iv Push) 20 mg in 5 mls @ 2.5 mls/min IV NOW STA Stop: 07/08/23 22:28 Last Admin: 07/08/23 22:35 Dose: 2.5 mls/min Documented By: JESSICA Ioversol (Optiray 320 125ml) 117 ml IV ONCE ONE Stop: 07/08/23 23:18 Last Admin: 07/08/23 23:19 Dose: 117 ml Documented By: MAY Morphine Sulfate (Morphine Sulfate 4 Mg/Ml 1 Ml Carp\\Vial) 4 mg IV NOW STA Stop: 07/08/23 22:28 Last Admin: 07/08/23 22:35 Dose: 4 mg Documented By: JESSICA Medical Decision Making Medical Records Attestation: I reviewed the patient's medical records. Home Medications Current Medication List: was personally reviewed by me Laboratory Data Attestation: I reviewed the patient's lab results. 07/08/23 20:47 07/08/23 20:47 Lab Results 07/08/23 07/08/23 07/08/23 Range/Units 20:47 22:48 23:38 WBC 20.13 H (4.8-10.8) K/ul RBC 3.42 L (4.20-5.40) M/uL Hgb 11.8 L (12.0-16.0) g/dl Hct 35.4 L (37.0-47.0) % MCV 103.5 H (80.0-100.0) fL MCH 34.5 H (25.0-34.0) pg MCHC 33.3 (32.0-36.0) g/dL RDW Std Deviation 52.3 H (36.4-46.3) fL RDW Coeff of Laureen 13.8 (11.5-14.5) % Plt Count 226 (130-400) K/uL MPV 10.6 (9.4-12.4) fL Absolute Nucleated RBC 0.10 (0.00-0.12) K/uL Nucleated RBC % (auto) 0.5 % Neutrophils % (Manual) 75 % Lymphocytes % (Manual) 17 % Monocytes % (Manual) 4 % Myelocytes % (Man) 4 % Neutrophils # (Manual) 15.10 H (1.40-6.50) K/uL Total Absolute Neuts 15.10 H (1.4-6.5) K/uL Lymphocytes # (Manual) 3.42 H (1.2-3.4) K/uL Total Abs Lymphocytes 3.42 H (1.2-3.4) K/uL Monocytes # (Manual) 0.81 H (0.11-0.59) K/uL Myelocytes # (Manual) 0.81 H (0-0) K/uL Polychromasia 1+ Sodium 137 (136-145) mmol/L Potassium 3.9 (3.5-5.1) mmol/L Chloride 103 (98-107) mmol/L Carbon Dioxide 24 (21-32) mmol/L Anion Gap 10 (3-11) BUN 22 (6-23) mg/dl Creatinine 1.11 (0.6-1.2) mg/dl Est Cr Clr Drug Dosing 48.6 ml/min Est GFR ( Amer) 60.8 ml/min Est GFR (Non-Af Amer) 52.4 ml/min BUN/Creatinine Ratio 19.8 (10-20) Glucose 158 H (70-99(Fasting)) mg/dl Calcium 8.9 (8.6-10.3) mg/dl Magnesium TNP 1.4 L Total Bilirubin 0.2 (0.2-1.0) mg/dl AST 13 (13-39) U/L ALT 16 (7-52) U/L Alkaline Phosphatase 113 H (34-104) U/L Total Creatine Kinase TNP 51 Troponin I High Sens 45.3 H D 25.0 H D (0-14) pg/ml B-Natriuretic Peptide 46 (0-100) pg/ml Total Protein 6.3 (6.0-8.3) gm/dl Albumin 4.0 (3.4-5.0) gm/dl Globulin 2.3 L (2.5-4.0) gm/dl Albumin/Globulin Ratio 1.7 (0.9-2) Lipase 56 (11-82) U/L Imaging Data Attestation: I personally reviewed and interpreted this imaging study as follows: Radiologist's Impression: Chest CTA 07/08/23 22:27 Exam(s): CTA CHEST IV Amt: 117 ml optiray 320 EXAM: CT Angiography Chest With Intravenous Contrast CLINICAL HISTORY: PE. TECHNIQUE: Axial computed tomographic angiography images of the chest with intravenous contrast. MIPS images were created and reviewed. CTDI is 21. 6 mGy and DLP is 689 mGy-cm. Automated exposure control was utilized for the study. A dose lowering technique was utilized adhering to the principles of ALARA. MIP reconstructed images were created and reviewed. COMPARISON: CTA chest 06/29/2023 FINDINGS: Pulmonary arteries: Unremarkable. No pulmonary embolus. Aorta: No acute findings. No thoracic aortic aneurysm. Lungs: Interseptal thickening could relate to atelectasis and/or pulmonary edema. No mass. Pleural space: Unremarkable. No significant effusion. No pneumothorax. Heart: Unremarkable. No cardiomegaly. No significant pericardial effusion. No evidence of RV dysfunction. Thyroid: Heterogeneous thyroid gland is nonspecific. Bones/joints: There are degenerative changes of the spine. No acute fracture. No dislocation. Soft tissues: Unremarkable. Lymph nodes: Unremarkable. No enlarged lymph nodes. IMPRESSION: 1. No pulmonary embolus. 2. Interseptal thickening could relate to atelectasis and/or pulmonary edema. 3. Heterogeneous thyroid gland is nonspecific. Electronically signed by: Beena Pineda MD 07/08/23 23:55 PM [facility] Narrative Prior records/ancillary studies reviewed. Triage Nursing notes reviewed. Additional history obtained from family. The patient's history was concerning for chest pain. Differential diagnosis: Etiologies such as cardiac ischemia, aortic dissection, pulmonary embolism, pneumonia, pneumothorax, musculoskeletal, infections, pericarditis, myocarditis, esophageal rupture, gastrointestinal, as well as others were entertained. Physical examination: As above. ER treatment provided: An order was placed for continuous cardiac monitoring. The monitor shows a rate of 60-100 with a sinus rhythm per my interpretation. IV fluids, morphine IV was ordered On reassessment the patient felt better. Diagnostic interpretation by me: The electrocardiogram was negative for pathologic change. Ordered for chest pain EKG: Normal sinus, normal intervals, no acute ST-T wave changes, rate 91. Impression normal sinus rhythm independent interpreted by myself I think arrhythmia is unlikely. EKG shows normal sinus rhythm with no interval abnormalities such as QT prolongation or WPW. There are no findings to suggest Brugada syndrome. Cardiac monitoring in the emergency department reveals no tachycardic or bradycardic dysrhythmia. Hypertrophic cardiomyopathy was considered but there are no clear historical elements pointing toward this. EKG is not suggestive. The QRS voltage is not extremely large and there are no suggestive Q waves. The labs Independently Interpreted by myself revealed elevated troponin and repeat was ordered Leukocytosis and patient has been on steroids. Imaging studies: Chest x-ray with no acute consolidation, pneumothorax or free air per my independent interpretation CTA was negative for PE. HEART SCORE: Hx: high/mod/low suspicion: 1 ECG: ST depression/nonspecific changes/normal: 0 Age: Greater than 65/45-64/less than 45: 1 Risk factors: (Hypertension, hyperlipidemia, diabetes, coronary disease, tobacco use, cocaine use): 2 Troponin: Greater than 2 times normal limits/1-2 times normal limits/normal: 1 Total: 5 Consultation: A consultation was placed with the hospitalist. The case was discussed and diagnostics were reviewed. The patient was evaluated in the ER for further treatment. Exam and history seem consistent with chest pain with concerns for myocarditis. First troponin was slightly elevated. Repeat was ordered. EKG is nonischemic. Medicine is consulted case discussed. Patient admitted to the medical service. Patient is agreeable. By the evaluation outlined above emergent etiologies such as aortic dissection, pulmonary embolism, pneumonia, pneumothorax, gastrointestinal, as well as others were deemed relatively unlikely. The pt informed about the findings as listed above. All questions were answered and pleased with the treatment. The chart was completed utilizing [employer] voice recognition software. Grammatical errors, random word insertions, pronoun errors, and incomplete sentences are an occassional consequence of this system due to software limitations, ambient noise, and hardware issues. Any formal questions or concerns about the content, text, or information contained within the body of this dictation should be directly addressed to the physician dental assistant teacher for clarification. 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, Chest pain, Elevated troponin Discharge Plan Visit Data Chief Complaint: Chest Pain Stated Complaint: CHEST PAIN, HEADACHE ED Provider: Ryan Aquino ED Midlevel Provider: Junie Benoit Prescriptions Prescriptions: No Action bupropion HCl [Wellbutrin XL] 300 mg tablet extended release 24 hr 300 mg PO QAM Caltrate 600 plus D 600 mg (1,500 mg)-800 unit tablet,chewable 1 tab PO HS gabapentin 300 mg capsule 300 mg PO TID prednisone 10 mg tablet See Rx Instructions PO .COMPLEX Qty: 60 1RF Rx Instructions: Take 10 mg odd days and 20 mg even days lisinopril 2.5 mg tablet 2.5 mg PO HS acetaminophen 500 mg capsule 1,000 mg PO Q6H PRN (Reason: Pain) hydroxyzine HCl 25 mg tablet 25 mg PO BID PRN (Reason: Anxiety/ALLERGY) ondansetron HCl 8 mg tablet 8 - 16 mg PO DIRECTED PRN (Reason: Nausea) anastrozole 1 mg tablet 1 mg PO HS pantoprazole 20 mg tablet,delayed release (DR/EC) 20 mg PO DAILY PRN (Reason: Heartburn) magnesium oxide 400 mg (241.3 mg magnesium) tablet 400 mg PO BID PRN (Reason: Constipation) pravastatin 10 mg tablet 10 mg PO HS Qty: 30 0RF fenofibrate micronized 134 mg capsule 134 mg PO QAM levothyroxine 25 mcg Tablet 25 mcg PO DAILYBB multivitamin Tablet 1 tab PO QAM quetiapine [Seroquel] 25 mg tablet 50 mg PO HS clopidogrel [Plavix] 75 mg Tablet 75 mg PO HS Hold Instructions: Resume on 02/02/23. vitamin B complex Tablet 1 tab PO QAM temazepam [Restoril] 22.5 mg capsule 22.5 mg PO HS Patient Comments: currently out of pills, waiting on refill cyclobenzaprine 10 mg tablet 10 mg PO DAILY PRN (Reason: Muscle Spasm) alprazolam 0.5 mg tablet 0.5 mg PO DAILY PRN (Reason: severe anxiety) olopatadine 0.2 % Drops 1 drp OPHTHALMIC (EYE) DAILY PRN (Reason: Dry Eye(S)) melatonin 10 mg Tablet 10 mg PO HS PRN (Reason: Sleep) furosemide 20 mg tablet 20 mg PO QAM Ozempic 0.25 mg or 0.5 mg (2 mg/3 mL) pen injector 0.25 mg SUBCUT WK Rx Instructions: ascorbic acid (vitamin C) 500 mg Tablet,Chewable 500 mg PO HS oxycodone 5 mg tablet 5 mg PO .Q4-6H PRN (Reason: Pain) nitroglycerin 0.4 mg tablet, sublingual 0.4 mg sublingual Q5M PRN (Reason: chest pain) Qty: 25 2RF
--- NOTE | 2023-07-08 23:12 | History & Physical Report ---
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 Would consider slower outpatient taper (2) Diabetes mellitus: Plan: - notes that her blood sugars have been elevated in the setting of recent steroid use - was started on metformin 07/07; hold while inpatient - plan for SSI (3) Left leg pain: Plan: - notes continued left ankle pain - Venous Doppler from 07/01 reviewed and without DVT-> no change in pain since then - think likely MSK in nature; will repeat XR left ankle - oxycodone 5mg q6 prn per home dosing - trial of capsaicin - uric acid pending (4) Leukocytosis: Plan: - WBC= 20.13 on admission - otherwise no infectious symptoms - likely elevated in the setting of recent steroid use and with Neulasta last week (5) Schizoaffective disorder: Plan: - continue home medications (6) Gastroesophageal reflux disease: Plan: - continue PPI and famotidine (7) Anxiety: Plan: - plan to continue home medications (8) Cerebrovascular disease: Plan: - continue palvix (9) Hypothyroidism: Plan: - continue levothyroxine (10) HLD (hyperlipidemia): Plan: - continue statin Plan Diet; DM2 Code: Full VTE Prophylaxis: Lovenox History of Present Illness Primary Care Provider: Justice Madera 62 year old female with a past medical history of left breast cancer s/p bilateral mastectomy 2022 previously on doxorubicin/anastrozole with myocarditis suspected 2/2 chemotherapy treatment, hypertension, hypothyroidism, GERD, bipolar 1 disorder presenting with concern for recurrent chest pain. Recurrent left sided chest pain this afternoon. 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 Has been working to taper steroids with cardiology. Was alternating 20mg and 10mg prednisone every other day, for the past week has been on 10mg daily. Has been admitted multiple times over the past 3 months with recurrent myocarditis. In the ED: Leukocytosis= 20.13, troponin= 24.4-> 45.3. CXR without acute abnormalities. CTA chest pending. EKG with NSR. Took nitro at home and was given 4mg morphine in ED and pain has since resolved. Allergies Allergy/AdvReac Type Severity Reaction Status Date / Time bacitracin Allergy Severe ITCHING/INF Verified 07/08/23 22:24 ECTION Quinolones Allergy Severe ANAPHYLAXIS/HEART Verified 07/08/23 22:24 FLUTTERING rizatriptan Allergy Severe SHORTNESS Verified 07/08/23 22:24 OF BREATH amoxicillin [From Augmentin] Allergy Intermediate Hives Verified 07/08/23 22:24 ciprofloxacin Allergy Intermediate Palpitations, Verified 07/08/23 22:24 rash, clavulanic acid Allergy Intermediate Hives Verified 07/08/23 22:24 [From Augmentin] clindamycin Allergy Intermediate Hives Verified 07/08/23 22:24 escitalopram [From Lexapro] Allergy Intermediate Hives Verified 07/08/23 22:24 nickel Allergy Intermediate SKIN Verified 07/08/23 22:24 IRRITATION ofloxacin Allergy Intermediate Rash Verified 07/08/23 22:24 polymyxin B Allergy Intermediate Hives Verified 07/08/23 22:24 silver Allergy Intermediate pruritus Verified 07/08/23 22:24 varenicline [From Chantix] Allergy Intermediate ITCHY HIVES Verified 07/08/23 22:24 lamotrigine Allergy Mild RASH Verified 07/08/23 22:24 neomycin Allergy Mild ITCHING Verified 07/08/23 22:24 WITH THE OINTMENT adhesive Allergy Unknown ALLERGIC Verified 07/08/23 22:24 TO MEDICATED STERI-STRIPS AND SOME TAPE-RASH BLISTE citalopram Allergy Unknown CAN'T Verified 07/08/23 22:24 REMEMBER celecoxib AdvReac Intermediate GI SYMPTOMS Verified 07/08/23 22:24 dichloralphenazone AdvReac Intermediate ALTERED Verified 07/08/23 22:24 [From Midrin] MENTAL STATUS isometheptene [From Midrin] AdvReac Intermediate ALTERED Verified 07/08/23 22:24 MENTAL STATUS paroxetine AdvReac Intermediate OUT OF Verified 07/08/23 22:24 BODY EXPERIENCE piperacillin AdvReac Unknown BETALACTAMASE Verified 07/08/23 22:24 INHIBITORS-UNKNOWN tazobactam AdvReac Unknown BETALACTAMASE Verified 07/08/23 22:24 INHIBITORS-UNKNOWN Home Medications Medication Instructions Recorded Confirmed Type bupropion HCl 300 mg 24 hr tablet, 300 mg PO QAM 12/12/17 07/08/23 History extended release (Wellbutrin XL) fenofibrate micronized 134 mg 134 mg PO QAM 04/16/19 07/08/23 History capsule pravastatin 10 mg tablet 10 mg PO HS #30 tabs 07/13/19 07/08/23 Rx levothyroxine 25 mcg tablet 25 mcg PO DAILYBB 09/12/19 07/08/23 History lisinopril 2.5 mg tablet 2.5 mg PO HS 04/05/20 07/08/23 History calcium carbonate 600 mg-vitamin 1 tab PO HS 01/18/21 07/08/23 History D3 20 mcg (800 unit) chewable tablet (Caltrate 600 plus D) ondansetron HCl 8 mg tablet 8 - 16 mg PO DIRECTED PRN Nausea 03/21/21 07/08/23 History anastrozole 1 mg tablet 1 mg PO HS 04/07/21 07/08/23 History clopidogrel 75 mg tablet (Plavix) 75 mg PO HS 01/31/22 07/08/23 History multivitamin 1 tab PO QAM 01/31/22 07/08/23 History quetiapine 25 mg tablet (Seroquel) 50 mg PO HS 01/31/22 07/08/23 History vitamin B complex 1 tab PO QAM 01/31/22 07/08/23 History pantoprazole 20 mg tablet,delayed 20 mg PO DAILY PRN Heartburn 05/14/22 07/08/23 History release temazepam 22.5 mg capsule 22.5 mg PO HS 07/16/22 07/08/23 History (Restoril) acetaminophen 500 mg capsule 1,000 mg PO Q6H PRN Pain 10/23/22 07/08/23 History hydroxyzine HCl 25 mg tablet 25 mg PO BID PRN Anxiety/ALLERGY 10/23/22 07/08/23 History alprazolam 0.5 mg tablet 0.5 mg PO DAILY PRN severe anxiety 02/07/23 07/08/23 History cyclobenzaprine 10 mg tablet 10 mg PO DAILY PRN Muscle Spasm 02/07/23 07/08/23 History melatonin 10 mg tablet 10 mg PO HS PRN Sleep 02/07/23 07/08/23 History olopatadine 0.2 % eye drops 1 drp ophthalmic (eye) DAILY PRN 02/07/23 07/08/23 History itchy eye ascorbic acid (vitamin C) 500 mg 500 mg PO HS 04/16/23 07/08/23 History chewable tablet semaglutide 0.25 mg or 0.5 mg (2 0.25 mg subcut WK 04/16/23 07/08/23 History mg/3 mL) subcutaneous pen injector (Ozempic) furosemide 20 mg tablet 20 mg PO QAM 05/04/23 07/08/23 History oxycodone 5 mg tablet 5 mg PO .Q4-6H PRN Pain 05/10/23 07/08/23 History nitroglycerin 0.4 mg sublingual 0.4 mg sublingual Q5M PRN chest 05/13/23 07/08/23 Rx tablet pain #25 tabs gabapentin 300 mg capsule 300 mg PO TID 06/06/23 07/08/23 History magnesium oxide 400 mg (241.3 mg 400 mg PO BID PRN Constipation 06/06/23 07/08/23 History magnesium) tablet prednisone 20 mg tablet 20 mg PO DAILY #30 tabs 07/09/23 Rx Past Med/Surg History Medical History (Updated 07/09/23 @ 12:44 by Jeff Campbell MD) Gastroesophageal reflux disease hx-no issues currently Cerebrovascular disease Hypothyroidism Anxiety Diabetes mellitus Left leg pain Breast cancer (07/06/16) Tobacco abuse PTSD (post-traumatic stress disorder) Recurrent cancer of left breast Pain at surgical site Acute diverticulitis Bipolar 1 disorder Cervical pain (neck) ROM "is ok, but not quite what it should be" Hemochromatosis Vaginismus Sleep apnea no device Schizoaffective disorder Personality disorder Osteoporosis (09/05/12) Morbid obesity Menopause Lymphocytosis Invasive carcinoma of breast Depression Corneal dystrophy Chronic pain Arthralgia of multiple sites Abnormal liver function test Arthritis of foot History of chemotherapy History of anemia Esophagus disorder "narrow esophagus per pt" Diabetes mellitus Endometriosis Scoliosis History of fatty infiltration of liver Diverticular disease History of breast cancer Left 2005 and 2017 and 2017 h/o lumpectomy + chemo/radiaton Osteoarthritis TMJ (temporomandibular joint disorder) no clicking or locking PTSD (post-traumatic stress disorder) Bipolar disorder History of migraine History of TIA (transient ischemic attack) 07/2019 > no residual effects > follows with Dr. Reji NAVA (hyperlipidemia) Sacral fracture hx-2013 Surgical History History of tonsillectomy Port-A-Cath in place (01/29/23) Insertion of Right Subclavian Access Port, Removal of Left Access Port(Right) - Janet Bajwa DO Port-A-Cath in place (01/25/23) Insertion of Access Port in Left Subclavian with Fluoroscopy(Left) - Janet Bajwa DO Hx of bilateral mastectomy 2022, [facility] for recurrent breast cancer Hx of colectomy sigmoid colectomy, 6-7 years ago Hx of bilateral cataract extraction S/P epidural steroid injection History of vascular access device removed History of breast biopsy History of laparoscopy mult History of lumpectomy of right breast benign History of lumpectomy of left breast x 2 History of appendectomy History of open reduction and internal fixation (ORIF) procedure LLE History of ankle surgery left x 6 History of colonoscopy History of bowel resection due to diverticulitis History of fracture of left ankle left tibia Family History Mother Hypertension Adrenal gland cancer Cancer Father , age 59 of lung cancer Lung cancer smoker Liver cancer Cancer Aunt Breast cancer Other Colorectal cancer No family history of adverse response to anesthesia No family history of bleeding disorder Social History Smoking Status: Current every day smoker Tobacco Type: Cigarettes packs per day: 1; Cigarettes Per Day: Pack; Second Hand Exposure: No; Do You Dip or Chew Tobacco: No; Hx Alcohol Use: Yes Alcohol type: hard liquor Alcohol Intake Frequency: Monthly or Less Hx Substance Use: Yes Prescribed Medications: Painkillers and Tranquilizers Non-Prescribed Medications: Marijuana Last Used Substance: Hours (ago) Last Used Substance Other:: daily at night Substance Use Type Other:: has RX for oxycodone, medical marijuana Preferred Language: Sinhala Communication Ability: Effective Visual Impairment: No Limitations Hearing Ability: Normal Billboard Poster Required: No Beliefs That Will Affect Care: Restorationist Restorationist Beliefs: Holiness marital status: Current Living Situation: Spouse Current Living Situation Comment: At home with 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al status: retired and disabled 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 [employer] other: Stopped work in 2001 on disability Feels Safe at Home: Yes Diet: diabetic during the past year weight has: increased > 10 lbs Assistive Devices: Cane, Walker and Other Review of Systems Review of Systems: As per above Physical Exam Physical Exam: Constitutional: well-appearing, no acute distress HEENT: NCAT, no conjunctival injection CV: regular rhythm, no murmur appreciated, extremities well-perfused, no LE edema Resp: CTABL, no wheezes/rales/rhonchi appreciated, no increased work of breathing GI: soft, nondistended, nontender, BS normoactive MSK: no gross deformities appreciated, tenderness over left medial malleolus with some mild edema, no erythema, no calf tenderness/edema Skin: warm, dry, no rash appreciated Neuro: alert, oriented, no focal neurologic deficit appreciated Results & Data Results & Data Vital Signs (Past 12 Hours) Vital Signs Temp Pulse Resp BP Pulse Ox O2 Del Method 07/08/23 22:41 116/80 07/08/23 22:40 87 19 96 Room Air 07/08/23 22:30 83 15 95 Room Air 07/08/23 22:00 83 16 118/78 94 Room Air 07/08/23 21:30 85 21 104/70 96 Room Air 07/08/23 21:29 36.9 C 07/08/23 21:11 86 18 106/71 95 Room Air 07/08/23 21:00 91 H 21 07/08/23 20:50 92 H 07/08/23 20:35 36.6 C 99 H 20 119/74 95 Room Air Supervising Physician Co-Signing Physician Notes Attending addendum: I have physically seen this patient, have supervised the medical residents activities, and agree with the H&P unless as otherwise noted. 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 She was started on colchicine 0.6 mg p.o. twice daily, and may help to myocarditis process as well Diabetes mellitus- Hold metformin Placed on Accu-Cheks with NovoLog SSI Left lower extremity pain- Venous Doppler negative Oxycodone for pain as needed Trial of topical capsaicin Uric acid elevated suggesting possible gout, and will treat with colchicine as noted above Schizoaffective disorder- Continue home medications Remaining orders and notations as noted Resident Activity Tracking Resident Involvement: Resident Care Provided Care Provided: Adult Hospital Medicine (4) Leukocytosis Leukocytosis type: unspecified Qualified Code(s): D72.829 - Elevated white blood cell count, unspecified
[2023-07-08] MEDS: OPTIRAY 320 125ml IV ONE (23:19)
--- NOTE | 2023-07-08 23:56 | CT Scan Report ---
Exam(s): CTA CHEST IV Amt: 117 ml optiray 320 EXAM: CT Angiography Chest With Intravenous Contrast CLINICAL HISTORY: PE. TECHNIQUE: Axial computed tomographic angiography images of the chest with intravenous contrast. MIPS images were created and reviewed. CTDI is 21. 6 mGy and DLP is 689 mGy-cm. Automated exposure control was utilized for the study. A dose lowering technique was utilized adhering to the principles of ALARA. MIP reconstructed images were created and reviewed. COMPARISON: CTA chest 06/29/2023 FINDINGS: Pulmonary arteries: Unremarkable. No pulmonary embolus. Aorta: No acute findings. No thoracic aortic aneurysm. Lungs: Interseptal thickening could relate to atelectasis and/or pulmonary edema. No mass. Pleural space: Unremarkable. No significant effusion. No pneumothorax. Heart: Unremarkable. No cardiomegaly. No significant pericardial effusion. No evidence of RV dysfunction. Thyroid: Heterogeneous thyroid gland is nonspecific. Bones/joints: There are degenerative changes of the spine. No acute fracture. No dislocation. Soft tissues: Unremarkable. Lymph nodes: Unremarkable. No enlarged lymph nodes. IMPRESSION: 1. No pulmonary embolus. 2. Interseptal thickening could relate to atelectasis and/or pulmonary edema. 3. Heterogeneous thyroid gland is nonspecific. Electronically signed by: Beena Pineda MD 07/08/23 23:55 PM
[2023-07-09 00:07] LABS: Magnesium 1.4 mg/dl (1.7-2.4)
[2023-07-09] MEDS: NICOTINE 14 MG/24 HR PATCH TD STA (02:10)
[2023-07-09] MEDS ORDERED: CYCLOBENZAPRINE HCL 10 MG TAB PO PRN (02:44)
[2023-07-09] MEDS ORDERED: CAPSAICIN CR 0.075% 60 GM TUBE EXT PRN (02:44)
[2023-07-09] MEDS ORDERED: CARBOHYDRATES FOR HYPOGLYCEMIA PO PRN (02:44)
[2023-07-09] MEDS ORDERED: GLUCOSE 40% GEL 15 GM TUBE PO PRN (02:44)
[2023-07-09] MEDS ORDERED: GLUCAGON FOR INJ 1 MG VIAL SQ PRN (02:44)
[2023-07-09] MEDS ORDERED: hydrOXYzine HCl 25 MG TAB PO PRN (02:44)
[2023-07-09] MEDS ORDERED: DEXTROSE 50% 50 ML SYRINGE IV PRN (02:44)
[2023-07-09] MEDS ORDERED: GLUCOSE 10 TAB/TUBE PO PRN (02:44)
[2023-07-09] MEDS ORDERED: PANTOprazole 40 MG TAB PO PRN (02:44)
[2023-07-09] MEDS ORDERED: ACETAMINOPHEN 500 MG TAB PO PRN (02:55)
[2023-07-09] MEDS ORDERED: MELATONIN 3 MG TAB PO PRN (02:59)
[2023-07-09] MEDS: predniSONE 10 MG TABLET PO ONE (03:30)
[2023-07-09 03:42] VITALS: RESP 16
[2023-07-09 05:14] LABS: Albumin Globulin Ratio 1.9 (0.9-2); Albumin Level 3.9 gm/dl (3.4-5.0); BUN Creatinine Ratio 21.8 (10-20); Bilirubin,Total 0.2 mg/dl (0.2-1.0); Calcium 8.7 mg/dl (8.6-10.3); Creatinine Clr Calc Pharmacy 70.9 ml/min; Est GFR (African American) 93.1 ml/min; Est GFR (Non-African American) 80.3 ml/min; Globulin 2.1 gm/dl (2.5-4.0); Magnesium 1.5 mg/dl (1.7-2.4); Potassium 3.5 mmol/L (3.5-5.1); Uric Acid 8.1 mg/dl (2.6-7.2)
[2023-07-09] MEDS: LEVOTHYROXINE SODIUM 25 MCG TABLET PO SCH (05:47)
[2023-07-09 06:14] LABS: Hematocrit (blood only) 34.2 % (37.0-47.0); Hemoglobin 11.6 g/dl (12.0-16.0); Mean Corpuscular Hgb Conc 33.9 g/dL (32.0-36.0); Mean Corpuscular Volume 103.3 fL (80.0-100.0); Mean Platelet Volume 10.4 fL (9.4-12.4); Nucleated RBC # (auto) 0.05 K/uL (0.00-0.12); Nucleated RBC % (auto) 0.3 %; Platelet Count 205 K/uL (130-400); RDW Coefficient of Variation 13.9 % (11.5-14.5); RDW Standard Deviation 52.9 fL (36.4-46.3); Red Blood Count 3.31 M/uL (4.20-5.40); White Blood Count 14.43 K/ul (4.8-10.8)
[2023-07-09] MEDS: oxyCODONE HCL IR 5 MG TAB (IMMEDIATE RELEASE) PO PRN (06:28)
[2023-07-09 06:54] LABS: ALC (manual) 3.32 K/uL (1.2-3.4); ANC (manual) 9.38 K/uL (1.4-6.5); Basophils # (manual) 0.14 K/uL (0-0.2); Basophils % (manual) 1 %; Lymphocytes # (manual) 3.32 K/uL (1.2-3.4); Lymphocytes % (manual) 23 %; Metamyelocytes # (manual) 0.87 K/uL (0-0); Metamyelocytes % (manual) 6 %; Monocytes # (manual) 0.58 K/uL (0.11-0.59); Monocytes % (manual) 4 %; Myelocytes # (manual) 0.14 K/uL (0-0); Myelocytes % (manual) 1 %; Neutrophils # (manual) 9.38 K/uL (1.40-6.50); Neutrophils % (manual) 65 %; RBC Morphology Unremarkable
[2023-07-09] MEDS: ALPRAZolam 0.5 MG TABLET PO PRN (07:43)
[2023-07-09] MEDS: predniSONE 20 MG TAB PO SCH (07:44)
[2023-07-09] MEDS: FUROSEMIDE 20 MG TAB PO SCH (07:44)
[2023-07-09] MEDS: buPROPion XL 300 MG TABCR PO SCH (07:44)
[2023-07-09] MEDS: GABAPENTIN 300 MG CAP PO SCH (07:44)
[2023-07-09] MEDS: MULTIVITAMIN TAB PO SCH (07:44)
[2023-07-09] MEDS: VITAMIN B COMPLEX TAB PO SCH (07:44)
--- NOTE | 2023-07-09 07:56 | XRay Report ---
SINGLE VIEW CHEST CLINICAL HISTORY: Atypical chest pain. FINDINGS: An AP, portable, upright chest radiograph is compared to chest x-ray and chest CT dated 06/10. A right subclavian central venous infusion port is unchanged in position. The heart is enlarg ed. The pulmonary vasculature is noncongested. Chronic interstitial thickening is similar to previous . There is bibasilar scarring/atelectasis. The lungs and pleural spaces are otherwise clear. No pneum othorax is seen. The skeletal structures are osteopenic. The bony thorax is grossly intact. Surgical clips are seen in the axilla bilaterally. IMPRESSION: Cardiomegaly with no active disease in the chest. ACT 112: Negative or not required by law. Electronically signed by: Colin Clifford M.D. 07/09/2023 7:55 AM
[2023-07-09] MEDS ORDERED: NICOTINE 14 MG/24 HR PATCH TD SCH (09:00)
[2023-07-09] MEDS: MAGNESIUM SULFATE / D5W 1 GM/100 ML BAG IV SCH (09:39)
[2023-07-09] MEDS: INSULIN ASPART PER UNIT CHARGE SC SCH (09:39)
[2023-07-09] MEDS: COLCHICINE 0.6 MG TAB PO SCH (09:40)
[2023-07-09] MEDS: NICOTINE POLACRILEX 2 MG GUM MT PRN (10:45)
[2023-07-09] MEDS ORDERED: NITROGLYCERIN SL 0.4 MG/TAB TAB SL PRN (11:54)
--- NOTE | 2023-07-09 11:56 | XRay Report ---
XR ankle LT 2V CLINICAL HISTORY: Increased left ankle pain. COMPARISON STUDY: Left tibia/fibula 06/24/2023 FINDINGS: Partially visualized intramedullary tibial cole. The visualized hardware appears intact. The re are old, healed fractures within the mid to distal tibia. No abnormal periprosthetic lucency. No a cute fracture or dislocation within the left ankle. Mild soft tissue swelling is noted. The tibiotala r joint demonstrates complete bony fusion. There is a tiny plantar heel spur. IMPRESSION: Mild soft tissue swelling within the left ankle. No acute fractures. ACT 112: Negative or not required by law. Electronically signed by: Lazaor Mahan M.D. 07/09/2023 11:54 AM
[2023-07-09 12:06] VITALS: BP 126/79; PULSE 92; TEMP 98.8; O2SAT 92
[2023-07-09] MEDS: ENOXAPARIN INJ 40 MG/0.4 ML SYR SQ SCH (12:35)
[2023-07-09] MEDS: NITROGLYCERIN SL 0.4 MG/TAB TAB SL STA (12:35)
--- NOTE | 2023-07-09 12:46 | Discharge Summary ---
Date of Service July 09, 2023 Admission HPI Per Admitting Provider 62 year old female with a past medical history of left breast cancer s/p bilateral mastectomy 2022 previously on doxorubicin/anastrozole with myocarditis suspected 2/2 chemotherapy treatment, hypertension, hypothyroidism, GERD, bipolar 1 disorder presenting with concern for recurrent chest pain. Recurrent left sided chest pain this afternoon. 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 Has been working to taper steroids with cardiology. Was alternating 20mg and 10mg prednisone every other day, for the past week has been on 10mg daily. Has been admitted multiple times over the past 3 months with recurrent myocarditis. In the ED: Leukocytosis= 20.13, troponin= 24.4-> 45.3. CXR without acute abnormalities. CTA chest pending. EKG with NSR. Took nitro at home and was given 4mg morphine in ED and pain has since resolved. Principal Diagnosis Recurrent chest pain Discharge Exam General-alert and oriented x3, no fever, no chills HEENT-head atraumatic and normocephalic, pupils equal and reactive to light, extraocular muscles intact Neck-no lymphadenopathy or thyromegaly, trachea midline Chest-clear to auscultation. No rales, wheezing or rhonchi Cardiac-regular rate and rhythm, normal S1 and S2 Abdomen-normal bowel sounds, no hepatosplenomegaly Extremities-no cyanosis, clubbing, or edema Neuro-cranial nerves II through XII intact, motor and sensory function within normal limits, strength symmetrical, no focal deficits Psych-normal affect, normal mood Discharge Data Allergies Allergy/AdvReac Type Severity Reaction Status Date / Time bacitracin Allergy Severe ITCHING/INF Verified 07/08/23 22:24 ECTION Quinolones Allergy Severe ANAPHYLAXIS/HEART Verified 07/08/23 22:24 FLUTTERING rizatriptan Allergy Severe SHORTNESS Verified 07/08/23 22:24 OF BREATH amoxicillin [From Augmentin] Allergy Intermediate Hives Verified 07/08/23 22:24 ciprofloxacin Allergy Intermediate Palpitations, Verified 07/08/23 22:24 rash, clavulanic acid Allergy Intermediate Hives Verified 07/08/23 22:24 [From Augmentin] clindamycin Allergy Intermediate Hives Verified 07/08/23 22:24 escitalopram [From Lexapro] Allergy Intermediate Hives Verified 04/29/24 22:24 nickel Allergy Intermediate SKIN Verified 07/08/23 22:24 IRRITATION ofloxacin Allergy Intermediate Rash Verified 07/08/23 22:24 polymyxin B Allergy Intermediate Hives Verified 07/08/23 22:24 silver Allergy Intermediate pruritus Verified 07/08/23 22:24 varenicline [From Chantix] Allergy Intermediate ITCHY HIVES Verified 07/08/23 22:24 lamotrigine Allergy Mild RASH Verified 07/08/23 22:24 neomycin Allergy Mild ITCHING Verified 07/08/23 22:24 WITH THE OINTMENT adhesive Allergy Unknown ALLERGIC Verified 07/08/23 22:24 TO MEDICATED STERI-STRIPS AND SOME TAPE-RASH BLISTE citalopram Allergy Unknown CAN'T Verified 07/08/23 22:24 REMEMBER celecoxib AdvReac Intermediate GI SYMPTOMS Verified 07/08/23 22:24 dichloralphenazone AdvReac Intermediate ALTERED Verified 07/08/23 22:24 [From Midrin] MENTAL STATUS isometheptene [From Midrin] AdvReac Intermediate ALTERED Verified 07/08/23 22:24 MENTAL STATUS paroxetine AdvReac Intermediate OUT OF Verified 07/08/23 22:24 BODY EXPERIENCE piperacillin AdvReac Unknown BETALACTAMASE Verified 07/08/23 22:24 INHIBITORS-UNKNOWN tazobactam AdvReac Unknown BETALACTAMASE Verified 07/08/23 22:24 INHIBITORS-UNKNOWN Consultations 07/08/23 22:39 ED Decision to Admit Stat Ordered Studies 07/08/23 22:27 CT angio chest PE protocol Stat Hospital Course (1) Chest pain: Atypical. Uncertain if this is due to the underlying myocarditis or whether she has cardiac related chest pain. No evidence of acute coronary syndrome at this time. She will take sublingual nitroglycerin as needed. 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 She will continue to take an oral supplement at discharge (4) Diabetes mellitus: ADA diet. Sliding scale coverage. Continue current medical management Plan Home todayJuly 08 Total Time Total Time Spent Total Time Spent (In Minutes): 45 minutes Discharge Plan Discharge Items Patient Disposition: Home - Self-Care Reason For Visit: MYOCARDITIS Discharge Diagnosis: Atypical chest pain of undetermined etiology, hypomagnesemia Condition on Discharge: Good Non-emergency contact: Primary Care Provider and Travel Coordinator Call non-emergency contact if: your symptoms worsen Follow-up/Referrals: Justice Madera [Primary Care Provider] - Diet: Carb Consistent or DM2 and Heart Healthy Addtl Attending Provider Instructions: Take prednisone 20 mg daily until seen by primary care provider or top installer. Use sublingual nitroglycerin for any recurrent chest discomfort Pending Studies at Discharge: No Stand-Alone Forms: My [facility] indoo.rs, Smoking Cessation Medications and DC Order Prescriptions: New prednisone 20 mg Tablet 20 mg PO DAILY Qty: 30 0RF Continued bupropion HCl [Wellbutrin XL] 300 mg tablet extended release 24 hr 300 mg PO QAM Caltrate 600 plus D 600 mg (1,500 mg)-800 unit tablet,chewable 1 tab PO HS gabapentin 300 mg capsule 300 mg PO TID lisinopril 2.5 mg tablet 2.5 mg PO HS acetaminophen 500 mg capsule 1,000 mg PO Q6H PRN (Reason: Pain) hydroxyzine HCl 25 mg tablet 25 mg PO BID PRN (Reason: Anxiety/ALLERGY) ondansetron HCl 8 mg tablet 8 - 16 mg PO DIRECTED PRN (Reason: Nausea) anastrozole 1 mg tablet 1 mg PO HS pantoprazole 20 mg tablet,delayed release (DR/EC) 20 mg PO DAILY PRN (Reason: Heartburn) magnesium oxide 400 mg (241.3 mg magnesium) tablet 400 mg PO BID PRN (Reason: Constipation) pravastatin 10 mg tablet 10 mg PO HS Qty: 30 0RF fenofibrate micronized 134 mg capsule 134 mg PO QAM levothyroxine 25 mcg Tablet 25 mcg PO DAILYBB multivitamin Tablet 1 tab PO QAM quetiapine [Seroquel] 25 mg tablet 50 mg PO HS clopidogrel [Plavix] 75 mg Tablet 75 mg PO HS Hold Instructions: Resume on 02/02/23. vitamin B complex Tablet 1 tab PO QAM temazepam [Restoril] 22.5 mg capsule 22.5 mg PO HS Patient Comments: currently out of pills, waiting on refill cyclobenzaprine 10 mg tablet 10 mg PO DAILY PRN (Reason: Muscle Spasm) alprazolam 0.5 mg tablet 0.5 mg PO DAILY PRN (Reason: severe anxiety) olopatadine 0.2 % Drops 1 drp OPHTHALMIC (EYE) DAILY PRN (Reason: itchy eye) melatonin 10 mg Tablet 10 mg PO HS PRN (Reason: Sleep) furosemide 20 mg tablet 20 mg PO QAM Ozempic 0.25 mg or 0.5 mg (2 mg/3 mL) pen injector 0.25 mg SUBCUT WK Rx Instructions: ascorbic acid (vitamin C) 500 mg Tablet,Chewable 500 mg PO HS oxycodone 5 mg tablet 5 mg PO .Q4-6H PRN (Reason: Pain) nitroglycerin 0.4 mg tablet, sublingual 0.4 mg sublingual Q5M PRN (Reason: chest pain) Qty: 25 2RF Discontinued prednisone 10 mg tablet See Rx Instructions PO .COMPLEX Qty: 60 1RF Rx Instructions: Take 10 mg odd days and 20 mg even days Admission Data Admit Date/Time: 07/09/23 00:22 Attending Provider: Jeff Campbell Admit Provider: Itzel King Primary Care Provider: Justice Madera Other Providers: Joey Adames Coding Level of Care Code 55692 INP/OBS DISCH >30 MIN Diagnoses Chest pain R07.9 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
--- NOTE | 2023-07-09 15:44 | Electrocardiogram Report ---
Test Reason : Blood Pressure : / mmHG Vent. Rate : 091 BPM Atrial Rate : 091 BPM P-R Int : 144 ms QRS Dur : 076 ms QT Int : 356 ms P-R-T Axes : 063 060 049 degrees QTc Int : 437 ms Normal sinus rhythm Normal ECG When compared with ECG of 29-JUN-2023 20:21, No significant change was found Confirmed by Ector St ([id number]) on 07/09/2023 3:44:12 PM Referred By: REFERRED SELF Confirmed By:Ector St
--- NOTE | 2023-07-09 15:46 | Electrocardiogram Report ---
Test Reason : Blood Pressure : / mmHG Vent. Rate : 080 BPM Atrial Rate : 080 BPM P-R Int : 152 ms QRS Dur : 078 ms QT Int : 380 ms P-R-T Axes : 052 038 049 degrees QTc Int : 438 ms Normal sinus rhythm Normal ECG When compared with ECG of 08-JUL-2023 20:42, (unconfirmed) No significant change was found Confirmed by Ector St ([id number]) on 07/09/2023 3:45:56 PM Referred By: REFERRED SELF Confirmed By:Ector St
[2023-07-09] MEDS ORDERED: CALCIUM 600MG + VIT D 400 IU TAB PO SCH (21:00)
[2023-07-09] MEDS ORDERED: TEMAZEPAM 7.5 MG CAPSULE PO SCH (21:00)
[2023-07-09] MEDS ORDERED: ANASTROZOLE 1 MG TAB PO SCH (21:00)
[2023-07-09] MEDS ORDERED: ASCORBIC ACID 500 MG TAB PO SCH (21:00)
[2023-07-09] MEDS ORDERED: PRAVASTATIN SOD 10 MG TAB PO SCH (21:00)
[2023-07-09] MEDS ORDERED: CLOPIDOGREL BISULFATE 75 MG TAB PO SCH (21:00)
[2023-07-09] MEDS ORDERED: lisinopril 2.5 MG TAB PO SCH (21:00)
[2023-07-09] MEDS ORDERED: QUEtiapine FUMARATE 25 MG TABLET PO SCH (21:00)
--- NOTE | 2023-07-10 02:03 | Billing Data ---
Date of Service July 10, 2023 Coding Level of Care Code 20633 INT INP/OBS CARE
== END 2023-07-09 15:07 | disposition home or self-care (01) ==
LOC: 2W 20:30 → ED 20:30 → SUATTDRO 07-09 00:22 → 2W 07-09 02:24

== ENCOUNTER 2023-09-02 11:32 | Observation (INO) ==
[2023-09-02 13:31] LABS: Basophils # (auto) 0.05 K/uL (0.00-0.20); Basophils % (auto) 0.5 %; Eosinophils # (auto) 0.15 K/uL (0.00-0.50); Eosinophils % (auto) 1.4 %; Hematocrit (blood only) 39.3 % (37.0-47.0); Hemoglobin 12.9 g/dl (12.0-16.0); Immature Granulocytes # (auto) 0.14 K/uL (0.01-0.20); Immature Granulocytes % (auto) 1.3 %; Lymphocytes # (auto) 2.37 K/uL (1.20-3.40); Lymphocytes % (auto) 21.9 %; Mean Corpuscular Hemoglobin 33.7 pg (25.0-34.0); Mean Corpuscular Hgb Conc 32.8 g/dL (32.0-36.0); Mean Corpuscular Volume 102.6 fL (80.0-100.0); Mean Platelet Volume 10.3 fL (9.4-12.4); Monocytes # (auto) 0.87 K/uL (0.11-0.59); Neutrophils # (auto) 7.23 K/uL (1.40-6.50); Neutrophils % (auto) 66.9 %; Platelet Count 226 K/uL (130-400); RDW Standard Deviation 49.1 fL (36.4-46.3); Red Blood Count 3.83 M/uL (4.20-5.40); White Blood Count 10.81 K/ul (4.8-10.8)
[2023-09-02 13:39] LABS: Alanine Aminotransferase 15 U/L (7-52); Albumin Globulin Ratio 1.7 (0.9-2); Albumin Level 4.1 gm/dl (3.4-5.0); Alkaline Phosphatase 77 U/L (34-104); Anion Gap 7 (3-11); Aspartate Aminotransferase 14 U/L (13-39); BUN Creatinine Ratio 16.9 (10-20); Bilirubin,Total 0.3 mg/dl (0.2-1.0); Blood Urea Nitrogen 11 mg/dl (6-23); Calcium 9.4 mg/dl (8.6-10.3); Carbon Dioxide 28 mmol/L (21-32); Chloride 107 mmol/L (98-107); Est GFR (African American) 108.7 ml/min; Est GFR (Non-African American) 93.8 ml/min; Globulin 2.4 gm/dl (2.5-4.0); Glucose 130 mg/dl (70-99(Fasting)); Magnesium 1.5 mg/dl (1.7-2.4); Potassium 3.7 mmol/L (3.5-5.1); Sodium 142 mmol/L (136-145); Total Protein 6.5 gm/dl (6.0-8.3)
--- NOTE | 2023-09-02 13:39 | XRay Report ---
XR chest 1V not portable CLINICAL HISTORY: Sepsis TECHNIQUE: Single frontal radiograph of the chest was obtained. Comparison: Comparison is made to chest radiograph 07/22/2023 FINDINGS: A port catheter is seen. The cardiomediastinal silhouette is normal. The lungs are clear. No evidence of pleural effusion or pneumothorax. IMPRESSION: No acute abnormalities and in particular no radiographic evidence of pneumonia. ACT 112: Negative or not required by law. Electronically signed by: Ketan Justin M.D. 09/02/2023 1:38 PM
[2023-09-02 13:42] LABS: Troponin I High Sensitivity 21.3 pg/ml (0-14)
[2023-09-02 13:51] LABS: INR 0.9 (0.9-1.1); Partial Thromboplastin Ratio 0.9; Partial Thromboplastin Time 25 Seconds (21-31); Prothrombin Time 10.1 Seconds (9.0-12.0)
[2023-09-02] MEDS: fentaNYL citrate PF 100 MCG/2 ML VIAL IV STA (16:55)
[2023-09-02] MEDS: MAGNESIUM SULFATE / D5W 1 GM/100 ML BAG IV STA (17:18)
--- NOTE | 2023-09-02 17:22 | Emergency Department Note ---
Impression & Plan Generalized weakness, Hypomagnesemia ED Provider Note HISTORY OF PRESENT ILLNESS: Patient is a 62-year-old female presenting with multiple complaints. Patient believes that she has a systemic candidal infection. States that "I had osteomyelitis as a kid so I know these things." She states that she initially had a vaginal yeast infection that she thinks has gone systemic as she is itchy all over and it is uncontrollable. She states that the symptoms have been ongoing for weeks at a time. Denies any chest pain or shortness of breath. She has a history of breast cancer but has not been on chemotherapy for a number of months. Reports that she has had a fever. When asked about her temp, she states that "my normal temperature runs from 96 to 97 degrees, so 98 is a fever for me." She reports pain in her joints and diffuse bodyaches. Denies any notable rashes or tick bites. She is complaining of pain in all of her joints, but states that she has significant pain in her left ankle and this is where she has previously had osteomyelitis. Denies any vomiting or abdominal pain. She does report some loose stool. Denies any recent travel or recent sick contact exposures. Denies any recent antibiotic use. She does report that she was on steroids recently. ROS: as above PHYSICAL EXAM: Constitutional: Patient appears in no acute distress. HENT: Head: Normocephalic and atraumatic. Eyes: EOMI, PERRL Mouth/Throat: Mucous membranes moist. Neck: Trachea midline. Neck supple. Cardiovascular: RRR, No murmurs, rubs or gallops. Intact distal pulses. Pulmonary/Chest: No respiratory distress. Breath sounds clear and equal bilaterally. No wheezes or rales. Abdominal: Abdomen soft, no tenderness, rebound or guarding. Musculoskeletal: No edema, tenderness or deformity noted. Skin: Warm and dry. No rash, erythema, pallor or cyanosis Psychiatric: Appropriate mood and affect for situation. Neurological: Alert and keenly responsive. CN II-XII grossly intact, moving all extremities equally and fully. MDM: - Vitals signs showed tachycardia. - History obtained via patient. History as above. - Chronic conditions affecting care: breast cancer; myocarditis; hypothyroidism; PTSD; bipolar disorder; TIA - Differential diagnoses include, but are not limited to: CVA; UTI; pneumonia; viral syndrome; electrolyte abnormality; dehydration - Order placed for continuous cardiac monitoring. At this time, monitor showed rate of 80 bpm with normal sinus rhythm, per my interpretation. - External medical records reviewed. Gynecology visit note dated today was reviewed. Patient was diagnosed with vulvovaginitis due to yeast and started on nystatin cream. - EKG interpreted by myself showed normal sinus rhythm. Rate tachycardic at 106 bpm. QT 310. No acute ischemic changes. - Laboratory workup interpreted by myself showed slight leukocytosis (WBC 10.81); normal PT/INR; stable electrolytes other than hypomagnesemia (Mg 1.5);normal lactate; normal liver function; elevated troponin (21.7); negative procal - Viral respiratory panel negative - CXR negative for pneumonia, per my interpretation - Blood cultures obtained - Patient given 1g IV magnesium for electrolyte abnormality. Given 1L NS and 50 mcg IV fentanyl for her diffuse pain on arrival. - Discussion was had with mattress spring encaser about patient's case and need for admission - Hospitalist, Dr. Bass, consulted for admission - [facility] ASSESSMENT AND PLAN: Diagnosis: generalized weakness Plan: admit Past Med/Surg History Problem List (Updated 09/02/23 @ 22:47 by Nettie Bowen MD) Hypomagnesemia (Acute) Generalized weakness (Acute) Breast cancer, left Vulvovaginitis due to yeast Hypomagnesemia Elevated troponin (Acute) Chest pain (Acute) Elevated troponin (Acute) Chest pain (Acute) Palpitations (Acute) Near syncope (Acute) Elevated troponin Chest pain (Acute) Encounter for pre-operative examination Sensorineural hearing loss (SNHL) of left ear with unrestricted hearing of right ear Bilateral tinnitus Lobular carcinoma in situ (LCIS) of breast Arthritis Mass of soft tissue of both lower extremities Osteopenia Goiter Chronic tonsillitis Adrenal nodule Memory deficits Fibromyalgia Hypogammaglobulinemia Chronic radicular lumbar pain (Chronic) Intervertebral disc disorder (Chronic) Lung tumor (benign) Arthritis of foot Medical History 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 Gastroesophageal reflux disease hx-no issues currently Cerebrovascular disease Hypothyroidism Anxiety Diabetes mellitus Left leg pain Breast cancer (07/06/16) Tobacco abuse PTSD (post-traumatic stress disorder) Recurrent cancer of left breast Pain at surgical site Acute diverticulitis Bipolar 1 disorder Cervical pain (neck) ROM "is ok, but not quite what it should be" Hemochromatosis Vaginismus Sleep apnea no device Schizoaffective disorder Personality disorder Osteoporosis (09/05/12) Morbid obesity Menopause Lymphocytosis Invasive carcinoma of breast Depression Corneal dystrophy Chronic pain Arthralgia of multiple sites Abnormal liver function test History of chemotherapy History of anemia Esophagus disorder "narrow esophagus per pt" Diabetes mellitus Endometriosis Scoliosis History of fatty infiltration of liver Diverticular disease History of breast cancer Left 2005 and 2017 and 2017 h/o lumpectomy + chemo/radiaton Osteoarthritis TMJ (temporomandibular joint disorder) no clicking or locking PTSD (post-traumatic stress disorder) Bipolar disorder History of migraine History of TIA (transient ischemic attack) 07/2019 > no residual effects > follows with Dr. Reji NAVA (hyperlipidemia) Sacral fracture hx-2013 Surgical History History of tonsillectomy Port-A-Cath in place (01/29/23) Insertion of Right Subclavian Access Port, Removal of Left Access Port(Right) - Janet Bajwa DO Port-A-Cath in place (01/25/23) Insertion of Access Port in Left Subclavian with Fluoroscopy(Left) - Janet Bajwa DO Hx of bilateral mastectomy 2022, [facility] for recurrent breast cancer Hx of colectomy sigmoid colectomy, 6-7 years ago Hx of bilateral cataract extraction S/P epidural steroid injection History of vascular access device removed History of breast biopsy History of laparoscopy mult History of lumpectomy of right breast benign History of lumpectomy of left breast x 2 History of appendectomy History of open reduction and internal fixation (ORIF) procedure LLE History of ankle surgery left x 6 History of colonoscopy History of bowel resection due to diverticulitis History of fracture of left ankle left tibia Family History Mother Hypertension Adrenal gland cancer Cancer Father , age 59 of lung cancer Lung cancer smoker Liver cancer Cancer Aunt Breast cancer Other Colorectal cancer No family history of adverse response to anesthesia No family history of bleeding disorder Social History Smoking Status: Current every day smoker Tobacco Type: Cigarettes packs per day: 1; Cigarettes Per Day: Pack; Second Hand Exposure: No; Do You Dip or Chew Tobacco: No; Hx Alcohol Use: No Hx Substance Use: Yes Prescribed Medications: Painkillers and Tranquilizers Non-Prescribed Medications: Marijuana Last Used Substance: Hours (ago) Last Used Substance Other:: daily at night Substance Use Type Other:: has RX for oxycodone, medical marijuana Preferred Language: Bahamian Communication Ability: Effective Visual Impairment: No Limitations Hearing Ability: Normal Probation Agent Required: Yes Beliefs That Will Affect Care: None marital status: Current Living Situation: Spouse Current Living Situation Comment: At home with 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al status: retired and disabled 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 [employer] other: Stopped work in 2001 on disability Feels Safe at Home: Yes Safety Concerns: Feels Safe At This Time Diet: diabetic during the past year weight has: increased > 10 lbs Assistive Devices: Cane, Glasses and Wheelchair Allergies Allergies Allergy/AdvReac Type Severity Reaction Status Date / Time bacitracin Allergy Severe ITCHING/INF Verified 09/02/23 10:37 ECTION Quinolones Allergy Severe ANAPHYLAXIS/HEART Verified 09/02/23 10:37 FLUTTERING rizatriptan Allergy Severe SHORTNESS Verified 09/02/23 10:37 OF BREATH amoxicillin [From Augmentin] Allergy Intermediate Hives Verified 09/02/23 10:37 ciprofloxacin Allergy Intermediate Palpitations, Verified 09/02/23 10:37 rash, clavulanic acid Allergy Intermediate Hives Verified 09/02/23 10:37 [From Augmentin] clindamycin Allergy Intermediate Hives Verified 09/02/23 10:37 escitalopram [From Lexapro] Allergy Intermediate Hives Verified 09/02/23 10:37 nickel Allergy Intermediate SKIN Verified 09/02/23 10:37 IRRITATION ofloxacin Allergy Intermediate Rash Verified 09/02/23 10:37 polymyxin B Allergy Intermediate Hives Verified 09/02/23 10:37 silver Allergy Intermediate pruritus Verified 09/02/23 10:37 varenicline [From Chantix] Allergy Intermediate ITCHY HIVES Verified 09/02/23 10:37 lamotrigine Allergy Mild RASH Verified 09/02/23 10:37 neomycin Allergy Mild ITCHING Verified 09/02/23 10:37 WITH THE OINTMENT adhesive Allergy Unknown ALLERGIC Verified 09/02/23 10:37 TO MEDICATED STERI-STRIPS AND SOME TAPE-RASH BLISTE citalopram Allergy Unknown CAN'T Verified 09/02/23 10:37 REMEMBER celecoxib AdvReac Intermediate GI SYMPTOMS Verified 09/02/23 10:37 dichloralphenazone AdvReac Intermediate ALTERED Verified 09/02/23 10:37 [From Midrin] MENTAL STATUS isometheptene [From Midrin] AdvReac Intermediate ALTERED Verified 09/02/23 10:37 MENTAL STATUS paroxetine AdvReac Intermediate OUT OF Verified 09/02/23 10:37 BODY EXPERIENCE piperacillin AdvReac Unknown BETALACTAMASE Verified 09/02/23 10:37 INHIBITORS-UNKNOWN tazobactam AdvReac Unknown BETALACTAMASE Verified 09/02/23 10:37 INHIBITORS-UNKNOWN Home Meds Home Medications Medication Instructions Recorded Confirmed bupropion HCl 300 mg 24 hr tablet, 300 mg PO QAM 12/12/17 09/02/23 extended release (Wellbutrin XL) fenofibrate micronized 134 mg 134 mg PO QAM 04/16/19 09/02/23 capsule levothyroxine 25 mcg tablet 25 mcg PO DAILYBB 09/12/19 09/02/23 lisinopril 2.5 mg tablet 2.5 mg PO HS 04/05/20 09/02/23 calcium carbonate 600 mg-vitamin 1 tab PO HS 01/18/21 09/02/23 D3 20 mcg (800 unit) chewable tablet (Caltrate 600 plus D) ondansetron HCl 8 mg tablet 8 - 16 mg PO DIRECTED PRN Nausea 03/21/21 09/02/23 anastrozole 1 mg tablet 1 mg PO HS 04/07/21 09/02/23 clopidogrel 75 mg tablet (Plavix) 75 mg PO HS 01/31/22 09/02/23 multivitamin 1 tab PO QAM 01/31/22 09/02/23 quetiapine 25 mg tablet (Seroquel) 50 mg PO HS 01/31/22 09/02/23 vitamin B complex 1 tab PO QAM 01/31/22 09/02/23 temazepam 22.5 mg capsule 22.5 mg PO UD 07/16/22 09/02/23 (Restoril) acetaminophen 500 mg capsule 1,000 mg PO Q6H PRN Pain 10/23/22 09/02/23 hydroxyzine HCl 25 mg tablet 25 mg PO BID PRN Anxiety/ALLERGY 10/23/22 09/02/23 alprazolam 0.5 mg tablet 0.5 mg PO DAILY PRN severe anxiety 02/07/23 09/02/23 cyclobenzaprine 10 mg tablet 10 mg PO DAILY PRN Muscle Spasm 02/07/23 09/02/23 olopatadine 0.2 % eye drops 1 drp ophthalmic (eye) DAILY PRN 02/07/23 09/02/23 itchy eye semaglutide 0.25 mg or 0.5 mg (2 0.25 mg subcut WK 04/16/23 09/02/23 mg/3 mL) subcutaneous pen injector (Ozempic) furosemide 20 mg tablet 20 mg PO QAM 05/04/23 09/02/23 gabapentin 300 mg capsule 300 mg PO TID 06/06/23 09/02/23 mirtazapine 15 mg tablet 22.5 mg PO HS 09/02/23 09/02/23 nystatin 100,000 unit/gram topical 1 applic topical UD 09/02/23 09/02/23 powder Previous Rx's Medication Instructions Recorded pravastatin 10 mg tablet 10 mg PO HS #30 tabs 07/13/19 nitroglycerin 0.4 mg sublingual 0.4 mg sublingual Q5M PRN chest 05/13/23 tablet pain #25 tabs colchicine 0.6 mg tablet 0.6 mg PO BID #60 tabs 07/25/23 nystatin-triamcinolone 100,000 1 applic topical TID #30 grams 09/02/23 unit/gram-0.1 % topical ointment terconazole 0.8 % vaginal cream 1 appful vaginal .COMPLEX #20 grams 09/02/23 Results & Data (ED) Vital Signs Vital Signs - 24 hr 09/02/23 11:36 09/02/23 16:20 09/02/23 16:54 Temperature 36.3 C L 37.0 C Temperature Source Temporal Artery Scan Oral Pulse Rate 111 H 97 H Pulse Rate [Apical] 85 Pulse Rhythm Regular Pulse Rhythm [Apical] Regular Pulse Strength Normal Pulse Strength [Apical] Normal Respiratory Rate 18 20 Respiratory Effort / Characteristics Non-Labored Spontaneous Non-Labored Spontaneous Respiratory Depth Normal Normal Respiratory Pattern Regular Regular Blood Pressure 119/77 Blood Pressure [Right Arm] 111/75 Blood Pressure Mean 91 Blood Pressure Mean [Right Arm] 87 Blood Pressure Position Sitting Blood Pressure Position [Right Arm] Semi-fowlers Pulse Oximetry 97 98 Oxygen Delivery Method Room Air Room Air Sepsis Recent Fever Within 48 Hours Yes Sepsis New/Unexplained Change in Mental Status No Sepsis Action Taken by Nursing No Action Required 09/02/23 17:17 09/02/23 17:28 09/02/23 17:28 Temperature Temperature Source Pulse Rate 88 Pulse Rate [Apical] 93 H Pulse Rhythm Regular Pulse Rhythm [Apical] Pulse Strength Pulse Strength [Apical] Respiratory Rate 17 20 Respiratory Effort / Characteristics Non-Labored Spontaneous Respiratory Depth Normal Respiratory Pattern Regular Blood Pressure Blood Pressure [Right Arm] 111/73 Blood Pressure Mean Blood Pressure Mean [Right Arm] 85 Blood Pressure Position Blood Pressure Position [Right Arm] Semi-fowlers Pulse Oximetry 96 95 95 Oxygen Delivery Method Room Air Room Air Room Air Sepsis Recent Fever Within 48 Hours Sepsis New/Unexplained Change in Mental Status Sepsis Action Taken by Nursing Laboratory Data 09/02/23 12:25 09/02/23 12:25 Lab Results 09/02/23 09/02/23 09/02/23 Range/Units 12:25 13:05 16:44 WBC 10.81 H (4.8-10.8) K/ul RBC 3.83 L (4.20-5.40) M/uL Hgb 12.9 (12.0-16.0) g/dl Hct 39.3 (37.0-47.0) % MCV 102.6 H (80.0-100.0) fL MCH 33.7 (25.0-34.0) pg MCHC 32.8 (32.0-36.0) g/dL RDW Std Deviation 49.1 H (36.4-46.3) fL RDW Coeff of Laureen 13.0 (11.5-14.5) % Plt Count 226 (130-400) K/uL MPV 10.3 (9.4-12.4) fL Immature Gran % (Auto) 1.3 % Neut % (Auto) 66.9 % Lymph % (Auto) 21.9 % Walsh % (Auto) 8.0 % Eos % (Auto) 1.4 % Baso % (Auto) 0.5 % Neut # (Auto) 7.23 H (1.40-6.50) K/uL Lymph # (Auto) 2.37 (1.20-3.40) K/uL Walsh # (Auto) 0.87 H (0.11-0.59) K/uL Eos # (Auto) 0.15 (0.00-0.50) K/uL Baso # (Auto) 0.05 (0.00-0.20) K/uL Immature Gran # (Auto) 0.14 (0.01-0.20) K/uL PT 10.1 (9.0-12.0) Seconds INR 0.9 (0.9-1.1) APTT 25 (21-31) Seconds PTT Ratio 0.9 Sodium 142 (136-145) mmol/L Potassium 3.7 (3.5-5.1) mmol/L Chloride 107 (98-107) mmol/L Carbon Dioxide 28 (21-32) mmol/L Anion Gap 7 (3-11) BUN 11 (6-23) mg/dl Creatinine 0.65 (0.6-1.2) mg/dl Est Cr Clr Drug Dosing Not Reportable Est GFR ( Amer) 108.7 ml/min Est GFR (Non-Af Amer) 93.8 ml/min BUN/Creatinine Ratio 16.9 (10-20) Glucose 130 H (70-99(Fasting)) mg/dl Lactate 1.6 (0.4-2.0) mmol/L Calcium 9.4 (8.6-10.3) mg/dl Magnesium 1.5 L (1.7-2.4) mg/dl Total Bilirubin 0.3 (0.2-1.0) mg/dl AST 14 (13-39) U/L ALT 15 (7-52) U/L Alkaline Phosphatase 77 (34-104) U/L Troponin I High Sens 21.3 H 21.7 H (0-14) pg/ml Total Protein 6.5 (6.0-8.3) gm/dl Albumin 4.1 (3.4-5.0) gm/dl Globulin 2.4 L (2.5-4.0) gm/dl Albumin/Globulin Ratio 1.7 (0.9-2) Procalcitonin 0.03 (0-0.5) ng/ml Anaplasma Smear See Comment Lyme Disease Screen Negative (Negative) Administered Medications Discontinued Medications Fentanyl Citrate (Fentanyl Citrate Pf 100 Mcg/2 Ml Vial) 50 mcg IV NOW STA Stop: 09/02/23 16:48 Last Admin: 09/02/23 16:55 Dose: 50 mcg Documented By: ERICA Fluconazole (Fluconazole 50 Mg Tab) 150 mg PO NOW ONE Stop: 09/02/23 19:05 Last Admin: 09/02/23 19:23 Dose: 150 mg Documented By: ERICA Magnesium Sulfate/Dextrose (Magnesium Sulfate / D5w) 1 gm in 100 mls @ 100 mls/hr IV NOW STA Stop: 09/02/23 18:08 Last Infusion: 09/02/23 18:28 Dose: Infused Documented By: Admin: 09/02/23 17:18 Dose: 100 mls/hr Documented By: JESSICA Oxycodone HCl (Oxycodone Hcl Ir 5 Mg Tab (Immediate Release)) 5 mg PO NOW STA Stop: 09/02/23 20:01 Last Admin: 09/02/23 20:47 Dose: 5 mg Documented By: SABINA Imaging Data Radiologist's Impression: Chest X-Ray 09/02/23 11:40 XR chest 1V not portable CLINICAL HISTORY: Sepsis TECHNIQUE: Single frontal radiograph of the chest was obtained. Comparison: Comparison is made to chest radiograph 07/22/2023 FINDINGS: A port catheter is seen. The cardiomediastinal silhouette is normal. The lungs are clear. No evidence of pleural effusion or pneumothorax. IMPRESSION: No acute abnormalities and in particular no radiographic evidence of pneumonia. ACT 112: Negative or not required by law. Electronically signed by: Ketan Justin M.D. 09/02/2023 1:38 PM Ankle X-Ray 09/02/23 17:09 XR ankle LT 2V CLINICAL HISTORY: Left ankle pain. COMPARISON: MRI of the left lower leg August 08, 2023. Left ankle radiographs July 08, 2023. FINDINGS: Visualized portions of the left tibial intramedullary cole are intact. There is an old left tibial fracture as well as old deformities of the distal left tibia and fibula which are fused. The appearance is unchanged. Tibiotalar joint is fused. There are no acute fractures. The appearance is unchanged since prior radiographs. IMPRESSION: No acute fractures within the left ankle. Unchanged postoperative/posttraumatic findings. ACT 112: Negative or not required by law. Electronically signed by: Buddy Del Real M.D. 09/02/2023 5:48 PM Hand X-Ray 09/02/23 17:09 XR hand RT 2V CLINICAL HISTORY: R pinky finger pain COMPARISON: Right third finger radiographs July 25, 2018. Right first finger radiographs November 23, 2011. FINDINGS: Alignment of the right hand is anatomic. There are no acute fractures. No bony erosions are identified. A pulse ox on the second finger is incidentally noted. No acute abnormality within the right fifth finger is present. There is moderate osteophytosis of the right fifth DIP joint. Mild right fifth finger soft tissue swelling. IMPRESSION: 1. No acute osseous abnormality within the right hand. 2. Mild right fifth finger soft tissue swelling. Moderate osteoarthritis of the right 5th DIP joint. ACT 112: Negative or not required by law. Electronically signed by: Buddy Del Real M.D. 09/02/2023 6:10 PM Discharge Plan Visit Data Chief Complaint: Illness Stated Complaint: SYSTEMIC YEAST INFECTION ED Provider: Nettie Bowen Discharge Problem: Generalized weakness, Hypomagnesemia
--- NOTE | 2023-09-02 17:49 | XRay Report ---
XR ankle LT 2V CLINICAL HISTORY: Left ankle pain. COMPARISON: MRI of the left lower leg August 08, 2023. Left ankle radiographs July 08, 2023. FINDINGS: Visualized portions of the left tibial intramedullary cole are intact. There is an old left tibial fracture as well as old deformities of the distal left tibia and fibula which are fused. The appearance is unchanged. Tibiotalar joint is fused. There are no acute fractures. The appearance is u nchanged since prior radiographs. IMPRESSION: No acute fractures within the left ankle. Unchanged postoperative/posttraumatic findings. ACT 112: Negative or not required by law. Electronically signed by: Buddy Del Real M.D. 09/02/2023 5:48 PM
--- NOTE | 2023-09-02 18:09 | History & Physical Report ---
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 Vulvovaginitis - per chart review, saw PCP 08/27 and was prescribed nystatin - saw ob/gyn doctor today who transitioned her to terazole vaginally and mycolog externally - lab work upon admission significant for WBC 10.8, Hgb 12.9, BMP WNL, Mg 1.5, trop 21.7, procal 0.03 - lyme neg, RVP pending - pt concerned for systemic infection; however, VS stable, afebrile- blood cx pending - will give diflucan 150 mg now (despite interaction of possibly prolonging her QT with her other home medications); pt may need longer course/repeat dosing based on improvement after one dose - will trend CBC tomorrow AM Right hand pain - pt notes a swollen and painful right 5th finger for the past few days; this has led pt to think she has a systemic fungal infection - right hand xray notes mild edema of right 5th digit with moderate osteoarthritis of the DIP joint - symptomatic relief with tylenol, ibuprofen, and oxycodone PRN Hypomagnesemia - 1.5 upon admission; given 1g while in the ER - will recheck with AM labs Recurrent left breast cancer - pt has had complications with treatment including myocarditis (secondary to pembrolizumab) - not in current tx; chemotherapy put on hold because of complications - pt to have lymph node reconstruction in the upcoming days/weeks - suspect pt's malaise partly attributed to ongoing cancer/cancer treatments Bipolar disorder/PTSD - continue home meds Diet: heart healthy Code: full DVT ppx: lovenox Dispo: admit to med/surg (2) Hypomagnesemia: (3) Breast cancer, left: (4) PTSD (post-traumatic stress disorder): (5) Bipolar 1 disorder: History of Present Illness Chief Complaint: generalized malaise, concern for systemic yeast infection Primary Care Provider: Justice Madera Pt is a 62 yo female with PMH of recurrent breast cancer (in current tx), 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 Pt notes her vaginal yeast infection began 1 week ago. She saw her PCP about this and was given a powder for treatment. She was seen again by her insurance claim auditor today who gave her two different vaginal creams to use for treatment. A few days ago, the pt's right 5th digit of her right hand became painful and swollen- after doing research online, she became concerned that she has a systemic fungal infection. This prompted her to seek care today at the ER (in addition to a headache). She also notes left foot swelling/pain. She endorses some sharp, stabbing chest pain over the weekend but this has not continued. She endorses some SOB but she explains that she smokes and this is typical for her. In the ER, pt was given fentanyl 50 mcg and magnesium 1g. Allergies Allergy/AdvReac Type Severity Reaction Status Date / Time bacitracin Allergy Severe ITCHING/INF Verified 09/02/23 10:37 ECTION Quinolones Allergy Severe ANAPHYLAXIS/HEART Verified 09/02/23 10:37 FLUTTERING rizatriptan Allergy Severe SHORTNESS Verified 09/02/23 10:37 OF BREATH amoxicillin [From Augmentin] Allergy Intermediate Hives Verified 09/02/23 10:37 ciprofloxacin Allergy Intermediate Palpitations, Verified 09/02/23 10:37 rash, clavulanic acid Allergy Intermediate Hives Verified 09/02/23 10:37 [From Augmentin] clindamycin Allergy Intermediate Hives Verified 09/02/23 10:37 escitalopram [From Lexapro] Allergy Intermediate Hives Verified 09/02/23 10:37 nickel Allergy Intermediate SKIN Verified 09/02/23 10:37 IRRITATION ofloxacin Allergy Intermediate Rash Verified 09/02/23 10:37 polymyxin B Allergy Intermediate Hives Verified 09/02/23 10:37 silver Allergy Intermediate pruritus Verified 09/02/23 10:37 varenicline [From Chantix] Allergy Intermediate ITCHY HIVES Verified 09/02/23 10:37 lamotrigine Allergy Mild RASH Verified 09/02/23 10:37 neomycin Allergy Mild ITCHING Verified 09/02/23 10:37 WITH THE OINTMENT adhesive Allergy Unknown ALLERGIC Verified 09/02/23 10:37 TO MEDICATED STERI-STRIPS AND SOME TAPE-RASH BLISTE citalopram Allergy Unknown CAN'T Verified 09/02/23 10:37 REMEMBER celecoxib AdvReac Intermediate GI SYMPTOMS Verified 09/02/23 10:37 dichloralphenazone AdvReac Intermediate ALTERED Verified 09/02/23 10:37 [From Midrin] MENTAL STATUS isometheptene [From Midrin] AdvReac Intermediate ALTERED Verified 09/02/23 10:37 MENTAL STATUS paroxetine AdvReac Intermediate OUT OF Verified 09/02/23 10:37 BODY EXPERIENCE piperacillin AdvReac Unknown BETALACTAMASE Verified 09/02/23 10:37 INHIBITORS-UNKNOWN tazobactam AdvReac Unknown BETALACTAMASE Verified 09/02/23 10:37 INHIBITORS-UNKNOWN Home Medications Medication Instructions Recorded Confirmed Type bupropion HCl 300 mg 24 hr tablet, 300 mg PO QAM 12/12/17 09/02/23 History extended release (Wellbutrin XL) fenofibrate micronized 134 mg 134 mg PO QAM 04/16/19 09/02/23 History capsule pravastatin 10 mg tablet 10 mg PO HS #30 tabs 07/13/19 09/02/23 Rx levothyroxine 25 mcg tablet 25 mcg PO DAILYBB 09/12/19 09/02/23 History lisinopril 2.5 mg tablet 2.5 mg PO HS 04/05/20 09/02/23 History calcium carbonate 600 mg-vitamin 1 tab PO HS 01/18/21 09/02/23 History D3 20 mcg (800 unit) chewable tablet (Caltrate 600 plus D) ondansetron HCl 8 mg tablet 8 - 16 mg PO DIRECTED PRN Nausea 03/21/21 09/02/23 History anastrozole 1 mg tablet 1 mg PO HS 04/07/21 09/02/23 History clopidogrel 75 mg tablet (Plavix) 75 mg PO HS 01/31/22 09/02/23 History multivitamin 1 tab PO QAM 01/31/22 09/02/23 History quetiapine 25 mg tablet (Seroquel) 50 mg PO HS 01/31/22 09/02/23 History vitamin B complex 1 tab PO QAM 01/31/22 09/02/23 History temazepam 22.5 mg capsule 22.5 mg PO UD 07/16/22 09/02/23 History (Restoril) acetaminophen 500 mg capsule 1,000 mg PO Q6H PRN Pain 10/23/22 09/02/23 History hydroxyzine HCl 25 mg tablet 25 mg PO BID PRN Anxiety/ALLERGY 10/23/22 09/02/23 History alprazolam 0.5 mg tablet 0.5 mg PO DAILY PRN severe anxiety 02/07/23 09/02/23 History cyclobenzaprine 10 mg tablet 10 mg PO DAILY PRN Muscle Spasm 02/07/23 09/02/23 History olopatadine 0.2 % eye drops 1 drp ophthalmic (eye) DAILY PRN 02/07/23 09/02/23 History itchy eye semaglutide 0.25 mg or 0.5 mg (2 0.25 mg subcut WK 04/16/23 09/02/23 History mg/3 mL) subcutaneous pen injector (Ozempic) furosemide 20 mg tablet 20 mg PO QAM 05/04/23 09/02/23 History nitroglycerin 0.4 mg sublingual 0.4 mg sublingual Q5M PRN chest 05/13/23 09/02/23 Rx tablet pain #25 tabs gabapentin 300 mg capsule 300 mg PO TID 06/06/23 09/02/23 History colchicine 0.6 mg tablet 0.6 mg PO BID #60 tabs 07/25/23 09/02/23 Rx mirtazapine 15 mg tablet 22.5 mg PO HS 09/02/23 09/02/23 History nystatin 100,000 unit/gram topical 1 applic topical UD 09/02/23 09/02/23 History powder nystatin-triamcinolone 100,000 1 applic topical TID #30 grams 09/02/23 09/02/23 Rx unit/gram-0.1 % topical ointment terconazole 0.8 % vaginal cream 1 appful vaginal .COMPLEX #20 grams 09/02/23 09/02/23 Rx Past Med/Surg History Problem List (Updated 09/02/23 @ 22:47 by Nettie Bowen MD) Hypomagnesemia (Acute) Generalized weakness (Acute) Breast cancer, left Vulvovaginitis due to yeast Hypomagnesemia Elevated troponin (Acute) Chest pain (Acute) Elevated troponin (Acute) Chest pain (Acute) Palpitations (Acute) Near syncope (Acute) Elevated troponin Chest pain (Acute) Encounter for pre-operative examination Sensorineural hearing loss (SNHL) of left ear with unrestricted hearing of right ear Bilateral tinnitus Lobular carcinoma in situ (LCIS) of breast Arthritis Mass of soft tissue of both lower extremities Osteopenia Goiter Chronic tonsillitis Adrenal nodule Memory deficits Fibromyalgia Hypogammaglobulinemia Chronic radicular lumbar pain (Chronic) Intervertebral disc disorder (Chronic) Lung tumor (benign) Arthritis of foot Medical History 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 Gastroesophageal reflux disease hx-no issues currently Cerebrovascular disease Hypothyroidism Anxiety Diabetes mellitus Left leg pain Breast cancer (07/06/16) Tobacco abuse PTSD (post-traumatic stress disorder) Recurrent cancer of left breast Pain at surgical site Acute diverticulitis Bipolar 1 disorder Cervical pain (neck) ROM "is ok, but not quite what it should be" Hemochromatosis Vaginismus Sleep apnea no device Schizoaffective disorder Personality disorder Osteoporosis (09/05/12) Morbid obesity Menopause Lymphocytosis Invasive carcinoma of breast Depression Corneal dystrophy Chronic pain Arthralgia of multiple sites Abnormal liver function test History of chemotherapy History of anemia Esophagus disorder "narrow esophagus per pt" Diabetes mellitus Endometriosis Scoliosis History of fatty infiltration of liver Diverticular disease History of breast cancer Left 2005 and 2017 and 2017 h/o lumpectomy + chemo/radiaton Osteoarthritis TMJ (temporomandibular joint disorder) no clicking or locking PTSD (post-traumatic stress disorder) Bipolar disorder History of migraine History of TIA (transient ischemic attack) 07/2019 > no residual effects > follows with Dr. Reji NAVA (hyperlipidemia) Sacral fracture hx-2013 Surgical History History of tonsillectomy Port-A-Cath in place (01/29/23) Insertion of Right Subclavian Access Port, Removal of Left Access Port(Right) - Janet Bajwa DO Port-A-Cath in place (01/25/23) Insertion of Access Port in Left Subclavian with Fluoroscopy(Left) - Janet Bajwa, DO Hx of bilateral mastectomy 2022, [facility] for recurrent breast cancer Hx of colectomy sigmoid colectomy, 6-7 years ago Hx of bilateral cataract extraction S/P epidural steroid injection History of vascular access device removed History of breast biopsy History of laparoscopy mult History of lumpectomy of right breast benign History of lumpectomy of left breast x 2 History of appendectomy History of open reduction and internal fixation (ORIF) procedure LLE History of ankle surgery left x 6 History of colonoscopy History of bowel resection due to diverticulitis History of fracture of left ankle left tibia Family History Mother Hypertension Adrenal gland cancer Cancer Father , age 59 of lung cancer Lung cancer smoker Liver cancer Cancer Aunt Breast cancer Other Colorectal cancer No family history of adverse response to anesthesia No family history of bleeding disorder Social History Smoking Status: Current every day smoker Tobacco Type: Cigarettes packs per day: 1; Cigarettes Per Day: Pack; Second Hand Exposure: No; Do You Dip or Chew Tobacco: No; Hx Alcohol Use: No Hx Substance Use: Yes Prescribed Medications: Painkillers and Tranquilizers Non-Prescribed Medications: Marijuana Last Used Substance: Hours (ago) Last Used Substance Other:: daily at night Substance Use Type Other:: has RX for oxycodone, medical marijuana Preferred Language: Icelandic Communication Ability: Effective Visual Impairment: No Limitations Hearing Ability: Normal Toy Assembler Wood Required: No Beliefs That Will Affect Care: None marital status: Current Living Situation: Spouse Current Living Situation Comment: At home with 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al status: retired and disabled 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 Respiratory: CTA bilaterally. Non labored breathing. No rhonchi, wheezing, or crackles. Cardiovascular: RRR. No murmurs noted. No LE edema. Gastrointestinal (Abdomen): Nontender, +BS. No masses noted. Musculoskeletal: Minimal edema and erythema of DIP joint of right 5th digit Neurologic: Sensation grossly intact. No FND appreciated. Psychiatric: Speech of normal pace and content. Mood and affect congruent. Results & Data Results & Data Vital Signs (Past 12 Hours) Vital Signs Temp Pulse Pulse Resp BP BP Pulse Ox 09/02/23 17:28 88 20 95 09/02/23 17:28 95 09/02/23 17:17 93 H 17 111/73 96 09/02/23 16:54 37.0 C 85 20 111/75 98 09/02/23 16:20 97 H 09/02/23 11:36 36.3 C L 111 H 18 119/77 97 O2 Del Method 09/02/23 17:28 Room Air 09/02/23 17:28 Room Air 09/02/23 17:17 Room Air 09/02/23 16:54 Room Air 09/02/23 16:20 09/02/23 11:36 Room Air Supervising Physician Co-Signing Physician Notes During face to face encounter, I obtained a history and physical examination, discussed plan of care with patient and answered any questions. I discussed plan of care with Dr. Atwood. I reviewed above note and agree with it except for the following: Patient will be admitted under observation for vulvovaginitis. Patient will be monitored overnight. Anticipate discharge within 24-48 hours. Resident Activity Tracking Resident Involvement: Resident Care Provided Care Provided: Adult Hospital Medicine
--- NOTE | 2023-09-02 18:12 | XRay Report ---
XR hand RT 2V CLINICAL HISTORY: R pinky finger pain COMPARISON: Right third finger radiographs July 25, 2018. Right first finger radiographs November 23, 2011. FINDINGS: Alignment of the right hand is anatomic. There are no acute fractures. No bony erosions ar e identified. A pulse ox on the second finger is incidentally noted. No acute abnormality within the right fifth finger is present. There is moderate osteophytosis of the right fifth DIP joint. Mild rig ht fifth finger soft tissue swelling. IMPRESSION: 1. No acute osseous abnormality within the right hand. 2. Mild right fifth finger soft tissue swelling. Moderate osteoarthritis of the right 5th DIP joint. ACT 112: Negative or not required by law. Electronically signed by: Buddy Del Real M.D. 09/02/2023 6:10 PM
[2023-09-02 18:28] LABS: Adenovirus PCR Not Detected (NotDetected); Bordetella parapertussis PCR Not Detected (NotDetected); Bordetella pertussis PCR Not Detected (NotDetected); Chlamydia pneumoniae PCR Not Detected (NotDetected); Coronavirus 229E PCR Not Detected (NotDetected); Coronavirus CoV-2 (COVID19)PCR Not Detected (NotDetected); Coronavirus HKU1 PCR Not Detected (NotDetected); Coronavirus NL63 PCR Not Detected (NotDetected); Coronavirus OC43PCR Not Detected (NotDetected); Human Metapneumovirus PCR Not Detected (NotDetected); Influenza A PCR Not Detected (NotDetected); Influenza B PCR Not Detected (NotDetected); Mycoplasma pneumoniae PCR Not Detected (NotDetected); Parainfluenza Virus 1 PCR Not Detected (NotDetected); Parainfluenza Virus 2 PCR Not Detected (NotDetected); Parainfluenza Virus 3 PCR Not Detected (NotDetected); Parainfluenza Virus 4 PCR Not Detected (NotDetected); Respiratory Syncytial VirusPCR Not Detected (NotDetected); Rhinovirus/Enterovirus PCR Not Detected (NotDetected)
--- NOTE | 2023-09-02 18:41 | Electrocardiogram Report ---
Test Reason : Blood Pressure : / mmHG Vent. Rate : 106 BPM Atrial Rate : 106 BPM P-R Int : 134 ms QRS Dur : 074 ms QT Int : 310 ms P-R-T Axes : 066 081 033 degrees QTc Int : 411 ms Sinus tachycardia Diffuse Minor Nonspecific T wave abnormality Abnormal ECG When compared with ECG of 22-JUL-2023 20:20, HR has increased by 32 bpm Nonspecific T wave abnormality now present Confirmed by Micha Thomson ([id number]) on 09/02/2023 6:41:07 PM Referred By: Confirmed By:Micha Thomson
[2023-09-02] MEDS ORDERED: POLYETHYLENE (MIRALAX) 17 GM PACK PO PRN (19:04)
[2023-09-02] MEDS ORDERED: ONDANSETRON INJ 2 MG/ML 2 ML VIAL IV PRN (19:04)
[2023-09-02] MEDS ORDERED: IBUPROFEN 600 MG TAB PO PRN (19:16)
[2023-09-02] MEDS: FLUCONAZOLE 50 MG TAB PO ONE (19:23)
[2023-09-02] MEDS: oxyCODONE HCL IR 5 MG TAB (IMMEDIATE RELEASE) PO STA (20:47)
[2023-09-02] MEDS ORDERED: MIRTAZAPINE TAB 15 MG TAB PO SCH (21:41)
[2023-09-02] MEDS ORDERED: CYCLOBENZAPRINE HCL 10 MG TAB PO PRN (21:41)
[2023-09-02] MEDS ORDERED: NYSTATIN POWDER 15GM BTL EXT PRN (21:41)
[2023-09-02] MEDS ORDERED: HYDROCORTISONE ACETATE 25 MG SUPP PR PRN (22:18)
[2023-09-02] MEDS ORDERED: EUCERIN CR 120 GM JAR EXT PRN (22:18)
[2023-09-02] MEDS ORDERED: ARTIFICIAL TEARS OPB PRN (22:22)
[2023-09-02 22:40] VITALS: RESP 18
[2023-09-02] MEDS: ANASTROZOLE 1 MG TAB PO SCH (22:49)
[2023-09-02] MEDS: GABAPENTIN 300 MG CAP PO SCH (22:49)
[2023-09-02] MEDS: CLOPIDOGREL BISULFATE 75 MG TAB PO SCH (22:49)
[2023-09-02] MEDS: lisinopril 2.5 MG TAB PO SCH (22:50)
[2023-09-02] MEDS: PRAVASTATIN SOD 10 MG TAB PO SCH (22:50)
[2023-09-02] MEDS: QUEtiapine FUMARATE 25 MG TABLET PO SCH (22:50)
[2023-09-02] MEDS: MIRTAZAPINE TAB 15 MG TAB PO SCH (22:51)
[2023-09-02] MEDS: COLCHICINE 0.6 MG TAB PO SCH (22:52)
[2023-09-02] MEDS: oxyCODONE HCL IR 5 MG TAB (IMMEDIATE RELEASE) PO PRN (23:09)
[2023-09-02] MEDS: diphenhydrAMINE Capsule 25 MG CAP PO PRN (23:09)
[2023-09-02] MEDS: TEMAZEPAM 15 MG CAPSULE PO SCH (23:10)
[2023-09-03 00:21] LABS: Appearance Urine Cloudy (Clear); Bacteria Urine Automated 1+ (None Seen); Bilirubin Urine Negative (Negative); Blood Urine Trace (Negative); Cast Urine Automated 0-2 /lpf (0-2); Color Urine Yellow; Glucose Urine UA Negative (Negative); Ketones Urine Negative (Negative); Leukocyte Esterase Urine 3+ (Negative); Nitrite Urine Negative (Negative); Protein Urine Negative (Negative); RBC Urine Automated 0-2 /hpf (0-2); Urobilinogen Urine Negative (Negative); WBC Urine Automated >50 /hpf (0-5); pH Urine 5.5 (4.5-7.5)
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
[2023-09-03] MEDS: LEVOTHYROXINE SODIUM 25 MCG TABLET PO SCH (05:02)
[2023-09-03] MEDS: MELATONIN 3 MG TAB PO PRN (05:03)
[2023-09-03 06:27] LABS: Calcium 8.8 mg/dl (8.6-10.3); Creatinine Clr Calc Pharmacy 96.5 ml/min; Est GFR (African American) 113.5 ml/min; Hematocrit (blood only) 35.3 % (37.0-47.0); Hemoglobin 11.8 g/dl (12.0-16.0); Magnesium 1.6 mg/dl (1.7-2.4); Mean Corpuscular Hemoglobin 34.2 pg (25.0-34.0); Mean Corpuscular Hgb Conc 33.4 g/dL (32.0-36.0); Mean Corpuscular Volume 102.3 fL (80.0-100.0); Mean Platelet Volume 10.1 fL (9.4-12.4); Platelet Count 208 K/uL (130-400); Potassium 3.7 mmol/L (3.5-5.1); RDW Coefficient of Variation 12.8 % (11.5-14.5); Red Blood Count 3.45 M/uL (4.20-5.40); White Blood Count 6.42 K/ul (4.8-10.8)
[2023-09-03 07:21] VITALS: TEMP 98.2
--- NOTE | 2023-09-03 07:38 | Hospitalist Progress Note ---
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 Vulvovaginitis - per chart review, saw PCP 08/27 and was prescribed nystatin - saw banquet houseperson today who transitioned her to terazole vaginally and mycolog externally - lab work upon admission significant for WBC 10.8, Hgb 12.9, BMP WNL, Mg 1.5, trop 21.7, procal 0.03 - lyme neg, RVP pending - pt concerned for systemic infection; however, VS stable, afebrile- blood cx pending - will give diflucan 150 mg now (despite interaction of possibly prolonging her QT with her other home medications); pt may need longer course/repeat dosing based on improvement after one dose - will trend CBC tomorrow AM Right hand pain - pt notes a swollen and painful right 5th finger for the past few days; this has led pt to think she has a systemic fungal infection - right hand xray notes mild edema of right 5th digit with moderate osteoarthritis of the DIP joint - symptomatic relief with tylenol, ibuprofen, and oxycodone PRN Hypomagnesemia - 1.5 upon admission; given 1g while in the ER - will recheck with AM labs Recurrent left breast cancer - pt has had complications with treatment including myocarditis (secondary to pembrolizumab) - not in current tx; chemotherapy put on hold because of complications - pt to have lymph node reconstruction in the upcoming days/weeks - suspect pt's malaise partly attributed to ongoing cancer/cancer treatments Bipolar disorder/PTSD - continue home meds Diet: heart healthy Code: full DVT ppx: lovenox Dispo: admit to med/surg (2) Hypomagnesemia: (3) Breast cancer, left: (4) PTSD (post-traumatic stress disorder): (5) Bipolar 1 disorder: Admission and Anticipated Discharge Date Admission Date: September 02, 2023 Subjective Pt is a [] yo [] with a past medical history of [] who presents to the hospital on [] for []. Review of Systems Review of Systems: Constitutional: denies fever, chills, [] HEENT: denies congestion, sore throat Cardio: denies chest pain, palpitations Resp: denies shortness of breath, cough GI: denies abdominal pain, nausea, vomiting, constipation, diarrhea : denies pain with urination, change in urinary frequency Neuro: denies new numbness, tingling, weakness Physical Exam Physical Exam: General:Alert and oriented, no acute distress, [] HEENT: Normocephalic, moist oral mucosa, Cardio: Regular rate and rhythm, no murmur, Resp:Lungs clear to auscultation b/l, no wheezes or rhonchi, GI: Soft and nontender, nondistended, bowel sounds active Skin: Warm, pink, dry, Psych: Mood-affect congruence. Results & Data Results & Data Vital Signs (Past 12 Hours) Vital Signs Temp Pulse Resp BP Pulse Ox O2 Del Method 09/03/23 07:20 36.8 C 85 18 103/71 95 Room Air 09/02/23 21:20 Room Air 09/02/23 21:20 36.6 C 81 18 159/90 H 96 Room Air
[2023-09-03] MEDS: FUROSEMIDE 20 MG TAB PO SCH (07:49)
[2023-09-03] MEDS: FENOFIBRATE NANOCRYSTALLIZED 145 MG TABLET PO SCH (07:49)
[2023-09-03] MEDS: buPROPion XL 300 MG TABCR PO SCH (07:50)
[2023-09-03] MEDS: ENOXAPARIN INJ 40 MG/0.4 ML SYR SQ SCH (07:52)
--- NOTE | 2023-09-03 07:53 | Billing Data ---
Date of Service September 02, 2023 Coding Level of Care Code 27061 INT INP/OBS CARE
[2023-09-03] MEDS: ACETAMINOPHEN 325 MG TAB PO PRN (11:06)
--- NOTE | 2023-09-03 15:56 | Discharge Summary ---
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 Pt notes her vaginal yeast infection began 1 week ago. She saw her PCP about this and was given a powder for treatment. She was seen again by her managing broker today who gave her two different vaginal creams to use for treatment. A few days ago, the pt's right 5th digit of her right hand became painful and swollen- after doing research online, she became concerned that she has a systemic fungal infection. This prompted her to seek care today at the ER (in addition to a headache). She also notes left foot swelling/pain. She endorses some sharp, stabbing chest pain over the weekend but this has not continued. She endorses some SOB but she explains that she smokes and this is typical for her. In the ER, pt was given fentanyl 50 mcg and magnesium 1g. Admission Exam Per Admitting Provider Constitutional: NAD, vitals WNL. Respiratory: CTA bilaterally. Non labored breathing. No rhonchi, wheezing, or crackles. Cardiovascular: RRR. No murmurs noted. No LE edema. Gastrointestinal (Abdomen): Nontender, +BS. No masses noted. Musculoskeletal: Minimal edema and erythema of DIP joint of right 5th digit Neurologic: Sensation grossly intact. No FND appreciated. Psychiatric: Speech of normal pace and content. Mood and affect congruent. Principal Diagnosis Yeast infection, generalized pain Discharge Exam General:Alert and oriented, no acute distress, HEENT: Normocephalic, moist oral mucosa, Cardio: Regular rate and rhythm, no murmur, Resp:Lungs clear to auscultation b/l, no wheezes or rhonchi, GI: Soft and nontender, nondistended, bowel sounds active Skin: Warm, pink, dry, fifth digit of R hand with some mild erythema but no opening or discharge noted Discharge Data Allergies Allergy/AdvReac Type Severity Reaction Status Date / Time bacitracin Allergy Severe ITCHING/INF Verified 09/02/23 10:37 ECTION Quinolones Allergy Severe ANAPHYLAXIS/HEART Verified 09/02/23 10:37 FLUTTERING rizatriptan Allergy Severe SHORTNESS Verified 09/02/23 10:37 OF BREATH amoxicillin [From Augmentin] Allergy Intermediate Hives Verified 09/02/23 10:37 ciprofloxacin Allergy Intermediate Palpitations, Verified 09/02/23 10:37 rash, clavulanic acid Allergy Intermediate Hives Verified 09/02/23 10:37 [From Augmentin] clindamycin Allergy Intermediate Hives Verified 09/02/23 10:37 escitalopram [From Lexapro] Allergy Intermediate Hives Verified 09/02/23 10:37 nickel Allergy Intermediate SKIN Verified 09/02/23 10:37 IRRITATION ofloxacin Allergy Intermediate Rash Verified 09/02/23 10:37 polymyxin B Allergy Intermediate Hives Verified 09/02/23 10:37 silver Allergy Intermediate pruritus Verified 09/02/23 10:37 varenicline [From Chantix] Allergy Intermediate ITCHY HIVES Verified 09/02/23 10:37 lamotrigine Allergy Mild RASH Verified 09/02/23 10:37 neomycin Allergy Mild ITCHING Verified 09/02/23 10:37 WITH THE OINTMENT adhesive Allergy Unknown ALLERGIC Verified 09/02/23 10:37 TO MEDICATED STERI-STRIPS AND SOME TAPE-RASH BLISTE citalopram Allergy Unknown CAN'T Verified 09/02/23 10:37 REMEMBER celecoxib AdvReac Intermediate GI SYMPTOMS Verified 09/02/23 10:37 dichloralphenazone AdvReac Intermediate ALTERED Verified 09/02/23 10:37 [From Midrin] MENTAL STATUS isometheptene [From Midrin] AdvReac Intermediate ALTERED Verified 09/02/23 10:37 MENTAL STATUS paroxetine AdvReac Intermediate OUT OF Verified 09/02/23 10:37 BODY EXPERIENCE piperacillin AdvReac Unknown BETALACTAMASE Verified 09/02/23 10:37 INHIBITORS-UNKNOWN tazobactam AdvReac Unknown BETALACTAMASE Verified 09/02/23 10:37 INHIBITORS-UNKNOWN Consultations 09/02/23 17:23 ED Decision to Admit Stat Hospital Course (1) Vulvovaginitis due to yeast: (2) Hypomagnesemia: (3) Breast cancer, left: (4) PTSD (post-traumatic stress disorder): (5) Bipolar 1 disorder: Plan Pt is a 62 yo female with PMH of recurrent breast cancer last treatment in June and paused since due to complications, hx 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 Vulvovaginitis - per chart review, saw PCP 08/27 and was prescribed nystatin, then saw top steep tender yesterday who transitioned her to terazole vaginally and mycolog externally - lab work upon admission significant for WBC 10.8, procal 0.03 - pt concerned for systemic infection; however, VS stable, afebrile- blood cx negative - given one dose Diflucan on 09/01, will do 2 more doses q72 hours each dose - blood cx negative at 24 hours, if later the cultures turns up positive I will call pt Generalized pain Right hand pain - pt notes a swollen and painful right 5th finger for the past few days; this has led pt to think she has a systemic fungal infection - right hand xray notes mild edema of right 5th digit with moderate osteoarthritis of the DIP joint - also noted to have pain all over at different times - symptomatic relief with tylenol, ibuprofen, and oxycodone PRN while inpatient - patient should follow-up with pcp about chronic pain Recurrent left breast cancer - pt has had complications with treatment including myocarditis (secondary to pembrolizumab) - not in current tx; chemotherapy put on hold because of complications - pt to have lymph node reconstruction September 18 - suspect pt's malaise partly attributed to ongoing cancer/cancer treatments Total Time Total Time Spent Total Time Spent (In Minutes): As per attending attestation Discharge Plan Discharge Items Patient Disposition: Home - Self-Care Reason For Visit: GENERALIZED PAIN Discharge Diagnosis: Vulvovaginitis, generalized pain Activity: Per Instructions section Non-emergency contact: Primary Care Provider Call non-emergency contact if: you have any medication questions, your symptoms worsen, your pain is not controlled, your pain is worsening and your temperature is above 101 Follow-up/Referrals: Justice Madera [Primary Care Provider] - Diet: Regular Addtl Attending Provider Instructions: You were admitted to the hospital for further evaluation of a yeast infection and generalized pain. We apolinar blood cultures to assess if you could be having an infection in your blood along with your known yeast infection, which has not shown any growth at 24 hours. This is largely reassuring and while growth can still happen in the coming days as the culture finalizes, a negative result at 24 hours makes this very unlikely (although not impossible). If the culture does end up growing something, we will give you a call to let you know and let you know the course of action to take care of it. In the meantime, we will continue to treat the yeast infection. This therapy involves 3 doses of diflucan 72 hours apart. Your first dose was given last night on 09/01, so your next dose would be the evening of 09/04, and the last dose would then be the evening of 09/07. We have sent the last two doses to your pharmacy. 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 Pending Studies at Discharge: No Stand-Alone Forms: My [facility] Intense, Smoking Cessation Medications and DC Order Prescriptions: New fluconazole 150 mg tablet 150 mg PO Q3D Qty: 2 0RF Rx Instructions: Please take first dose on 09/04 and second dose on 09/07. Continued bupropion HCl [Wellbutrin XL] 300 mg tablet extended release 24 hr 300 mg PO QAM Caltrate 600 plus D 600 mg (1,500 mg)-800 unit tablet,chewable 1 tab PO HS gabapentin 300 mg capsule 300 mg PO TID lisinopril 2.5 mg tablet 2.5 mg PO HS acetaminophen 500 mg capsule 1,000 mg PO Q6H PRN (Reason: Pain) hydroxyzine HCl 25 mg tablet 25 mg PO BID PRN (Reason: Anxiety/ALLERGY) ondansetron HCl 8 mg tablet 8 - 16 mg PO DIRECTED PRN (Reason: Nausea) anastrozole 1 mg tablet 1 mg PO HS colchicine 0.6 mg tablet 0.6 mg PO BID Qty: 60 2RF nystatin-triamcinolone 100,000-0.1 unit/gram-% ointment 1 applic topical TID Qty: 30 1RF terconazole 0.8 % cream 1 appful vaginal .COMPLEX Qty: 20 0RF Rx Instructions: 1 appful vaginally one applicator vaginally at night for 7 days.; pravastatin 10 mg tablet 10 mg PO HS Qty: 30 0RF fenofibrate micronized 134 mg capsule 134 mg PO QAM levothyroxine 25 mcg Tablet 25 mcg PO DAILYBB multivitamin Tablet 1 tab PO QAM quetiapine [Seroquel] 25 mg tablet 50 mg PO HS clopidogrel [Plavix] 75 mg Tablet 75 mg PO HS Hold Instructions: Resume on 01/28/23. you may resume this on saturday vitamin B complex Tablet 1 tab PO QAM temazepam [Restoril] 22.5 mg capsule 22.5 mg PO UD Rx Instructions: original: 22.5 po hs fill history shows 30 mg cyclobenzaprine 10 mg tablet 10 mg PO DAILY PRN (Reason: Muscle Spasm) alprazolam 0.5 mg tablet 0.5 mg PO DAILY PRN (Reason: severe anxiety) olopatadine 0.2 % Drops 1 drp OPHTHALMIC (EYE) DAILY PRN (Reason: itchy eye) furosemide 20 mg tablet 20 mg PO QAM mirtazapine 15 mg tablet 22.5 mg PO HS nystatin 100,000 unit/gram powder 1 applic TOPICAL UD Ozempic 0.25 mg or 0.5 mg (2 mg/3 mL) pen injector 0.25 mg SUBCUT WK Rx Instructions: WEDNESDAYS nitroglycerin 0.4 mg tablet, sublingual 0.4 mg sublingual Q5M PRN (Reason: chest pain) Qty: 25 2RF Discharge Orders: Discharge Order (Routine); Ordered 09/03/23 Ordered By: Margy Blackman Admission Data Admit Date/Time: 09/02/23 19:05 Attending Provider: Hortensia Lu Admit Provider: Pastora Atwood Primary Care Provider: Justice Madera Other Providers: Brennen Bass Other Interventions: Discharge Summary Assessment (RN) Last Done: 09/03/23 16:07 Supervising Physician Co-Signing Physician Notes Attending Physician Supervision Note: I independently interviewed and examined the patient and verified the kelly history and physical, reviewed labs and image studies and agree with findings and care plan noted above. Resident Activity Tracking Resident Involvement: Resident Care Provided Care Provided: Adult Hospital Medicine
[2023-09-03 16:59] VITALS: BP 136/86; PULSE 91; O2SAT 96
== END 2023-09-03 18:10 | disposition home or self-care (01) ==
LOC: 3W 11:32 → ED 11:32 → SUATTDRO 19:05 → 3W 09-03 00:36